=== PATIENT | male | born 1940 | race Caucasian/White ===

== ENCOUNTER → 2023-10-19 | Outpatient (CLI) | payer MEDICARE ==
[2023-10-19 13:16] LABS: African American GFR (CKD) 69 (>60 ml/min/1.73 sqM); Blood Urea Nitrogen 18 mg/dL (9-20); Non-African American GFR(CKD) 60 (>60 ml/min/1.73 sqM)
--- NOTE | 2023-10-24 14:18 | CT ---
EXAMINATION TYPE: CT chest w con DATE OF EXAM: 10/19/2023 COMPARISON: None HISTORY: Other forms of dyspnea CT DLP: 629 mGycm Automated exposure control for dose reduction was used. CONTRAST: CT scan of the chest is performed with IV Contrast, patient injected with 80 mL of Isovue 300. FINDINGS: LUNGS: The lungs are grossly clear, there is no concerning parenchymal mass or nodule identified. T here is no pleural effusion or pneumothorax seen. The tracheobronchial tree is patent. MEDIASTINUM: There are no greater than 1 cm hilar or mediastinal lymph nodes. No pericardial effusi on is seen. Thoracic aorta is of normal caliber. The heart is not enlarged. UPPER ABDOMEN: No significant abnormality appreciated. OTHER: No additional significant abnormality is seen. IMPRESSION: COPD changes
== END | disposition home or self-care (01) ==
LOC: RADCTMAIN 12:29
PROVIDERS: ATTEND Internal Medicine Critical Care Medicine
DX: I25.10 Atherosclerotic heart disease of native coronary artery without angina pectoris (principal); R06.09 Other forms of dyspnea
CPT/HCPCS: 82565; 84520; 71260; 36415; Q9967

== ENCOUNTER 2024-07-02 21:48 | Inpatient (IN) | payer MEDICARE ==
[2024-07-02 22:20] LABS: Basophils % (A) 0 %; Eosinophils % (A) 0 %; HCT 38.4 % (39.0-53.0); HGB 12.4 gm/dL (13.0-17.5); Lymphocytes # (A) 0.5 k/uL (1.0-4.8); Lymphocytes % (A) 10 %; MCH 30.2 pg (25.0-35.0); MCHC 32.4 g/dL (31.0-37.0); MCV 93.1 fL (80.0-100.0); Mean Platelet Volume 9.1; Monocytes # (A) 0.1 k/uL (0-1.0); Monocytes % (A) 2 %; Neutrophils # (A) 4.7 k/uL (1.3-7.7); Neutrophils % (A) 87 %; Platelet Count 189 k/uL (150-450); RBC 4.13 m/uL (4.30-5.90); RDW 13.1 % (11.5-15.5); WBC 5.4 k/uL (3.8-10.6)
[2024-07-02 22:38] LABS: ALT 26 U/L (4-49); African American GFR (CKD) 80 (>60 ml/min/1.73 sqM); Anion Gap 12 mmol/L; Blood Urea Nitrogen 27 mg/dL (9-20); Calcium 9.3 mg/dL (8.4-10.2); Carbon Dioxide 21 mmol/L (22-30); Chloride 102 mmol/L (98-107); Glucose 222 mg/dL (74-99); Non-African American GFR(CKD) 69 (>60 ml/min/1.73 sqM); Sodium 135 mmol/L (137-145); Total Bilirubin 0.9 mg/dL (0.2-1.3)
[2024-07-02 22:40] LABS: AST 46 U/L (17-59); Albumin 4.5 g/dL (3.5-5.0); Alkaline Phosphatase 51 U/L (38-126); Potassium 4.9 mmol/L (3.5-5.1); Total Protein 7.8 g/dL (6.3-8.2)
--- NOTE | 2024-07-03 01:36 | ED ---
Chest Pain HPI - General Chief Complaint: Chest Pain Stated Complaint: NSTEMI Time Seen by Provider: 07/02/24 21:55 Source: patient, EMS Mode of arrival: EMS Limitations: no limitations - History of Present Illness Initial Comments: 83-year-old male with past medical history of hypertension, hyperlipidemia, coronary disease with 1 stent who presents emergency department as a transfer from [facility]. Patient went in there complaining of chest pain. He had an elevated Trope. 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 Pain was located on the left side and into his left shoulder. Dull and started around 130 today. He does admit to shortness of breath however this has been going on for the past several months. Patient is not on any anticoagulation. No leg swelling. Patient's Trope was 97 at the outside facility which was high- sensitivity. Chest x-ray demonstrated no acute process. no other alleviating, precipitating or modifying factors - Related Data Home Medications Medication Instructions Recorded Confirmed Aspirin EC [Ecotrin Low Dose] 81 mg PO DAILY 07/03/24 07/03/24 Atorvastatin [Lipitor] 40 mg PO DAILY 07/03/24 07/03/24 Ezetimibe [Zetia] 10 mg PO DAILY 07/03/24 07/03/24 Finasteride [Proscar] 5 mg PO DAILY 07/03/24 07/03/24 Metoprolol Tartrate [Lopressor] 25 mg PO DAILY 07/03/24 07/03/24 Naproxen Sodium [Aleve] 440 mg PO BID PRN 07/03/24 07/03/24 lisinopriL [Zestril] 10 mg PO DAILY 07/03/24 07/03/24 Allergies Allergy/AdvReac Type Severity Reaction Status Date / Time No Known Allergies Allergy Verified 07/03/24 07:47 Review of Systems ROS Statement: Those systems with pertinent positive or pertinent negative responses have been documented in the HPI. ROS Other: All systems not noted in ROS Statement are negative. Past Medical History Past Medical History: Hyperlipidemia, Hypertension History of Any Multi-Drug Resistant Organisms: None Reported Past Surgical History: Heart Catheterization With Stent, Hernia Repair Additional Past Surgical History / Comment(s): heart stent x 1 Past Psychological History: No Psychological Hx Reported Smoking Status: Former smoker Past Alcohol Use History: Occasional Past Drug Use History: None Reported - Past Family History Mother Family Medical History: Cancer Additional Family Medical History / Comment(s): breast CA Father Family Medical History: CVA/TIA Brother(s) Family Medical History: Cancer, Myocardial Infarction ([place]) General Exam Limitations: no limitations General appearance: alert, in no apparent distress Head exam: Present: atraumatic, normocephalic, normal inspection Eye exam: Present: normal appearance, PERRL, EOMI. Absent: scleral icterus, conjunctival injection, periorbital swelling ENT exam: Present: normal exam, mucous membranes moist Neck exam: Present: normal inspection. Absent: tenderness, meningismus, lymphadenopathy Respiratory exam: Present: normal lung sounds bilaterally. Absent: respiratory distress, wheezes, rales, rhonchi, stridor Cardiovascular Exam: Present: regular rate, normal rhythm, normal heart sounds. Absent: systolic murmur, diastolic murmur, rubs, gallop, clicks GI/Abdominal exam: Present: soft, normal bowel sounds. Absent: distended, tenderness, guarding, rebound, rigid Extremities exam: Present: normal inspection, full ROM, normal capillary refill. Absent: tenderness, pedal edema, joint swelling, calf tenderness Back exam: Present: normal inspection Neurological exam: Present: alert, oriented X3, CN II-XII intact Psychiatric exam: Present: normal affect, normal mood Skin exam: Present: warm, dry, intact, normal color. Absent: rash Course Vital Signs 07/02/24 07/02/24 07/03/24 21:50 23:30 02:00 Temperature 98.8 F 98.5 F Pulse Rate 92 93 85 Respiratory 18 24 12 Rate Blood Pressure 173/85 156/87 154/90 O2 Sat by Pulse 99 98 98 Oximetry 07/03/24 07/03/24 07/03/24 04:00 06:00 07:34 Temperature 98.2 F Pulse Rate 75 73 73 Respiratory 17 19 18 Rate Blood Pressure 135/78 144/84 145/86 O2 Sat by Pulse 97 97 Oximetry 07/03/24 07/03/24 07/03/24 09:30 11:00 14:04 Temperature 97.6 F 98.6 F Pulse Rate 63 68 66 Respiratory 16 18 18 Rate Blood Pressure 142/76 140/83 133/72 O2 Sat by Pulse 99 98 99 Oximetry Chest Pain MDM - MDM Was pt. sent in by a medical professional or institution (, ISELA, HAND GRINDER, urgent care, hospital, or prison...) When possible be specific @ -Patient sent in from [facility] Did you speak to anyone other than the patient for history (EMS, parent, family, police, friend...)? What history was obtained from this source @ -I spoke with transferring physician from her [facility] Did you review nursing and triage notes (agree or disagree)? Why? @ -I reviewed and agree with nursing and triage notes Were old charts reviewed (outside hosp., previous admission, EMS record, old EKG, old radiological studies, urgent care reports/EKG's, prison records)? Report findings @ -I reviewed the packet including laboratory studies from other [facility] Differential Diagnosis (chest pain, altered mental status, abdominal pain women, abdominal pain men, vaginal bleeding, weakness, fever, dyspnea, syncope, headache, dizziness, GI bleed, back pain, seizure, CVA, palpatations, mental health, musculoskeletal)? @ -Differential Chest Pain: Stable Angina, Unstable Angina, STEMI, NSTEMI Aortic Dissection, Pneumothorax, Musculoskeletal, Esophageal Spasm GERD, Cholecystitis, Pancreatitis, Zoster, this is not meant to be an all-inclusive list. EKG interpreted by me (3pts min.). @ -Yes and demonstrates sinus rhythm with a rate of 97. AL interval 210. QRS 82. QTc of 373. No acute ST segment elevations. Inverted T wave in lead III X-rays interpreted by me (1pt min.). @ -None done CT interpreted by me (1pt min.). @ -None done U/S interpreted by me (1pt. min.). @ -None done What testing was considered but not performed or refused? (CT, X-rays, U/S, labs)? Why? @ -None What meds were considered but not given or refused? Why? @ -None Did you discuss the management of the patient with other professionals (professionals i.e. ISELA Burris, HAND GRINDER, lab, RT, psych nurse, social worker psychiatric, community specialist, teacher, security public safety officer, human services case manager)? Give summary @ -Paged Dr. Vann for admission - awaiting callback Was smoking cessation discussed for >3mins.? @ -No Was critical care preformed (if so, how long)? @ -Yes, 35 minutes for NSTEMI management Were there social determinants of health that impacted care today? How? (Homelessness, low income, unemployed, alcoholism, drug addiction, transportation, low edu. Level, literacy, decrease access to med. care, custodial, rehab)? @ -No Was there de-escalation of care discussed even if they declined (Discuss DNR or withdrawal of care, Hospice)? DNR status @ -No What co-morbidities impacted this encounter? (DM, HTN, Smoking, COPD, CAD, C ancer, CVA, ARF, Chemo, Hep., AIDS, mental health diagnosis, sleep apnea, morbid obesity)? @ -Coronary artery disease Was patient admitted / discharged? Hospital course, mention meds given and route, prescriptions, significant lab abnormalities, going to OR and other pertinent info. @ -Upon arrival patient seen and evaluated in room 5. Thorough history and physical exam was performed. I did review the patient's transfer packet. I did reorder the heparin on the patient. Troponin was completed and is elevated. Patient will be admitted. I did page Dr. Vann for admission and I am awaiti ng callback at this time Undiagnosed new problem with uncertain prognosis? @ -No Drug Therapy requiring intensive monitoring for toxicity (Heparin, Nitro, Insulin, Cardizem)? @ -Heparin Were any procedures done? @ -No Diagnosis/symptom? @ -Acute chest pain, NSTEMI Acute, or Chronic, or Acute on Chronic? @ -Acute Uncomplicated (without systemic symptoms) or Complicated (systemic symptoms)? @ -Complicated Side effects of treatment? @ -No Exacerbation, Progression, or Severe Exacerbation? @ -No Poses a threat to life or bodily function? How? (Chest pain, [place], [place], pneumonia, PE, COPD, DKA, ARF, appy, cholecystitis, CVA, Diverticulitis, Homicidal, Suicidal, threat to staff... and all critical care pts) @ -Yes as patient does have elevated troponins Disposition Clinical Impression: Chest pain, Acute non-ST elevation myocardial infarction (NSTEMI) Disposition[facility] Condition: Stable Is patient prescribed a controlled substance at d/c from ED?: No Time of Disposition: 01:40 Decision to Admit Reason: Admit from EC Decision Date: 07/03/24 Decision Time: 01:40
[2024-07-03] MEDS ORDERED: NALOXONE 0.4 MG/ML 1 ML VIAL IV PRN (01:40)
[2024-07-03] MEDS ORDERED: MORPHINE SULFATE 4 MG/ML SYRINGE IV PRN (01:40)
[2024-07-03] MEDS: HEPARIN SOD,PORK IN 0.45% NACL 25,000 UNIT in 0.45% NACL 1 250ML.BAG IV SCH (02:24)
[2024-07-03] MEDS ORDERED: ALPRAZolam 0.25 MG TAB PO PRN (07:52)
[2024-07-03] MEDS ORDERED: NITROGLYCERIN SL TABS 0.4 MG TAB SUBLINGUAL PRN (07:52)
[2024-07-03] MEDS: ASPIRIN 325 MG TAB PO STA (08:44)
[2024-07-03] MEDS: METOPROLOL TARTRATE 25 MG TAB PO SCH (08:44)
[2024-07-03] MEDS: EZETIMIBE 10 MG TAB PO SCH (08:44)
[2024-07-03] MEDS: lisinopriL 10 MG TAB PO SCH (08:45)
[2024-07-03] MEDS: ATORVASTATIN 80 MG TAB PO STA (08:47)
[2024-07-03] MEDS: SODIUM CHLORIDE 0.9% 1,000 ML IV SCH (08:51)
[2024-07-03] MEDS: HEPARIN SODIUM 1,000 UN/ML (10ML VL) IV PRN (09:29)
--- NOTE | 2024-07-03 10:24 | P.HPIM ---
History of Present Illness 83-year-old male with known history of coronary artery disease with stents long time ago came with complaints of chest pressure-like sensation. Patient was also having shortness of breath exertional for the several months. Patient had a troponins are elevated with hospital being 0.192, 0.607, 0.687. EKG showed some nonspecific ST-T wave changes patient is on IV heparin drip at this time I do not have any chest x-ray available. Patient not requiring any oxygen. REVIEW OF SYSTEMS: All other systems are negative except those mentioned in the HPI PHYSICAL EXAMINATION: GENERAL: The patient is alert and oriented x3, not in any acute distress. Well developed, well nourished. HEENT: Pupils are round and equally reacting to light. EOMI. No scleral icterus. No conjunctival pallor. Normocephalic, atraumatic. No pharyngeal erythema. No thyromegaly. CARDIOVASCULAR: S1 and S2 present. No murmurs, rubs, or gallops. PULMONARY: Chest is clear to auscultation, no wheezing or crackles. ABDOMEN: Soft, nontender, nondistended, normoactive bowel sounds. No palpable organomegaly. MUSCULOSKELETAL: No joint swelling or deformity. EXTREMITIES: No cyanosis, clubbing, or pedal edema. NEUROLOGICAL: Gross neurological examination did not reveal any focal deficits. SKIN: No rashes. Assessment and plan Possible type I non-ST elevation IL: Patient is on IV heparin drip, patient will undergo cardiac authorization today, continue with beta-rolando statin lisinopril -Hypertension -Plan prostatic hypertrophy -Hyperlipidemia For above-mentioned chronic medical problems patient was resumed on appropriate home medications DVT prophylaxis: On IV heparin at this time Past Medical History Past Medical History: Hyperlipidemia, Hypertension History of Any Multi-Drug Resistant Organisms: None Reported Past Surgical History: Heart Catheterization With Stent, Hernia Repair Additional Past Surgical History / Comment(s): heart stent x 1 Past Psychological History: No Psychological Hx Reported Smoking Status: Former smoker Past Alcohol Use History: Occasional Past Drug Use History: None Reported Medications and Allergies Home Medications Medication Instructions Recorded Confirmed Type Aspirin EC [Ecotrin Low Dose] 81 mg PO DAILY 07/03/24 07/03/24 History Atorvastatin [Lipitor] 40 mg PO DAILY 07/03/24 07/03/24 History Ezetimibe [Zetia] 10 mg PO DAILY 07/03/24 07/03/24 History Finasteride [Proscar] 5 mg PO DAILY 07/03/24 07/03/24 History Metoprolol Tartrate [Lopressor] 25 mg PO DAILY 07/03/24 07/03/24 History Naproxen Sodium [Aleve] 440 mg PO BID PRN 07/03/24 07/03/24 History lisinopriL [Zestril] 10 mg PO DAILY 07/03/24 07/03/24 History Allergies Allergy/AdvReac Type Severity Reaction Status Date / Time No Known Allergies Allergy Verified 07/03/24 07:47 Physical Exam Vitals: Vital Signs Temp Pulse Resp BP Pulse Ox 07/03/24 09:30 63 16 142/76 99 07/03/24 07:34 98.2 F 73 18 145/86 07/03/24 06:00 73 19 144/84 97 07/03/24 04:00 75 17 135/78 97 07/03/24 02:00 85 12 154/90 98 07/02/24 23:30 98.5 F 93 24 156/87 98 07/02/24 21:50 98.8 F 92 18 173/85 99 Intake and Output 07/02/24 07/03/24 07/03/24 22:59 06:59 14:59 Intake Total 71.333 Balance 71.333 Intake: Intake, IV Titration 71.333 Amount Heparin Sod,Pork in 0.45% 71.333 NaCl 25,000 unit In 0.45 % NaCl 1 250ml.bag @ 10. 65 UNITS/KG/HR 10 mls/hr IV .Q24H [facility] Rx#: [id number] Other: Weight 93.894 kg Results CBC & Chem 7: 07/02/24 21:57 07/02/24 21:57 Labs: Abnormal Lab Results - Last 24 Hours (Table) 07/02/24 07/02/24 07/02/24 Range/Units 21:57 21:57 21:57 RBC 4.13 L (4.30-5.90) m/uL Hgb 12.4 L (13.0-17.5) gm/dL Hct 38.4 L (39.0-53.0) % Lymphocytes # 0.5 L (1.0-4.8) k/uL APTT (22.0-30.0) sec Sodium 135 L (137-145) mmol/L Carbon Dioxide 21 L (22-30) mmol/L BUN 27 H (9-20) mg/dL Glucose 222 H (74-99) mg/dL Troponin I 0.192 H* (0.000-0.034) ng/mL 07/03/24 07/03/24 07/03/24 Range/Units 03:04 06:50 06:50 RBC (4.30-5.90) m/uL Hgb (13.0-17.5) gm/dL Hct (39.0-53.0) % Lymphocytes # (1.0-4.8) k/uL APTT 20.0 L (22.0-30.0) sec Sodium (137-145) mmol/L Carbon Dioxide (22-30) mmol/L BUN (9-20) mg/dL Glucose (74-99) mg/dL Troponin I 0.607 H* 0.687 H* (0.000-0.034) ng/mL
[2024-07-03] MEDS: FINASTERIDE 5 MG TAB PO SCH (11:21)
--- NOTE | 2024-07-03 12:01 | P.CRDCN ---
History of Present Illness Consult date: 07/03/24 Reason for Consult (text): Acute chest pain, NSTEMI History of present illness: This is an 83-year-old male patient of Dr. Ramirez with past medical history of CAD status post angioplasty of the right coronary artery, hypertension, dyslipidemia. We have been asked to evaluate the patient for chest pain and NSTEMI. Patient gives history that he developed chest pain in the left upper chest went into the left shoulder blade area and also down to the left arm. He states it last for a while. He thought it was related to getting sap from the t carol. He states that started yesterday in the early afternoon and then gradually went away but came back around 4 PM much more severe. Blood pressure 145/86, heart rate 73, pulse ox 97% on room air. Patient is seen today in the emergency center waiting for a bed on the cardiac stepdown unit. Dr. Peña reviewed results of the testing and recommendations for cardiac catheterization and patient is willing to move forward with this today. -EKG: Sinus rhythm with sinus arrhythmia -Laboratory studies: WBC 5.4, hemoglobin 12.4, BUN 27 creatinine 1.01 and potassium 4.9. Troponin 0.192, 0.60, 0.687. -Home cardiac medications: Aspirin 81 mg daily, atorvastatin 40 mg daily, Zetia 10 mg daily, lisinopril 10 mg daily, metoprolol tartrate 25 mg daily. -Echocardiogram performed in the office on 07/10/2023 revealed EF of 50%, grade 2 diastolic dysfunction, moderate concentric left ventricular hypertrophy. Aortic valve is thickened and calcified. Mild mitral regurgitation. Mild tricuspid regurgitation. PASP 20 mmHg. -Lexiscan Cardiolite stress test performed in the office 05/11/2022: Negative stress test by EKG criteria. Normal myocardial perfusion and function. -Cardiac catheterization performed in 2004 revealed minimal CAD. Previous PCI performed in 1997. Review Of Systems: At the time of my exam: CONSTITUTIONAL: Denies fever or chills. HEENT: Denies blurred vision, vision changes, or eye pain. Denies hemoptysis CARDIOVASCULAR: Denies chest pain. Denies orthopnea. Denies PND. Denies palpitations RESPIRATORY: Denies shortness of breath. GASTROINTESTINAL: Denies abdominal pain. Denies nausea or vomiting. HEMATOLOGIC: Denies bleeding disorders. GENITOURINARY: Denies any blood in urine. SKIN: Denies puritis. Denies rash. Physical examination: Gen: This is an 83-year-old male appears to be in no acute distress VS: reviewed HEENT: Head is atraumatic, normocephalic. Pupils equal, round. Sclerae is anicteric. NECK: Supple. No JVD. LUNGS: Clear to auscultation. No wheezes or rhonchi. No intercostal retractions. HEART: Regular rate and rhythm. No murmur. ABDOMEN: Soft No tenderness. EXTREMITIES: No pedal edema. No calf tenderness. NEUROLOGICAL: Patient is awake, alert and oriented x3. Assessment: NSTEMI History of coronary artery disease with previous angioplasty of the right coronary artery in 1997 Hypertension Dyslipidemia Plan: Resume patient's home cardiac medications Start patient on heparin drip Schedule patient for cardiac catheterization today with Dr. Mariana Yost. Obtain 2-D echocardiogram and Doppler study to assess cardiac structure and function Further recommendations to follow based upon clinical course Thank you kindly for this consultation. Nurse practitioner note has been reviewed, I agree with documented findings and plan of care. Patient was seen and examined. Past Medical History Past Medical History: Hyperlipidemia, Hypertension History of Any Multi-Drug Resistant Organisms: None Reported Past Surgical History: Heart Catheterization With Stent, Hernia Repair Additional Past Surgical History / Comment(s): heart stent x 1 Past Psychological History: No Psychological Hx Reported Smoking Status: Former smoker Past Alcohol Use History: Occasional Past Drug Use History: None Reported Medications and Allergies Home Medications Medication Instructions Recorded Confirmed Type Aspirin EC [Ecotrin Low Dose] 81 mg PO DAILY 07/03/24 07/03/24 History Atorvastatin [Lipitor] 40 mg PO DAILY 07/03/24 07/03/24 History Ezetimibe [Zetia] 10 mg PO DAILY 07/03/24 07/03/24 History Finasteride [Proscar] 5 mg PO DAILY 07/03/24 07/03/24 History Metoprolol Tartrate [Lopressor] 25 mg PO DAILY 07/03/24 07/03/24 History Naproxen Sodium [Aleve] 440 mg PO BID PRN 07/03/24 07/03/24 History lisinopriL [Zestril] 10 mg PO DAILY 07/03/24 07/03/24 History Allergies Allergy/AdvReac Type Severity Reaction Status Date / Time No Known Allergies Allergy Verified 07/03/24 07:47 Physical Exam Vitals: Vital Signs Temp Pulse Resp BP Pulse Ox 07/03/24 07:34 98.2 F 73 18 145/86 07/03/24 06:00 73 19 144/84 97 07/03/24 04:00 75 17 135/78 97 07/03/24 02:00 85 12 154/90 98 07/02/24 23:30 98.5 F 93 24 156/87 98 07/02/24 21:50 98.8 F 92 18 173/85 99 Intake and Output 07/02/24 07/03/24 07/03/24 22:59 06:59 14:59 Other: Weight 93.894 kg Results 07/02/24 21:57 07/02/24 21:57 Cardiac Enzymes 07/02/24 07/02/24 07/03/24 Range/Units 21:57 21:57 03:04 AST 46 (17-59) U/L Troponin I 0.192 H* 0.607 H* (0.000-0.034) ng/mL 07/03/24 Range/Units 06:50 AST (17-59) U/L Troponin I 0.687 H* (0.000-0.034) ng/mL Coagulation 07/02/24 07/03/24 Range/Units 21:57 06:50 APTT 25.9 20.0 L (22.0-30.0) sec CBC 07/02/24 Range/Units 21:57 WBC 5.4 (3.8-10.6) k/uL RBC 4.13 L (4.30-5.90) m/uL Hgb 12.4 L (13.0-17.5) gm/dL Hct 38.4 L (39.0-53.0) % Plt Count 189 (150-450) k/uL Comprehensive Metabolic Panel 07/02/24 Range/Units 21:57 Sodium 135 L (137-145) mmol/L Potassium 4.9 (3.5-5.1) mmol/L Chloride 102 (98-107) mmol/L Carbon Dioxide 21 L (22-30) mmol/L BUN 27 H (9-20) mg/dL Creatinine 1.01 (0.66-1.25) mg/dL Glucose 222 H (74-99) mg/dL Calcium 9.3 (8.4-10.2) mg/dL AST 46 (17-59) U/L ALT 26 (4-49) U/L Alkaline Phosphatase 51 (38-126) U/L Total Protein 7.8 (6.3-8.2) g/dL Albumin 4.5 (3.5-5.0) g/dL Current Medications Generic Name Dose Route Start Last Admin Trade Name Freq PRN Reason Stop Dose Admin Heparin Sodium (Porcine) 0 unit 07/03/24 01:34 Heparin Sodium 1,000 Un/Ml (10ml Vl) IV PER PROTOCOL PRN Low PTT Protocol Heparin Sodium/Sodium Chloride 250 mls @ 10 mls/hr 07/03/24 01:45 07/03/24 02:24 25,000 unit/ Sodium Chloride IV 10.65 units/kg/hr .Q24H JAE 10 mls/hr Administration Protocol 10.65 UNITS/KG/HR Morphine Sulfate 4 mg 07/03/24 01:40 Morphine Sulfate 4 Mg/Ml Syringe IV Q4HR PRN Severe Pain (Scale 7 to 10) Naloxone HCl 0.2 mg 07/03/24 01:40 Naloxone 0.4 Mg/Ml 1 Ml Vial IV Q2M PRN Opioid Reversal Intake and Output 07/02/24 07/03/24 07/03/24 22:59 06:59 14:59 Other: Weight 93.894 kg 07/02/24 21:57 07/02/24 21:57
[2024-07-03 14:00] LABS: Glucose,Whole Blood 117 mg/dL (70-110)
[2024-07-03] MEDS: IV FLUID CONTINUATION 1,000 ML IV ONE (14:14)
[2024-07-03] MEDS: LIDOCAINE 1% INJ 10MG/ML (20 ML MDV) SQ ONE (14:30)
[2024-07-03] MEDS: VERAPAMIL SYRINGE (5 MG/10 ML) INTRAARTER ONE (14:32)
[2024-07-03] MEDS: MIDAZOLAM 2 MG/2 ML VIAL IVP ONE (14:35)
[2024-07-03] MEDS: fentaNYL (PF) 50 MCG/ML 2 ML AMP IVP ONE (14:35)
[2024-07-03] MEDS: HEPARIN SODIUM,PORCINE (1 ML) 2,500 UNIT in SODIUM CHLORIDE 0.9% 250 ML IRRIGATION PRN (14:36)
[2024-07-03] MEDS: HEPARIN SODIUM,PORCINE 10,000 UNIT in SODIUM CHLORIDE 0.9% 1,000 ML IRRIGATION PRN (14:36)
[2024-07-03] MEDS: IOPAMIDOL-370 100ML BTL INJ ONE (14:42)
[2024-07-03] MEDS ORDERED: RX INFO: IV CONTRAST WAS GIVEN 1 EACH MISC MISCELLANE PRN (14:47)
--- NOTE | 2024-07-03 16:51 | P.GSCN ---
History of Present Illness Consult date: 07/03/24 Reason for Consult: Coronary artery disease, non-STEMI Requesting physician: Angeles Orellana History of present illness: This is an 83-year-old gentleman who follows outpatient with Dr. Garcia for internal medicine and Dr. Peña for cardiology. He has a previous medical history of coronary artery disease with previous PCI of the RCA in 1997, hypertension, hyperlipidemia, BPH, osteoarthritis, and previous tobacco d ependence. Apparently he has been experiencing intermittent episodes of chest pain radiating to his left arm for a couple of weeks. 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 He did take 3 sublingual nitro at home and family recommended he report to the emergency room for evaluation and treatment initially he started off at [facility], his troponins were found to be elevated and he was transferred to [facility] for evaluation. Lab work on admission revealed hemoglobin 12.4, creatinine 1.01, troponins were elevated at 0.192 increasing to 0.687. EKG demonstrated sinus rhythm with first-degree AV block and T wave inversions in leads III, aVF, V1 and V6. She was taken to the [facility] by Dr. Ramirez revealing triple-vessel coronary artery disease. Because of these findings consultation was placed to cardiothoracic surgery for surgical revascularization recommendations. 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 Past Anesthesia/Blood Transfusion Reactions: No Reported Reaction Date of Last Stent Placement:: 1997 stent placed Past Psychological History: No Psychological Hx Reported Smoking Status: Former smoker Past Alcohol Use History: Occasional Past Drug Use History: None Reported - Past Family History Mother Family Medical History: Cancer Additional Family Medical History / Comment(s): breast CA Father Family Medical History: CVA/TIA Brother(s) Family Medical History: Cancer, Myocardial Infarction ([place]) Medications and Allergies Home Medications Medication Instructions Recorded Confirmed Type Aspirin EC [Ecotrin Low Dose] 81 mg PO DAILY 07/03/24 07/03/24 History Atorvastatin [Lipitor] 40 mg PO DAILY 07/03/24 07/03/24 History Ezetimibe [Zetia] 10 mg PO DAILY 07/03/24 07/03/24 History Finasteride [Proscar] 5 mg PO DAILY 07/03/24 07/03/24 History Metoprolol Tartrate [Lopressor] 25 mg PO DAILY 07/03/24 07/03/24 History Naproxen Sodium [Aleve] 440 mg PO BID PRN 07/03/24 07/03/24 History lisinopriL [Zestril] 10 mg PO DAILY 07/03/24 07/03/24 History Allergies Allergy/AdvReac Type Severity Reaction Status Date / Time No Known Allergies Allergy Verified 07/03/24 07:47 Surgical - Exam Vital Signs Temp Pulse Resp BP Pulse Ox 98.8 F 92 18 173/85 99 07/02/24 21:50 07/02/24 21:50 07/02/24 21:50 07/02/24 21:50 07/02/24 21:50 CONSTITUTIONAL: Awake and alert, appears comfortable, cooperative, well- developed, well-nourished, no pain, no acute distress EYES: Pupils equal, round, reactive to light, normal ocular movement ENT: Moist mucous membranes without oral lesions present NECK: No masses, no bruits, trachea midline RESPIRATORY: Lungs sounds clear to auscultation bilaterally. Respirations even, nonlabored. Currently on room air with oxygen saturation 98%. Strong cough. No chest wall deformities. No clubbing or cyanosis present CARDIOVASCULAR: S1, S2 present. Regular rate and rhythm, sinus rhythm on telemetry. Palpable peripheral pulses bilaterally. No edema present. No calf pain or tenderness noted. No significant lower extremity varicosities noted. Left radial Phillip's test less than 8 seconds. GASTROINTESTINAL: Abdomen soft, nontender, nondistended without masses or organomegaly noted. There is no rebound or guarding present. Active bowel sounds present 4 quadrants. GENITOURINARY: Deferred INTEGUMENTARY: Skin is warm and dry with evidence of good perfusion. Right radial heart catheterization site with T band in place NEUROLOGIC: Cranial nerves II through XII intact, normal coordination, no obvious motor or sensory deficits, speech is normal MUSKULOSKELETAL: Able to move all extremities, strength equal bilaterally, normal posture PSYCHIATRIC: Alert and oriented to person place and time, appropriate affect, intact judgment and insight CLINICAL FRAILTY SCORE 3 Results - Labs 07/02/24 21:57 07/02/24 21:57 Abnormal Lab Results - Last 24 Hours (Table) 07/02/24 07/02/24 07/02/24 Range/Units 21:57 21:57 21:57 RBC 4.13 L (4.30-5.90) m/uL Hgb 12.4 L (13.0-17.5) gm/dL Hct 38.4 L (39.0-53.0) % Lymphocytes # 0.5 L (1.0-4.8) k/uL APTT (22.0-30.0) sec Sodium 135 L (137-145) mmol/L Carbon Dioxide 21 L (22-30) mmol/L BUN 27 H (9-20) mg/dL Glucose 222 H (74-99) mg/dL POC Glucose (mg/dL) (70-110) mg/dL Troponin I 0.192 H* (0.000-0.034) ng/mL 07/03/24 07/03/24 07/03/24 Range/Units 03:04 06:50 06:50 RBC (4.30-5.90) m/uL Hgb (13.0-17.5) gm/dL Hct (39.0-53.0) % Lymphocytes # (1.0-4.8) k/uL APTT 20.0 L (22.0-30.0) sec Sodium (137-145) mmol/L Carbon Dioxide (22-30) mmol/L BUN (9-20) mg/dL Glucose (74-99) mg/dL POC Glucose (mg/dL) (70-110) mg/dL Troponin I 0.607 H* 0.687 H* (0.000-0.034) ng/mL 07/03/24 Range/Units 13:58 RBC (4.30-5.90) m/uL Hgb (13.0-17.5) gm/dL Hct (39.0-53.0) % Lymphocytes # (1.0-4.8) k/uL APTT (22.0-30.0) sec Sodium (137-145) mmol/L Carbon Dioxide (22-30) mmol/L BUN (9-20) mg/dL Glucose (74-99) mg/dL POC Glucose (mg/dL) 117 H (70-110) mg/dL Troponin I (0.000-0.034) ng/mL Diabetes panel 07/02/24 Range/Units 21:57 Sodium 135 L (137-145) mmol/L Potassium 4.9 (3.5-5.1) mmol/L Chloride 102 (98-107) mmol/L Carbon Dioxide 21 L (22-30) mmol/L BUN 27 H (9-20) mg/dL Creatinine 1.01 (0.66-1.25) mg/dL Glucose 222 H (74-99) mg/dL Calcium 9.3 (8.4-10.2) mg/dL AST 46 (17-59) U/L ALT 26 (4-49) U/L Alkaline Phosphatase 51 (38-126) U/L Total Protein 7.8 (6.3-8.2) g/dL Albumin 4.5 (3.5-5.0) g/dL Calcium panel 07/02/24 Range/Units 21:57 Calcium 9.3 (8.4-10.2) mg/dL Albumin 4.5 (3.5-5.0) g/dL Pituitary panel 07/02/24 Range/Units 21:57 Sodium 135 L (137-145) mmol/L Potassium 4.9 (3.5-5.1) mmol/L Chloride 102 (98-107) mmol/L Carbon Dioxide 21 L (22-30) mmol/L BUN 27 H (9-20) mg/dL Creatinine 1.01 (0.66-1.25) mg/dL Glucose 222 H (74-99) mg/dL Calcium 9.3 (8.4-10.2) mg/dL Adrenal panel 07/02/24 Range/Units 21:57 Sodium 135 L (137-145) mmol/L Potassium 4.9 (3.5-5.1) mmol/L Chloride 102 (98-107) mmol/L Carbon Dioxide 21 L (22-30) mmol/L BUN 27 H (9-20) mg/dL Creatinine 1.01 (0.66-1.25) mg/dL Glucose 222 H (74-99) mg/dL Calcium 9.3 (8.4-10.2) mg/dL Total Bilirubin 0.9 (0.2-1.3) mg/dL AST 46 (17-59) U/L ALT 26 (4-49) U/L Alkaline Phosphatase 51 (38-126) U/L Total Protein 7.8 (6.3-8.2) g/dL Albumin 4.5 (3.5-5.0) g/dL - Imaging EKG: image reviewed Additional studies: Heart catheterization films reviewed with Dr. Miller Assessment and Plan Assessment: Triple-vessel coronary artery disease, non-STEMI this admission Chest pain secondary to above History of coronary artery disease with previous PCI of the RCA in 1997 Hypertension Hyperlipidemia BPH Osteoarthritis Previous tobacco dependence Plan: The patient was seen and examined with Dr. Miller in the Extended Stay unit sitting up on the cart in no acute distress. Family was present. Chart/diagnostics reviewed. The usual perioperative course of open-heart surgery was discussed with the patient, risks and benefits reviewed, all questions were answered. The patient is willing to consider open heart surgery. We will initiate preoperative testing, once completed we will calculate STS risk were discussed with the patient. Recommend continuing to maximize medical therapy with aspirin, statin, beta-rolando. IV heparin per cardiology. Will complete 5 m walk test when able. Medical management of other comorbidities per internal medicine, cardiology. More recommendations to follow. Thank you for this consult, we will continue to follow along and make further recommendations as appropriate. I have personally seen and examined the patient, performed the documentation and the assessment and plan as written. Number of minutes spent on the visit: 30. MANDO DrewC
--- NOTE | 2024-07-03 17:20 | US ---
EXAMINATION TYPE: US vein mapping BILAT DATE OF EXAM: 07/03/2024 5:05 PM COMPARISON: NONE CLINICAL INDICATION: Male, 83 years old with history of preop cardiac surgery; open heart, Preop- Car diac Surgery TECHNIQUE: Grayscale and color Doppler imaging of the lower extremity venous system. SIDE PERFORMED: bilateral FINDINGS: PATIENT HISTORY: Smoker: no Heart Disease: no Previous DVT: no Vascular Surgery: no Discoloration: no Hypertension: no Diabetes: no Paralysis: no Varicosities: no Edema: no DUPLEX FINDINGS: Greater Saphenous: Color flow seen Measurements in mm: Right Greater Saphenous: Groin: 5.2 x 3.9 mm High Thigh: 1.7 x 1.2 mm Mid Thigh: 2.7 x 2.3 mm Above Knee: 1.2 x 1.2 mm Knee: not visualized Below Knee: not visualized Mid Calf: not visualized At Ankle: 2.3 x 1.9 mm Left Greater Saphenous: Groin: 6.0 x 4.4 mm High Thigh: 2.6 x 1.5 mm Mid Thigh: 1.0 x 1.3 mm Above Knee: not visualized Knee: not visualized Below Knee: not visualized Mid Calf: 3.5 x 1.6 At Ankle: 2.7 x 1.8 mm Limited exam vessels dive deep unable to visualize at some areas of leg. IMPRESSION: 1. No evidence for occlusion. Suboptimal study. 2. GSV measurements listed above. 3. Performing surgeon to determine viability as conduit. [facility], , 07/03/2024 5:17 PM
--- NOTE | 2024-07-03 17:20 | US ---
EXAMINATION TYPE: Pre-Operative Non-Invasive Evaluation of the hand for Potential Radial Artery Helder farias, Measurements only DATE OF EXAM: 07/03/2024 5:05 PM CLINICAL INDICATION: Male, 83 years old with history of measurements only; open heart, Preop- Cardiac Surgery TECHNIQUE:Grayscale and color Doppler imaging of the radial artery(s) SIDE PERFORMED: Left FINDINGS: Dominant hand: Right Duplex Findings: Radial Artery: Color flow seen Measurements in mm, transverse view: Left Radial: Proximal: 2.5 x 2.2 mm Mid: 2.3 x 1.7 mm Distal: 2.0 x 2.2 mm IMPRESSION: 1. No evidence for vascular occlusion. 2. Measurements as described above. [facility], , 07/03/2024 5:18 PM
--- NOTE | 2024-07-03 17:21 | US ---
EXAMINATION TYPE: US carotid duplex BILAT DATE OF EXAM: 07/03/2024 COMPARISON: NONE CLINICAL INDICATION: Male, 83 years old with history of preop cardiac surgery; open heart Additional History: .... TECHNIQUE: Grayscale, color Doppler and spectral Doppler evaluation of the bilateral carotid systems and vertebral arteries. Indirect Doppler criteria was utilized. FINDINGS: EXAM MEASUREMENTS: RIGHT: Peak Systolic Velocity (PSV) cm/sec ----- Right CCA: 59.5 ----- Right ICA: 114.7 ----- Right ECA: 98.9 ICA/CCA ratio: 1.9 RIGHT: End Diastole cm/sec ----- Right CCA: 11.5 ----- Right ICA: 26 ----- Right ECA: 0 LEFT: Peak Systolic Velocity (PSV) cm/sec ----- Left CCA: 102.8 ----- Left ICA: 104.7 ----- Left ECA: 139.9 ICA/CCA ratio: 1.0 LEFT: End Diastole cm/sec ----- Left CCA: 16.1 ----- Left ICA: 22 ----- Left ECA: 0 VERTEBRALS (direction of flow): Right Vertebral: Antegrade Left Vertebral: Antegrade Rhythm: Normal SHANK INSPECTOR NOTES: No significant stenosis seen Color Doppler imaging shows patency with blood flow throughout the carotid artery. Spectral waveforms are within normal limits. IMPRESSION: Right: Less than 50% stenosis of the carotid bifurcation. Left: No hemodynamically significant stenosis. Criteria for Assigning % of Stenosis / Diameter reduction (Estimation based on the indirect measurements of the internal carotid artery velocities (ICA PSV). 1. Normal (no stenosis)=ICA PSV < 125 cm/s: ratio < 2.0: ICA EDV<40 cm/s. 2. Less than 50% stenosis=ICA PSV < 125 cm/s: ratio < 2.0: ICA EDV<40 cm/s. 3. 50 to 69% stenosis=ICA PSV of 125 to 230 cm/s: ration 2.0 ? 4.0: ICA EDV 40-100 cm/s. 4. Greater than 70% stenosis to near occlusion= ICA PSV > 230 cm/s: ratio > 4.0: ICA EDV > 100 cm/s. 5. Near occlusion= ICA PSV velocities may be low or undetectable: variable ratio and ICA EDV. 6. Total occlusion=unable to detect flow. [facility], , 07/03/2024 5:19 PM
[2024-07-03 18:11] LABS: Appearance,Urine Clear (Clear); Bilirubin,Urine Negative (Negative); Blood,Urine Negative (Negative); Color,Urine Yellow; Glucose,Urine (UA) Trace (Negative); Ketones,Urine Negative (Negative); Leukocyte Esterase,Urine Negative (Negative); Nitrite,Urine Negative (Negative); PH, Urine 5.5 (5.0-8.0); Protein,Urine Trace (Negative); Urobilinogen,Urine <2.0 mg/dL (<2.0)
--- NOTE | 2024-07-03 19:52 | CA ---
Transthoracic Echo Report Name: Michaela Murray Age: 83 Gender: M : 1940 Exam Date: 07/03/2024 16:59 Exam Location: [facility] Ht (in): 70 Wt (lb): 207 Ordering Physician: Annetta Reeys Attending/Referring Phys: [id number], Amy Stock Handler Floorperson Gissel Zapata RDCS Procedure CPT: Indications: eval LV function, valvular function for open heart Cardiac Hx: Technical Quality: Good Contrast 1: Total Dose (mL): Contrast 2: Total Dose (mL): MEASUREMENTS (Male / Female) Normal Values 2D ECHO LV Diastolic Diameter PLAX 5.1 cm 4.2 - 5.9 / 3.9 - 5.3 cm LV Systolic Diameter PLAX 4.1 cm IVS Diastolic Thickness 1.4 cm 0.6 - 1.0 / 0.6 - 0.9 cm LVPW Diastolic Thickness 1.2 cm 0.6 - 1.0 / 0.6 - 0.9 cm LV Relative Wall Thickness 0.5 RV Internal Dim ED PLAX 3.3 cm LA Systolic Diameter LX 4.0 cm 3.0 - 4.0 / 2.7 - 3.8 cm LV Diastolic Volume MOD BP 116.8 cm??? 67 - 155 / 56 - 104 cm??? LV Systolic Volume MOD BP 57.7 cm??? 22 - 58 / 19 - 49 cm??? LV Ejection Fraction MOD BP 50.5 % >= 55 % LV Cardiac Index MOD BP 1952.5 cm???/min???m??? LV Diastolic Volume MOD 4C 123.4 cm??? LV Systolic Volume MOD 4C 54.5 cm??? LV Ejection Fraction MOD 4C 55.8 % LV Cardiac Index MOD 4C 2279.8 cm???/min???m??? LV Diastolic Length 4C 7.6 cm LV Systolic Length 4C 6.5 cm LV Diastolic Volume MOD 2C 108.4 cm??? LV Systolic Volume MOD 2C 57.8 cm??? LV Ejection Fraction MOD 2C 46.7 % LV Cardiac Index MOD 2C 1673.9 cm???/min???m??? LV Diastolic Length 2C 7.3 cm LV Systolic Length 2C 7.0 cm LA Volume 77.2 cm??? 18 - 58 / 22 - 52 cm??? LA Volume Index 35.5 cm???/m??? 16 - 28 cm???/m??? M-MODE Aortic Root Diameter MM 3.4 cm DOPPLER AV Peak Velocity 158.3 cm/s AV Peak Gradient 10.0 mmHg MV Area PHT 2.8 cm??? MR Peak Velocity 354.4 cm/s MR Peak Gradient 50.2 mmHg Mitral E Point Velocity 93.1 cm/s Mitral A Point Velocity 75.1 cm/s Mitral E to A Ratio 1.2 MV Deceleration Time 268.4 ms TR Peak Velocity 218.3 cm/s TR Peak Gradient 19.1 mmHg Right Ventricular Systolic Press 24.1 mmHg FINDINGS Left Ventricle Left ventricular ejection fraction is estimated at 55-60 %. Moderate concentric left ventricular hypertrophy. Left ventricular cavity size normal. No obvious regional wall motion abnormalities. Right Ventricle Mild right ventricular dilatation. Right ventricular systolic pressure within normal limits. Right Atrium Normal right atrial size. No right atrial thrombus or mass seen. Left Atrium Moderately increased left atrial volume. Mildly increased left atrial area. No left atrial thrombus or mass present. Mitral Valve Structurally normal mitral valve. No evidence for mitral valve prolapse. No mitral stenosis. -moderate mitral regurgitation. Aortic Valve Trileaflet aortic valve. Thickened aortic valve without stenosis. Mild aortic regurgitation.aortic valve sclerosis. Tricuspid Valve Structurally normal tricuspid valve. Mild tricuspid regurgitation. Pulmonic Valve Structurally normal pulmonic valve. Trace to mild pulmonic regurgitation. Pericardium No pericardial effusion. Aorta Normal size aortic root and proximal ascending aorta. CONCLUSIONS 1. Normal left ventricular size and systolic function 2. Moderate mitral with mild aortic and tricuspid regurgitation Previewed by: Dr. Abel Booker MD (Electronically Signed) Final Date: 03 July 2024 19:51
[2024-07-03] MEDS: MUPIROCIN 2% OINT 22 GM TUBE NASAL SCH (20:05)
[2024-07-04 03:34] LABS: Hepatitis A Antibody IgM Nonreactive (Nonreactive); Hepatitis B Core IgM Nonreactive (Nonreactive); Hepatitis B Surface Antigen Nonreactive (Nonreactive); Hepatitis C IgG Antibody Nonreactive (Nonreactive)
[2024-07-04 03:56] LABS: Chol/HDL Ratio 2.76 Ratio; LDL Cholesterol,Calculated 75.7 mg/dL (0.0-131.0); VLDL Calculation 11.04 mg/dL (5.00-40.00)
[2024-07-04 07:14] LABS: Basophils % (A) 0 %; Eosinophils % (A) 0 %; HCT 39.1 % (39.0-53.0); HGB 12.1 gm/dL (13.0-17.5); Hypochromasia Slight; Lymphocytes # (A) 0.9 k/uL (1.0-4.8); Lymphocytes % (A) 7 %; MCH 29.7 pg (25.0-35.0); MCHC 30.8 g/dL (31.0-37.0); MCV 96.5 fL (80.0-100.0); Mean Platelet Volume 8.8; Monocytes # (A) 1.1 k/uL (0-1.0); Monocytes % (A) 8 %; Neutrophils # (A) 11.4 k/uL (1.3-7.7); Neutrophils % (A) 84 %; Platelet Count 167 k/uL (150-450); RBC 4.06 m/uL (4.30-5.90); RDW 12.8 % (11.5-15.5); WBC 13.6 k/uL (3.8-10.6)
[2024-07-04 07:23] LABS: INR 1.2 (<1.2); Partial Thromboplastin Time 92.5 sec (22.0-30.0); Prothrombin Time 13.3 sec (10.0-12.5)
[2024-07-04 07:40] LABS: African American GFR (CKD) 71 (>60 ml/min/1.73 sqM); Anion Gap 10 mmol/L; Blood Urea Nitrogen 34 mg/dL (9-20); Calcium 8.9 mg/dL (8.4-10.2); Carbon Dioxide 19 mmol/L (22-30); Chloride 108 mmol/L (98-107); Glucose 117 mg/dL (74-99); Non-African American GFR(CKD) 62 (>60 ml/min/1.73 sqM); Potassium 4.5 mmol/L (3.5-5.1); Sodium 137 mmol/L (137-145)
--- NOTE | 2024-07-04 08:08 | XR ---
EXAMINATION TYPE: XR chest 2V DATE OF EXAM: 07/04/2024 7:02 AM COMPARISON: None CLINICAL INDICATION: Male, 83 years old with history of preop cabg; [facility] TECHNIQUE: XR chest 2V Frontal and lateral views of the chest. FINDINGS: Lungs/Pleura: There is no evidence of pleural effusion, focal consolidation, or pneumothorax. Pulmonary vascularity: Pulmonary vascular congestion. Heart/mediastinum: Cardiomediastinal silhouette is unremarkable. Musculoskeletal: No acute osseous pathology. IMPRESSION: Mild pulmonary edema. [facility], , 07/04/2024 8:06 AM
[2024-07-04] MEDS: ATORVASTATIN 40 MG TAB PO SCH (09:33)
[2024-07-04] MEDS: ASPIRIN 81 MG PO SCH (09:33)
[2024-07-04] MEDS ORDERED: lisinopriL 10 MG TAB PO STA (10:23)
--- NOTE | 2024-07-04 11:04 | P.PN ---
Subjective Progress Note Date: 07/04/24 Principal diagnosis: Triple-vessel coronary artery disease, non-STEMI this admission. History of coronary artery disease with previous PCI of the RCA in 1997, hypertension, hyperlipidemia, BPH, osteoarthritis, previous tobacco dependence The patient was seen and examined sitting up in bed in no acute distress although does have a bit of conversational dyspnea this morning. The patient does admit to intermittent episodes of shortness of breath for the last several months at home. He was seen at the bedside yesterday with Dr. Miller and this morning with Dr. Whitfield. Will discussion took place regarding open heart surgery versus stenting for revascularization. Dr. Whitfield did discuss with the patient as well as Dr. Peña that the patient does not have good saphenous vein conduits, although left radial artery conduit and left internal mammary artery could be used. At this point the plan is for surgical myocardial revascularization with DECKER and left radial, no vein grafts, surgery timing and performing surgeon to be determined. The patient verbalized understanding. Currently he is chest pain-free. Remains on IV heparin. Objective - Vital Signs Vital signs: Vital Signs Temp 98.4 F 07/04/24 09:30 Pulse 80 07/04/24 09:30 Resp 20 07/04/24 09:30 BP 137/80 07/04/24 09:30 Pulse Ox 98 07/04/24 09:30 FiO2 Intake & Output 07/03/24 07/04/24 07/04/24 18:59 06:59 18:59 Intake Total 387.113 287.398 Balance 387.113 287.398 Weight 93.894 kg 92.3 kg Intake: IV 200 Intake, IV Titration 187.113 169.398 Amount Heparin Sod,Pork in 0.45% 187.113 169.398 NaCl 25,000 unit In 0.45 % NaCl 1 250ml.bag @ 10. 65 UNITS/KG/HR 10 mls/hr IV .Q24H [facility] Rx#: [id number] Oral 118 Other: Voiding Method Toilet Toilet Urinal Urinal # Voids 1 # Bowel Movements 1 - Exam CONSTITUTIONAL: Appears comfortable, cooperative, no acute distress RESPIRATORY: Lungs sounds diminished in the bases bilaterally. Respirations even, nonlabored. Currently on room air with oxygen saturation 97% CARDIOVASCULAR: S1, S2 present. Regular rate and rhythm, sinus rhythm on telemetry. Palpable peripheral pulses bilaterally. No edema present. No calf pain or tenderness noted GASTROINTESTINAL: Abdomen soft, nontender, nondistended. Active bowel sounds present 4 quadrants. Tolerating diet GENITOURINARY: Continues to void INTEGUMENTARY: Skin is warm and dry NEUROLOGIC: Cranial nerves II through XII intact MUSKULOSKELETAL: Able to move all extremities, strength equal bilaterally, gait normal PSYCHIATRIC: Alert and oriented to person place and time, appropriate affect, intact judgment and insight - Labs CBC & Chem 7: 07/04/24 06:45 07/04/24 06:45 Labs: Abnormal Lab Results - Last 24 Hours (Table) 07/03/24 07/03/24 07/04/24 Range/Units 13:58 16:09 00:59 WBC (3.8-10.6) k/uL RBC (4.30-5.90) m/uL Hgb (13.0-17.5) gm/dL MCHC (31.0-37.0) g/dL Neutrophils # (1.3-7.7) k/uL Lymphocytes # (1.0-4.8) k/uL Monocytes # (0-1.0) k/uL PT (10.0-12.5) sec INR (<1.2) APTT 59.2 H (22.0-30.0) sec Chloride (98-107) mmol/L Carbon Dioxide (22-30) mmol/L BUN (9-20) mg/dL Glucose (74-99) mg/dL POC Glucose (mg/dL) 117 H (70-110) mg/dL Ur Specific [place] 1.040 H (1.001-1.035) Urine Protein Trace H (Negative) Urine Glucose (UA) Trace H (Negative) 07/04/24 07/04/24 07/04/24 Range/Units 06:45 06:45 06:45 WBC 13.6 H (3.8-10.6) k/uL RBC 4.06 L (4.30-5.90) m/uL Hgb 12.1 L (13.0-17.5) gm/dL MCHC 30.8 L (31.0-37.0) g/dL Neutrophils # 11.4 H (1.3-7.7) k/uL Lymphocytes # 0.9 L (1.0-4.8) k/uL Monocytes # 1.1 H (0-1.0) k/uL PT 13.3 H (10.0-12.5) sec INR 1.2 H (<1.2) APTT 92.5 H (22.0-30.0) sec Chloride 108 H (98-107) mmol/L Carbon Dioxide 19 L (22-30) mmol/L BUN 34 H (9-20) mg/dL Glucose 117 H (74-99) mg/dL POC Glucose (mg/dL) (70-110) mg/dL Ur Specific [place] (1.001-1.035) Urine Protein (Negative) Urine Glucose (UA) (Negative) - Imaging and Cardiology Chest x-ray: report reviewed, image reviewed All studies reviewed with Dr. Miller and Dr. Whitfield Assessment and Plan Assessment: Triple-vessel coronary artery disease, non-STEMI this admission Moderate mitral regurgitation on TTE Chest pain, shortness of breath secondary to above History of coronary artery disease with previous PCI of the RCA in 1997 Hypertension Hyperlipidemia, treated, cholesterol 136, LDL 75 BPH, remains on Proscar Osteoarthritis Previous tobacco dependence, preoperative FEV1 76% of predicted Plan: Continue to maximize medical therapy with aspirin, statin, beta-rolando. IV heparin per cardiology Increase activity as tolerated. 5 m walk test performed by cardiac rehab, #1 4.36 sec, #2 4.35 sec, #3 4.28 sec, patient tolerated well STS risk calculated at 2%, considered low risk Our plan will be for myocardial revascularization with left internal mammary artery, left radial artery, ligation of the left atrial appendage, timing and surgeon to be determined Medical management of other comorbidities per internal medicine, cardiology More recommendations to follow
[2024-07-04] MEDS: lisinopriL 10 MG TAB PO STA ×2 (12:21→23:47)
--- NOTE | 2024-07-04 14:20 | P.PN ---
Subjective Progress Note Date: 07/04/24 Reason for Consult (text): Acute chest pain, NSTEMI History of present illness: This is an 83-year-old male patient of Dr. Ramirez with past medical history of CAD status post angioplasty of the right coronary artery, hypertension, dyslipidemia. We have been asked to evaluate the patient for chest pain and NSTEMI. Patient gives history that he developed chest pain in the left upper chest went into the left shoulder blade area and also down to the left arm. He states it last for a while. He thought it was related to getting sap from the trees. He states that started yesterday in the early afternoon and then gradually went away but came back around 4 PM much more severe. Blood pressure 145/86, heart rate 73, pulse ox 97% on room air. Patient is seen today in the emergency center waiting for a bed on the cardiac stepdown unit. Dr. Peña revi ewed results of the testing and recommendations for cardiac catheterization and patient is willing to move forward with this today. -EKG: Sinus rhythm with sinus arrhythmia -Laboratory studies: WBC 5.4, hemoglobin 12.4, BUN 27 creatinine 1.01 and potassium 4.9. Troponin 0.192, 0.60, 0.687. -Home cardiac medications: Aspirin 81 mg daily, atorvastatin 40 mg daily, Zetia 10 mg daily, lisinopril 10 mg daily, metoprolol tartrate 25 mg daily. -Echocardiogram performed in the office on 07/10/2023 revealed EF of 50%, grade 2 diastolic dysfunction, moderate concentric left ventricular hypertrophy. Aortic valve is thickened and calcified. Mild mitral regurgitation. Mild tricuspid regurgitation. PASP 20 mmHg. -Lexiscan Cardiolite stress test performed in the office 05/11/2022: Negative stress test by EKG criteria. Normal myocardial perfusion and function. -Cardiac catheterization performed in 2004 revealed minimal CAD. Previous PCI performed in 1997. 07/04 Patient seen and examined on the cardiac stepdown unit. Yesterday, patient underwent cardiac catheterization with Dr. Peña found to have triple-vessel coronary artery disease and a consult was placed with cardiothoracic surgery. Surgical options were discussed with the patient and scheduling of CABG to be determined. Patient denies any chest pain at this time. Blood pressure 137/80, heart rate 80, pulse ox 98% on room air. Repeat blood work reveals WBC 13.6, hemoglobin 12.1, INR 1.2, BUN 34 creatinine 1.11. Patient has been continued on heparin drip Echocardiogram reveals EF of 55 to 60%, moderate mitral with mild aortic and tricuspid regurgitation. Physical examination: Gen: This is an 83-year-old male appears to be in no acute distress VS: reviewed HEENT: Head is atraumatic, normocephalic. Pupils equal, round. Sclerae is anicteric. NECK: Supple. No JVD. LUNGS: Clear to auscultation. No wheezes or rhonchi. No intercostal retractions. HEART: Regular rate and rhythm. No murmur. ABDOMEN: Soft No tenderness. EXTREMITIES: No pedal edema. No calf tenderness. NEUROLOGICAL: Patient is awake, alert and oriented x3. Assessment: NSTEMI with triple-vessel disease History of coronary artery disease with previous angioplasty of the right coronary artery in 1997 Hypertension Dyslipidemia Plan: Continue current cardiac medications: Aspirin 81 mg daily, atorvastatin 40 mg, Zetia 10 mg, Lopressor 25 mg twice daily Increase lisinopril to 20 mg daily Continue heparin drip Cardiothoracic surgery consult appreciated, CABG to be scheduled Further recommendations to follow based upon clinical course Nurse practitioner note has been reviewed, I agree with documented findings and plan of care. Patient was seen and examined. Objective - Vital Signs Vital signs: Vital Signs Temp 98.2 F 07/03/24 19:45 Pulse 86 07/04/24 03:15 Resp 20 07/04/24 03:15 BP 175/81 07/04/24 03:15 Pulse Ox 97 07/04/24 03:15 FiO2 Intake & Output 07/03/24 07/04/24 07/04/24 18:59 06:59 18:59 Intake Total 387.113 287.398 Balance 387.113 287.398 Weight 93.894 kg 92.3 kg Intake: IV 200 Intake, IV Titration 187.113 169.398 Amount Heparin Sod,Pork in 0.45% 187.113 169.398 NaCl 25,000 unit In 0.45 % NaCl 1 250ml.bag @ 10. 65 UNITS/KG/HR 10 mls/hr IV .Q24H [facility] Rx#: [id number] Oral 118 Other: Voiding Method Toilet Urinal # Voids 1 # Bowel Movements 1 - Labs CBC & Chem 7: 07/04/24 06:45 07/04/24 06:45 Labs: Abnormal Lab Results - Last 24 Hours (Table) 07/03/24 07/03/24 07/04/24 Range/Units 13:58 16:09 00:59 WBC (3.8-10.6) k/uL RBC (4.30-5.90) m/uL Hgb (13.0-17.5) gm/dL MCHC (31.0-37.0) g/dL Neutrophils # (1.3-7.7) k/uL Lymphocytes # (1.0-4.8) k/uL Monocytes # (0-1.0) k/uL PT (10.0-12.5) sec INR (<1.2) APTT 59.2 H (22.0-30.0) sec Chloride (98-107) mmol/L Carbon Dioxide (22-30) mmol/L BUN (9-20) mg/dL Glucose (74-99) mg/dL POC Glucose (mg/dL) 117 H (70-110) mg/dL Ur Specific [place] 1.040 H (1.001-1.035) Urine Protein Trace H (Negative) Urine Glucose (UA) Trace H (Negative) 07/04/24 07/04/24 07/04/24 Range/Units 06:45 06:45 06:45 WBC 13.6 H (3.8-10.6) k/uL RBC 4.06 L (4.30-5.90) m/uL Hgb 12.1 L (13.0-17.5) gm/dL MCHC 30.8 L (31.0-37.0) g/dL Neutrophils # 11.4 H (1.3-7.7) k/uL Lymphocytes # 0.9 L (1.0-4.8) k/uL Monocytes # 1.1 H (0-1.0) k/uL PT 13.3 H (10.0-12.5) sec INR 1.2 H (<1.2) APTT 92.5 H (22.0-30.0) sec Chloride 108 H (98-107) mmol/L Carbon Dioxide 19 L (22-30) mmol/L BUN 34 H (9-20) mg/dL Glucose 117 H (74-99) mg/dL POC Glucose (mg/dL) (70-110) mg/dL Ur Specific [place] (1.001-1.035) Urine Protein (Negative) Urine Glucose (UA) (Negative)
--- NOTE | 2024-07-04 15:02 | P.PN ---
Subjective Progress Note Date: 07/04/24 83-year-old male with known history of coronary artery disease with stents long time ago came with complaints of chest pressure-like sensation. Patient was also having shortness of breath exertional for the several months. Patient had a troponins are elevated with hospital being 0.192, 0.607, 0.687. EKG showed some nonspecific ST-T wave changes patient is on IV heparin drip at this time I do not have any chest x-ray available. Patient not requiring any oxygen. 07/04/2024 Patient is evaluated today in follow up resting in bed family at the bedside. Underwent cardiac catheterization with findings of triple vessel disease. Cardiothoracic consulted and patient undergoing work up and consultation for possible CABG. echocardiogram reveals an EF of 55 to 60% with moderate mitral with mild aortic and tricuspid regurgitation. Patient remains on IV heparin. States that he did have an episode of chest discomfort overnight and EKG completed but currently the chest pain is gone and he felt this could have been due to indigestion. Labs today reveal a white blood cell count of 13.6, sodium of 137, potassium 4.5, BUN of 34 creatinine of 1.11. Chest x-ray this morning reveals mild pulmonary edema. Review of Systems Constitutional: Denied any fatigue denied any fever. Cardio vascular: denied any chest pain, palpitations Gastrointestinal: denied any nausea, vomiting, diarrhea Pulmonary: Denied any shortness of breath cough Neurologic denied any new focal deficits All inpatient medications were reviewed and appropriate changes in these medications as dictated in the interval history and assessment and plan. PHYSICAL EXAMINATION: GENERAL: The patient is alert and oriented x3, not in any acute distress. Well developed, well nourished. HEENT: Pupils are round and equally reacting to light. EOMI. No scleral icterus. No conjunctival pallor. Normocephalic, atraumatic. No pharyngeal erythema. No thyromegaly. CARDIOVASCULAR: S1 and S2 present. No murmurs, rubs, or gallops. PULMONARY: Chest is clear to auscultation, no wheezing or crackles. ABDOMEN: Soft, nontender, nondistended, normoactive bowel sounds. No palpable organomegaly. MUSCULOSKELETAL: No joint swelling or deformity. EXTREMITIES: No cyanosis, clubbing, or pedal edema. NEUROLOGICAL: Gross neurological examination did not reveal any focal deficits. SKIN: No rashes. Assessment and plan -non-ST elevation PR: Patient is on IV heparin drip -Patient is being worked up for CABG -continue with beta-rolando statin lisinopril -Hypertension -BPH -Hyperlipidemia For above-mentioned chronic medical problems patient was resumed on appropriate home medications DVT prophylaxis: On IV heparin at this time The impression and plan of care has been dictated by Mary Downing, Nurse Practitioner as directed. Dr. Janay MD I have performed a history and physical examination and medical decision making of this patient, discussed the same with the dictator, and agree with the dictators assessment and plan as written, documented as a scribe. Based on total visit time, I have performed more than 50% of this visit. Objective - Vital Signs Vital signs: Vital Signs Temp 98.4 F 07/04/24 09:30 Pulse 80 07/04/24 09:30 Resp 20 07/04/24 09:30 BP 137/80 07/04/24 09:30 Pulse Ox 98 07/04/24 09:30 FiO2 Intake & Output 07/03/24 07/04/24 07/04/24 18:59 06:59 18:59 Intake Total 387.113 287.398 Balance 387.113 287.398 Weight 93.894 kg 92.3 kg Intake: IV 200 Intake, IV Titration 187.113 169.398 Amount Heparin Sod,Pork in 0.45% 187.113 169.398 NaCl 25,000 unit In 0.45 % NaCl 1 250ml.bag @ 10. 65 UNITS/KG/HR 10 mls/hr IV .Q24H [facility] Rx#: [id number] Oral 118 Other: Voiding Method Toilet Toilet Urinal Urinal # Voids 1 # Bowel Movements 1 - Labs CBC & Chem 7: 07/04/24 06:45 07/04/24 06:45 Labs: Abnormal Lab Results - Last 24 Hours (Table) 07/03/24 07/04/24 07/04/24 Range/Units 16:09 00:59 06:45 WBC (3.8-10.6) k/uL RBC (4.30-5.90) m/uL Hgb (13.0-17.5) gm/dL MCHC (31.0-37.0) g/dL Neutrophils # (1.3-7.7) k/uL Lymphocytes # (1.0-4.8) k/uL Monocytes # (0-1.0) k/uL PT (10.0-12.5) sec INR (<1.2) APTT 59.2 H (22.0-30.0) sec Chloride 108 H (98-107) mmol/L Carbon Dioxide 19 L (22-30) mmol/L BUN 34 H (9-20) mg/dL Glucose 117 H (74-99) mg/dL Ur Specific [place] 1.040 H (1.001-1.035) Urine Protein Trace H (Negative) Urine Glucose (UA) Trace H (Negative) 07/04/24 07/04/24 Range/Units 06:45 06:45 WBC 13.6 H (3.8-10.6) k/uL RBC 4.06 L (4.30-5.90) m/uL Hgb 12.1 L (13.0-17.5) gm/dL MCHC 30.8 L (31.0-37.0) g/dL Neutrophils # 11.4 H (1.3-7.7) k/uL Lymphocytes # 0.9 L (1.0-4.8) k/uL Monocytes # 1.1 H (0-1.0) k/uL PT 13.3 H (10.0-12.5) sec INR 1.2 H (<1.2) APTT 92.5 H (22.0-30.0) sec Chloride (98-107) mmol/L Carbon Dioxide (22-30) mmol/L BUN (9-20) mg/dL Glucose (74-99) mg/dL Ur Specific [place] (1.001-1.035) Urine Protein (Negative) Urine Glucose (UA) (Negative) Assessment and Plan Time with Patient: Less than 30
[2024-07-04] MEDS: METOPROLOL TARTRATE 25 MG TAB PO SCH (20:52)
--- NOTE | 2024-07-04 23:38 | CC ---
CARDIAC CATHETERIZATION REPORT INDICATION: Non ST-segment elevation MA. PROCEDURE NOTE: After obtaining informed consent, left heart catheterization and coronary angiogram were performed via the right radial artery using standard Leana catheters. The patient tolerated the procedure well without any obvious immediate complications. Total sedation time was 20 minutes. Right radial artery access was obtained using Seldinger technique, 6-[place] sheath was placed. Catheters and wires were floated into the ascending aorta under fluoroscopic guidance. The patient received verapamil and heparin per protocol. FINDINGS: 1. Hemodynamics: Central aortic pressure is 120/70 mm. 2. Left ventriculogram: Left ventriculogram has not been performed. 3. Angiographic data: a.Right coronary artery: Right coronary artery is a large dominant vessel that shows a 70% to 80% stenosis proximally. Distal left main shows a 40% stenosis, heavily calcified, divides into left anterior descending coronary artery and circumflex coronary artery. Proximal LAD shows a 90% stenosis as does the proximal circumflex coronary artery. CONCLUSION: Severe three-vessel coronary artery disease. PLAN: I am going to consult CT Surgery for surgical revascularization. MMODL / IJN: [id number] /
[2024-07-05 08:24] LABS: Basophils % (A) 0 %; Eosinophils # (A) 0.1 k/uL (0-0.7); Eosinophils % (A) 1 %; HCT 39.9 % (39.0-53.0); HGB 12.7 gm/dL (13.0-17.5); Lymphocytes # (A) 1.7 k/uL (1.0-4.8); Lymphocytes % (A) 15 %; MCH 29.6 pg (25.0-35.0); MCHC 31.9 g/dL (31.0-37.0); MCV 93.1 fL (80.0-100.0); Mean Platelet Volume 9.3; Monocytes % (A) 9 %; Neutrophils # (A) 8.1 k/uL (1.3-7.7); Neutrophils % (A) 74 %; Platelet Count 171 k/uL (150-450); RBC 4.28 m/uL (4.30-5.90); RDW 13.3 % (11.5-15.5)
[2024-07-05 08:55] LABS: Anion Gap 9 mmol/L; Blood Urea Nitrogen 27 mg/dL (9-20); Carbon Dioxide 23 mmol/L (22-30); Chloride 104 mmol/L (98-107); Glucose 100 mg/dL (74-99); Sodium 136 mmol/L (137-145)
[2024-07-05 08:56] LABS: African American GFR (CKD) 74 (>60 ml/min/1.73 sqM); Calcium 8.8 mg/dL (8.4-10.2); Non-African American GFR(CKD) 64 (>60 ml/min/1.73 sqM)
--- NOTE | 2024-07-05 09:39 | P.PN ---
Subjective Progress Note Date: 07/05/24 Principal diagnosis: Triple-vessel coronary artery disease, non-STEMI this admission. History of coronary artery disease with previous PCI of the RCA in 1997, hypertension, hyperlipidemia, BPH, osteoarthritis, previous tobacco dependence The patient was seen and examined sitting up in bed in no acute distress on the cardiac stepdown unit, family present. Discussed with patient and family that the plan is for surgical myocardial revascularization with DECKER and left radial, no vein grafts planned for Sunday with Dr. Whitfield. The patient verbalized understanding. Currently he is chest pain-free. Remains on IV heparin. No other new concerns. Objective - Vital Signs Vital signs: Vital Signs Temp 98.6 F 07/04/24 20:45 Pulse 64 07/05/24 03:15 Resp 18 07/05/24 03:15 BP 159/79 07/05/24 03:15 Pulse Ox 96 07/05/24 03:15 FiO2 Intake & Output 07/04/24 07/05/24 07/05/24 18:59 06:59 18:59 Intake Total 357.898 Output Total 500 Balance 357.898 -500 Weight 92.5 kg Intake: Intake, IV Titration 239.898 Amount Heparin Sod,Pork in 0.45% 239.898 NaCl 25,000 unit In 0.45 % NaCl 1 250ml.bag @ 10. 65 UNITS/KG/HR 10 mls/hr IV .Q24H [facility] Rx#: [id number] Oral 118 Output: Urine 500 Other: Voiding Method Toilet Toilet Urinal Urinal # Voids 2 # Bowel Movements 1 - Exam CONSTITUTIONAL: Appears comfortable, cooperative, no acute distress RESPIRATORY: Lungs sounds diminished in the bases bilaterally. Respirations even, nonlabored. Currently on room air with oxygen saturation 96% CARDIOVASCULAR: S1, S2 present. Regular rate and rhythm, sinus rhythm on telemetry. Palpable peripheral pulses bilaterally. No edema present. No calf pain or tenderness noted GASTROINTESTINAL: Abdomen soft, nontender, nondistended. Active bowel sounds present 4 quadrants. Tolerating diet GENITOURINARY: Continues to void INTEGUMENTARY: Skin is warm and dry NEUROLOGIC: Cranial nerves II through XII intact MUSKULOSKELETAL: Able to move all extremities, strength equal bilaterally, gait normal PSYCHIATRIC: Alert and oriented to person place and time, appropriate affect, intact judgment and insight - Allied health notes Allied health notes reviewed: nursing - Labs CBC & Chem 7: 07/05/24 07:56 07/05/24 07:56 Labs: Abnormal Lab Results - Last 24 Hours (Table) 07/04/24 07/05/24 07/05/24 Range/Units 15:04 07:56 07:56 WBC 11.0 H (3.8-10.6) k/uL RBC 4.28 L (4.30-5.90) m/uL Hgb 12.7 L (13.0-17.5) gm/dL Neutrophils # 8.1 H (1.3-7.7) k/uL APTT 60.3 H (22.0-30.0) sec Sodium 136 L (137-145) mmol/L BUN 27 H (9-20) mg/dL Glucose 100 H (74-99) mg/dL 07/05/24 Range/Units 07:56 WBC (3.8-10.6) k/uL RBC (4.30-5.90) m/uL Hgb (13.0-17.5) gm/dL Neutrophils # (1.3-7.7) k/uL APTT 53.3 H (22.0-30.0) sec Sodium (137-145) mmol/L BUN (9-20) mg/dL Glucose (74-99) mg/dL Microbiology - Last 24 Hours (Table) 07/03/24 16:37 Nasal Screen MRSA/MSSA - Final Nasal Swab Assessment and Plan Assessment: Triple-vessel coronary artery disease, non-STEMI this admission Moderate mitral regurgitation on TTE Chest pain, shortness of breath secondary to above History of coronary artery disease with previous PCI of the RCA in 1997 Hypertension Hyperlipidemia, treated, cholesterol 136, LDL 75 BPH, remains on Proscar Osteoarthritis Previous tobacco dependence, preoperative FEV1 76% of predicted Plan: Continue to maximize medical therapy with aspirin, statin, beta-rolando. IV heparin per cardiology recommend discontinuing today as no benefit after 48 hours Would like YRN inhibitor discontinued 48 hours prior to surgery to prevent intra and postoperative vasoplegia, may utilize hydralazine Increase activity as tolerated. Our plan will be for myocardial revascularization with left internal mammary ar vania, left radial artery, ligation of the left atrial appendage on Sunday07/09/[address] Whitfield Continue to reinforce preoperative teaching Medical management of other comorbidities per internal medicine, cardiology More recommendations to follow
[2024-07-05] MEDS: lisinopriL 20 MG TAB PO SCH (09:43)
--- NOTE | 2024-07-05 11:53 | P.PN ---
Subjective Progress Note Date: 07/05/24 Reason for Consult (text): Acute chest pain, NSTEMI History of present illness: This is an 83-year-old male patient of Dr. Ramirez with past medical history of CAD status post angioplasty of the right coronary artery, hypertension, dyslipidemia. We have been asked to evaluate the patient for chest pain and NSTEMI. Patient gives history that he developed chest pain in the left upper chest went into the left shoulder blade area and also down to the left arm. He states it last for a while. He thought it was related to getting sap from the trees. He states that started yesterday in the early afternoon and then gradually went away but came back around 4 PM much more severe. Blood pressure 145/86, heart rate 73, pulse ox 97% on room air. Patient is seen today in the emergency center waiting for a bed on the cardiac stepdown unit. Dr. Peña revi ewed results of the testing and recommendations for cardiac catheterization and patient is willing to move forward with this today. -EKG: Sinus rhythm with sinus arrhythmia -Laboratory studies: WBC 5.4, hemoglobin 12.4, BUN 27 creatinine 1.01 and potassium 4.9. Troponin 0.192, 0.60, 0.687. -Home cardiac medications: Aspirin 81 mg daily, atorvastatin 40 mg daily, Zetia 10 mg daily, lisinopril 10 mg daily, metoprolol tartrate 25 mg daily. -Echocardiogram performed in the office on 07/10/2023 revealed EF of 50%, grade 2 diastolic dysfunction, moderate concentric left ventricular hypertrophy. Aortic valve is thickened and calcified. Mild mitral regurgitation. Mild tricuspid regurgitation. PASP 20 mmHg. -Lexiscan Cardiolite stress test performed in the office 05/11/2022: Negative stress test by EKG criteria. Normal myocardial perfusion and function. -Cardiac catheterization performed in 2004 revealed minimal CAD. Previous PCI performed in 1997. 07/04 Patient seen and examined on the cardiac stepdown unit. Yesterday, patient underwent cardiac catheterization with Dr. Peña found to have triple-vessel coronary artery disease and a consult was placed with cardiothoracic surgery. Surgical options were discussed with the patient and scheduling of CABG to be determined. Patient denies any chest pain at this time. Blood pressure 137/80, heart rate 80, pulse ox 98% on room air. Repeat blood work reveals WBC 13.6, hemoglobin 12.1, INR 1.2, BUN 34 creatinine 1.11. Patient has been continued on heparin drip Echocardiogram reveals EF of 55 to 60%, moderate mitral with mild aortic and tricuspid regurgitation. 07/05 Patient seen and examined. Patient was up for shower this morning and does get dyspneic with activity. He denies chest pain or chest pressure. Blood pressure 121/62, heart rate 59, pulse ox 97% on room air. Repeat blood work reveals hemoglobin 12.7, WBC 11, BUN 27 creatinine 1.08. Patient is continued on heparin drip. Physical examination: Gen: This is an 83-year-old male appears to be in no acute distress VS: reviewed HEENT: Head is atraumatic, normocephalic. Pupils equal, round. Sclerae is anicteric. NECK: Supple. No JVD. LUNGS: Clear to auscultation. No wheezes or rhonchi. No intercostal retractions. HEART: Regular rate and rhythm. No murmur. ABDOMEN: Soft No tenderness. EXTREMITIES: No pedal edema. No calf tenderness. NEUROLOGICAL: Patient is awake, alert and oriented x3. Assessment: NSTEMI with triple-vessel disease History of coronary artery disease with previous angioplasty of the right coronary artery in 1997 Hypertension Dyslipidemia Plan: Continue current cardiac medications: Aspirin 81 mg daily, atorvastatin 40 mg, Zetia 10 mg, Lopressor 25 mg twice daily Continue lisinopril 20 mg daily if okay with cardiothoracic surgery Continue heparin drip Cardiothoracic surgery consult appreciated, CABG scheduled Sunday Further recommendations to follow based upon clinical course Nurse practitioner note has been reviewed, I agree with documented findings and plan of care. Patient was seen and examined. Objective - Vital Signs Vital signs: Vital Signs Temp 98.1 F 07/05/24 09:40 Pulse 63 07/05/24 09:40 Resp 17 07/05/24 09:40 BP 160/77 07/05/24 09:40 Pulse Ox 96 07/05/24 09:40 FiO2 Intake & Output 07/04/24 07/05/24 07/05/24 18:59 06:59 18:59 Intake Total 357.898 Output Total 500 650 Balance 357.898 -500 -650 Weight 92.5 kg Intake: Intake, IV Titration 239.898 Amount Heparin Sod,Pork in 0.45% 239.898 NaCl 25,000 unit In 0.45 % NaCl 1 250ml.bag @ 10. 65 UNITS/KG/HR 10 mls/hr IV .Q24H [facility] Rx#: [id number] Oral 118 Output: Urine 500 50 Post Void Residual 600 Other: Voiding Method Toilet Toilet Toilet Urinal Urinal Urinal # Voids 2 1 # Bowel Movements 1 - Labs CBC & Chem 7: 07/05/24 07:56 07/05/24 07:56 Labs: Abnormal Lab Results - Last 24 Hours (Table) 07/04/24 07/05/24 07/05/24 Range/Units 15:04 07:56 07:56 WBC 11.0 H (3.8-10.6) k/uL RBC 4.28 L (4.30-5.90) m/uL Hgb 12.7 L (13.0-17.5) gm/dL Neutrophils # 8.1 H (1.3-7.7) k/uL APTT 60.3 H (22.0-30.0) sec Sodium 136 L (137-145) mmol/L BUN 27 H (9-20) mg/dL Glucose 100 H (74-99) mg/dL 07/05/24 Range/Units 07:56 WBC (3.8-10.6) k/uL RBC (4.30-5.90) m/uL Hgb (13.0-17.5) gm/dL Neutrophils # (1.3-7.7) k/uL APTT 53.3 H (22.0-30.0) sec Sodium (137-145) mmol/L BUN (9-20) mg/dL Glucose (74-99) mg/dL Microbiology - Last 24 Hours (Table) 07/03/24 16:37 Nasal Screen MRSA/MSSA - Final Nasal Swab
--- NOTE | 2024-07-05 16:24 | P.PN ---
Subjective Progress Note Date: 07/05/24 83-year-old male with known history of coronary artery disease with stents long time ago came with complaints of chest pressure-like sensation. Patient was also having shortness of breath exertional for the several months. Patient had a troponins are elevated with hospital being 0.192, 0.607, 0.687. EKG showed some nonspecific ST-T wave changes patient is on IV heparin drip at this time I do not have any chest x-ray available. Patient not requiring any oxygen. 07/04/2024 Patient is evaluated today in follow up resting in bed family at the bedside. Underwent cardiac catheterization with findings of triple vessel disease. Cardiothoracic consulted and patient undergoing work up and consultation for possible CABG. echocardiogram reveals an EF of 55 to 60% with moderate mitral with mild aortic and tricuspid regurgitation. Patient remains on IV heparin. States that he did have an episode of chest discomfort overnight and EKG completed but currently the chest pain is gone and he felt this could have been due to indigestion. Labs today reveal a white blood cell count of 13.6, sodium of 137, potassium 4.5, BUN of 34 creatinine of 1.11. Chest x-ray this morning reveals mild pulmonary edema. 07/05/2024 Patient is a daily today resting in bed feeling the bedside. He is not having any acute complaints. He continues on IV heparin. He will be going for open heart surgery next week on Sunday, July 09. Review of Systems Constitutional: Denied any fatigue denied any fever. Cardio vascular: denied any chest pain, palpitations Gastrointestinal: denied any nausea, vomiting, diarrhea Pulmonary: Denied any shortness of breath cough Neurologic denied any new focal deficits All inpatient medications were reviewed and appropriate changes in these medications as dictated in the interval history and assessment and plan. PHYSICAL EXAMINATION: GENERAL: The patient is alert and oriented x3, not in any acute distress. Well developed, well nourished. HEENT: Pupils are round and equally reacting to light. EOMI. No scleral icterus. No conjunctival pallor. Normocephalic, atraumatic. No pharyngeal erythema. No thyromegaly. CARDIOVASCULAR: S1 and S2 present. No murmurs, rubs, or gallops. PULMONARY: Chest is clear to auscultation, no wheezing or crackles. ABDOMEN: Soft, nontender, nondistended, normoactive bowel sounds. No palpable organomegaly. MUSCULOSKELETAL: No joint swelling or deformity. EXTREMITIES: No cyanosis, clubbing, or pedal edema. NEUROLOGICAL: Gross neurological examination did not reveal any focal deficits. SKIN: No rashes. Assessment and plan -non-ST elevation [place]: Patient is on IV heparin drip -Patient is being worked up for CABG -continue with beta-rolando statin lisinopril -Hypertension -BPH -Hyperlipidemia For above-mentioned chronic medical problems patient was resumed on appropriate home medications DVT prophylaxis: On IV heparin at this time The impression and plan of care has been dictated by Mary Downing Nurse Practitioner as directed. Dr. Janay MD I have performed a history and physical examination and medical decision making of this patient, discussed the same with the dictator, and agree with the dictators assessment and plan as written, documented as a scribe. Based on total visit time, I have performed more than 50% of this visit. Objective - Vital Signs Vital signs: Vital Signs Temp 98.1 F 07/05/24 09:40 Pulse 67 07/05/24 15:14 Resp 17 07/05/24 15:14 BP 150/80 07/05/24 15:14 Pulse Ox 97 07/05/24 15:14 FiO2 Intake & Output 07/04/24 07/05/24 07/05/24 18:59 06:59 18:59 Intake Total 357.898 480 Output Total 500 650 Balance 357.898 -500 -170 Weight 92.5 kg Intake: Intake, IV Titration 239.898 Amount Heparin Sod,Pork in 0.45% 239.898 NaCl 25,000 unit In 0.45 % NaCl 1 250ml.bag @ 10. 65 UNITS/KG/HR 10 mls/hr IV .Q24H JAE Rx#: [id number] Oral 118 480 Output: Urine 500 50 Post Void Residual 600 Other: Voiding Method Toilet Toilet Toilet Urinal Urinal Urinal # Voids 2 1 # Bowel Movements 1 - Labs CBC & Chem 7: 07/05/24 07:56 07/05/24 07:56 Labs: Abnormal Lab Results - Last 24 Hours (Table) 07/05/24 07/05/24 07/05/24 Range/Units 07:56 07:56 07:56 WBC 11.0 H (3.8-10.6) k/uL RBC 4.28 L (4.30-5.90) m/uL Hgb 12.7 L (13.0-17.5) gm/dL Neutrophils # 8.1 H (1.3-7.7) k/uL APTT 53.3 H (22.0-30.0) sec Sodium 136 L (137-145) mmol/L BUN 27 H (9-20) mg/dL Glucose 100 H (74-99) mg/dL Microbiology - Last 24 Hours (Table) 07/03/24 16:37 Nasal Screen MRSA/MSSA - Final Nasal Swab Assessment and Plan Time with Patient: Less than 30
[2024-07-06 08:23] LABS: HCT 38.4 % (39.0-53.0); HGB 12.4 gm/dL (13.0-17.5); MCH 29.8 pg (25.0-35.0); MCHC 32.3 g/dL (31.0-37.0); MCV 92.4 fL (80.0-100.0); Mean Platelet Volume 9.1; Platelet Count 181 k/uL (150-450); RBC 4.16 m/uL (4.30-5.90); RDW 13.1 % (11.5-15.5); WBC 8.1 k/uL (3.8-10.6)
--- NOTE | 2024-07-06 08:31 | P.PN ---
Subjective Progress Note Date: 07/06/24 Principal diagnosis: Triple-vessel coronary artery disease, non-STEMI this admission. History of coronary artery disease with previous PCI of the RCA in 1997, hypertension, hyperlipidemia, BPH, osteoarthritis, previous tobacco dependence The patient was seen and examined with Dr. Estrlela sitting up in bed in no acute distress on the cardiac stepdown unit. Remains in sinus rhythm, hemodynamically stable although a bit hypertensive. Patient had some urine retention last night requiring initiation of Silver catheter. Currently he is chest pain-free. Remains on IV heparin. No other new concerns. Objective - Vital Signs Vital signs: Vital Signs Temp 98.0 F 07/06/24 08:00 Pulse 85 07/06/24 08:00 Resp 16 07/06/24 08:00 BP 170/77 07/06/24 08:00 Pulse Ox 97 07/06/24 08:00 FiO2 Intake & Output 07/05/24 07/06/24 07/06/24 18:59 06:59 18:59 Intake Total 720 180 Output Total 1600 1900 Balance -880 -1900 180 Weight 92.5 kg Intake: Oral 720 180 Output: Urine 800 1900 Post Void Residual 800 Other: Voiding Method Toilet Indwelling Catheter Indwelling Catheter Urinal # Voids 1 - Exam CONSTITUTIONAL: Appears comfortable, cooperative, no acute distress RESPIRATORY: Lungs sounds diminished in the bases bilaterally. Respirations even, nonlabored. Currently on room air with oxygen saturation 97%. Able to achieve 2000 mL on his incentive spirometry CARDIOVASCULAR: S1, S2 present. Regular rate and rhythm, sinus rhythm on telemetry. Palpable peripheral pulses bilaterally. No edema present. No calf pain or tenderness noted GASTROINTESTINAL: Abdomen soft, nontender, nondistended. Active bowel sounds present 4 quadrants. Tolerating diet GENITOURINARY: Silver catheter present with clear yellow urine INTEGUMENTARY: Skin is warm and dry NEUROLOGIC: Cranial nerves II through XII intact MUSKULOSKELETAL: Able to move all extremities, strength equal bilaterally, gait normal PSYCHIATRIC: Alert and oriented to person place and time, appropriate affect, intact judgment and insight - Allied health notes Allied health notes reviewed: nursing - Labs CBC & Chem 7: 07/06/24 07:54 07/05/24 07:56 Labs: Abnormal Lab Results - Last 24 Hours (Table) 07/05/24 07/05/24 07/06/24 Range/Units 07:56 07:56 07:54 RBC 4.16 L (4.30-5.90) m/uL Hgb 12.4 L (13.0-17.5) gm/dL Hct 38.4 L (39.0-53.0) % APTT 53.3 H (22.0-30.0) sec Sodium 136 L (137-145) mmol/L BUN 27 H (9-20) mg/dL Glucose 100 H (74-99) mg/dL Assessment and Plan Assessment: Triple-vessel coronary artery disease, non-STEMI this admission Moderate mitral regurgitation on TTE Chest pain, shortness of breath secondary to above Acute urine retention requiring initiation of Silver catheter History of coronary artery disease with previous PCI of the RCA in 1997 Hypertension Hyperlipidemia, treated, cholesterol 136, LDL 75 BPH, remains on Proscar Osteoarthritis Previous tobacco dependence, preoperative FEV1 76% of predicted Plan: Continue to maximize medical therapy with aspirin, statin, beta-rolando. 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 Our plan will be for myocardial revascularization with left internal mammary artery, left radial artery, ligation of the left atrial appendage on Sunday07/09/[address] Whitfield Continue to reinforce preoperative teaching Flomax added to medication regimen for BPH, continue Proscar Medical management of other comorbidities per internal medicine, cardiology More recommendations to follow
[2024-07-06 08:59] LABS: African American GFR (CKD) 77 (>60 ml/min/1.73 sqM); Anion Gap 6 mmol/L; Blood Urea Nitrogen 19 mg/dL (9-20); Carbon Dioxide 27 mmol/L (22-30); Chloride 101 mmol/L (98-107); Glucose 107 mg/dL (74-99); Non-African American GFR(CKD) 66 (>60 ml/min/1.73 sqM); Potassium 4.2 mmol/L (3.5-5.1); Sodium 134 mmol/L (137-145)
[2024-07-06] MEDS: hydrALAZINE HCL 25 MG TAB PO SCH (11:45)
[2024-07-06] MEDS: NITROGLYCERIN OINT 1 INCH/GM PACKET TOPICAL SCH (11:45)
[2024-07-06] MEDS: amLODIPine 10 MG TAB PO SCH (11:45)
--- NOTE | 2024-07-06 12:36 | P.PN ---
Subjective Progress Note Date: 07/06/24 Reason for Consult (text): Acute chest pain, NSTEMI History of present illness: This is an 83-year-old male patient of Dr. Ramirez with past medical history of CAD status post angioplasty of the right coronary artery, hypertension, dyslipidemia. We have been asked to evaluate the patient for chest pain and NSTEMI. Patient gives history that he developed chest pain in the left upper chest went into the left shoulder blade area and also down to the left arm. He states it last for a while. He thought it was related to getting sap from the trees. He states that started yesterday in the early afternoon and then gradually went away but came back around 4 PM much more severe. Blood pressure 145/86, heart rate 73, pulse ox 97% on room air. Patient is seen today in the emergency center waiting for a bed on the cardiac stepdown unit. Dr. Peña revi ewed results of the testing and recommendations for cardiac catheterization and patient is willing to move forward with this today. -EKG: Sinus rhythm with sinus arrhythmia -Laboratory studies: WBC 5.4, hemoglobin 12.4, BUN 27 creatinine 1.01 and potassium 4.9. Troponin 0.192, 0.60, 0.687. -Home cardiac medications: Aspirin 81 mg daily, atorvastatin 40 mg daily, Zetia 10 mg daily, lisinopril 10 mg daily, metoprolol tartrate 25 mg daily. -Echocardiogram performed in the office on 07/10/2023 revealed EF of 50%, grade 2 diastolic dysfunction, moderate concentric left ventricular hypertrophy. Aortic valve is thickened and calcified. Mild mitral regurgitation. Mild tricuspid regurgitation. PASP 20 mmHg. -Lexiscan Cardiolite stress test performed in the office 05/11/2022: Negative stress test by EKG criteria. Normal myocardial perfusion and function. -Cardiac catheterization performed in 2004 revealed minimal CAD. Previous PCI performed in 1997. 07/04 Patient seen and examined on the cardiac stepdown unit. Yesterday, patient underwent cardiac catheterization with Dr. Peña found to have triple-vessel coronary artery disease and a consult was placed with cardiothoracic surgery. Surgical options were discussed with the patient and scheduling of CABG to be determined. Patient denies any chest pain at this time. Blood pressure 137/80, heart rate 80, pulse ox 98% on room air. Repeat blood work reveals WBC 13.6, hemoglobin 12.1, INR 1.2, BUN 34 creatinine 1.11. Patient has been continued on heparin drip Echocardiogram reveals EF of 55 to 60%, moderate mitral with mild aortic and tricuspid regurgitation. 07/05 Patient seen and examined. Patient was up for shower this morning and does get dyspneic with activity. He denies chest pain or chest pressure. Blood pressure 121/62, heart rate 59, pulse ox 97% on room air. Repeat blood work reveals hemoglobin 12.7, WBC 11, BUN 27 creatinine 1.08. Patient is continued on heparin drip. 07/06 Patient seen and examined. Cardiothoracic surgery recommends discontinuing heparin drip and lisinopril which we will order today. Blood pressure 170/77, heart rate 85, pulse ox 97% on room air. Repeat blood work reveals hemoglobin 12.4, sodium 134, BUN 19 creatinine 1.05. Physical examination: Gen: This is an 83-year-old male appears to be in no acute distress VS: reviewed HEENT: Head is atraumatic, normocephalic. Pupils equal, round. Sclerae is anicteric. NECK: Supple. No JVD. LUNGS: Clear to auscultation. No wheezes or rhonchi. No intercostal retractions. HEART: Regular rate and rhythm. No murmur. ABDOMEN: Soft No tenderness. EXTREMITIES: No pedal edema. No calf tenderness. NEUROLOGICAL: Patient is awake, alert and oriented x3. Assessment: NSTEMI with triple-vessel disease History of coronary artery disease with previous angioplasty of the right coronary artery in 1997 Hypertension Dyslipidemia Echocardiogram reveals EF of 55 to 60%, moderate mitral with mild aortic and tricuspid regurgitation. Plan: Continue current cardiac medications: Aspirin 81 mg daily, atorvastatin 40 mg, Zetia 10 mg, Lopressor 25 mg twice daily Discontinue lisinopril Start patient on amlodipine 10 mg daily and hydralazine 25 mg 3 times daily Discontinue heparin drip and start heparin subcu Cardiothoracic surgery consult appreciated, CABG scheduled Sunday, 07/09 Further recommendations to follow based upon clinical course Nurse practitioner note has been reviewed, I agree with documented findings and plan of care. Patient was seen and examined. Objective - Vital Signs Vital signs: Vital Signs Temp 98.0 F 07/06/24 08:00 Pulse 67 07/06/24 11:42 Resp 17 07/06/24 11:42 BP 158/97 07/06/24 11:42 Pulse Ox 97 07/06/24 11:42 FiO2 Intake & Output 07/05/24 07/06/24 07/06/24 18:59 06:59 18:59 Intake Total 720 180 Output Total 1600 1900 400 Balance -880 -1900 -220 Weight 92.5 kg Intake: Oral 720 180 Output: Urine 800 1900 400 Post Void Residual 800 Other: Voiding Method Toilet Indwelling Catheter Indwelling Catheter Urinal # Voids 1 - Labs CBC & Chem 7: 07/06/24 07:54 07/06/24 07:54 Labs: Abnormal Lab Results - Last 24 Hours (Table) 07/06/24 07/06/24 07/06/24 Range/Units 07:54 07:54 07:54 RBC 4.16 L (4.30-5.90) m/uL Hgb 12.4 L (13.0-17.5) gm/dL Hct 38.4 L (39.0-53.0) % APTT 42.1 H (22.0-30.0) sec Sodium 134 L (137-145) mmol/L Glucose 107 H (74-99) mg/dL
--- NOTE | 2024-07-06 13:43 | P.PN ---
Subjective Progress Note Date: 07/06/24 83-year-old male with known history of coronary artery disease with stents long time ago came with complaints of chest pressure-like sensation. Patient was also having shortness of breath exertional for the several months. Patient had a troponins are elevated with hospital being 0.192, 0.607, 0.687. EKG showed some nonspecific ST-T wave changes patient is on IV heparin drip at this time I do not have any chest x-ray available. Patient not requiring any oxygen. 07/04/2024 Patient is evaluated today in follow up resting in bed family at the bedside. Underwent cardiac catheterization with findings of triple vessel disease. Cardiothoracic consulted and patient undergoing work up and consultation for possible CABG. echocardiogram reveals an EF of 55 to 60% with moderate mitral with mild aortic and tricuspid regurgitation. Patient remains on IV heparin. States that he did have an episode of chest discomfort overnight and EKG completed but currently the chest pain is gone and he felt this could have been due to indigestion. Labs today reveal a white blood cell count of 13.6, sodium of 137, potassium 4.5, BUN of 34 creatinine of 1.11. Chest x-ray this morning reveals mild pulmonary edema. 07/05/2024 Patient is a daily today resting in bed feeling the bedside. He is not having any acute complaints. He continues on IV heparin. He will be going for open heart surgery next week on Sunday, July 09. 07/06/2024 Patient is eval today in follow-up resting in bed with family at the bedside. He is not having any acute complaints. He does report that he has not had a bowel movement in a couple days. He continues on IV heparin. Would recommend to stop IV fluids at this time. He is still pending open heart surgery on Sunday. Review of Systems Constitutional: Denied any fatigue denied any fever. Cardio vascular: denied any chest pain, palpitations Gastrointestinal: denied any nausea, vomiting, diarrhea Pulmonary: Denied any shortness of breath cough Neurologic denied any new focal deficits All inpatient medications were reviewed and appropriate changes in these med ications as dictated in the interval history and assessment and plan. PHYSICAL EXAMINATION: GENERAL: The patient is alert and oriented x3, not in any acute distress. Well developed, well nourished. HEENT: Pupils are round and equally reacting to light. EOMI. No scleral icterus. No conjunctival pallor. Normocephalic, atraumatic. No pharyngeal erythema. No thyromegaly. CARDIOVASCULAR: S1 and S2 present. No murmurs, rubs, or gallops. PULMONARY: Chest is clear to auscultation, no wheezing or crackles. ABDOMEN: Soft, nontender, nondistended, normoactive bowel sounds. No palpable organomegaly. MUSCULOSKELETAL: No joint swelling or deformity. EXTREMITIES: No cyanosis, clubbing, or pedal edema. NEUROLOGICAL: Gross neurological examination did not reveal any focal deficits. SKIN: No rashes. Assessment and plan -non-ST elevation [place]: Patient is on IV heparin drip -Patient is scheduled to undergo two-vessel bypass on July 09 -continue with beta-rolando statin lisinopril -Urinary retention requiring indwelling Silver catheter -Constipation has been started on MiraLAX daily -Hypertension -BPH -Hyperlipidemia For above-mentioned chronic medical problems patient was resumed on appropriate home medications DVT prophylaxis: On IV heparin at this time The impression and plan of care has been dictated by Mary Downing, Nurse Practitioner as directed. Dr. Janay MD I have performed a history and physical examination and medical decision making of this patient, discussed the same with the dictator, and agree with the dictators assessment and plan as written, documented as a scribe. Based on total visit time, I have performed more than 50% of this visit. Objective - Vital Signs Vital signs: Vital Signs Temp 98.0 F 07/06/24 08:00 Pulse 85 07/06/24 08:00 Resp 16 07/06/24 08:00 BP 170/77 07/06/24 08:00 Pulse Ox 97 07/06/24 08:00 FiO2 Intake & Output 07/05/24 07/06/24 07/06/24 18:59 06:59 18:59 Intake Total 720 180 Output Total 1600 1900 Balance -880 -1900 180 Weight 92.5 kg Intake: Oral 720 180 Output: Urine 800 1900 Post Void Residual 800 Other: Voiding Method Toilet Indwelling Catheter Indwelling Catheter Urinal # Voids 1 - Labs CBC & Chem 7: 07/06/24 07:54 07/06/24 07:54 Labs: Abnormal Lab Results - Last 24 Hours (Table) 07/06/24 07/06/2407/06/25 Range/Units 07:54 07:54 07:54 RBC 4.16 L (4.30-5.90) m/uL Hgb 12.4 L (13.0-17.5) gm/dL Hct 38.4 L (39.0-53.0) % APTT 42.1 H (22.0-30.0) sec Sodium 134 L (137-145) mmol/L Glucose 107 H (74-99) mg/dL Assessment and Plan Time with Patient: Less than 30
[2024-07-06] MEDS: HEPARIN SODIUM,PORCINE 5,000 UNIT/ML 1 ML VIAL SQ SCH (15:20)
[2024-07-06] MEDS: CALCIUM CARBONATE 500 MG CHEWABLE PO PRN (15:21)
[2024-07-06] MEDS: polyethylene glycoL 3350 17 GM POWD.PACK PO SCH (15:21)
[2024-07-06] MEDS: TAMSULOSIN 0.4 MG CAP.ER.24H PO SCH (17:56)
--- NOTE | 2024-07-06 18:03 | XR ---
EXAMINATION TYPE: XR chest 1V portable DATE OF EXAM: 07/06/2024 5:57 PM COMPARISON: 07/04/2024 CLINICAL INDICATION: Male, 83 years old with history of L shoulder pain, TECHNIQUE: XR chest 1V portable views of the chest are obtained. FINDINGS: Demonstrated are scattered senescent parenchymal change. There is no evidence for focal infiltrate. The heart is stable. Hilar and mediastinal structures are within normal limits. Degenerative changes are seen of the dorsal spine. IMPRESSION: 1. Chronic changes without evidence for acute pulmonary disease. [facility], , 07/06/2024 6:01 PM
[2024-07-06] MEDS: ACETAMINOPHEN TAB 325 MG TAB PO PRN (21:01)
[2024-07-06] MEDS: ALPRAZolam 0.5 MG TAB PO PRN (23:10)
--- NOTE | 2024-07-07 11:47 | P.PN ---
Subjective Progress Note Date: 07/07/24 Principal diagnosis: Triple-vessel coronary artery disease, non-STEMI this admission. History of coronary artery disease with previous PCI of the RCA in 1997, hypertension, hyperlipidemia, BPH, osteoarthritis, previous tobacco dependence. The patient was seen and examined in follow-up today July 07, 2024 at his bedside on the third floor cardiac stepdown unit. He is currently sitting in bed, has family members present at his bedside. He is awake, alert, oriented x 3 and is in no acute apparent distress. Denies any complaints of pain or shortness of breath at this time. Heparin drip remains infusing per protocol. Oxygen saturations are 96% on room air and he is achieving 2000 mL on his incentive spirometry with encouragement. He remains hemodynamically stable and is currently on no inotropic or pressor support. He remains on aspirin, statin and beta-rolando. Objective - Vital Signs Vital signs: Vital Signs Temp 97.8 F 07/07/24 04:00 Pulse 81 07/07/24 04:00 Resp 17 07/07/24 04:00 BP 120/62 07/07/24 04:00 Pulse Ox 96 07/07/24 04:00 FiO2 Intake & Output 07/06/24 07/07/24 07/07/24 18:59 06:59 18:59 Intake Total 402 220 Output Total 1600 260 Balance -1198 -40 Weight 91 kg Intake: IV 20 Invasive Line 2 10 Invasive Line 3 10 Oral 402 200 Output: Urine 1600 260 Other: Voiding Method Indwelling Catheter Indwelling Catheter - Exam CONSTITUTIONAL: Appears comfortable, cooperative, no acute distress. RESPIRATORY: Lungs sounds diminished in the bases bilaterally. Respirations symmetrical, nonlabored. Currently on room air with oxygen saturation 99%. Able to achieve 2000 mL on his incentive spirometry CARDIOVASCULAR: S1, S2 present. Regular rate and rhythm, sinus rhythm on telemetry. Palpable peripheral pulses bilaterally. No edema present. No calf pain or tenderness noted GASTROINTESTINAL: Abdomen soft, nontender, nondistended. Active bowel sounds present 4 quadrants. Tolerating diet. GENITOURINARY: Silver catheter present with clear yellow urine. 260 mL of urine in the last 8 hours. INTEGUMENTARY: Skin is warm and dry, no clubbing or cyanosis present. NEUROLOGIC: Cranial nerves II through XII intact. No focal deficits. MUSKULOSKELETAL: Able to move all extremities, strength equal bilaterally, gait normal. PSYCHIATRIC: Alert and oriented to person place and time, appropriate affect, intact judgment and insight. - Allied health notes Allied health notes reviewed: nursing - Labs CBC & Chem 7: 07/06/24 07:54 07/06/24 07:54 Labs: Abnormal Lab Results - Last 24 Hours (Table) 07/06/24 Range/Units 07:54 Sodium 134 L (137-145) mmol/L Glucose 107 H (74-99) mg/dL Assessment and Plan Assessment: Triple-vessel coronary artery disease, non-STEMI this admission Moderate mitral regurgitation on TTE Chest pain, shortness of breath secondary to above Acute urine retention requiring initiation of Silver catheter History of coronary artery disease with previous PCI of the RCA in 1997 Hypertension Hyperlipidemia, treated, cholesterol 136, LDL 75 BPH, remains on Proscar Osteoarthritis Previous tobacco dependence, preoperative FEV1 76% of predicted Plan: Continue to maximize medical therapy with aspirin, statin, beta-rolando. 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 Our plan will be for myocardial revascularization with left internal mammary artery, left radial artery, ligation of the left atrial appendage on Sunday07/09/[address] Whitfield Continue to reinforce preoperative teaching Flomax added to medication regimen for BPH, continue Proscar Medical management of other comorbidities per internal medicine, cardiology More recommendations to follow Time with Patient: Less than 30
--- NOTE | 2024-07-07 12:52 | P.PN ---
Subjective HISTORY OF PRESENT ILLNESS: This is an 83-year-old male patient of Dr. Ramirez with past medical history of CAD status post angioplasty of the right coronary artery, hypertension, dyslipidemia. We have been asked to evaluate the patient for chest pain and NSTEMI. Patient gives history that he developed chest pain in the left upper chest went into the left shoulder blade area and also down to the left arm. He states it last for a while. He thought it was related to getting sap from the trees. He states that started yesterday in the early afternoon and then gradually went away but came back around 4 PM much more severe. Blood pressure 145/86, heart rate 73, pulse ox 97% on room air. Patient is seen today in the emergency center waiting for a bed on the cardiac stepdown unit. Dr. Peña reviewed results of the testing and recommendations for cardiac catheterization and patient is willing to move forward with this today. -EKG: Sinus rhythm with sinus arrhythmia -Laboratory studies: WBC 5.4, hemoglobin 12.4, BUN 27 creatinine 1.01 and potassium 4.9. Troponin 0.192, 0.60, 0.687. -Home cardiac medications: Aspirin 81 mg daily, atorvastatin 40 mg daily, Zetia 10 mg daily, lisinopril 10 mg daily, metoprolol tartrate 25 mg daily. -Echocardiogram performed in the office on 07/10/2023 revealed EF of 50%, grade 2 diastolic dysfunction, moderate concentric left ventricular hypertrophy. Aortic valve is thickened and calcified. Mild mitral regurgitation. Mild tricuspid regurgitation. PASP 20 mmHg. -Lexiscan Cardiolite stress test performed in the office 05/11/2022: Negative stress test by EKG criteria. Normal myocardial perfusion and function. -Cardiac catheterization performed in 2004 revealed minimal CAD. Previous PCI performed in 1997. 07/04 Patient seen and examined on the cardiac stepdown unit. Yesterday, patient un derwent cardiac catheterization with Dr. Peña found to have triple-vessel coronary artery disease and a consult was placed with cardiothoracic surgery. Surgical options were discussed with the patient and scheduling of CABG to be determined. Patient denies any chest pain at this time. Blood pressure 137/80, heart rate 80, pulse ox 98% on room air. Repeat blood work reveals WBC 13.6, hemoglobin 12.1, INR 1.2, BUN 34 creatinine 1.11. Patient has been continued on heparin drip Echocardiogram reveals EF of 55 to 60%, moderate mitral with mild aortic and tricuspid regurgitation. 07/05 Patient seen and examined. Patient was up for shower this morning and does get dyspneic with activity. He denies chest pain or chest pressure. Blood pressure 121/62, heart rate 59, pulse ox 97% on room air. Repeat blood work reveals hemoglobin 12.7, WBC 11, BUN 27 creatinine 1.08. Patient is continued on heparin drip. 07/06 Patient seen and examined. Cardiothoracic surgery recommends discontinuing heparin drip and lisinopril which we will order today. Blood pressure 170/77, heart rate 85, pulse ox 97% on room air. Repeat blood work reveals hemoglobin 12.4, sodium 134, BUN 19 creatinine 1.05. 07/07/2024 Patient examined this morning at the bedside. Patient currently denies chest pain or pressure. He denies shortness of breath. Vital signs are stable. Telemetry reveals sinus mechanism. PHYSICAL EXAM: VITAL SIGNS: Reviewed. GENERAL: Well-developed in no acute distress. NECK: Supple. No JVD or thyromegaly LUNGS: Respirations even and unlabored. Lungs essentially clear to auscultation bilaterally. HEART: Regular rate and rhythm. S1 and S2 heard. EXTREMITIES: Normal range of motion. No clubbing or cyanosis. Peripheral pulses intact. No lower extremity edema ASSESSMENT: NSTEMI with triple-vessel disease History of coronary artery disease with previous angioplasty of the right coronary artery in 1997 Hypertension Dyslipidemia Echocardiogram reveals EF of 55 to 60%, moderate mitral with mild aortic and tricuspid regurgitation. PLAN: Continue current cardiac medications including amlodipine, aspirin, Lipitor, Zetia, hydralazine, metoprolol, and Nitropaste Lisinopril discontinued per CT surgery request over the weekend CT surgery following. Patient is scheduled for CABG on 07/09/2024 Further recommendations pending patient course Nurse practitioner note has been reviewed by physician. Signing provider agrees with the documented findings, assessment, and plan of care documented by MISSIONARY COORDINATOR as a scribe. Objective - Vital Signs Vital signs: Vital Signs Temp 98.6 F 07/07/24 09:36 Pulse 72 07/07/24 11:43 Resp 18 07/07/24 11:43 BP 99/55 07/07/24 11:43 Pulse Ox 97 07/07/24 11:43 FiO2 Intake & Output 07/06/24 07/07/24 07/07/24 18:59 06:59 18:59 Intake Total 402 220 10 Output Total 1600 260 Balance -1198 -40 10 Weight 91 kg Intake: IV 20 10 Invasive Line 2 10 Invasive Line 3 10 10 Oral 402 200 Output: Urine 1600 260 Other: Voiding Method Indwelling Catheter Indwelling Catheter Indwelling Catheter - Labs CBC & Chem 7: 07/06/24 07:54 07/06/24 07:54
[2024-07-07] MEDS: PANTOPRAZOLE 40 MG/10 ML VIAL IVP SCH (19:50)
--- NOTE | 2024-07-07 23:08 | PN ---
PROGRESS NOTE DATE OF SERVICE: 07/07/2024 SUBJECTIVE: This is an 83-year-old gentleman, who was admitted with fgh-KI-[id number]-elevation myocardial infarction, is awaiting cardiac surgery on Sunday. No chest pain. No palpitation. OBJECTIVE: VITAL SIGNS: Pulse 72, blood pressure 99/54, respirations 18. CHEST: Clear to auscultation. CARDIOVASCULAR: S1, S2. ABDOMEN: Soft. NERVOUS SYSTEM: Nonfocal. LABORATORY DATA: Reviewed. ASSESSMENT: 1. Acute non ST-segment elevation myocardial infarction with 3-vessel disease for CABG. 2. History of coronary artery disease. 3. Hypertension. 4. Dyslipidemia. 5. Gastroesophageal reflux disease. RECOMMENDATIONS: Recommend to continue current management and continue symptomatic treatment. Add Protonix. Repeat labs. Closely monitor. Further recommendations to follow. MMODL / IJN: [id number] /
[2024-07-08 08:15] LABS: INR 1.2 (<1.2); Partial Thromboplastin Time 23.5 sec (22.0-30.0); Prothrombin Time 12.4 sec (10.0-12.5)
[2024-07-08 08:17] LABS: Basophils % (A) 0 %; Eosinophils # (A) 0.1 k/uL (0-0.7); Eosinophils % (A) 2 %; HCT 36.9 % (39.0-53.0); HGB 11.8 gm/dL (13.0-17.5); Lymphocytes # (A) 1.2 k/uL (1.0-4.8); Lymphocytes % (A) 22 %; MCH 29.9 pg (25.0-35.0); MCV 93.5 fL (80.0-100.0); Mean Platelet Volume 10.4; Monocytes # (A) 0.7 k/uL (0-1.0); Monocytes % (A) 12 %; Neutrophils # (A) 3.4 k/uL (1.3-7.7); Neutrophils % (A) 62 %; Platelet Count 145 k/uL (150-450); RBC 3.95 m/uL (4.30-5.90); RDW 13.1 % (11.5-15.5); WBC 5.6 k/uL (3.8-10.6)
[2024-07-08 08:38] LABS: ALT 50 U/L (4-49); AST 53 U/L (17-59); African American GFR (CKD) 58 (>60 ml/min/1.73 sqM); Albumin 3.4 g/dL (3.5-5.0); Alkaline Phosphatase 50 U/L (38-126); Anion Gap 9 mmol/L; Blood Urea Nitrogen 28 mg/dL (9-20); Calcium 8.5 mg/dL (8.4-10.2); Carbon Dioxide 23 mmol/L (22-30); Chloride 101 mmol/L (98-107); Glucose 88 mg/dL (74-99); Magnesium 2.1 mg/dL (1.6-2.3); Non-African American GFR(CKD) 50 (>60 ml/min/1.73 sqM); Potassium 4.5 mmol/L (3.5-5.1); Sodium 133 mmol/L (137-145); Total Bilirubin 0.6 mg/dL (0.2-1.3)
--- NOTE | 2024-07-08 12:02 | P.PN ---
Subjective Progress Note Date: 07/08/24 Principal diagnosis: Triple-vessel coronary artery disease, non-STEMI this admission. History of coronary artery disease with previous PCI of the RCA in 1997, hypertension, hyperlipidemia, BPH, osteoarthritis, previous tobacco dependence The patient was seen and examined sitting up in a recliner in no acute distress on the cardiac stepdown unit. Remains in sinus rhythm, hemodynamically stable. Currently he is chest pain-free, no new shortness of breath or any other symptoms. Anticipates surgery tomorrow afternoon. No other new concerns. Objective - Vital Signs Vital signs: Vital Signs Temp 97.4 F L 07/08/24 08:00 Pulse 63 07/08/24 11:58 Resp 16 07/08/24 08:00 BP 92/51 07/08/24 11:58 Pulse Ox 98 07/08/24 11:58 FiO2 Intake & Output 07/07/24 07/08/24 07/08/24 18:59 06:59 18:59 Intake Total 440 260 360 Output Total 800 Balance -360 260 360 Weight 61 kg Intake: IV 20 20 Invasive Line 3 20 20 Oral 420 240 360 Output: Urine 800 Other: Voiding Method Indwelling Catheter Indwelling Catheter Indwelling Catheter # Voids 1 - Exam CONSTITUTIONAL: Appears comfortable, cooperative, no acute distress RESPIRATORY: Lungs sounds diminished in the bases bilaterally. Respirations even, nonlabored. Currently on room air with oxygen saturation 98%. Able to achieve 2000 mL on his incentive spirometry CARDIOVASCULAR: S1, S2 present. Regular rate and rhythm, sinus rhythm on telemetry. Palpable peripheral pulses bilaterally. No edema present. No calf pain or tenderness noted GASTROINTESTINAL: Abdomen soft, nontender, nondistended. Active bowel sounds present 4 quadrants. Tolerating diet. Positive bowel movement 07/04 GENITOURINARY: Silver catheter present with clear yellow urine INTEGUMENTARY: Skin is warm and dry NEUROLOGIC: Cranial nerves II through XII intact MUSKULOSKELETAL: Able to move all extremities, strength equal bilaterally, gait normal PSYCHIATRIC: Alert and oriented to person place and time, appropriate affect, intact judgment and insight - Allied health notes Allied health notes reviewed: nursing - Labs CBC & Chem 7: 07/08/24 06:41 07/08/24 06:41 Labs: Abnormal Lab Results - Last 24 Hours (Table) 07/08/24 07/08/24 07/08/24 Range/Units 06:41 06:41 06:41 RBC 3.95 L (4.30-5.90) m/uL Hgb 11.8 L (13.0-17.5) gm/dL Hct 36.9 L (39.0-53.0) % Plt Count 145 L (150-450) k/uL INR (<1.2) Sodium 133 L (137-145) mmol/L BUN 28 H (9-20) mg/dL Creatinine 1.32 H (0.66-1.25) mg/dL ALT 50 H (4-49) U/L Total Protein 6.0 L (6.3-8.2) g/dL Albumin 3.4 L (3.5-5.0) g/dL Crossmatch See Detail 07/08/24 Range/Units 06:41 RBC (4.30-5.90) m/uL Hgb (13.0-17.5) gm/dL Hct (39.0-53.0) % Plt Count (150-450) k/uL INR 1.2 H (<1.2) Sodium (137-145) mmol/L BUN (9-20) mg/dL Creatinine (0.66-1.25) mg/dL ALT (4-49) U/L Total Protein (6.3-8.2) g/dL Albumin (3.5-5.0) g/dL Crossmatch Assessment and Plan Assessment: Triple-vessel coronary artery disease, non-STEMI this admission Moderate mitral regurgitation on TTE Chest pain, shortness of breath secondary to above Acute urine retention requiring initiation of Silver catheter History of coronary artery disease with previous PCI of the RCA in 1997 Hypertension Hyperlipidemia, treated, cholesterol 136, LDL 75 BPH, remains on Proscar Osteoarthritis Previous tobacco dependence, preoperative FEV1 76% of predicted Plan: Continue to maximize medical therapy with aspirin, statin, beta-rolando. Increase activity as tolerated. Our plan will be for myocardial revascularization with left internal mammary artery, left radial artery, ligation of the left atrial appendage on Sunday07/09/[address] Whitfield Continue to reinforce preoperative teaching Medical management of other comorbidities per internal medicine, cardiology More recommendations to follow
--- NOTE | 2024-07-08 12:08 | P.PN ---
Subjective HISTORY OF PRESENT ILLNESS: This is an 83-year-old male patient of Dr. Ramirez with past medical history of CAD status post angioplasty of the right coronary artery, hypertension, dyslipidemia. We have been asked to evaluate the patient for chest pain and NSTEMI. Patient gives history that he developed chest pain in the left upper chest went into the left shoulder blade area and also down to the left arm. He states it last for a while. He thought it was related to getting sap from the trees. He states that started yesterday in the early afternoon and then gradually went away but came back around 4 PM much more severe. Blood pressure 145/86, heart rate 73, pulse ox 97% on room air. Patient is seen today in the emergency center waiting for a bed on the cardiac stepdown unit. Dr. Peña reviewed results of the testing and recommendations for cardiac catheterization and patient is willing to move forward with this today. -EKG: Sinus rhythm with sinus arrhythmia -Laboratory studies: WBC 5.4, hemoglobin 12.4, BUN 27 creatinine 1.01 and potassium 4.9. Troponin 0.192, 0.60, 0.687. -Home cardiac medications: Aspirin 81 mg daily, atorvastatin 40 mg daily, Zetia 10 mg daily, lisinopril 10 mg daily, metoprolol tartrate 25 mg daily. -Echocardiogram performed in the office on 07/10/2023 revealed EF of 50%, grade 2 diastolic dysfunction, moderate concentric left ventricular hypertrophy. Aortic valve is thickened and calcified. Mild mitral regurgitation. Mild tricuspid regurgitation. PASP 20 mmHg. -Lexiscan Cardiolite stress test performed in the office 05/11/2022: Negative stress test by EKG criteria. Normal myocardial perfusion and function. -Cardiac catheterization performed in 2004 revealed minimal CAD. Previous PCI performed in 1997. 07/04 Patient seen and examined on the cardiac stepdown unit. Yesterday, patient un derwent cardiac catheterization with Dr. Peña found to have triple-vessel coronary artery disease and a consult was placed with cardiothoracic surgery. Surgical options were discussed with the patient and scheduling of CABG to be determined. Patient denies any chest pain at this time. Blood pressure 137/80, heart rate 80, pulse ox 98% on room air. Repeat blood work reveals WBC 13.6, hemoglobin 12.1, INR 1.2, BUN 34 creatinine 1.11. Patient has been continued on heparin drip Echocardiogram reveals EF of 55 to 60%, moderate mitral with mild aortic and tricuspid regurgitation. 07/05 Patient seen and examined. Patient was up for shower this morning and does get dyspneic with activity. He denies chest pain or chest pressure. Blood pressure 121/62, heart rate 59, pulse ox 97% on room air. Repeat blood work reveals hemoglobin 12.7, WBC 11, BUN 27 creatinine 1.08. Patient is continued on heparin drip. 07/06 Patient seen and examined. Cardiothoracic surgery recommends discontinuing heparin drip and lisinopril which we will order today. Blood pressure 170/77, heart rate 85, pulse ox 97% on room air. Repeat blood work reveals hemoglobin 12.4, sodium 134, BUN 19 creatinine 1.05. 07/07/2024 Patient examined this morning at the bedside. Patient currently denies chest pain or pressure. He denies shortness of breath. Vital signs are stable. Telemetry reveals sinus mechanism. 07/08/2024 Patient examined this morning at the bedside. Patient currently denies chest pain or pressure. He denies shortness of breath. Vital signs are stable. Telemetry reveals sinus mechanism. PHYSICAL EXAM: VITAL SIGNS: Reviewed. GENERAL: Well-developed in no acute distress. NECK: Supple. No JVD or thyromegaly LUNGS: Respirations even and unlabored. Lungs essentially clear to auscultation bilaterally. HEART: Regular rate and rhythm. S1 and S2 heard. EXTREMITIES: Normal range of motion. No clubbing or cyanosis. Peripheral pulses intact. No lower extremity edema ASSESSMENT: NSTEMI with triple-vessel disease History of coronary artery disease with previous angioplasty of the right coronary artery in 1997 Hypertension Dyslipidemia Echocardiogram reveals EF of 55 to 60%, moderate mitral with mild aortic and tricuspid regurgitation. PLAN: Continue current cardiac medications including amlodipine, aspirin, Lipitor, Zetia, hydralazine, metoprolol, and Nitropaste Lisinopril discontinued per CT surgery request over the weekend CT surgery following. Patient is scheduled for CABG on 07/09/2024 Further recommendations pending patient course Nurse practitioner note has been reviewed by physician. Signing provider agrees with the documented findings, assessment, and plan of care documented by COMMUNICATIONS CLERK as a scribe. Objective - Vital Signs Vital signs: Vital Signs Temp 97.4 F L 07/08/24 08:00 Pulse 63 07/08/24 11:58 Resp 16 07/08/24 08:00 BP 92/51 07/08/24 11:58 Pulse Ox 98 07/08/24 11:58 FiO2 Intake & Output 07/07/24 07/08/24 07/08/24 18:59 06:59 18:59 Intake Total 440 260 360 Output Total 800 Balance -360 260 360 Weight 61 kg Intake: IV 20 20 Invasive Line 3 20 20 Oral 420 240 360 Output: Urine 800 Other: Voiding Method Indwelling Catheter Indwelling Catheter Indwelling Catheter # Voids 1 - Labs CBC & Chem 7: 07/08/24 06:41 07/08/24 06:41 Labs: Abnormal Lab Results - Last 24 Hours (Table) 07/08/24 07/08/24 07/08/24 Range/Units 06:41 06:41 06:41 RBC 3.95 L (4.30-5.90) m/uL Hgb 11.8 L (13.0-17.5) gm/dL Hct 36.9 L (39.0-53.0) % Plt Count 145 L (150-450) k/uL INR (<1.2) Sodium 133 L (137-145) mmol/L BUN 28 H (9-20) mg/dL Creatinine 1.32 H (0.66-1.25) mg/dL ALT 50 H (4-49) U/L Total Protein 6.0 L (6.3-8.2) g/dL Albumin 3.4 L (3.5-5.0) g/dL Crossmatch See Detail 07/08/24 Range/Units 06:41 RBC (4.30-5.90) m/uL Hgb (13.0-17.5) gm/dL Hct (39.0-53.0) % Plt Count (150-450) k/uL INR 1.2 H (<1.2) Sodium (137-145) mmol/L BUN (9-20) mg/dL Creatinine (0.66-1.25) mg/dL ALT (4-49) U/L Total Protein (6.3-8.2) g/dL Albumin (3.5-5.0) g/dL Crossmatch
[2024-07-08] MEDS ORDERED: MD COMMUNICATION TO PHARMACY 1 EACH MISC PO ONE (13:55)
--- NOTE | 2024-07-08 20:40 | PN ---
PROGRESS NOTE DATE OF SERVICE: 07/08/2024 SUBJECTIVE: This 83-year-old gentleman was admitted after non ST-segment elevation myocardial infarction and is scheduled to have a CABG. No chest pain. No palpitation. PHYSICAL EXAMINATION: VITAL SIGNS: Pulse 63, blood pressure 92/51, respirations 20. CHEST: Clear to auscultation. CARDIOVASCULAR: S1 and S2. ABDOMEN: Soft. NERVOUS SYSTEM: Nonfocal. LABORATORY DATA: Reviewed. ASSESSMENT: 1. Acute non [id number]-elevation myocardial infarction with 3-vessel disease for coronary artery bypass grafting. 2. History of coronary artery disease. 3. Hypertension. 4. Dyslipidemia. 5. Gastroesophageal reflux disease. RECOMMENDATIONS AND DISCUSSION: I recommended to continue current management and continue symptomatic treatment and adjust the blood pressure medications. Monitor blood pressure closely. 2D echo done on July 03 showed moderate mitral and mild aortic and tricuspid regurgitation. Ejection fraction of 55% to 60%. MMODL / IJN: [id number] /
[2024-07-09] MEDS ORDERED: ALBUMIN HUMAN 5% 500 ML in EMPTY BAG 1 BAG IVPB ONE ×6 (05:00)
[2024-07-09] MEDS ORDERED: PROTAMINE SULFATE 10 MG/ML 25 ML VIAL IV ONE ×2 (05:00→12:25)
[2024-07-09] MEDS ORDERED: PROTAMINE SULFATE 250 MG in EMPTY BAG 1 BAG IV ONE (05:00)
[2024-07-09] MEDS ORDERED: DILTIAZEM 125 MG in SODIUM CHLORIDE 0.9% 100 ML IV SCH (05:00)
[2024-07-09] MEDS ORDERED: NOREPINEPHRINE 4 MG in SODIUM CHLORIDE 0.9% 250 ML IV SCH (05:00)
[2024-07-09] MEDS ORDERED: HEPARIN SODIUM,PORCINE (1 ML) 5,000 UNIT in SODIUM CHLORIDE 0.9% 500 ML 500 ML IV ONE (05:00)
[2024-07-09] MEDS ORDERED: INSULIN REGULAR 100 UNIT in SODIUM CHLORIDE 0.9% 100 ML IV SCH (05:00)
[2024-07-09] MEDS ORDERED: PHENYLEPHRINE 10 MG/ML VIAL IV ONE (05:00)
[2024-07-09] MEDS ORDERED: SODIUM BICARB 8.4% 50 ML SYR (1 MEQ/ML) IV ONE (05:00)
[2024-07-09] MEDS ORDERED: PHENYLEPHRINE 40 MG in SODIUM CHLORIDE 0.9% 250 ML IV ONE (05:00)
[2024-07-09] MEDS ORDERED: LACTATED RINGERS 1,000 ML IV SCH (05:00)
[2024-07-09] MEDS ORDERED: HEPARIN SODIUM 1,000 UN/ML (10ML VL) IV ONE (05:00)
[2024-07-09] MEDS ORDERED: ALBUMIN HUMAN 25% 50 ML in EMPTY BAG 1 BAG IVPB ONE (05:00)
[2024-07-09] MEDS ORDERED: CALCIUM CHLORIDE 100 MG/ML 10 ML SYRINGE IVP ONE (05:00)
[2024-07-09] MEDS ORDERED: NITROGLYCERIN-D5W PMX 50 MG in DEXTROSE/WATER 1 250ML.BAG IV SCH (05:00)
[2024-07-09] MEDS ORDERED: ceFAZolin 1,000 MG in SODIUM CHLORIDE 0.9% IRRIGATIO 1,000 ML IRRIGATION ONE (05:00)
[2024-07-09] MEDS ORDERED: MAGNESIUM SULFATE 16.24 MEQ in EMPTY SYRINGE 1 SYR IV ONE (05:00)
[2024-07-09] MEDS ORDERED: NITROGLYCERIN-D5W PMX 25 MG/250 ML BTL IV ONE (05:00)
[2024-07-09] MEDS ORDERED: CHLORHEXIDINE GLUCONATE 15 ML CUP MUCOUS MEM ONE (05:00)
[2024-07-09] MEDS ORDERED: MANNITOL 25% 12.5 GM/50 ML VIAL IV ONE ×2 (05:00)
[2024-07-09] MEDS ORDERED: CARDIOPLEGIC SOLN (K+ 16 MEQ/L 1,000 ML with SOD BICARB SYR 8.4% (1 MEQ/ML) 20 ML, LIDO... PERFUSION NR (05:00)
[2024-07-09] MEDS ORDERED: PAPAVERINE 360 MG in SODIUM CHLORIDE 0.9% 90 ML IV ONE (05:00)
[2024-07-09] MEDS ORDERED: CLEVIDIPINE BUTYRATE 25 MG in EMPTY BAG 1 BAG IV SCH (05:00)
[2024-07-09] MEDS ORDERED: TRANEXAMIC ACID 2,000 MG in SODIUM CHLORIDE 0.9% 80 ML IV ONE (05:00)
[2024-07-09 06:23] LABS: Glucose,Whole Blood 102 mg/dL (70-110)
[2024-07-09] MEDS: IV FLUID CONTINUATION 1,000 ML IV ONE (10:39)
[2024-07-09 11:58] LABS: Glucose,Whole Blood 99 mg/dL (70-110)
[2024-07-09] MEDS ORDERED: NITROGLYCERIN-D5W PMX 50 MG/250 ML BOTTLE IV ONE (12:25)
[2024-07-09] MEDS ORDERED: PROPOFOL 10 MG/ML 20 ML VIAL IV ONE (12:25)
[2024-07-09] MEDS ORDERED: HEPARIN SODIUM,PORCINE 10,000 UNIT/ML 1 ML VIAL ONE (12:25)
[2024-07-09] MEDS ORDERED: VECURONIUM 10 MG VIAL IV ONE (12:25)
[2024-07-09] MEDS ORDERED: MIDAZOLAM HCL 10 MG/10 ML VIAL ONE (12:25)
[2024-07-09] MEDS ORDERED: ALBUMIN HUMAN 5% (25gm) 500 ML VIAL IVPB ONE (12:25)
[2024-07-09] MEDS ORDERED: HEPARIN SODIUM,PORCINE 5,000 UNIT/ML 1 ML VIAL ONE (12:25)
[2024-07-09] MEDS ORDERED: fentaNYL (PF) 50 MCG/ML 50 ML VIAL ONE (12:25)
--- NOTE | 2024-07-09 12:34 | P.ANPRN ---
Procedure Note - Anesthesia - Invasive Line Right Central Line Time Out Performed: Yes (1201) Date of Procedure: 07/09/24 Time of Procedure: 12:07 Location of Patient: Phase I Preparation: Sterile Prep, Sterile Dressing Central Line Location: Internal Jugular (Right IJ) Ultrasound Used: Yes Purpose - Visualization and Identification of Vasculature: Yes Needle Guage: 18-gauge Image Stored and Saved: Yes Narrative: Invasive line placement per sterile protocol utilized. Anesthesia note Procedure: Right internal jugular central venous catheter insertion: 8.5-[place] Cordis Sterile protocol followed. Right neck prepped. Ultrasound used. Lidocaine 1% used. Using ultrasound local anesthetic was instilled site over right Internal Jugular vein. Angiocath was used to gain access via ultrasound. Once free flow non-pulsatile blood flow was confirmed, 12 inch extension tubing was then placed on Angiocath. Once central venous pressure was confirmed, J-wire was then placed through Angiocath. Angiocath was then withdrawn. Local was instilled at J-wire site. Small skin syed was then made with provided sterile scalpel. 8.5- [place] Cordis was then inserted over the wire while maintaining control of wire at all times. Uneventful insertion with dilation. Free flow nonpulsatile blood flow through Cordis. Hooked up to IV tubing. Secured with suture. Dressings applied. Drapes Removed. Attempts x1.
--- NOTE | 2024-07-09 12:34 | P.ANPRN ---
Procedure Note - Anesthesia - Invasive Line Right Arterial Line Time Out Performed: Yes (1201) Date of Procedure: 07/09/24 Time of Procedure: 12:02 Location of Patient: Phase I Preparation: Sterile Prep, Sterile Dressing Arterial Line Location: Radial (right) Ultrasound Used: No Purpose - Visualization and Identification of Vasculature: No Needle Guage: 20g Image Stored and Saved: No Narrative: Invasive line placement per sterile protocol utilized. Sterile protocol. 1 attempt right radial. Blood and flushed secured and dressed
--- NOTE | 2024-07-09 12:35 | P.ANPRN ---
Procedure Note - Anesthesia - Invasive Line Right [place] Cong Time Out Performed: Yes (1201) Date of Procedure: 07/09/24 Time of Procedure: 12:17 Location of Patient: Phase I Preparation: Sterile Prep, Sterile Dressing [place] Line Location: Internal Jugular (Right IJ PA catheter) Ultrasound Used: No Purpose - Visualization and Identification of Vasculature: No Image Stored and Saved: No Narrative: Invasive line placement per sterile protocol utilized. Anesthesia note Procedure right [place] catheter placed through right internal jugular central venous catheter Sterile protocol maintained from previous procedure. [place] catheter sterilely placed in sheath and flushed prior to insertion. After advancing 15 cm [place] catheter was then slowly inserted with balloon up. Advanced through CVP, RV to PA waveform. [place] catheter wedged around 55. Balloon down. Catheter withdrawn 5 cm. . No wedge. Proximal and distal sites locked on sheath. Attempts x1. Sterile drapes removed and dressings applied.
[2024-07-09 13:02] LABS: ABG Base Excess 0.1 mmol/L; ABG Glucose Whole Blood 90 mg/dL (75-99); ABG HCO3 24 mmol/L (21-25); ABG Hematocrit 31 % (34.0-46.0); ABG Ionized Calcium 4.6 mg/dL (4.5-5.3); ABG Lactic Acid Whole Blood 1.6 mmol/L (0.5-1.6); ABG Oxygen Saturation 99.3 % (94-97); ABG PCO2 35 mmHg (35-45); ABG PH 7.44 (7.35-7.45); ABG Sodium Whole Blood 135 mmol/L (135-146); ABG TCO2 22 mmol/L (19-24)
[2024-07-09 13:10] LABS: ABG PO2 >420 mmHg (83-108)
--- NOTE | 2024-07-09 13:38 | P.ANPRN ---
Procedure Note - Anesthesia - BETSY Intraop Pre Bypass BETSY Intraop - Anesthesia Indication: cad Date of Procedure: 07/09/24 Pre-operative Diagnosis: cad Post-operative Diagnosis: cad s/p offpump cabg Surgeon: Abram Whitfield Ejection Fraction: Normal Regional Wall Motion Abnormalities: None Left Ventricle Hypertrophy: No R. Ventricle Function: Normal Anatomy: Trileaflet Aortic Stenosis: None Aortic Regurgitation: None Mitral Regurgitation: Trace Tricuspid Regurgitation: Mild Pulmonic Stenosis: None Pulmonic Regurgitation: None R. Atrial Dilation: No R. Atrial PFO: No L. Atrial Dilation: No Aortic Dissection: No Aortic Calcification: None Plural Effusion: None
[2024-07-09] MEDS: PAPAVERINE 360 MG in SODIUM CHLORIDE 0.9% 90 ML IV ONE (13:40)
[2024-07-09] MEDS: SODIUM CHLORIDE 0.9% 500 ML 500 ML with HEPARIN SODIUM,PORCINE (1 ML) 5,000 UNIT IV ONE (13:40)
[2024-07-09] MEDS: ceFAZolin 1,000 MG in SODIUM CHLORIDE 0.9% 1,000 ML IRRIGATION ONE (13:41)
[2024-07-09 14:15] LABS: ABG Base Excess -9.6 mmol/L; ABG Glucose Whole Blood 78 mg/dL (75-99); ABG HCO3 15 mmol/L (21-25); ABG Ionized Calcium 3.8 mg/dL (4.5-5.3); ABG Lactic Acid Whole Blood 0.5 mmol/L (0.5-1.6); ABG Oxygen Saturation 99.2 % (94-97); ABG PCO2 25 mmHg (35-45); ABG PH 7.38 (7.35-7.45); ABG PO2 253 mmHg (83-108); ABG Sodium Whole Blood 140 mmol/L (135-146); ABG TCO2 14 mmol/L (19-24)
[2024-07-09 14:17] LABS: ABG Base Excess -2.4 mmol/L; ABG Glucose Whole Blood 112 mg/dL (75-99); ABG HCO3 23 mmol/L (21-25); ABG Hematocrit 27 % (34.0-46.0); ABG Lactic Acid Whole Blood 0.8 mmol/L (0.5-1.6); ABG Oxygen Saturation 99.2 % (94-97); ABG PCO2 39 mmHg (35-45); ABG PH 7.38 (7.35-7.45); ABG PO2 276 mmHg (83-108); ABG Potassium Whole Blood 3.9 mmol/L (3.4-4.5); ABG Sodium Whole Blood 135 mmol/L (135-146); ABG TCO2 22 mmol/L (19-24)
[2024-07-09 14:46] LABS: ABG Base Excess -2.2 mmol/L; ABG Glucose Whole Blood 118 mg/dL (75-99); ABG HCO3 22 mmol/L (21-25); ABG Hematocrit 26 % (34.0-46.0); ABG Ionized Calcium 4.9 mg/dL (4.5-5.3); ABG Lactic Acid Whole Blood 0.8 mmol/L (0.5-1.6); ABG Oxygen Saturation 99.2 % (94-97); ABG PCO2 37 mmHg (35-45); ABG PH 7.39 (7.35-7.45); ABG PO2 268 mmHg (83-108); ABG Potassium Whole Blood 3.9 mmol/L (3.4-4.5); ABG Sodium Whole Blood 135 mmol/L (135-146); ABG TCO2 21 mmol/L (19-24)
[2024-07-09 15:35] LABS: ABG Potassium Whole Blood 2.5 mmol/L (3.4-4.5)
[2024-07-09 15:36] LABS: ABG Hematocrit 19 % (34.0-46.0)
--- NOTE | 2024-07-09 15:55 | P.ANPRN ---
Procedure Note - Anesthesia - BETSY Intraop Post Bypass BETSY Intraop Post Bypass Procedure Performed: cad s/p off pump cabg Ejection Fraction: Normal Regional Wall Motion Abnormalities: None R. Ventricle Function: Normal Aortic Valve: Unchanged Mitral Valve: mild MR. BETSY done at systolic 130. Agrees with preop echo Tricuspid: Unchanged Pulmonic: Unchanged Aortic Dissection: No
[2024-07-09 15:56] LABS: Allen Test Performed? No
[2024-07-09 16:01] LABS: ABG Base Excess -2.5 mmol/L; ABG Glucose Whole Blood 125 mg/dL (75-99); ABG HCO3 22 mmol/L (21-25); ABG Hematocrit 25 % (34.0-46.0); ABG Ionized Calcium 4.8 mg/dL (4.5-5.3); ABG Lactic Acid Whole Blood 0.9 mmol/L (0.5-1.6); ABG Oxygen Saturation 98.9 % (94-97); ABG PCO2 35 mmHg (35-45); ABG PH 7.41 (7.35-7.45); ABG PO2 196 mmHg (83-108); ABG Potassium Whole Blood 3.9 mmol/L (3.4-4.5); ABG Sodium Whole Blood 135 mmol/L (135-146); ABG TCO2 21 mmol/L (19-24)
[2024-07-09] MEDS ORDERED: DEXTROSE 50% SYRINGE 50 ML IVP PRN ×2 (16:04)
[2024-07-09] MEDS ORDERED: Potassium Replacement Protocol 1 EACH MISC MISCELLANE PRN (16:04)
[2024-07-09] MEDS ORDERED: BENZOCAINE/MENTHOL LOZENG 1 EACH LOZENGE MUCOUS MEM PRN (16:04)
[2024-07-09] MEDS ORDERED: hydrALAZINE HCL 20 MG/ML 1 ML VIAL IVP PRN (16:04)
[2024-07-09] MEDS ORDERED: Magnesium Replacement Protocol 1 EACH MISC MISCELLANE PRN (16:04)
[2024-07-09] MEDS ORDERED: IPRATROPIUM-ALBUTEROL 3 ML NEB INHALATION PRN (16:04)
--- NOTE | 2024-07-09 16:16 | P.OP ---
Date of Procedure: 07/09/24 Preoperative Diagnosis: Coronary artery disease, non-ST elevation OH Postoperative Diagnosis: Same Procedure(s) Performed: Off-pump coronary bypass grafting x 3 with DECKER to LAD, sequential left radial artery graft to obtuse marginal and intermediate coronary arteries with endovascular harvest of the left radial artery and occlusion of the left atrial appendage with 35 mm AtriCure clip. Implants: 35 mm AtriCure clip. Anesthesia: GETA Surgeon: Abram Whitfield Foreign Languages Department Chair #1: Hector Almodovar (assistant boys track coach) Foreign Languages Department Chair #2: Lazaro Grande (Second assist) Estimated Blood Loss (ml): 500 Pathology: none sent Condition: stable Disposition: ICU Indications for Procedure: 83-year-old male presents with unstable angina and chest pain ruled in for subendocardial OH and was taken to the [facility] last week for cardiac catheterization. This demonstrated severe triple-vessel coronary artery disease with left main component as well as heavy calcification of the distal left main and proximal LAD intermediate and circumflex coronary arteries. Unfortunately ultrasound demonstrated no usable saphenous vein. His radial arteries were appropriate. Case was discussed extensively with cardiology. He was not felt to be an appropriate candidate for percutaneous intervention to the left side. It was decided that we would pursue DECKER to the LAD with sequential radial to the intermediate and obtuse marginal and leave the moderately diseased right coronary artery alone at this time with potential for stenting down the road. Operative Findings: The LAD exited in the mid anterior wall and was a 1.5 mm reasonable vessel. The intermediate coronary artery was heavily calcified and not graftable for much of its distance. It was grafted fairly distally where it had a 1.5 mm lumen and a soft wall although still some disease distally to that. The obtuse marginal was heavily calcified proximally and was grafted distal to the bifurcation where it was a soft vessel with a 1.25 to 1.5 mm lumen. Radial artery was an excellent conduit and of adequate length to sequentially graft both the OM and the intermediate. The OM was grafted more proximally on the radial and the intermediate more distally because of the lie of the graft. DECKER was an excellent conduit. BETSY did demonstrate mild mitral regurgitation both pre and postoperatively which was unchanged. Description of Procedure: Patient was brought to the operating room and placed supine on the operating table. General anesthesia was induced. Patient was intubated and BETSY probe placed. The anterior torso and bilateral lower extremities and left upper extremity were sterilely prepped and draped. Left radial artery was harvested using endovascular harvest technique and was of good quality. It was prepared on the back table. The incision was closed and the arm was tucked at the side. Simultaneous sternotomy was performed the left hemisternum was retracted upwards and the left internal mammary artery harvested on a vascularized pedicle left intact and its origin from the subclavian and divided distally. It was an excellent conduit. The left pleural space was drained with a 32 [place] chest tube. Standard sternal retractor was placed. Pericardium was opened in the midline and the heart was exposed with pericardial sutures. Patient was systemically heparinized and ACT is maintained greater than 250 during grafting. We began by placing a 35 mm AtriClip across the base of the left atrial appendage. BETSY demonstrated excellent position placed and placement. Next the DECKER was tunneled into the pericardial space and cut to appropriate length to reach the LAD in its midportion. The LAD was stabilized and opened, blood flow was controlled with a 1.5 mm flow-through. End-to-side anastomosis between the DECKER and the LAD was performed with running 8-0 Prolene suture. On completion of the anastomosis the flow through was removed effectively probing the proximal and distal portion of the anastomosis. Suture was tied with good hemostasis. Inflow was opened. The BENIGNO pedicle was tacked surrounding epicardium with 6-0 silk suture. Graft lay very well. Next the lateral wall of the heart was exposed. We explored the intermediate coronary artery stabilizing it and opening it fairly distally. Blood flow was easily controlled with a 1.5 mm flow-through. End-to-side anastomosis between the radial artery and the intermediate was performed with running 7-0 Prolene suture. On completion of the anastomosis the flow through was removed probing the proximal and distal por tion of the anastomosis. Suture was tied with good hemostasis. Stabilizer was moved to the first branch of the obtuse marginal. This was opened and blood flow controlled with a 1 5 flow-through. It was a tight fit. Xexy-kg-bocy anastomosis between the radial and the OM was performed with running 7-0 Prolene suture. On completion the anastomosis the flow through was removed probing the proximal distal portion of the anastomosis. Suture was tied with good result and hemostasis. Bulldog clamp was removed from distal to proximal and the heart lowered into anatomic position. Radial was cut to appropriate length to reach the ascending aorta. Heartstring device was deployed in the distal ascending aorta to the left of midline in the proximal anastomosis constructed with 5-0 Prolene suture. On completion of proximal anastomosis it was de-aired by backbleeding, the heartstring device was removed and the suture was tied with good resulting hemostasis. All the graft lay well and were hemostatic. Heparin was reversed with protamine. Chest was irrigated with antibiotic solution. Mediastinum was drained with a 36 [place] chest tube. Sternum was closed with 8 sternal wires. Fascia was closed with 0 Ethibond. Subcutaneous and subcuticular layers closed with layers of Vicryl suture. Skin glue and dry sterile dressings were applied. Patient was transferred to ICU in stable con dition. Patient received no blood transfusions and was on no inotropic support.
[2024-07-09] MEDS: IPRATROPIUM-ALBUTEROL 3 ML NEB INHALATION SCH (16:42)
[2024-07-09 16:44] LABS: Glucose,Whole Blood 127 mg/dL (70-110)
[2024-07-09] MEDS: INSULIN REGULAR 100 UNIT in SODIUM CHLORIDE 0.9% 100 ML IV SCH (16:50)
[2024-07-09] MEDS: NITROGLYCERIN-D5W PMX 50 MG in DEXTROSE/WATER 1 250ML.BAG IV SCH (16:54)
[2024-07-09] MEDS: SODIUM CHLORIDE 0.9% 1,000 ML IV SCH (16:54)
--- NOTE | 2024-07-09 17:05 | XR ---
EXAMINATION TYPE: XR chest 1V portable DATE OF EXAM: 07/09/2024 4:43 PM COMPARISON: Prior chest radiograph, most recently dated 07/06/2024. CLINICAL INDICATION: Male, 83 years old with history of Post Operative Cardiac Surgery; [facility] TECHNIQUE: XR chest 1V portable Frontal view of the chest. FINDINGS: Lungs/Pleura: Low lung volumes limit study. Left-sided chest tube in place. Pulmonary artery catheter overlies the region of the main pulmonary artery. Enteric tube with distal sidehole overlying the pr oximal gastric lumen. New central drainage catheter noted. No appreciable pneumothorax. Trace bilater al pleural effusions with adjacent compressive atelectasis. Heart/mediastinum: Cardiomegaly. Median sternotomy wires. Atrial appendage occlusion device. Musculoskeletal: No acute osseous pathology. Old right-sided rib fracture deformities. Other findings: None Lines/Tubes: Endotracheal tube terminates approximately 4 cm above the lin. IMPRESSION: 1. Trace bilateral pleural effusions with adjacent lower lobe compressive atelectasis. 2. Left-sided chest tube in place. No appreciable pneumothorax. 3. Endotracheal tube terminates proximally 4 cm above the lin. 4. Additional support devices as above. [facility], , 07/09/2024 5:02 PM
[2024-07-09 17:09] LABS: Basophils % (A) 0 %; Eosinophils # (A) 0.2 k/uL (0-0.7); Eosinophils % (A) 3 %; HCT 25.1 % (39.0-53.0); Lymphocytes # (A) 0.7 k/uL (1.0-4.8); Lymphocytes % (A) 9 %; MCH 31.1 pg (25.0-35.0); MCHC 34.2 g/dL (31.0-37.0); Mean Platelet Volume 9.9; Monocytes # (A) 0.4 k/uL (0-1.0); Monocytes % (A) 5 %; Neutrophils % (A) 83 %; RBC 2.76 m/uL (4.30-5.90); RDW 12.7 % (11.5-15.5); WBC 8.5 k/uL (3.8-10.6)
[2024-07-09 17:12] LABS: Ionized Calcium 4.8 mg/dL (4.5-5.3)
[2024-07-09 17:12] LABS: ABG Base Excess -3.1 mmol/L; ABG HCO3 23 mmol/L (21-25); ABG Oxygen Saturation >100.0 % (94-97); ABG PCO2 43 mmHg (35-45); ABG PH 7.33 (7.35-7.45); ABG PO2 391 mmHg (83-108); ABG TCO2 24 mmol/L (19-24); Allen Test Performed? Yes
[2024-07-09 17:16] LABS: INR 1.3 (<1.2); Partial Thromboplastin Time 25.1 sec (22.0-30.0); Prothrombin Time 13.8 sec (10.0-12.5)
[2024-07-09 17:18] LABS: HGB 8.6 gm/dL (13.0-17.5)
[2024-07-09 17:22] LABS: ALT 25 U/L (4-49); AST 27 U/L (17-59); African American GFR (CKD) 81 (>60 ml/min/1.73 sqM); Albumin 3.3 g/dL (3.5-5.0); Alkaline Phosphatase 36 U/L (38-126); Anion Gap 7 mmol/L; Blood Urea Nitrogen 22 mg/dL (9-20); Calcium 8.3 mg/dL (8.4-10.2); Carbon Dioxide 22 mmol/L (22-30); Chloride 104 mmol/L (98-107); Glucose 115 mg/dL (74-99); Magnesium 2.2 mg/dL (1.6-2.3); Non-African American GFR(CKD) 70 (>60 ml/min/1.73 sqM); Potassium 4.1 mmol/L (3.5-5.1); Sodium 133 mmol/L (137-145); Total Bilirubin 0.5 mg/dL (0.2-1.3); Total Protein 5.2 g/dL (6.3-8.2)
[2024-07-09] MEDS: CLEVIDIPINE BUTYRATE 25 MG in EMPTY BAG 1 BAG IV PRN (17:30)
[2024-07-09] MEDS: AMIODARONE 360 MG in DEXTROSE 5% IN WATER 200 ML IV ONE (17:39)
[2024-07-09 17:40] LABS: Large Platelets Present
[2024-07-09 17:41] LABS: Platelet Count 84 k/uL (150-450)
[2024-07-09 17:46] LABS: Glucose,Whole Blood 117 mg/dL (70-110)
--- NOTE | 2024-07-09 17:51 | P.CNPUL ---
History of Present Illness Consult date: 07/09/24 Requesting physician: Abram Whitfield Chief complaint: Off-pump coronary bypass grafting x 3 with DECKER to LAD, sequential left rad History of present illness: This is an 83-year-old white male, known history of coronary artery disease, previous PCI of the RCA in 1997, known history of hypertension, dyslipidemia, previous smoker, history of degenerative joint disease, patient presented with intermittent episodes of left sided chest pain with left arm pain this was couple of weeks ago. Patient took 3 sublingual nitroglycerin at home, and pain was noted to subside a bit. Patient seen at [facility] initially, troponin was noted to be elevated, then he was transferred to [facility], and underwent further workup including a cardiac catheterization, patient was found to have triple-vessel coronary artery disease, patient was seen by cardiothoracic surgery after his cardiac catheterization, and today he underwent surgery by Dr. Whitfield. Postoperatively, patient is on mechanical vent ilation, patient is on assist-control rate of 16 tidal volume 400 FiO2 100% PEEP of 5 ABG showed a pO2 of 391 pCO2 43 pH of 7.33 bicarb 23 has his FiO2 was decreased down to 50%, patient was noted to have good cardiac output of 4.4, cardiac index is a bit low at 2.1. Chest x-ray postoperatively showed mostly postoperative changes, adequate placement of the tubes endotracheal tube and [place]-Cong catheter. Review of Systems ROS unobtainable: due to endotracheal tube Past Medical History Past Medical History: Hyperlipidemia, Hypertension History of Any Multi-Drug Resistant Organisms: None Reported Past Surgical History: Heart Catheterization With Stent, Hernia Repair Additional Past Surgical History / Comment(s): heart stent x 1 Past Anesthesia/Blood Transfusion Reactions: No Reported Reaction Date of Last Stent Placement:: 1997 stent placed Past Psychological History: No Psychological Hx Reported Smoking Status: Former smoker Past Alcohol Use History: Occasional Past Drug Use History: None Reported - Past Family History Mother Family Medical History: Cancer Additional Family Medical History / Comment(s): breast CA Father Family Medical History: CVA/TIA Brother(s) Family Medical History: Cancer, Myocardial Infarction (ID) Medications and Allergies Home Medications Medication Instructions Recorded Confirmed Type Aspirin EC [Ecotrin Low Dose] 81 mg PO DAILY 07/03/24 07/03/24 History Atorvastatin [Lipitor] 40 mg PO DAILY 07/03/24 07/03/24 History Ezetimibe [Zetia] 10 mg PO DAILY 07/03/24 07/03/24 History Finasteride [Proscar] 5 mg PO DAILY 07/03/24 07/03/24 History Metoprolol Tartrate [Lopressor] 25 mg PO DAILY 07/03/24 07/03/24 History Naproxen Sodium [Aleve] 440 mg PO BID PRN 07/03/24 07/03/24 History lisinopriL [Zestril] 10 mg PO DAILY 07/03/24 07/03/24 History Allergies Allergy/AdvReac Type Severity Reaction Status Date / Time No Known Allergies Allergy Verified 07/09/24 10:39 Physical Exam Vitals: Vital Signs Temp Pulse Pulse Pulse Resp BP BP 07/09/24 17:13 07/09/24 17:00 62 16 07/09/24 16:54 61 07/09/24 16:50 58 L 16 07/09/24 16:43 55 L 07/09/24 16:40 95.4 F L 58 L 16 106/57 07/09/24 16:35 07/09/24 10:40 97.1 F L 60 16 137/66 07/09/24 08:51 62 16 07/09/24 08:41 97.5 F L 62 16 112/73 07/09/24 06:00 97.9 F 80 17 115/67 07/09/24 02:00 58 L 17 07/09/24 00:00 97.6 F 63 17 118/71 07/08/24 20:00 97.7 F 53 L 17 90/56 BP Pulse Ox FiO2 07/09/24 17:13 50 07/09/24 17:00 100 07/09/24 16:54 07/09/24 16:50 100 07/09/24 16:43 07/09/24 16:40 100 100 07/09/24 16:35 100 07/09/24 10:40 128/65 97 07/09/24 08:51 07/09/24 08:41 125/68 96 07/09/24 06:00 117/73 98 07/09/24 02:00 07/09/24 00:00 96 07/08/24 20:00 96 Intake and Output 03/07/09/24 07/09/24 06:59 14:59 22:59 Intake Total 210 113 60.867 Output Total 440 500 115 Balance -230 -387 -54.133 Intake: IV 10 113 60.5 Invasive Line 3 10 10 Nitroglycerin-D5w Pmx 50 1.5 mg In Dextrose/Water 1 250ml.bag @ 5 MCG/MIN 1.5 mls/hr IV .Q24H JAE Rx#: [id number] Pressure bag 9 Sodium Chloride 0.9% 1, 50 000 ml @ 50 mls/hr IV . Q20H JAE Rx#:[id number] Intake, IV Titration 0.367 Amount Clevidipine Butyrate 25 0.367 mg In Empty Bag 1 bag @ 1 MG/HR 2 mls/hr IV .Q24H PRN Rx#:[id number] Oral 200 Output: Chest Tube Drainage 70 Chest Tube Left Pleural/ 10 Mediastinal Chest Tube Mediastinal 60 Urine 440 250 45 Estimated Blood Loss 250 Other: Voiding Method Indwelling Catheter Indwelling Catheter # Voids 1 Weight 90 kg ABP, PAP, CO, CI - Last 8 Hours Arterial Blood Pressure 132/43 Arterial Blood Pressure 126/45 Arterial Blood Pressure 112/46 Pulmonary Artery Pressure 29/13 Pulmonary Artery Pressure 34/14 Pulmonary Artery Pressure 36/15 Cardiac Output 4.4 Cardiac Index 2.1 CONSTITUTIONAL: Revealed 83-year-old male in no distress intubated mechanically ventilated. EYES: Pupils equal, round, reactive to light, normal ocular movement ENT: Moist mucous membranes without oral lesions present, endotracheal tube and orogastric tube are intact NECK: No masses, no bruits, trachea midline RESPIRATORY: Good breath sound bilaterally no rhonchi no wheezes CARDIOVASCULAR: distant S1-S2, no S3 gallop, positive pericardial rub GASTROINTESTINAL: Abdomen soft, nontender, nondistended without masses or organomegaly noted. There is no rebound or guarding present. Active bowel sounds present 4 quadrants. Skin: No rashes NEUROLOGIC: Could not assess MUSKULOSKELETAL: No deformities PSYCHIATRIC: Could not assess Results - Laboratory Findings CBC and BMP: 07/09/24 16:43 07/09/24 16:43 ABG ABG pH 7.41 (7.35-7.45) 07/09/24 16:00 ABG pCO2 35 mmHg (35-45) 07/09/24 16:00 ABG pO2 196 mmHg (83-108) H 07/09/24 16:00 ABG O2 Saturation 98.9 % (94-97) H 07/09/24 16:00 PT/INR, D-dimer PT 13.8 sec (10.0-12.5) H 07/09/24 16:43 INR 1.3 (<1.2) H 07/09/24 16:43 Abnormal lab findings: Abnormal Labs 07/02/24 07/02/24 07/02/24 21:57 21:57 21:57 WBC RBC 4.13 L Hgb 12.4 L Hct 38.4 L MCHC Plt Count Neutrophils # Lymphocytes # 0.5 L Monocytes # PT INR APTT ABG pCO2 ABG pO2 ABG HCO3 ABG Total CO2 ABG O2 Saturation ABG Hematocrit ABG Potassium ABG Ionized Calcium ABG Glucose Hemoglobin Sodium 135 L Chloride Carbon Dioxide 21 L BUN 27 H Creatinine Glucose 222 H POC Glucose (mg/dL) Calcium ALT Alkaline Phosphatase Troponin I 0.192 H* Total Protein Albumin Arterial Blood Potassium Arterial Blood Glucose Ur Specific [place] Urine Protein Urine Glucose (UA) Crossmatch 07/03/24 07/03/24 07/03/24 03:04 06:50 06:50 WBC RBC Hgb Hct MCHC Plt Count Neutrophils # Lymphocytes # Monocytes # PT INR APTT 20.0 L ABG pCO2 ABG pO2 ABG HCO3 ABG Total CO2 ABG O2 Saturation ABG Hematocrit ABG Potassium ABG Ionized Calcium ABG Glucose Hemoglobin Sodium Chloride Carbon Dioxide BUN Creatinine Glucose POC Glucose (mg/dL) Calcium ALT Alkaline Phosphatase Troponin I 0.607 H* 0.687 H* Total Protein Albumin Arterial Blood Potassium Arterial Blood Glucose Ur Specific [place] Urine Protein Urine Glucose (UA) Crossmatch 07/03/24 07/03/24 07/04/24 13:58 16:09 00:59 WBC RBC Hgb Hct MCHC Plt Count Neutrophils # Lymphocytes # Monocytes # PT INR APTT 59.2 H ABG pCO2 ABG pO2 ABG HCO3 ABG Total CO2 ABG O2 Saturation ABG Hematocrit ABG Potassium ABG Ionized Calcium ABG Glucose Hemoglobin Sodium Chloride Carbon Dioxide BUN Creatinine Glucose POC Glucose (mg/dL) 117 H Calcium ALT Alkaline Phosphatase Troponin I Total Protein Albumin Arterial Blood Potassium Arterial Blood Glucose Ur Specific [place] 1.040 H Urine Protein Trace H Urine Glucose (UA) Trace H Crossmatch 07/04/24 07/04/24 07/04/24 06:45 06:45 06:45 WBC 13.6 H RBC 4.06 L Hgb 12.1 L Hct MCHC 30.8 L Plt Count Neutrophils # 11.4 H Lymphocytes # 0.9 L Monocytes # 1.1 H PT 13.3 H INR 1.2 H APTT 92.5 H ABG pCO2 ABG pO2 ABG HCO3 ABG Total CO2 ABG O2 Saturation ABG Hematocrit ABG Potassium ABG Ionized Calcium ABG Glucose Hemoglobin Sodium Chloride 108 H Carbon Dioxide 19 L BUN 34 H Creatinine Glucose 117 H POC Glucose (mg/dL) Calcium ALT Alkaline Phosphatase Troponin I Total Protein Albumin Arterial Blood Potassium Arterial Blood Glucose Ur Specific [place] Urine Protein Urine Glucose (UA) Crossmatch 07/04/24 07/05/24 07/05/24 15:04 07:56 07:56 WBC 11.0 H RBC 4.28 L Hgb 12.7 L Hct MCHC Plt Count Neutrophils # 8.1 H Lymphocytes # Monocytes # PT INR APTT 60.3 H ABG pCO2 ABG pO2 ABG HCO3 ABG Total CO2 ABG O2 Saturation ABG Hematocrit ABG Potassium ABG Ionized Calcium ABG Glucose Hemoglobin Sodium 136 L Chloride Carbon Dioxide BUN 27 H Creatinine Glucose 100 H POC Glucose (mg/dL) Calcium ALT Alkaline Phosphatase Troponin I Total Protein Albumin Arterial Blood Potassium Arterial Blood Glucose Ur Specific [place] Urine Protein Urine Glucose (UA) Crossmatch 07/05/24 07/06/24 07/06/24 07:56 07:54 07:54 WBC RBC 4.16 L Hgb 12.4 L Hct 38.4 L MCHC Plt Count Neutrophils # Lymphocytes # Monocytes # PT INR APTT 53.3 H ABG pCO2 ABG pO2 ABG HCO3 ABG Total CO2 ABG O2 Saturation ABG Hematocrit ABG Potassium ABG Ionized Calcium ABG Glucose Hemoglobin Sodium 134 L Chloride Carbon Dioxide BUN Creatinine Glucose 107 H POC Glucose (mg/dL) Calcium ALT Alkaline Phosphatase Troponin I Total Protein Albumin Arterial Blood Potassium Arterial Blood Glucose Ur Specific [place] Urine Protein Urine Glucose (UA) Crossmatch 07/06/24 07/08/24 07/08/24 07:54 06:41 06:41 WBC RBC 3.95 L Hgb 11.8 L Hct 36.9 L MCHC Plt Count 145 L Neutrophils # Lymphocytes # Monocytes # PT INR APTT 42.1 H ABG pCO2 ABG pO2 ABG HCO3 ABG Total CO2 ABG O2 Saturation ABG Hematocrit ABG Potassium ABG Ionized Calcium ABG Glucose Hemoglobin Sodium Chloride Carbon Dioxide BUN Creatinine Glucose POC Glucose (mg/dL) Calcium ALT Alkaline Phosphatase Troponin I Total Protein Albumin Arterial Blood Potassium Arterial Blood Glucose Ur Specific [place] Urine Protein Urine Glucose (UA) Crossmatch See Detail 07/08/24 07/08/24 07/09/24 06:41 06:41 13:00 WBC RBC Hgb Hct MCHC Plt Count Neutrophils # Lymphocytes # Monocytes # PT INR 1.2 H APTT ABG pCO2 ABG pO2 >420 H ABG HCO3 ABG Total CO2 ABG O2 Saturation 99.3 H ABG Hematocrit 31 L ABG Potassium ABG Ionized Calcium ABG Glucose Hemoglobin 10.2 L Sodium 133 L Chloride Carbon Dioxide BUN 28 H Creatinine 1.32 H Glucose POC Glucose (mg/dL) Calcium ALT 50 H Alkaline Phosphatase Troponin I Total Protein 6.0 L Albumin 3.4 L Arterial Blood Potassium Arterial Blood Glucose Ur Specific [place] Urine Protein Urine Glucose (UA) Crossmatch 07/09/24 07/09/24 07/09/24 13:45 14:02 14:32 WBC RBC Hgb Hct MCHC Plt Count Neutrophils # Lymphocytes # Monocytes # PT INR APTT ABG pCO2 25 L ABG pO2 253 H 276 H 268 H ABG HCO3 15 L ABG Total CO2 14 L ABG O2 Saturation 99.2 H 99.2 H 99.2 H ABG Hematocrit 19 L* 27 L 26 L ABG Potassium 2.5 L* ABG Ionized Calcium 3.8 L ABG Glucose 112 H 118 H Hemoglobin 6.3 L* 8.6 L 8.5 L Sodium Chloride Carbon Dioxide BUN Creatinine Glucose POC Glucose (mg/dL) Calcium ALT Alkaline Phosphatase Troponin I Total Protein Albumin Arterial Blood Potassium 2.5 L* Arterial Blood Glucose 112 H 118 H Ur Specific [place] Urine Protein Urine Glucose (UA) Crossmatch 07/09/24 07/09/24 07/09/24 16:00 16:43 16:43 WBC RBC 2.76 L Hgb 8.6 L D Hct 25.1 L MCHC Plt Count 84 L Neutrophils # Lymphocytes # 0.7 L Monocytes # PT INR APTT ABG pCO2 ABG pO2 196 H ABG HCO3 ABG Total CO2 ABG O2 Saturation 98.9 H ABG Hematocrit 25 L ABG Potassium ABG Ionized Calcium ABG Glucose 125 H Hemoglobin 8.2 L Sodium Chloride Carbon Dioxide BUN Creatinine Glucose POC Glucose (mg/dL) 127 H Calcium ALT Alkaline Phosphatase Troponin I Total Protein Albumin Arterial Blood Potassium Arterial Blood Glucose 125 H Ur Specific [place] Urine Protein Urine Glucose (UA) Crossmatch 07/09/24 07/09/24 16:43 16:43 WBC RBC Hgb Hct MCHC Plt Count Neutrophils # Lymphocytes # Monocytes # PT 13.8 H INR 1.3 H APTT ABG pCO2 ABG pO2 ABG HCO3 ABG Total CO2 ABG O2 Saturation ABG Hematocrit ABG Potassium ABG Ionized Calcium ABG Glucose Hemoglobin Sodium 133 L Chloride Carbon Dioxide BUN 22 H Creatinine Glucose 115 H POC Glucose (mg/dL) Calcium 8.3 L ALT Alkaline Phosphatase 36 L Troponin I Total Protein 5.2 L Albumin 3.3 L Arterial Blood Potassium Arterial Blood Glucose Ur Specific [place] Urine Protein Urine Glucose (UA) Crossmatch - Diagnostic Findings Chest x-ray: image reviewed (As noted in HPI) Assessment and Plan Assessment: Impression: Off-pump coronary bypass grafting x 3 with DECKER to LAD, sequential left radial artery graft to obtuse marginal and intermediate coronary arteries with endovascular harvest of the left radial artery and occlusion of the left atrial appendage with 35 mm AtriCure clip. Postoperative day #0 Triple-vessel coronary artery disease Non-ST elevation myocardial infarction on this admission History of previous PCI and stent RCA 1997 Benign essential hypertension Dyslipidemia Degenerative joint disease Ex-smoker Recommendation: Continue ventilatory support Continue present supportive care measures Continue bronchodilators Will likely extubate in the next couple of hours Postextubation patient to go on extensive medical therapy including statins, Plavix, aspirin, and beta-blockers Incentive spirometry postextubation Bronchodilators postextubation GI and DVT prophylaxis Will continue to follow Time with Patient: Greater than 30
[2024-07-09] MEDS: HEPARIN SODIUM,PORCINE 5,000 UNIT/ML 1 ML VIAL SQ SCH (18:26)
[2024-07-09] MEDS: ACETAMINOPHEN IV (For NPO) 1,000 MG in EMPTY BAG 1 BAG IVPB SCH (18:30)
[2024-07-09 18:51] LABS: Glucose,Whole Blood 139 mg/dL (70-110)
[2024-07-09] MEDS: DEXMEDETOMIDINE/0.9% NACL(PMX) 400 MCG in EMPTY BAG 1 BAG IV SCH (19:39)
[2024-07-09] MEDS: SENNOSIDES-DOCUSATE SODIUM 1 EACH TAB PO SCH (19:42)
[2024-07-09 19:48] LABS: Basophils % (A) 0 %; Eosinophils # (A) 0.1 k/uL (0-0.7); Eosinophils % (A) 1 %; HCT 29.2 % (39.0-53.0); HGB 9.8 gm/dL (13.0-17.5); Lymphocytes # (A) 1.2 k/uL (1.0-4.8); Lymphocytes % (A) 10 %; MCH 30.6 pg (25.0-35.0); MCHC 33.7 g/dL (31.0-37.0); MCV 90.9 fL (80.0-100.0); Mean Platelet Volume 9.7; Monocytes # (A) 0.8 k/uL (0-1.0); Monocytes % (A) 7 %; Neutrophils # (A) 9.7 k/uL (1.3-7.7); Neutrophils % (A) 80 %; Platelet Count 118 k/uL (150-450); RBC 3.21 m/uL (4.30-5.90); RDW 12.7 % (11.5-15.5); WBC 12.1 k/uL (3.8-10.6)
[2024-07-09 19:59] LABS: Glucose,Whole Blood 162 mg/dL (70-110)
[2024-07-09 20:41] LABS: ABG HCO3 21 mmol/L (21-25); ABG Oxygen Saturation 99.2 % (94-97); ABG PCO2 36 mmHg (35-45); ABG PH 7.37 (7.35-7.45); ABG PO2 135 mmHg (83-108); ABG TCO2 22 mmol/L (19-24)
[2024-07-09 20:42] LABS: Allen Test Performed? no
[2024-07-09 21:04] LABS: Glucose,Whole Blood 167 mg/dL (70-110)
[2024-07-09 21:57] LABS: Glucose,Whole Blood 146 mg/dL (70-110)
[2024-07-09 22:06] LABS: Basophils % (A) 0 %; Eosinophils % (A) 0 %; HCT 27.5 % (39.0-53.0); HGB 9.4 gm/dL (13.0-17.5); Lymphocytes # (A) 0.4 k/uL (1.0-4.8); Lymphocytes % (A) 4 %; MCH 30.7 pg (25.0-35.0); MCHC 34.1 g/dL (31.0-37.0); MCV 90.1 fL (80.0-100.0); Mean Platelet Volume 11.1; Monocytes # (A) 0.6 k/uL (0-1.0); Monocytes % (A) 6 %; Neutrophils # (A) 9.2 k/uL (1.3-7.7); Neutrophils % (A) 89 %; Platelet Count 110 k/uL (150-450); RBC 3.05 m/uL (4.30-5.90); RDW 12.6 % (11.5-15.5); WBC 10.3 k/uL (3.8-10.6)
[2024-07-09] MEDS: AMIODARONE 450 MG in DEXTROSE 5% IN WATER 250 ML IV SCH (22:24)
[2024-07-09 23:05] LABS: Glucose,Whole Blood 135 mg/dL (70-110)
[2024-07-10 00:03] LABS: Glucose,Whole Blood 118 mg/dL (70-110)
[2024-07-10 01:00] LABS: Glucose,Whole Blood 120 mg/dL (70-110)
[2024-07-10 02:04] LABS: Glucose,Whole Blood 118 mg/dL (70-110)
[2024-07-10 02:58] LABS: Glucose,Whole Blood 120 mg/dL (70-110)
[2024-07-10 03:08] LABS: Glucose,Whole Blood 117 mg/dL (70-110)
[2024-07-10] MEDS: METOCLOPRAMIDE 5 MG/ML 2 ML VIAL IVP PRN (03:45)
[2024-07-10] MEDS ORDERED: ACETAMINOPHEN TAB 325 MG TAB PO PRN (03:57)
[2024-07-10 04:07] LABS: Glucose,Whole Blood 113 mg/dL (70-110)
[2024-07-10 04:22] LABS: Ionized Calcium 4.7 mg/dL (4.5-5.3)
[2024-07-10 04:29] LABS: Basophils % (A) 0 %; Eosinophils % (A) 0 %; HCT 29.6 % (39.0-53.0); HGB 9.9 gm/dL (13.0-17.5); Lymphocytes # (A) 0.4 k/uL (1.0-4.8); Lymphocytes % (A) 5 %; MCH 30.7 pg (25.0-35.0); MCHC 33.4 g/dL (31.0-37.0); MCV 91.9 fL (80.0-100.0); Mean Platelet Volume 9.8; Monocytes # (A) 0.6 k/uL (0-1.0); Monocytes % (A) 7 %; Neutrophils # (A) 7.6 k/uL (1.3-7.7); Neutrophils % (A) 87 %; Platelet Count 120 k/uL (150-450); RBC 3.22 m/uL (4.30-5.90); RDW 12.9 % (11.5-15.5); WBC 8.7 k/uL (3.8-10.6)
[2024-07-10 04:35] LABS: ALT 27 U/L (4-49); AST 39 U/L (17-59); African American GFR (CKD) 82 (>60 ml/min/1.73 sqM); Albumin 3.5 g/dL (3.5-5.0); Alkaline Phosphatase 42 U/L (38-126); Anion Gap 7 mmol/L; Blood Urea Nitrogen 20 mg/dL (9-20); Calcium 8.3 mg/dL (8.4-10.2); Carbon Dioxide 21 mmol/L (22-30); Chloride 102 mmol/L (98-107); Glucose 110 mg/dL (74-99); Magnesium 2.1 mg/dL (1.6-2.3); Non-African American GFR(CKD) 71 (>60 ml/min/1.73 sqM); Potassium 4.3 mmol/L (3.5-5.1); Sodium 130 mmol/L (137-145); Total Bilirubin 0.5 mg/dL (0.2-1.3); Total Protein 5.6 g/dL (6.3-8.2)
[2024-07-10] MEDS: ONDANSETRON 4 MG/2 ML VIAL IVP PRN (04:45)
[2024-07-10 05:16] LABS: Glucose,Whole Blood 134 mg/dL (70-110)
[2024-07-10] MEDS: METOPROLOL TARTRATE 12.5 MG TAB PO SCH (05:25)
--- NOTE | 2024-07-10 05:54 | P.PN ---
Subjective Progress Note Date: 07/09/24 This is a pleasant 83-year-old male who was recently admitted after an NSTEMI noted to have significant coronary artery disease scheduled to undergo CABG today. Patient currently remains in the OR and will follow-up on official report and patient once returning to the floor. Review of systems: Unable to assess as patient is in the OR Active Medications Acetaminophen (Acetaminophen Tab 325 Mg Tab) 650 mg PO Q4HR PRN PRN Reason: Fever And/ Or Mild Pain (1-3) Albuterol/Ipratropium (Ipratropium-Albuterol 3 Ml Neb) 3 ml INHALATION RT-Q2H PRN PRN Reason: Shortness Of Breath Or Wheezing Albuterol/Ipratropium (Ipratropium-Albuterol 3 Ml Neb) 3 ml INHALATION RT-QID [facility] Aspirin (Aspirin 325 Mg Tab) 325 mg PO DAILY [facility] Atorvastatin Calcium (Atorvastatin 40 Mg Tab) 40 mg PO DAILY [facility] Benzocaine/Menthol (Benzocaine/Menthol Lozeng 1 Each Lozenge) 1 each MUCOUS MEM Q2H PRN PRN Reason: Sore Throat Bisacodyl (Bisacodyl 10 Mg Supp) 10 mg RECTAL DAILY PRN PRN Reason: Constipation Clopidogrel Bisulfate (Clopidogrel 75 Mg Tab) 75 mg PO DAILY [facility] Dextrose/Water (Dextrose 50% Syringe 50 Ml) 25 ml IVP PER PROTOCOL PRN; Protocol PRN Reason: Hypoglycemia Dextrose/Water (Dextrose 50% Syringe 50 Ml) 50 ml IVP PER PROTOCOL PRN; Protocol PRN Reason: Hypoglycemia Finasteride (Finasteride 5 Mg Tab) 5 mg PO DAILY [facility] Last Admin: 07/09/24 16:23 Dose: Not Given Heparin Sodium (Porcine) (Heparin Sodium,Porcine 5,000 Unit/Ml 1 Ml Vial) 5,000 unit SQ Q8HR [facility] Last Admin: 07/09/24 23:32 Dose: 5,000 unit Hydralazine HCl (Hydralazine Hcl 20 Mg/Ml 1 Ml Vial) 10 mg IVP Q1H PRN PRN Reason: Blood Pressure - High Amiodarone HCl 450 mg/ (Dextrose/Water) 250 mls @ 16.667 mls/hr IV .Q15H [facility]; Protocol Stop: 07/10/24 10:03 Last Admin: 07/09/24 22:24 Dose: 0.5 mg/min, 16.667 mls/hr Albumin Human 250 ml/ IV (Solution) 250 mls @ 250 mls/hr IVPB Q1HR PRN; Protoc ol PRN Reason: For Volume Stop: 07/11/24 16:03 Clevidipine 25 mg/ IV Solution 50 mls @ 2 mls/hr IV .Q24H PRN; Protocol PRN Reason: Hypertension Last Titration: 07/10/24 03:10 Dose: 5 mg/hr, 10 mls/hr Nitroglycerin/Dextrose 50 mg/ (IV Solution) 250 mls @ 1.5 mls/hr IV .Q24H [facility] Last Admin: 07/09/24 16:54 Dose: 5 mcg/min, 1.5 mls/hr Amiodarone HCl 150 mg/ (Dextrose/Water) 103 mls @ 618 mls/hr IV .Q10M PRN PRN Reason: A.FIB/FLUTTER Propofol 1,000 mg/ IV Solution 100 mls @ 0 mls/hr IV .Q0M [facility]AE; Protocol Last Titration: 07/09/24 19:35 Dose: 0 mcg/kg/min, 0 mls/hr Dexmedetomidine HCl 400 mcg/ (IV Solution) 100 mls @ 0 mls/hr IV .Q0M [facility]; Protocol Stop: 07/10/24 16:05 Last Titration: 07/09/24 21:30 Dose: 0 mcg/kg/hr, 0 mls/hr Cefazolin Sodium 2 gm/ Sodium (Chloride) 50 mls @ 100 mls/hr IVPB Q8HR [facility]; Protocol Stop: 07/10/24 08:29 Last Admin: 07/09/24 23:32 Dose: 100 mls/hr Insulin Human Regular 100 unit (/ Sodium Chloride) 101 mls @ 0 mls/hr IV .Q0M [facility]; Protocol Last Titration: 07/10/24 05:30 Dose: 1.5 mls/hr, 1.5 mls/hr Sodium Chloride (Saline 0.9%) 1,000 mls @ 50 mls/hr IV .Q20H [facility] Last Admin: 07/09/24 16:54 Dose: 50 mls/hr Magnesium Hydroxide (Magnesium Hydroxide 2,400 Mg/30 Ml Cup) 2,400 mg PO BID PRN PRN Reason: Constipation Metoclopramide HCl (Metoclopramide 5 Mg/Ml 2 Ml Vial) 10 mg IVP Q4H PRN PRN Reason: Nausea And Vomiting Last Admin: 07/10/24 03:45 Dose: 10 mg Metoprolol Tartrate (Metoprolol Tartrate 12.5 Mg Tab) 12.5 mg PO BID [facility] Last Admin: 07/10/24 05:25 Dose: 12.5 mg Miscellaneous Information (Potassium Replacement Protocol 1 Each Misc) 1 each MISCELLANE DAILY PRN; Protocol PRN Reason: Per Protocol Ondansetron HCl (Ondansetron 4 Mg/2 Ml Vial) 4 mg IVP Q6HR PRN PRN Reason: Nausea And Vomiting Oxycodone HCl (Oxycodone Hcl 5 Mg Tab) 5 mg PO Q4HR PRN PRN Reason: Moderate Pain (Scale 4 to 6) Last Admin: 07/09/24 23:43 Dose: 5 mg Oxycodone HCl (Oxycodone Hcl 5 Mg Tab) 10 mg PO Q4HR PRN PRN Reason: Severe Pain (Scale 7 to 10) Last Admin: 07/10/24 03:45 Dose: 10 mg Pantoprazole Sodium (Pantoprazole 40 Mg Tablet) 40 mg PO -[facility]KFORMERLY [facility] Senna/Docusate Sodium (Sennosides-Docusate Sodium 1 Each Tab) 2 each PO HS [facility] Last Admin: 07/09/24 19:42 Dose: 2 each Sodium Chloride (Sodium Chloride 0.9% Flush 10 Ml Syringe) 10 ml IV BID [facility] Last Admin: 07/09/24 21:19 Dose: 10 ml Tamsulosin HCl (Tamsulosin 0.4 Mg Cap.Er.24h) 0.4 mg PO PC-SUPPER [facility] Last Admin: 07/09/24 18:34 Dose: Not Given PHYSICAL EXAMINATION: GENERAL: The patient is alert and oriented x4, Well developed, well nourished. Elderly appearing HEENT: Pupils are round and equally reacting to light. EOMI. no scleral icterus. No conjunctival pallor. Normocephalic, atraumatic. No pharyngeal erythema. No thyromegaly. CARDIOVASCULAR: S1 and S2 muffled PULMONARY: diminished breath sounds bilaterally with no wheezing or rhonchi noted. ABDOMEN: soft. Nontender on exam. obese. non-distended, normoactive bowel sounds. No palpable organomegaly. MUSCULOSKELETAL: No joint swelling or deformity. EXTREMITIES: No cyanosis, clubbing, or pedal edema. NEUROLOGICAL: Gross neurological examination did not reveal any focal deficits. SKIN: No rashes. Assessment: Acute NSTEMI with three-vessel disease for coronary artery bypass grafting today 07/09/2024 History of coronary artery disease Hypertension Dyslipidemia Gastroesophageal reflux disease GI prophylaxis DVT prophylaxis Full code Plan: Recommend to continue with current medications and management per cardiology and cardiothoracic surgery. Patient is scheduled to undergo CABG today currently in the OR and will await official report Recommend follow-up labs in the a.m. and protocol per CT surgery Will continue to follow with cardiothoracic team during hospitalization. Overall prognosis is guarded at this time The impression and plan of care has been dictated by Elizabeth Holder, nurse practitioner as directed. Dr. Jovany MD I have performed a history and examination and MDM of this patient, discussed the same with the dictator, and agree with the dictator's assessment and plan as written ,documented as a scribe. Based on total visit time, I have performed more than 50% of the visit. Any additional findings or plans will be noted. Objective - Vital Signs Vital signs: Vital Signs Temp 97.1 F L 07/09/24 10:40 Pulse 60 07/09/24 10:40 Resp 16 07/09/24 10:40 BP 137/66 07/09/24 10:40 Pulse Ox 97 07/09/24 10:40 FiO2 Intake & Output 07/08/24 07/09/24 07/09/24 18:59 06:59 18:59 Intake Total 840 220 113 Output Total 550 440 Balance 290 -220 113 Weight 90 kg Intake: IV 20 113 Invasive Line 3 20 10 Oral 840 200 Output: Urine 550 440 Other: Voiding Method Indwelling Catheter Indwelling Catheter Indwelling Catheter # Voids 1 # Bowel Movements 1 - Labs CBC & Chem 7: 07/10/24 03:30 07/10/24 03:30 Labs: Abnormal Lab Results - Last 24 Hours (Table) 07/08/24 07/09/24 Range/Units 06:41 13:00 ABG pO2 >420 H (83-108) mmHg ABG O2 Saturation 99.3 H (94-97) % ABG Hematocrit 31 L (34.0-46.0) % Hemoglobin 10.2 L (13.0-17.5) gm/dL Crossmatch See Detail
[2024-07-10] MEDS: ALBUMIN HUMAN 5% 250 ML in EMPTY BAG 1 BAG IVPB PRN (06:00)
[2024-07-10] MEDS: PANTOPRAZOLE 40 MG TABLET PO SCH (06:18)
[2024-07-10 06:22] LABS: Glucose,Whole Blood 129 mg/dL (70-110)
[2024-07-10 07:03] LABS: Glucose,Whole Blood 122 mg/dL (70-110)
--- NOTE | 2024-07-10 07:52 | XR ---
EXAMINATION TYPE: XR chest 1V portable DATE OF EXAM: 07/10/2024 5:40 AM COMPARISON: 07/09/2024 CLINICAL INDICATION: Male, 83 years old with history of Post Operative Cardiac Surgery, FINDINGS: Endotracheal and NG tubes have been removed. [place]-Cong catheter and mediastinal drain as well as left -sided chest tube remain in place. No evidence for pneumothorax. Scattered postoperative pleural-parenchymal changes. Stable appearance of the cardio-mediastinal structures at this time. IMPRESSION: 1. Stable portable chest. Clinical correlation and follow up until resolution is recommended. [facility], , 07/10/2024 7:49 AM
[2024-07-10] MEDS: KETOROLAC 15 MG/ML 1 ML VIAL IVP SCH (07:59)
[2024-07-10] MEDS: CLOPIDOGREL 75 MG TAB PO SCH (07:59)
[2024-07-10] MEDS: ASPIRIN 325 MG TAB PO SCH (07:59)
[2024-07-10] MEDS: ATORVASTATIN 40 MG TAB PO SCH (07:59)
[2024-07-10 08:09] LABS: Glucose,Whole Blood 116 mg/dL (70-110)
[2024-07-10] MEDS: IPRATROPIUM-ALBUTEROL 3 ML NEB INHALATION SCH (08:47)
--- NOTE | 2024-07-10 08:49 | P.PN ---
Subjective Progress Note Date: 07/10/24 Principal diagnosis: Triple-vessel coronary artery disease, non-STEMI this admission. History of coronary artery disease with previous PCI of the RCA in 1997, hypertension, hyperlipidemia, BPH, osteoarthritis, previous tobacco dependence POD #1 off-pump coronary bypass grafting x 3 with DECKER to LAD, sequential left radial artery graft to obtuse marginal and intermediate coronary arteries with endovascular harvest of the left radial artery and occlusion of the left atrial appendage with 35 mm AtriCure clip Postoperative acute blood loss anemia, thrombocytopenia, expected given hemodilution The patient was seen and examined this morning sitting up in recliner in the intensive care unit in no acute distress. He was successfully extubated last night at 20:45. Remains in sinus rhythm, hemodynamically stable. Currently on IV amiodarone for A-fib prophylaxis as well as IV nitro for vessel spasm prophylaxis. Remains on 2 L nasal cannula with oxygen saturation in the high 90s. Patient does complain of some expected post surgical pain, denies shortness of breath. Right internal jugular Coy/Cordis, mediastinal/left pleural chest tubes, left radial RONALD drain all present. No other new concerns. Objective - Vital Signs Vital signs: Vital Signs Temp 99.1 F 07/10/24 04:00 Pulse 71 07/10/24 07:00 Resp 17 07/10/24 07:00 BP 119/66 07/10/24 07:00 Pulse Ox 99 07/10/24 07:00 FiO2 40 07/09/24 20:06 Intake & Output 07/09/24 07/10/24 07/10/24 18:59 06:59 18:59 Intake Total 722.666 0644.305 68.35 Output Total 1060 1179 47 Balance -548.426 183.305 21.35 Weight 92.2 kg Intake: IV 477.8 1189 66 ACETAMINOPHEN IV (For NPO 100 100 ) 1,000 mg In Empty Bag 1 bag @ 400 mls/hr IVPB Q6HR JAE Rx#:[id number] Albumin Human 5% 250 ml 250 In Empty Bag 1 bag @ 250 mls/hr IVPB Q1HR PRN Rx#: [id number] Amiodarone 360 mg In 33.3 Dextrose 5% in Water 200 ml @ 1 MG/MIN 33.333 mls/ hr IV .Q6H ONE Rx#: [id number] CO/CI 140 30 Invasive Line 3 10 Nitroglycerin-D5w Pmx 50 4.5 mg In Dextrose/Water 1 250ml.bag @ 5 MCG/MIN 1.5 mls/hr IV .Q24H JAE Rx#: [id number] Pressure bag 27 99 6 Sodium Chloride 0.9% 1, 150 550 30 000 ml @ 30 mls/hr IV . Q24H JAE Rx#:[id number] ceFAZolin 2 gm In Sodium 50 50 Chloride 0.9% 50 ml @ 100 mls/hr IVPB Q8HR JAE Rx# :[id number] Intake, IV Titration 33.774 123.305 2.35 Amount Clevidipine Butyrate 25 1.634 89.201 mg In Empty Bag 1 bag @ 1 MG/HR 2 mls/hr IV .Q24H PRN Rx#:[id number] Dexmedetomidine/0.9% NaCl 12.151 (Pmx) 400 mcg In Empty Bag 1 bag @ Titrate IV . Q0M JAE Rx#:[id number] Insulin Regular 100 unit 1.450 18.083 2.35 In Sodium Chloride 0.9% 100 ml @ Per Protocol IV .Q0M JAE Rx#:[id number] propofoL 1,000 mg In 30.69 3.87 Empty Bag 1 bag @ Titrate IV .Q0M JAE Rx#: [id number] Oral 50 Output: Chest Tube Drainage 325 559 17 Chest Tube Left Pleural/ 45 209 0 Mediastinal Chest Tube Mediastinal 280 350 17 Drainage 20 Left Wrist 20 Urine 485 600 30 Estimated Blood Loss 250 Other: Voiding Method Indwelling Catheter Indwelling Catheter ABP, PAP, CO, CI - Last Documented Arterial Blood Pressure 152/73 Pulmonary Artery Pressure 27/11 Cardiac Output 4.4 Cardiac Index 2.1 - Exam CONSTITUTIONAL: Appears comfortable, cooperative, no acute distress RESPIRATORY: Lungs sounds diminished bilaterally. Respirations even, nonlabored. Currently on 2 L nasal cannula with oxygen saturation 100%. Able to achieve 500 mL on incentive spirometry. Strong cough. CARDIOVASCULAR: S1, S2 present. Regular rate and rhythm, sinus rhythm on telemetry. Sternum stable. Palpable peripheral pulses bilaterally. Trace generalized edema present. No calf pain or tenderness noted. Heart hugger in place with patient demonstrating appropriate use. Antiembolism stockings, SCDs present. GASTROINTESTINAL: Abdomen soft, nontender, nondistended. Hypoactive bowel so unds present 4 quadrants. Tolerating minimal clear liquids. Denies flatus GENITOURINARY: Silver present draining clear, yellow urine. Output overnight 20-50 mL per hour INTEGUMENTARY: Skin is warm and dry with evidence of good perfusion. Anterior chest incision well approximated and covered with dry intact dressing. Left radial artery harvest site well approximated without redness, minimal drainage from RONALD NEUROLOGIC: Cranial nerves II through XII intact MUSKULOSKELETAL: Able to move all extremities, strength equal bilaterally PSYCHIATRIC: Alert and oriented to person place and time, appropriate affect, intact judgment and insight INVASIVE LINES AND TUBES: Mediastinal/left pleural chest tubes present and connected to wall suction, no air leaks present. Mediastinal tube with 210 mL serosanguineous drainage overnight, 700 mL since surgery. Left pleural chest tube with 170 mL serosanguineous drainage overnight, 220 mL since surgery. Right internal jugular Coy/Cordis present. Last CO/CI 4.4/2.1, PA 30/12, CVP 10. - Allied health notes Allied health notes reviewed: nursing - Labs CBC & Chem 7: 07/10/24 03:30 07/10/24 03:30 Labs: Abnormal Lab Results - Last 24 Hours (Table) 07/08/24 07/09/24 07/09/24 Range/Units 06:41 13:00 13:45 WBC (3.8-10.6) k/uL RBC (4.30-5.90) m/uL Hgb (13.0-17.5) gm/dL Hct (39.0-53.0) % Plt Count (150-450) k/uL Neutrophils # (1.3-7.7) k/uL Lymphocytes # (1.0-4.8) k/uL PT (10.0-12.5) sec INR (<1.2) ABG pH (7.35-7.45) ABG pCO2 25 L (35-45) mmHg ABG pO2 >420 H 253 H (83-108) mmHg ABG HCO3 15 L (21-25) mmol/L ABG Total CO2 14 L (19-24) mmol/L ABG O2 Saturation 99.3 H 99.2 H (94-97) % ABG Hematocrit 31 L 19 L* (34.0-46.0) % ABG Potassium 2.5 L* (3.4-4.5) mmol/L ABG Ionized Calcium 3.8 L (4.5-5.3) mg/dL ABG Glucose (75-99) mg/dL Hemoglobin 10.2 L 6.3 L* (13.0-17.5) gm/dL Sodium (137-145) mmol/L Carbon Dioxide (22-30) mmol/L BUN (9-20) mg/dL Glucose (74-99) mg/dL POC Glucose (mg/dL) (70-110) mg/dL Calcium (8.4-10.2) mg/dL Alkaline Phosphatase (38-126) U/L Total Protein (6.3-8.2) g/dL Albumin (3.5-5.0) g/dL Arterial Blood Potassium 2.5 L* (3.4-4.5) mmol/L Arterial Blood Glucose (75-99) mg/dL Crossmatch See Detail 07/09/24 07/09/24 07/09/24 Range/Units 14:02 14:32 16:00 WBC (3.8-10.6) k/uL RBC (4.30-5.90) m/uL Hgb (13.0-17.5) gm/dL Hct (39.0-53.0) % Plt Count (150-450) k/uL Neutrophils # (1.3-7.7) k/uL Lymphocytes # (1.0-4.8) k/uL PT (10.0-12.5) sec INR (<1.2) ABG pH (7.35-7.45) ABG pCO2 (35-45) mmHg ABG pO2 276 H 268 H 196 H (83-108) mmHg ABG HCO3 (21-25) mmol/L ABG Total CO2 (19-24) mmol/L ABG O2 Saturation 99.2 H 99.2 H 98.9 H (94-97) % ABG Hematocrit 27 L 26 L 25 L (34.0-46.0) % ABG Potassium (3.4-4.5) mmol/L ABG Ionized Calcium (4.5-5.3) mg/dL ABG Glucose 112 H 118 H 125 H (75-99) mg/dL Hemoglobin 8.6 L 8.5 L 8.2 L (13.0-17.5) gm/dL Sodium (137-145) mmol/L Carbon Dioxide (22-30) mmol/L BUN (9-20) mg/dL Glucose (74-99) mg/dL POC Glucose (mg/dL) (70-110) mg/dL Calcium (8.4-10.2) mg/dL Alkaline Phosphatase (38-126) U/L Total Protein (6.3-8.2) g/dL Albumin (3.5-5.0) g/dL Arterial Blood Potassium (3.4-4.5) mmol/L Arterial Blood Glucose 112 H 118 H 125 H (75-99) mg/dL Crossmatch 07/09/24 07/09/24 07/09/24 Range/Units 16:43 16:43 16:43 WBC (3.8-10.6) k/uL RBC 2.76 L (4.30-5.90) m/uL Hgb 8.6 L D (13.0-17.5) gm/dL Hct 25.1 L (39.0-53.0) % Plt Count 84 L (150-450) k/uL Neutrophils # (1.3-7.7) k/uL Lymphocytes # 0.7 L (1.0-4.8) k/uL PT 13.8 H (10.0-12.5) sec INR 1.3 H (<1.2) ABG pH (7.35-7.45) ABG pCO2 (35-45) mmHg ABG pO2 (83-108) mmHg ABG HCO3 (21-25) mmol/L ABG Total CO2 (19-24) mmol/L ABG O2 Saturation (94-97) % ABG Hematocrit (34.0-46.0) % ABG Potassium (3.4-4.5) mmol/L ABG Ionized Calcium (4.5-5.3) mg/dL ABG Glucose (75-99) mg/dL Hemoglobin (13.0-17.5) gm/dL Sodium (137-145) mmol/L Carbon Dioxide (22-30) mmol/L BUN (9-20) mg/dL Glucose (74-99) mg/dL POC Glucose (mg/dL) 127 H (70-110) mg/dL Calcium (8.4-10.2) mg/dL Alkaline Phosphatase (38-126) U/L Total Protein (6.3-8.2) g/dL Albumin (3.5-5.0) g/dL Arterial Blood Potassium (3.4-4.5) mmol/L Arterial Blood Glucose (75-99) mg/dL Crossmatch 07/09/24 07/09/24 07/09/24 Range/Units 16:43 17:10 17:44 WBC (3.8-10.6) k/uL RBC (4.30-5.90) m/uL Hgb (13.0-17.5) gm/dL Hct (39.0-53.0) % Plt Count (150-450) k/uL Neutrophils # (1.3-7.7) k/uL Lymphocytes # (1.0-4.8) k/uL PT (10.0-12.5) sec INR (<1.2) ABG pH 7.33 L (7.35-7.45) ABG pCO2 (35-45) mmHg ABG pO2 391 H (83-108) mmHg ABG HCO3 (21-25) mmol/L ABG Total CO2 (19-24) mmol/L ABG O2 Saturation >100.0 H (94-97) % ABG Hematocrit (34.0-46.0) % ABG Potassium (3.4-4.5) mmol/L ABG Ionized Calcium (4.5-5.3) mg/dL ABG Glucose (75-99) mg/dL Hemoglobin 8.5 L (13.0-17.5) gm/dL Sodium 133 L (137-145) mmol/L Carbon Dioxide (22-30) mmol/L BUN 22 H (9-20) mg/dL Glucose 115 H (74-99) mg/dL POC Glucose (mg/dL) 117 H (70-110) mg/dL Calcium 8.3 L (8.4-10.2) mg/dL Alkaline Phosphatase 36 L (38-126) U/L Total Protein 5.2 L (6.3-8.2) g/dL Albumin 3.3 L (3.5-5.0) g/dL Arterial Blood Potassium (3.4-4.5) mmol/L Arterial Blood Glucose (75-99) mg/dL Crossmatch 07/09/24 07/09/24 07/09/24 Range/Units 18:49 18:51 19:58 WBC 12.1 H (3.8-10.6) k/uL RBC 3.21 L (4.30-5.90) m/uL Hgb 9.8 L (13.0-17.5) gm/dL Hct 29.2 L (39.0-53.0) % Plt Count 118 L (150-450) k/uL Neutrophils # 9.7 H (1.3-7.7) k/uL Lymphocytes # (1.0-4.8) k/uL PT (10.0-12.5) sec INR (<1.2) ABG pH (7.35-7.45) ABG pCO2 (35-45) mmHg ABG pO2 (83-108) mmHg ABG HCO3 (21-25) mmol/L ABG Total CO2 (19-24) mmol/L ABG O2 Saturation (94-97) % ABG Hematocrit (34.0-46.0) % ABG Potassium (3.4-4.5) mmol/L ABG Ionized Calcium (4.5-5.3) mg/dL ABG Glucose (75-99) mg/dL Hemoglobin (13.0-17.5) gm/dL Sodium (137-145) mmol/L Carbon Dioxide (22-30) mmol/L BUN (9-20) mg/dL Glucose (74-99) mg/dL POC Glucose (mg/dL) 139 H 162 H (70-110) mg/dL Calcium (8.4-10.2) mg/dL Alkaline Phosphatase (38-126) U/L Total Protein (6.3-8.2) g/dL Albumin (3.5-5.0) g/dL Arterial Blood Potassium (3.4-4.5) mmol/L Arterial Blood Glucose (75-99) mg/dL Crossmatch 07/09/24 07/09/24 07/09/24 Range/Units 20:37 21:03 21:56 WBC (3.8-10.6) k/uL RBC (4.30-5.90) m/uL Hgb (13.0-17.5) gm/dL Hct (39.0-53.0) % Plt Count (150-450) k/uL Neutrophils # (1.3-7.7) k/uL Lymphocytes # (1.0-4.8) k/uL PT (10.0-12.5) sec INR (<1.2) ABG pH (7.35-7.45) ABG pCO2 (35-45) mmHg ABG pO2 135 H (83-108) mmHg ABG HCO3 (21-25) mmol/L ABG Total CO2 (19-24) mmol/L ABG O2 Saturation 99.2 H (94-97) % ABG Hematocrit (34.0-46.0) % ABG Potassium (3.4-4.5) mmol/L ABG Ionized Calcium (4.5-5.3) mg/dL ABG Glucose (75-99) mg/dL Hemoglobin 8.9 L (13.0-17.5) gm/dL Sodium (137-145) mmol/L Carbon Dioxide (22-30) mmol/L BUN (9-20) mg/dL Glucose (74-99) mg/dL POC Glucose (mg/dL) 167 H 146 H (70-110) mg/dL Calcium (8.4-10.2) mg/dL Alkaline Phosphatase (38-126) U/L Total Protein (6.3-8.2) g/dL Albumin (3.5-5.0) g/dL Arterial Blood Potassium (3.4-4.5) mmol/L Arterial Blood Glucose (75-99) mg/dL Crossmatch 07/09/24 07/09/24 07/10/24 Range/Units 21:56 23:04 00:02 WBC (3.8-10.6) k/uL RBC 3.05 L (4.30-5.90) m/uL Hgb 9.4 L (13.0-17.5) gm/dL Hct 27.5 L (39.0-53.0) % Plt Count 110 L (150-450) k/uL Neutrophils # 9.2 H (1.3-7.7) k/uL Lymphocytes # 0.4 L (1.0-4.8) k/uL PT (10.0-12.5) sec INR (<1.2) ABG pH (7.35-7.45) ABG pCO2 (35-45) mmHg ABG pO2 (83-108) mmHg ABG HCO3 (21-25) mmol/L ABG Total CO2 (19-24) mmol/L ABG O2 Saturation (94-97) % ABG Hematocrit (34.0-46.0) % ABG Potassium (3.4-4.5) mmol/L ABG Ionized Calcium (4.5-5.3) mg/dL ABG Glucose (75-99) mg/dL Hemoglobin (13.0-17.5) gm/dL Sodium (137-145) mmol/L Carbon Dioxide (22-30) mmol/L BUN (9-20) mg/dL Glucose (74-99) mg/dL POC Glucose (mg/dL) 135 H 118 H (70-110) mg/dL Calcium (8.4-10.2) mg/dL Alkaline Phosphatase (38-126) U/L Total Protein (6.3-8.2) g/dL Albumin (3.5-5.0) g/dL Arterial Blood Potassium (3.4-4.5) mmol/L Arterial Blood Glucose (75-99) mg/dL Crossmatch 07/10/24 07/10/24 07/10/24 Range/Units 00:59 02:03 02:56 WBC (3.8-10.6) k/uL RBC (4.30-5.90) m/uL Hgb (13.0-17.5) gm/dL Hct (39.0-53.0) % Plt Count (150-450) k/uL Neutrophils # (1.3-7.7) k/uL Lymphocytes # (1.0-4.8) k/uL PT (10.0-12.5) sec INR (<1.2) ABG pH (7.35-7.45) ABG pCO2 (35-45) mmHg ABG pO2 (83-108) mmHg ABG HCO3 (21-25) mmol/L ABG Total CO2 (19-24) mmol/L ABG O2 Saturation (94-97) % ABG Hematocrit (34.0-46.0) % ABG Potassium (3.4-4.5) mmol/L ABG Ionized Calcium (4.5-5.3) mg/dL ABG Glucose (75-99) mg/dL Hemoglobin (13.0-17.5) gm/dL Sodium (137-145) mmol/L Carbon Dioxide (22-30) mmol/L BUN (9-20) mg/dL Glucose (74-99) mg/dL POC Glucose (mg/dL) 120 H 118 H 120 H (70-110) mg/dL Calcium (8.4-10.2) mg/dL Alkaline Phosphatase (38-126) U/L Total Protein (6.3-8.2) g/dL Albumin (3.5-5.0) g/dL Arterial Blood Potassium (3.4-4.5) mmol/L Arterial Blood Glucose (75-99) mg/dL Crossmatch 07/10/24 07/10/24 07/10/24 Range/Units 03:06 03:30 03:30 WBC (3.8-10.6) k/uL RBC 3.22 L (4.30-5.90) m/uL Hgb 9.9 L (13.0-17.5) gm/dL Hct 29.6 L (39.0-53.0) % Plt Count 120 L (150-450) k/uL Neutrophils # (1.3-7.7) k/uL Lymphocytes # 0.4 L (1.0-4.8) k/uL PT (10.0-12.5) sec INR (<1.2) ABG pH (7.35-7.45) ABG pCO2 (35-45) mmHg ABG pO2 (83-108) mmHg ABG HCO3 (21-25) mmol/L ABG Total CO2 (19-24) mmol/L ABG O2 Saturation (94-97) % ABG Hematocrit (34.0-46.0) % ABG Potassium (3.4-4.5) mmol/L ABG Ionized Calcium (4.5-5.3) mg/dL ABG Glucose (75-99) mg/dL Hemoglobin (13.0-17.5) gm/dL Sodium 130 L (137-145) mmol/L Carbon Dioxide 21 L (22-30) mmol/L BUN (9-20) mg/dL Glucose 110 H (74-99) mg/dL POC Glucose (mg/dL) 117 H (70-110) mg/dL Calcium 8.3 L (8.4-10.2) mg/dL Alkaline Phosphatase (38-126) U/L Total Protein 5.6 L (6.3-8.2) g/dL Albumin (3.5-5.0) g/dL Arterial Blood Potassium (3.4-4.5) mmol/L Arterial Blood Glucose (75-99) mg/dL Crossmatch 07/10/24 07/10/24 07/10/24 Range/Units 04:06 05:14 06:21 WBC (3.8-10.6) k/uL RBC (4.30-5.90) m/uL Hgb (13.0-17.5) gm/dL Hct (39.0-53.0) % Plt Count (150-450) k/uL Neutrophils # (1.3-7.7) k/uL Lymphocytes # (1.0-4.8) k/uL PT (10.0-12.5) sec INR (<1.2) ABG pH (7.35-7.45) ABG pCO2 (35-45) mmHg ABG pO2 (83-108) mmHg ABG HCO3 (21-25) mmol/L ABG Total CO2 (19-24) mmol/L ABG O2 Saturation (94-97) % ABG Hematocrit (34.0-46.0) % ABG Potassium (3.4-4.5) mmol/L ABG Ionized Calcium (4.5-5.3) mg/dL ABG Glucose (75-99) mg/dL Hemoglobin (13.0-17.5) gm/dL Sodium (137-145) mmol/L Carbon Dioxide (22-30) mmol/L BUN (9-20) mg/dL Glucose (74-99) mg/dL POC Glucose (mg/dL) 113 H 134 H 129 H (70-110) mg/dL Calcium (8.4-10.2) mg/dL Alkaline Phosphatase (38-126) U/L Total Protein (6.3-8.2) g/dL Albumin (3.5-5.0) g/dL Arterial Blood Potassium (3.4-4.5) mmol/L Arterial Blood Glucose (75-99) mg/dL Crossmatch 07/10/24 07/10/24 Range/Units 07:02 08:08 WBC (3.8-10.6) k/uL RBC (4.30-5.90) m/uL Hgb (13.0-17.5) gm/dL Hct (39.0-53.0) % Plt Count (150-450) k/uL Neutrophils # (1.3-7.7) k/uL Lymphocytes # (1.0-4.8) k/uL PT (10.0-12.5) sec INR (<1.2) ABG pH (7.35-7.45) ABG pCO2 (35-45) mmHg ABG pO2 (83-108) mmHg ABG HCO3 (21-25) mmol/L ABG Total CO2 (19-24) mmol/L ABG O2 Saturation (94-97) % ABG Hematocrit (34.0-46.0) % ABG Potassium (3.4-4.5) mmol/L ABG Ionized Calcium (4.5-5.3) mg/dL ABG Glucose (75-99) mg/dL Hemoglobin (13.0-17.5) gm/dL Sodium (137-145) mmol/L Carbon Dioxide (22-30) mmol/L BUN (9-20) mg/dL Glucose (74-99) mg/dL POC Glucose (mg/dL) 122 H 116 H (70-110) mg/dL Calcium (8.4-10.2) mg/dL Alkaline Phosphatase (38-126) U/L Total Protein (6.3-8.2) g/dL Albumin (3.5-5.0) g/dL Arterial Blood Potassium (3.4-4.5) mmol/L Arterial Blood Glucose (75-99) mg/dL Crossmatch - Imaging and Cardiology Chest x-ray: report reviewed, image reviewed Assessment and Plan Assessment: Triple-vessel coronary artery disease, non-STEMI this admission, status post three-vessel off-pump CABG Moderate mitral regurgitation on TTE Chest pain, shortness of breath secondary to above Acute urine retention requiring initiation of Silver catheter Postoperative acute blood loss anemia and thrombocytopenia, expected History of coronary artery disease with previous PCI of the RCA in 1997 Hypertension Hyperlipidemia, treated, cholesterol 136, LDL 75 BPH, remains on Proscar Osteoarthritis Previous tobacco dependence, preoperative FEV1 76% of predicted Plan: Continue to maximize medical therapy with aspirin, statin, Plavix, beta-rolando. Will increase beta-rolando therapy as tolerated Discontinue IV nitro. Will add low-dose calcium channel rolando for radial artery spasm prophylaxis with hold parameters Continue amiodarone for A-fib prophylaxis. Patient has had no atrial fibrillation up to this point Wean oxygen as tolerated. Encourage incentive spirometry use 10 times every hour while awake. Bronchodilators per pulmonology Will monitor daily labs and x-rays. Electrolyte replacement per protocol Increase activity, ambulate as tolerated. PT/OT/cardiac rehab consulted GI/DVT prophylaxis Daily weights Pain control per current medication regimen. Will add Toradol for better pain control Insulin management per internal medicine. Patient is not diabetic, preoperative hemoglobin A1c 6%. Patient should remain on continuous IV insulin for 48 hours, then may transition to subcutaneous per protocol Continue BPH medications Will discontinue Coy. Connect Cordis to continuous CVP monitoring Continue chest tubes for another 24 hours, monitor and record output Continue Silver catheter for another 24 hours, continue to monitor record strict accurate intake and output Discontinue RONALD drain Advance diet as tolerated More recommendations to follow as patient progresses
[2024-07-10] MEDS ORDERED: PANTOPRAZOLE 40 MG/10 ML VIAL IVP SCH (09:00)
[2024-07-10] MEDS ORDERED: MAGNESIUM HYDROXIDE 2,400 MG/30 ML CUP PO PRN (09:00)
[2024-07-10] MEDS ORDERED: bisacodyL 10 MG SUPP RECTAL PRN (09:00)
[2024-07-10 09:20] LABS: Glucose,Whole Blood 128 mg/dL (70-110)
--- NOTE | 2024-07-10 09:21 | P.PN ---
Subjective Progress Note Date: 07/10/24 Patient is an 83-year-old male who initially was admitted with non-ST elevated myocardial infarction. He was found to have triple-vessel disease and underwent coronary bypass yesterday with Dr. Whitfield. Patient has been extubated and is now up in the recliner chair. Patient interviewed and examined. He states he is working with incentive spirometry, but does have discomfort to deep breathing. No dizziness or lightheadedness upon standing. No difficulty breathing at rest GENERAL: Well-appearing, well-nourished and in no acute distress. NECK: Supple without JVD or thyromegaly. LUNGS: Breath sounds diminished to auscultation bilaterally. Respiration equal and unlabored. No wheezes, rales or rhonchi. HEART: Regular rate and rhythm without murmurs, rubs or gallops. S1 and S2 heard. Heart hugger in place EXTREMITIES: Normal range of motion, no edema. No clubbing or cyanosis. Peripheral pulses intact and strong. TELEMETRY: Sinus rhythm overnight LABS: WBC 8.7, hemoglobin 9.9, hematocrit 29.6, platelet 120, sodium 130, potassium 4.3, BUN 20, creatinine 0.99, magnesium 2.1, AST 39, ALT 27 IMPRESSION: NSTEMI with triple-vessel disease History of coronary artery disease with previous angioplasty of the right coronary artery in 1997 Status post coronary bypass x 3 Hypertension Dyslipidemia Echocardiogram reveals EF of 55 to 60%, moderate mitral with mild aortic and tricuspid regurgitation. PLAN: Currently on IV nitro and amiodarone Continue supportive treatment Discussed the importance of aggressive pulmonary hygiene Further recommendations to be based upon clinical course I am dictating on behalf of Dr Ifeanyi Newberry's history/physical and assessment/plan. Objective - Vital Signs Vital signs: Vital Signs Temp 99.1 F 07/10/24 04:00 Pulse 80 07/10/24 08:58 Resp 16 07/10/24 08:30 BP 137/65 07/10/24 08:30 Pulse Ox 99 07/10/24 08:30 FiO2 40 07/09/24 20:06 Intake & Output 07/09/24 07/10/24 07/10/24 18:59 06:59 18:59 Intake Total 950.155 9549.305 385.45 Output Total 1060 1179 87 Balance -548.426 183.305 298.45 Weight 92.2 kg Intake: IV 477.8 1189 182 ACETAMINOPHEN IV (For NPO 100 100 ) 1,000 mg In Empty Bag 1 bag @ 400 mls/hr IVPB Q6HR [facility] Rx#:[id number] Albumin Human 5% 250 ml 250 In Empty Bag 1 bag @ 250 mls/hr IVPB Q1HR PRN Rx#: [id number] Amiodarone 360 mg In 33.3 Dextrose 5% in Water 200 ml @ 1 MG/MIN 33.333 mls/ hr IV .Q6H ONE Rx#: [id number] CO/CI 140 60 Invasive Line 3 10 Nitroglycerin-D5w Pmx 50 4.5 mg In Dextrose/Water 1 250ml.bag @ 5 MCG/MIN 1.5 mls/hr IV .Q24H [facility] Rx#: [id number] Pressure bag 27 99 12 Sodium Chloride 0.9% 1, 150 550 60 000 ml @ 30 mls/hr IV . Q24H [facility] Rx#:[id number] ceFAZolin 2 gm In Sodium 50 50 50 Chloride 0.9% 50 ml @ 100 mls/hr IVPB Q8HR [facility] Rx# :[id number] Intake, IV Titration 33.774 123.305 3.45 Amount Clevidipine Butyrate 25 1.634 89.201 mg In Empty Bag 1 bag @ 1 MG/HR 2 mls/hr IV .Q24H PRN Rx#:[id number] Dexmedetomidine/0.9% NaCl 12.151 (Pmx) 400 mcg In Empty Bag 1 bag @ Titrate IV . Q0M [facility] Rx#:[id number] Insulin Regular 100 unit 1.450 18.083 3.45 In Sodium Chloride 0.9% 100 ml @ Per Protocol IV .Q0M [facility] Rx#:[id number] propofoL 1,000 mg In 30.69 3.87 Empty Bag 1 bag @ Titrate IV .Q0M [facility] Rx#: [id number] Oral 50 200 Output: Chest Tube Drainage 325 559 17 Chest Tube Left Pleural/ 45 209 0 Mediastinal Chest Tube Mediastinal 280 350 17 Drainage 20 Left Wrist 20 Urine 485 600 70 Estimated Blood Loss 250 Other: Voiding Method Indwelling Catheter Indwelling Catheter Indwelling Catheter ABP, PAP, CO, CI - Last Documented Arterial Blood Pressure 152/73 Pulmonary Artery Pressure 34/15 Cardiac Output 4.5 Cardiac Index 2.2 - Labs CBC & Chem 7: 07/10/24 03:30 07/10/24 03:30 Labs: Abnormal Lab Results - Last 24 Hours (Table) 07/08/24 07/09/24 07/09/24 Range/Units 06:41 13:00 13:45 WBC (3.8-10.6) k/uL RBC (4.30-5.90) m/uL Hgb (13.0-17.5) gm/dL Hct (39.0-53.0) % Plt Count (150-450) k/uL Neutrophils # (1.3-7.7) k/uL Lymphocytes # (1.0-4.8) k/uL PT (10.0-12.5) sec INR (<1.2) ABG pH (7.35-7.45) ABG pCO2 25 L (35-45) mmHg ABG pO2 >420 H 253 H (83-108) mmHg ABG HCO3 15 L (21-25) mmol/L ABG Total CO2 14 L (19-24) mmol/L ABG O2 Saturation 99.3 H 99.2 H (94-97) % ABG Hematocrit 31 L 19 L* (34.0-46.0) % ABG Potassium 2.5 L* (3.4-4.5) mmol/L ABG Ionized Calcium 3.8 L (4.5-5.3) mg/dL ABG Glucose (75-99) mg/dL Hemoglobin 10.2 L 6.3 L* (13.0-17.5) gm/dL Sodium (137-145) mmol/L Carbon Dioxide (22-30) mmol/L BUN (9-20) mg/dL Glucose (74-99) mg/dL POC Glucose (mg/dL) (70-110) mg/dL Calcium (8.4-10.2) mg/dL Alkaline Phosphatase (38-126) U/L Total Protein (6.3-8.2) g/dL Albumin (3.5-5.0) g/dL Arterial Blood Potassium 2.5 L* (3.4-4.5) mmol/L Arterial Blood Glucose (75-99) mg/dL Crossmatch See Detail 07/09/24 07/09/24 07/09/24 Range/Units 14:02 14:32 16:00 WBC (3.8-10.6) k/uL RBC (4.30-5.90) m/uL Hgb (13.0-17.5) gm/dL Hct (39.0-53.0) % Plt Count (150-450) k/uL Neutrophils # (1.3-7.7) k/uL Lymphocytes # (1.0-4.8) k/uL PT (10.0-12.5) sec INR (<1.2) ABG pH (7.35-7.45) ABG pCO2 (35-45) mmHg ABG pO2 276 H 268 H 196 H (83-108) mmHg ABG HCO3 (21-25) mmol/L ABG Total CO2 (19-24) mmol/L ABG O2 Saturation 99.2 H 99.2 H 98.9 H (94-97) % ABG Hematocrit 27 L 26 L 25 L (34.0-46.0) % ABG Potassium (3.4-4.5) mmol/L ABG Ionized Calcium (4.5-5.3) mg/dL ABG Glucose 112 H 118 H 125 H (75-99) mg/dL Hemoglobin 8.6 L 8.5 L 8.2 L (13.0-17.5) gm/dL Sodium (137-145) mmol/L Carbon Dioxide (22-30) mmol/L BUN (9-20) mg/dL Glucose (74-99) mg/dL POC Glucose (mg/dL) (70-110) mg/dL Calcium (8.4-10.2) mg/dL Alkaline Phosphatase (38-126) U/L Total Protein (6.3-8.2) g/dL Albumin (3.5-5.0) g/dL Arterial Blood Potassium (3.4-4.5) mmol/L Arterial Blood Glucose 112 H 118 H 125 H (75-99) mg/dL Crossmatch 07/09/24 07/09/24 07/09/24 Range/Units 16:43 16:43 16:43 WBC (3.8-10.6) k/uL RBC 2.76 L (4.30-5.90) m/uL Hgb 8.6 L D (13.0-17.5) gm/dL Hct 25.1 L (39.0-53.0) % Plt Count 84 L (150-450) k/uL Neutrophils # (1.3-7.7) k/uL Lymphocytes # 0.7 L (1.0-4.8) k/uL PT 13.8 H (10.0-12.5) sec INR 1.3 H (<1.2) ABG pH (7.35-7.45) ABG pCO2 (35-45) mmHg ABG pO2 (83-108) mmHg ABG HCO3 (21-25) mmol/L ABG Total CO2 (19-24) mmol/L ABG O2 Saturation (94-97) % ABG Hematocrit (34.0-46.0) % ABG Potassium (3.4-4.5) mmol/L ABG Ionized Calcium (4.5-5.3) mg/dL ABG Glucose (75-99) mg/dL Hemoglobin (13.0-17.5) gm/dL Sodium (137-145) mmol/L Carbon Dioxide (22-30) mmol/L BUN (9-20) mg/dL Glucose (74-99) mg/dL POC Glucose (mg/dL) 127 H (70-110) mg/dL Calcium (8.4-10.2) mg/dL Alkaline Phosphatase (38-126) U/L Total Protein (6.3-8.2) g/dL Albumin (3.5-5.0) g/dL Arterial Blood Potassium (3.4-4.5) mmol/L Arterial Blood Glucose (75-99) mg/dL Crossmatch 07/09/24 07/09/24 07/09/24 Range/Units 16:43 17:10 17:44 WBC (3.8-10.6) k/uL RBC (4.30-5.90) m/uL Hgb (13.0-17.5) gm/dL Hct (39.0-53.0) % Plt Count (150-450) k/uL Neutrophils # (1.3-7.7) k/uL Lymphocytes # (1.0-4.8) k/uL PT (10.0-12.5) sec INR (<1.2) ABG pH 7.33 L (7.35-7.45) ABG pCO2 (35-45) mmHg ABG pO2 391 H (83-108) mmHg ABG HCO3 (21-25) mmol/L ABG Total CO2 (19-24) mmol/L ABG O2 Saturation >100.0 H (94-97) % ABG Hematocrit (34.0-46.0) % ABG Potassium (3.4-4.5) mmol/L ABG Ionized Calcium (4.5-5.3) mg/dL ABG Glucose (75-99) mg/dL Hemoglobin 8.5 L (13.0-17.5) gm/dL Sodium 133 L (137-145) mmol/L Carbon Dioxide (22-30) mmol/L BUN 22 H (9-20) mg/dL Glucose 115 H (74-99) mg/dL POC Glucose (mg/dL) 117 H (70-110) mg/dL Calcium 8.3 L (8.4-10.2) mg/dL Alkaline Phosphatase 36 L (38-126) U/L Total Protein 5.2 L (6.3-8.2) g/dL Albumin 3.3 L (3.5-5.0) g/dL Arterial Blood Potassium (3.4-4.5) mmol/L Arterial Blood Glucose (75-99) mg/dL Crossmatch 07/09/24 07/09/24 07/09/24 Range/Units 18:49 18:51 19:58 WBC 12.1 H (3.8-10.6) k/uL RBC 3.21 L (4.30-5.90) m/uL Hgb 9.8 L (13.0-17.5) gm/dL Hct 29.2 L (39.0-53.0) % Plt Count 118 L (150-450) k/uL Neutrophils # 9.7 H (1.3-7.7) k/uL Lymphocytes # (1.0-4.8) k/uL PT (10.0-12.5) sec INR (<1.2) ABG pH (7.35-7.45) ABG pCO2 (35-45) mmHg ABG pO2 (83-108) mmHg ABG HCO3 (21-25) mmol/L ABG Total CO2 (19-24) mmol/L ABG O2 Saturation (94-97) % ABG Hematocrit (34.0-46.0) % ABG Potassium (3.4-4.5) mmol/L ABG Ionized Calcium (4.5-5.3) mg/dL ABG Glucose (75-99) mg/dL Hemoglobin (13.0-17.5) gm/dL Sodium (137-145) mmol/L Carbon Dioxide (22-30) mmol/L BUN (9-20) mg/dL Glucose (74-99) mg/dL POC Glucose (mg/dL) 139 H 162 H (70-110) mg/dL Calcium (8.4-10.2) mg/dL Alkaline Phosphatase (38-126) U/L Total Protein (6.3-8.2) g/dL Albumin (3.5-5.0) g/dL Arterial Blood Potassium (3.4-4.5) mmol/L Arterial Blood Glucose (75-99) mg/dL Crossmatch 07/09/24 07/09/24 07/09/24 Range/Units 20:37 21:03 21:56 WBC (3.8-10.6) k/uL RBC (4.30-5.90) m/uL Hgb (13.0-17.5) gm/dL Hct (39.0-53.0) % Plt Count (150-450) k/uL Neutrophils # (1.3-7.7) k/uL Lymphocytes # (1.0-4.8) k/uL PT (10.0-12.5) sec INR (<1.2) ABG pH (7.35-7.45) ABG pCO2 (35-45) mmHg ABG pO2 135 H (83-108) mmHg ABG HCO3 (21-25) mmol/L ABG Total CO2 (19-24) mmol/L ABG O2 Saturation 99.2 H (94-97) % ABG Hematocrit (34.0-46.0) % ABG Potassium (3.4-4.5) mmol/L ABG Ionized Calcium (4.5-5.3) mg/dL ABG Glucose (75-99) mg/dL Hemoglobin 8.9 L (13.0-17.5) gm/dL Sodium (137-145) mmol/L Carbon Dioxide (22-30) mmol/L BUN (9-20) mg/dL Glucose (74-99) mg/dL POC Glucose (mg/dL) 167 H 146 H (70-110) mg/dL Calcium (8.4-10.2) mg/dL Alkaline Phosphatase (38-126) U/L Total Protein (6.3-8.2) g/dL Albumin (3.5-5.0) g/dL Arterial Blood Potassium (3.4-4.5) mmol/L Arterial Blood Glucose (75-99) mg/dL Crossmatch 07/09/24 07/09/24 07/10/24 Range/Units 21:56 23:04 00:02 WBC (3.8-10.6) k/uL RBC 3.05 L (4.30-5.90) m/uL Hgb 9.4 L (13.0-17.5) gm/dL Hct 27.5 L (39.0-53.0) % Plt Count 110 L (150-450) k/uL Neutrophils # 9.2 H (1.3-7.7) k/uL Lymphocytes # 0.4 L (1.0-4.8) k/uL PT (10.0-12.5) sec INR (<1.2) ABG pH (7.35-7.45) ABG pCO2 (35-45) mmHg ABG pO2 (83-108) mmHg ABG HCO3 (21-25) mmol/L ABG Total CO2 (19-24) mmol/L ABG O2 Saturation (94-97) % ABG Hematocrit (34.0-46.0) % ABG Potassium (3.4-4.5) mmol/L ABG Ionized Calcium (4.5-5.3) mg/dL ABG Glucose (75-99) mg/dL Hemoglobin (13.0-17.5) gm/dL Sodium (137-145) mmol/L Carbon Dioxide (22-30) mmol/L BUN (9-20) mg/dL Glucose (74-99) mg/dL POC Glucose (mg/dL) 135 H 118 H (70-110) mg/dL Calcium (8.4-10.2) mg/dL Alkaline Phosphatase (38-126) U/L Total Protein (6.3-8.2) g/dL Albumin (3.5-5.0) g/dL Arterial Blood Potassium (3.4-4.5) mmol/L Arterial Blood Glucose (75-99) mg/dL Crossmatch 07/10/24 07/10/24 07/10/24 Range/Units 00:59 02:03 02:56 WBC (3.8-10.6) k/uL RBC (4.30-5.90) m/uL Hgb (13.0-17.5) gm/dL Hct (39.0-53.0) % Plt Count (150-450) k/uL Neutrophils # (1.3-7.7) k/uL Lymphocytes # (1.0-4.8) k/uL PT (10.0-12.5) sec INR (<1.2) ABG pH (7.35-7.45) ABG pCO2 (35-45) mmHg ABG pO2 (83-108) mmHg ABG HCO3 (21-25) mmol/L ABG Total CO2 (19-24) mmol/L ABG O2 Saturation (94-97) % ABG Hematocrit (34.0-46.0) % ABG Potassium (3.4-4.5) mmol/L ABG Ionized Calcium (4.5-5.3) mg/dL ABG Glucose (75-99) mg/dL Hemoglobin (13.0-17.5) gm/dL Sodium (137-145) mmol/L Carbon Dioxide (22-30) mmol/L BUN (9-20) mg/dL Glucose (74-99) mg/dL POC Glucose (mg/dL) 120 H 118 H 120 H (70-110) mg/dL Calcium (8.4-10.2) mg/dL Alkaline Phosphatase (38-126) U/L Total Protein (6.3-8.2) g/dL Albumin (3.5-5.0) g/dL Arterial Blood Potassium (3.4-4.5) mmol/L Arterial Blood Glucose (75-99) mg/dL Crossmatch 07/10/24 07/10/24 07/10/24 Range/Units 03:06 03:30 03:30 WBC (3.8-10.6) k/uL RBC 3.22 L (4.30-5.90) m/uL Hgb 9.9 L (13.0-17.5) gm/dL Hct 29.6 L (39.0-53.0) % Plt Count 120 L (150-450) k/uL Neutrophils # (1.3-7.7) k/uL Lymphocytes # 0.4 L (1.0-4.8) k/uL PT (10.0-12.5) sec INR (<1.2) ABG pH (7.35-7.45) ABG pCO2 (35-45) mmHg ABG pO2 (83-108) mmHg ABG HCO3 (21-25) mmol/L ABG Total CO2 (19-24) mmol/L ABG O2 Saturation (94-97) % ABG Hematocrit (34.0-46.0) % ABG Potassium (3.4-4.5) mmol/L ABG Ionized Calcium (4.5-5.3) mg/dL ABG Glucose (75-99) mg/dL Hemoglobin (13.0-17.5) gm/dL Sodium 130 L (137-145) mmol/L Carbon Dioxide 21 L (22-30) mmol/L BUN (9-20) mg/dL Glucose 110 H (74-99) mg/dL POC Glucose (mg/dL) 117 H (70-110) mg/dL Calcium 8.3 L (8.4-10.2) mg/dL Alkaline Phosphatase (38-126) U/L Total Protein 5.6 L (6.3-8.2) g/dL Albumin (3.5-5.0) g/dL Arterial Blood Potassium (3.4-4.5) mmol/L Arterial Blood Glucose (75-99) mg/dL Crossmatch 07/10/24 07/10/24 07/10/24 Range/Units 04:06 05:14 06:21 WBC (3.8-10.6) k/uL RBC (4.30-5.90) m/uL Hgb (13.0-17.5) gm/dL Hct (39.0-53.0) % Plt Count (150-450) k/uL Neutrophils # (1.3-7.7) k/uL Lymphocytes # (1.0-4.8) k/uL PT (10.0-12.5) sec INR (<1.2) ABG pH (7.35-7.45) ABG pCO2 (35-45) mmHg ABG pO2 (83-108) mmHg ABG HCO3 (21-25) mmol/L ABG Total CO2 (19-24) mmol/L ABG O2 Saturation (94-97) % ABG Hematocrit (34.0-46.0) % ABG Potassium (3.4-4.5) mmol/L ABG Ionized Calcium (4.5-5.3) mg/dL ABG Glucose (75-99) mg/dL Hemoglobin (13.0-17.5) gm/dL Sodium (137-145) mmol/L Carbon Dioxide (22-30) mmol/L BUN (9-20) mg/dL Glucose (74-99) mg/dL POC Glucose (mg/dL) 113 H 134 H 129 H (70-110) mg/dL Calcium (8.4-10.2) mg/dL Alkaline Phosphatase (38-126) U/L Total Protein (6.3-8.2) g/dL Albumin (3.5-5.0) g/dL Arterial Blood Potassium (3.4-4.5) mmol/L Arterial Blood Glucose (75-99) mg/dL Crossmatch 07/10/24 07/10/24 Range/Units 07:02 08:08 WBC (3.8-10.6) k/uL RBC (4.30-5.90) m/uL Hgb (13.0-17.5) gm/dL Hct (39.0-53.0) % Plt Count (150-450) k/uL Neutrophils # (1.3-7.7) k/uL Lymphocytes # (1.0-4.8) k/uL PT (10.0-12.5) sec INR (<1.2) ABG pH (7.35-7.45) ABG pCO2 (35-45) mmHg ABG pO2 (83-108) mmHg ABG HCO3 (21-25) mmol/L ABG Total CO2 (19-24) mmol/L ABG O2 Saturation (94-97) % ABG Hematocrit (34.0-46.0) % ABG Potassium (3.4-4.5) mmol/L ABG Ionized Calcium (4.5-5.3) mg/dL ABG Glucose (75-99) mg/dL Hemoglobin (13.0-17.5) gm/dL Sodium (137-145) mmol/L Carbon Dioxide (22-30) mmol/L BUN (9-20) mg/dL Glucose (74-99) mg/dL POC Glucose (mg/dL) 122 H 116 H (70-110) mg/dL Calcium (8.4-10.2) mg/dL Alkaline Phosphatase (38-126) U/L Total Protein (6.3-8.2) g/dL Albumin (3.5-5.0) g/dL Arterial Blood Potassium (3.4-4.5) mmol/L Arterial Blood Glucose (75-99) mg/dL Crossmatch
[2024-07-10 10:11] LABS: Glucose,Whole Blood 142 mg/dL (70-110)
[2024-07-10] MEDS: AMIODARONE 200 MG TAB PO SCH (10:34)
[2024-07-10 11:08] LABS: Glucose,Whole Blood 124 mg/dL (70-110)
[2024-07-10 12:17] LABS: Glucose,Whole Blood 146 mg/dL (70-110)
[2024-07-10 13:02] LABS: Glucose,Whole Blood 135 mg/dL (70-110)
[2024-07-10] MEDS: amLODIPine 2.5 MG TAB PO SCH (13:14)
--- NOTE | 2024-07-10 13:43 | P.PN ---
Subjective Progress Note Date: 07/10/24 Principal diagnosis: POD #1 off-pump coronary bypass grafting x 3 with DECKER to LAD, sequential left radial artery graft to obtuse marginal and intermediate coronary arteries with endovascular harvest of the left radial artery and occlusion of the left atrial appendage with 35 mm AtriCure clip This is an 83-year-old white male, known history of coronary artery disease, previous PCI of the RCA in 1997, known history of hypertension, dyslipidemia, previous smoker, history of degenerative joint disease, patient presented with intermittent episodes of left sided chest pain with left arm pain this was couple of weeks ago. Patient took 3 sublingual nitroglycerin at home, and pain was noted to subside a bit. Patient seen at [facility] initially, troponin was noted to be elevated, then he was transferred to [facility], and underwent further workup including a cardiac catheterization, patient was found to have triple-vessel coronary artery disease, patient was seen by cardiothoracic surgery after his cardiac catheterization, and today he underwent surgery by Dr. Whitfield. Postoperatively, patient is on mechanical ventilation, patient is on assist-control rate of 16 tidal volume 400 FiO2 100% PEEP of 5 ABG showed a pO2 of 391 pCO2 43 pH of 7.33 bicarb 23 has his FiO2 was decreased down to 50%, patient was noted to have good cardiac output of 4.4, cardiac index is a bit low at 2.1. Chest x-ray postoperatively showed mostly postoperative changes, adequate placement of the tubes endotracheal tube and Southside-Cong catheter. Patient was seen today on 07/10/2024, he is now postoperative day #1. Patient is sitting in a recliner, remains in the ICU, he was successfully extubated at 20: 45. He is hemodynamically stable, in sinus rhythm, he is on amiodarone for atrial fibrillation prophylaxis. Also on nitroglycerin drip for vessel spasm prophylaxis. Continues to have right internal jugular Southside/Cordis, and he continues to have mediastinal/left pleural chest tubes. And left radial RONALD drain. Pulmonary south the patient is doing well, chest x-ray this morning showed minimal left basilar atelectasis, lines and tubes were all noted to be in proper positions including Southside-Cong catheter asymptomatic, labs were reviewed WBC is 8.7 hemoglobin 9.9, basic metabolic profile is normal, renal profile is normal Objective - Vital Signs Vital signs: Vital Signs Temp 99.1 F 07/10/24 04:00 Pulse 71 07/10/24 12:28 Resp 24 07/10/24 11:30 BP 88/69 07/10/24 11:30 Pulse Ox 96 07/10/24 11:30 FiO2 40 07/09/24 20:06 Intake & Output 07/09/24 07/10/24 07/10/24 18:59 06:59 18:59 Intake Total 158.386 2889.305 500.591 Output Total 1060 1179 280 Balance -548.426 183.305 220.591 Weight 92.2 kg Intake: IV 477.8 1189 290 ACETAMINOPHEN IV (For NPO 100 100 ) 1,000 mg In Empty Bag 1 bag @ 400 mls/hr IVPB Q6HR [facility] Rx#:[id number] Albumin Human 5% 250 ml 250 In Empty Bag 1 bag @ 250 mls/hr IVPB Q1HR PRN Rx#: [id number] Amiodarone 360 mg In 33.3 Dextrose 5% in Water 200 ml @ 1 MG/MIN 33.333 mls/ hr IV .Q6H [facility] Rx#: [id number] CO/CI 140 60 Invasive Line 3 10 Nitroglycerin-D5w Pmx 50 4.5 mg In Dextrose/Water 1 250ml.bag @ 5 MCG/MIN 1.5 mls/hr IV .Q24H [facility] Rx#: [id number] Pressure bag 27 99 30 Sodium Chloride 0.9% 1, 150 550 150 000 ml @ 30 mls/hr IV . Q24H [facility] Rx#:[id number] ceFAZolin 2 gm In Sodium 50 50 50 Chloride 0.9% 50 ml @ 100 mls/hr IVPB Q8HR [facility] Rx# :[id number] Intake, IV Titration 33.774 123.305 10.591 Amount Clevidipine Butyrate 25 1.634 89.201 mg In Empty Bag 1 bag @ 1 MG/HR 2 mls/hr IV .Q24H PRN Rx#:[id number] Dexmedetomidine/0.9% NaCl 12.151 (Pmx) 400 mcg In Empty Bag 1 bag @ Titrate IV . Q0M [facility] Rx#:[id number] Insulin Regular 100 unit 1.450 18.083 10.591 In Sodium Chloride 0.9% 100 ml @ Per Protocol IV .Q0M [facility] Rx#:[id number] propofoL 1,000 mg In 30.69 3.87 Empty Bag 1 bag @ Titrate IV .Q0M [facility] Rx#: [id number] Oral 50 200 Output: Chest Tube Drainage 325 559 125 Chest Tube Left Pleural/ 45 209 60 Mediastinal Chest Tube Mediastinal 280 350 65 Drainage 20 Left Wrist 20 Urine 485 600 155 Estimated Blood Loss 250 Other: Voiding Method Indwelling Catheter Indwelling Catheter Indwelling Catheter ABP, PAP, CO, CI - Last Documented Arterial Blood Pressure 152/73 Pulmonary Artery Pressure 29/13 Cardiac Output 4.5 Cardiac Index 2.2 - Exam CONSTITUTIONAL: Revealed 83-year-old male in no distress, on nasal cannula, 2 L/min. EYES: Pupils equal, round, reactive to light, normal ocular movement ENT: Moist mucous membranes without oral lesions present NECK: No masses, no bruits, trachea midline RESPIRATORY: Good breath sound bilaterally no rhonchi no wheezes CARDIOVASCULAR: distant S1-S2, no S3 gallop, positive pericardial rub GASTROINTESTINAL: Abdomen soft, nontender, nondistended without masses or organomegaly noted. There is no rebound or guarding present. Active bowel sounds present 4 quadrants. Skin: No rashes NEUROLOGIC: Alert oriented x 3 no gross focal deficit MUSKULOSKELETAL: No limitation range of motion no deformities PSYCHIATRIC: Normal mood affect and no mental status examination - Labs CBC & Chem 7: 07/10/24 03:30 07/10/24 03:30 Labs: Abnormal Lab Results - Last 24 Hours (Table) 07/08/24 07/09/24 07/09/24 Range/Units 06:41 13:45 14:02 WBC (3.8-10.6) k/uL RBC (4.30-5.90) m/uL Hgb (13.0-17.5) gm/dL Hct (39.0-53.0) % Plt Count (150-450) k/uL Neutrophils # (1.3-7.7) k/uL Lymphocytes # (1.0-4.8) k/uL PT (10.0-12.5) sec INR (<1.2) ABG pH (7.35-7.45) ABG pCO2 25 L (35-45) mmHg ABG pO2 253 H 276 H (83-108) mmHg ABG HCO3 15 L (21-25) mmol/L ABG Total CO2 14 L (19-24) mmol/L ABG O2 Saturation 99.2 H 99.2 H (94-97) % ABG Hematocrit 19 L* 27 L (34.0-46.0) % ABG Potassium 2.5 L* (3.4-4.5) mmol/L ABG Ionized Calcium 3.8 L (4.5-5.3) mg/dL ABG Glucose 112 H (75-99) mg/dL Hemoglobin 6.3 L* 8.6 L (13.0-17.5) gm/dL Sodium (137-145) mmol/L Carbon Dioxide (22-30) mmol/L BUN (9-20) mg/dL Glucose (74-99) mg/dL POC Glucose (mg/dL) (70-110) mg/dL Calcium (8.4-10.2) mg/dL Alkaline Phosphatase (38-126) U/L Total Protein (6.3-8.2) g/dL Albumin (3.5-5.0) g/dL Arterial Blood Potassium 2.5 L* (3.4-4.5) mmol/L Arterial Blood Glucose 112 H (75-99) mg/dL Crossmatch See Detail 07/09/24 07/09/24 07/09/24 Range/Units 14:32 16:00 16:43 WBC (3.8-10.6) k/uL RBC (4.30-5.90) m/uL Hgb (13.0-17.5) gm/dL Hct (39.0-53.0) % Plt Count (150-450) k/uL Neutrophils # (1.3-7.7) k/uL Lymphocytes # (1.0-4.8) k/uL PT (10.0-12.5) sec INR (<1.2) ABG pH (7.35-7.45) ABG pCO2 (35-45) mmHg ABG pO2 268 H 196 H (83-108) mmHg ABG HCO3 (21-25) mmol/L ABG Total CO2 (19-24) mmol/L ABG O2 Saturation 99.2 H 98.9 H (94-97) % ABG Hematocrit 26 L 25 L (34.0-46.0) % ABG Potassium (3.4-4.5) mmol/L ABG Ionized Calcium (4.5-5.3) mg/dL ABG Glucose 118 H 125 H (75-99) mg/dL Hemoglobin 8.5 L 8.2 L (13.0-17.5) gm/dL Sodium (137-145) mmol/L Carbon Dioxide (22-30) mmol/L BUN (9-20) mg/dL Glucose (74-99) mg/dL POC Glucose (mg/dL) 127 H (70-110) mg/dL Calcium (8.4-10.2) mg/dL Alkaline Phosphatase (38-126) U/L Total Protein (6.3-8.2) g/dL Albumin (3.5-5.0) g/dL Arterial Blood Potassium (3.4-4.5) mmol/L Arterial Blood Glucose 118 H 125 H (75-99) mg/dL Crossmatch 07/09/24 07/09/24 07/09/24 Range/Units 16:43 16:43 16:43 WBC (3.8-10.6) k/uL RBC 2.76 L (4.30-5.90) m/uL Hgb 8.6 L D (13.0-17.5) gm/dL Hct 25.1 L (39.0-53.0) % Plt Count 84 L (150-450) k/uL Neutrophils # (1.3-7.7) k/uL Lymphocytes # 0.7 L (1.0-4.8) k/uL PT 13.8 H (10.0-12.5) sec INR 1.3 H (<1.2) ABG pH (7.35-7.45) ABG pCO2 (35-45) mmHg ABG pO2 (83-108) mmHg ABG HCO3 (21-25) mmol/L ABG Total CO2 (19-24) mmol/L ABG O2 Saturation (94-97) % ABG Hematocrit (34.0-46.0) % ABG Potassium (3.4-4.5) mmol/L ABG Ionized Calcium (4.5-5.3) mg/dL ABG Glucose (75-99) mg/dL Hemoglobin (13.0-17.5) gm/dL Sodium 133 L (137-145) mmol/L Carbon Dioxide (22-30) mmol/L BUN 22 H (9-20) mg/dL Glucose 115 H (74-99) mg/dL POC Glucose (mg/dL) (70-110) mg/dL Calcium 8.3 L (8.4-10.2) mg/dL Alkaline Phosphatase 36 L (38-126) U/L Total Protein 5.2 L (6.3-8.2) g/dL Albumin 3.3 L (3.5-5.0) g/dL Arterial Blood Potassium (3.4-4.5) mmol/L Arterial Blood Glucose (75-99) mg/dL Crossmatch 07/09/24 07/09/24 07/09/24 Range/Units 17:10 17:44 18:49 WBC (3.8-10.6) k/uL RBC (4.30-5.90) m/uL Hgb (13.0-17.5) gm/dL Hct (39.0-53.0) % Plt Count (150-450) k/uL Neutrophils # (1.3-7.7) k/uL Lymphocytes # (1.0-4.8) k/uL PT (10.0-12.5) sec INR (<1.2) ABG pH 7.33 L (7.35-7.45) ABG pCO2 (35-45) mmHg ABG pO2 391 H (83-108) mmHg ABG HCO3 (21-25) mmol/L ABG Total CO2 (19-24) mmol/L ABG O2 Saturation >100.0 H (94-97) % ABG Hematocrit (34.0-46.0) % ABG Potassium (3.4-4.5) mmol/L ABG Ionized Calcium (4.5-5.3) mg/dL ABG Glucose (75-99) mg/dL Hemoglobin 8.5 L (13.0-17.5) gm/dL Sodium (137-145) mmol/L Carbon Dioxide (22-30) mmol/L BUN (9-20) mg/dL Glucose (74-99) mg/dL POC Glucose (mg/dL) 117 H 139 H (70-110) mg/dL Calcium (8.4-10.2) mg/dL Alkaline Phosphatase (38-126) U/L Total Protein (6.3-8.2) g/dL Albumin (3.5-5.0) g/dL Arterial Blood Potassium (3.4-4.5) mmol/L Arterial Blood Glucose (75-99) mg/dL Crossmatch 07/09/24 07/09/24 07/09/24 Range/Units 18:51 19:58 20:37 WBC 12.1 H (3.8-10.6) k/uL RBC 3.21 L (4.30-5.90) m/uL Hgb 9.8 L (13.0-17.5) gm/dL Hct 29.2 L (39.0-53.0) % Plt Count 118 L (150-450) k/uL Neutrophils # 9.7 H (1.3-7.7) k/uL Lymphocytes # (1.0-4.8) k/uL PT (10.0-12.5) sec INR (<1.2) ABG pH (7.35-7.45) ABG pCO2 (35-45) mmHg ABG pO2 135 H (83-108) mmHg ABG HCO3 (21-25) mmol/L ABG Total CO2 (19-24) mmol/L ABG O2 Saturation 99.2 H (94-97) % ABG Hematocrit (34.0-46.0) % ABG Potassium (3.4-4.5) mmol/L ABG Ionized Calcium (4.5-5.3) mg/dL ABG Glucose (75-99) mg/dL Hemoglobin 8.9 L (13.0-17.5) gm/dL Sodium (137-145) mmol/L Carbon Dioxide (22-30) mmol/L BUN (9-20) mg/dL Glucose (74-99) mg/dL POC Glucose (mg/dL) 162 H (70-110) mg/dL Calcium (8.4-10.2) mg/dL Alkaline Phosphatase (38-126) U/L Total Protein (6.3-8.2) g/dL Albumin (3.5-5.0) g/dL Arterial Blood Potassium (3.4-4.5) mmol/L Arterial Blood Glucose (75-99) mg/dL Crossmatch 07/09/24 07/09/24 07/09/24 Range/Units 21:03 21:56 21:56 WBC (3.8-10.6) k/uL RBC 3.05 L (4.30-5.90) m/uL Hgb 9.4 L (13.0-17.5) gm/dL Hct 27.5 L (39.0-53.0) % Plt Count 110 L (150-450) k/uL Neutrophils # 9.2 H (1.3-7.7) k/uL Lymphocytes # 0.4 L (1.0-4.8) k/uL PT (10.0-12.5) sec INR (<1.2) ABG pH (7.35-7.45) ABG pCO2 (35-45) mmHg ABG pO2 (83-108) mmHg ABG HCO3 (21-25) mmol/L ABG Total CO2 (19-24) mmol/L ABG O2 Saturation (94-97) % ABG Hematocrit (34.0-46.0) % ABG Potassium (3.4-4.5) mmol/L ABG Ionized Calcium (4.5-5.3) mg/dL ABG Glucose (75-99) mg/dL Hemoglobin (13.0-17.5) gm/dL Sodium (137-145) mmol/L Carbon Dioxide (22-30) mmol/L BUN (9-20) mg/dL Glucose (74-99) mg/dL POC Glucose (mg/dL) 167 H 146 H (70-110) mg/dL Calcium (8.4-10.2) mg/dL Alkaline Phosphatase (38-126) U/L Total Protein (6.3-8.2) g/dL Albumin (3.5-5.0) g/dL Arterial Blood Potassium (3.4-4.5) mmol/L Arterial Blood Glucose (75-99) mg/dL Crossmatch 07/09/24 07/10/24 07/10/24 Range/Units 23:04 00:02 00:59 WBC (3.8-10.6) k/uL RBC (4.30-5.90) m/uL Hgb (13.0-17.5) gm/dL Hct (39.0-53.0) % Plt Count (150-450) k/uL Neutrophils # (1.3-7.7) k/uL Lymphocytes # (1.0-4.8) k/uL PT (10.0-12.5) sec INR (<1.2) ABG pH (7.35-7.45) ABG pCO2 (35-45) mmHg ABG pO2 (83-108) mmHg ABG HCO3 (21-25) mmol/L ABG Total CO2 (19-24) mmol/L ABG O2 Saturation (94-97) % ABG Hematocrit (34.0-46.0) % ABG Potassium (3.4-4.5) mmol/L ABG Ionized Calcium (4.5-5.3) mg/dL ABG Glucose (75-99) mg/dL Hemoglobin (13.0-17.5) gm/dL Sodium (137-145) mmol/L Carbon Dioxide (22-30) mmol/L BUN (9-20) mg/dL Glucose (74-99) mg/dL POC Glucose (mg/dL) 135 H 118 H 120 H (70-110) mg/dL Calcium (8.4-10.2) mg/dL Alkaline Phosphatase (38-126) U/L Total Protein (6.3-8.2) g/dL Albumin (3.5-5.0) g/dL Arterial Blood Potassium (3.4-4.5) mmol/L Arterial Blood Glucose (75-99) mg/dL Crossmatch 07/10/24 07/10/24 07/10/24 Range/Units 02:03 02:56 03:06 WBC (3.8-10.6) k/uL RBC (4.30-5.90) m/uL Hgb (13.0-17.5) gm/dL Hct (39.0-53.0) % Plt Count (150-450) k/uL Neutrophils # (1.3-7.7) k/uL Lymphocytes # (1.0-4.8) k/uL PT (10.0-12.5) sec INR (<1.2) ABG pH (7.35-7.45) ABG pCO2 (35-45) mmHg ABG pO2 (83-108) mmHg ABG HCO3 (21-25) mmol/L ABG Total CO2 (19-24) mmol/L ABG O2 Saturation (94-97) % ABG Hematocrit (34.0-46.0) % ABG Potassium (3.4-4.5) mmol/L ABG Ionized Calcium (4.5-5.3) mg/dL ABG Glucose (75-99) mg/dL Hemoglobin (13.0-17.5) gm/dL Sodium (137-145) mmol/L Carbon Dioxide (22-30) mmol/L BUN (9-20) mg/dL Glucose (74-99) mg/dL POC Glucose (mg/dL) 118 H 120 H 117 H (70-110) mg/dL Calcium (8.4-10.2) mg/dL Alkaline Phosphatase (38-126) U/L Total Protein (6.3-8.2) g/dL Albumin (3.5-5.0) g/dL Arterial Blood Potassium (3.4-4.5) mmol/L Arterial Blood Glucose (75-99) mg/dL Crossmatch 07/10/24 07/10/24 07/10/24 Range/Units 03:30 03:30 04:06 WBC (3.8-10.6) k/uL RBC 3.22 L (4.30-5.90) m/uL Hgb 9.9 L (13.0-17.5) gm/dL Hct 29.6 L (39.0-53.0) % Plt Count 120 L (150-450) k/uL Neutrophils # (1.3-7.7) k/uL Lymphocytes # 0.4 L (1.0-4.8) k/uL PT (10.0-12.5) sec INR (<1.2) ABG pH (7.35-7.45) ABG pCO2 (35-45) mmHg ABG pO2 (83-108) mmHg ABG HCO3 (21-25) mmol/L ABG Total CO2 (19-24) mmol/L ABG O2 Saturation (94-97) % ABG Hematocrit (34.0-46.0) % ABG Potassium (3.4-4.5) mmol/L ABG Ionized Calcium (4.5-5.3) mg/dL ABG Glucose (75-99) mg/dL Hemoglobin (13.0-17.5) gm/dL Sodium 130 L (137-145) mmol/L Carbon Dioxide 21 L (22-30) mmol/L BUN (9-20) mg/dL Glucose 110 H (74-99) mg/dL POC Glucose (mg/dL) 113 H (70-110) mg/dL Calcium 8.3 L (8.4-10.2) mg/dL Alkaline Phosphatase (38-126) U/L Total Protein 5.6 L (6.3-8.2) g/dL Albumin (3.5-5.0) g/dL Arterial Blood Potassium (3.4-4.5) mmol/L Arterial Blood Glucose (75-99) mg/dL Crossmatch 07/10/24 07/10/24 07/10/24 Range/Units 05:14 06:21 07:02 WBC (3.8-10.6) k/uL RBC (4.30-5.90) m/uL Hgb (13.0-17.5) gm/dL Hct (39.0-53.0) % Plt Count (150-450) k/uL Neutrophils # (1.3-7.7) k/uL Lymphocytes # (1.0-4.8) k/uL PT (10.0-12.5) sec INR (<1.2) ABG pH (7.35-7.45) ABG pCO2 (35-45) mmHg ABG pO2 (83-108) mmHg ABG HCO3 (21-25) mmol/L ABG Total CO2 (19-24) mmol/L ABG O2 Saturation (94-97) % ABG Hematocrit (34.0-46.0) % ABG Potassium (3.4-4.5) mmol/L ABG Ionized Calcium (4.5-5.3) mg/dL ABG Glucose (75-99) mg/dL Hemoglobin (13.0-17.5) gm/dL Sodium (137-145) mmol/L Carbon Dioxide (22-30) mmol/L BUN (9-20) mg/dL Glucose (74-99) mg/dL POC Glucose (mg/dL) 134 H 129 H 122 H (70-110) mg/dL Calcium (8.4-10.2) mg/dL Alkaline Phosphatase (38-126) U/L Total Protein (6.3-8.2) g/dL Albumin (3.5-5.0) g/dL Arterial Blood Potassium (3.4-4.5) mmol/L Arterial Blood Glucose (75-99) mg/dL Crossmatch 07/10/24 07/10/24 07/10/24 Range/Units 08:08 09:19 10:10 WBC (3.8-10.6) k/uL RBC (4.30-5.90) m/uL Hgb (13.0-17.5) gm/dL Hct (39.0-53.0) % Plt Count (150-450) k/uL Neutrophils # (1.3-7.7) k/uL Lymphocytes # (1.0-4.8) k/uL PT (10.0-12.5) sec INR (<1.2) ABG pH (7.35-7.45) ABG pCO2 (35-45) mmHg ABG pO2 (83-108) mmHg ABG HCO3 (21-25) mmol/L ABG Total CO2 (19-24) mmol/L ABG O2 Saturation (94-97) % ABG Hematocrit (34.0-46.0) % ABG Potassium (3.4-4.5) mmol/L ABG Ionized Calcium (4.5-5.3) mg/dL ABG Glucose (75-99) mg/dL Hemoglobin (13.0-17.5) gm/dL Sodium (137-145) mmol/L Carbon Dioxide (22-30) mmol/L BUN (9-20) mg/dL Glucose (74-99) mg/dL POC Glucose (mg/dL) 116 H 128 H 142 H (70-110) mg/dL Calcium (8.4-10.2) mg/dL Alkaline Phosphatase (38-126) U/L Total Protein (6.3-8.2) g/dL Albumin (3.5-5.0) g/dL Arterial Blood Potassium (3.4-4.5) mmol/L Arterial Blood Glucose (75-99) mg/dL Crossmatch 07/10/24 07/10/24 07/10/24 Range/Units 11:05 12:15 13:01 WBC (3.8-10.6) k/uL RBC (4.30-5.90) m/uL Hgb (13.0-17.5) gm/dL Hct (39.0-53.0) % Plt Count (150-450) k/uL Neutrophils # (1.3-7.7) k/uL Lymphocytes # (1.0-4.8) k/uL PT (10.0-12.5) sec INR (<1.2) ABG pH (7.35-7.45) ABG pCO2 (35-45) mmHg ABG pO2 (83-108) mmHg ABG HCO3 (21-25) mmol/L ABG Total CO2 (19-24) mmol/L ABG O2 Saturation (94-97) % ABG Hematocrit (34.0-46.0) % ABG Potassium (3.4-4.5) mmol/L ABG Ionized Calcium (4.5-5.3) mg/dL ABG Glucose (75-99) mg/dL Hemoglobin (13.0-17.5) gm/dL Sodium (137-145) mmol/L Carbon Dioxide (22-30) mmol/L BUN (9-20) mg/dL Glucose (74-99) mg/dL POC Glucose (mg/dL) 124 H 146 H 135 H (70-110) mg/dL Calcium (8.4-10.2) mg/dL Alkaline Phosphatase (38-126) U/L Total Protein (6.3-8.2) g/dL Albumin (3.5-5.0) g/dL Arterial Blood Potassium (3.4-4.5) mmol/L Arterial Blood Glucose (75-99) mg/dL Crossmatch Assessment and Plan Assessment: Impression: Off-pump coronary bypass grafting x 3 with DECKER to LAD, sequential left radial artery graft to obtuse marginal and intermediate coronary arteries with endovascular harvest of the left radial artery and occlusion of the left atrial appendage with 35 mm AtriCure clip. Postoperative day #1 Triple-vessel coronary artery disease Non-ST elevation myocardial infarction on this admission History of previous PCI and stent RCA 1997 Benign essential hypertension Dyslipidemia Degenerative joint disease Ex-smoker Recommendation: Continue present supportive care measures Continue bronchodilators Continue medical therapy including statins, Plavix, aspirin, and beta-blockers Continue amiodarone empirically/prophylactically Incentive spirometry Ambulation as tolerated. Continue bronchodilators GI and DVT prophylaxis Will continue to follow Time with Patient: Less than 30
[2024-07-10 15:24] LABS: Glucose,Whole Blood 131 mg/dL (70-110)
[2024-07-10 16:02] VITALS: BMI 29.1
[2024-07-10 16:21] LABS: Glucose,Whole Blood 122 mg/dL (70-110)
[2024-07-10 17:26] LABS: Glucose,Whole Blood 124 mg/dL (70-110)
[2024-07-10 18:02] LABS: Glucose,Whole Blood 126 mg/dL (70-110)
[2024-07-10 21:12] LABS: Glucose,Whole Blood 84 mg/dL (70-110)
[2024-07-11 02:17] LABS: Glucose,Whole Blood 111 mg/dL (70-110)
[2024-07-11 03:38] LABS: Basophils % (A) 0 %; Eosinophils # (A) 0.1 k/uL (0-0.7); Eosinophils % (A) 1 %; HCT 27.3 % (39.0-53.0); HGB 9.3 gm/dL (13.0-17.5); Lymphocytes # (A) 0.7 k/uL (1.0-4.8); Lymphocytes % (A) 9 %; MCHC 33.9 g/dL (31.0-37.0); MCV 91.4 fL (80.0-100.0); Monocytes # (A) 0.5 k/uL (0-1.0); Monocytes % (A) 7 %; Neutrophils # (A) 6.2 k/uL (1.3-7.7); Neutrophils % (A) 82 %; Platelet Count 110 k/uL (150-450); RBC 2.99 m/uL (4.30-5.90); RDW 12.7 % (11.5-15.5); WBC 7.5 k/uL (3.8-10.6)
[2024-07-11 03:44] LABS: Ionized Calcium 4.7 mg/dL (4.5-5.3)
[2024-07-11 03:53] LABS: ALT 15 U/L (4-49); AST 35 U/L (17-59); African American GFR (CKD) 59 (>60 ml/min/1.73 sqM); Alkaline Phosphatase 38 U/L (38-126); Anion Gap 7 mmol/L; Blood Urea Nitrogen 20 mg/dL (9-20); Calcium 8.1 mg/dL (8.4-10.2); Carbon Dioxide 22 mmol/L (22-30); Chloride 99 mmol/L (98-107); Glucose 111 mg/dL (74-99); Non-African American GFR(CKD) 51 (>60 ml/min/1.73 sqM); Potassium 4.3 mmol/L (3.5-5.1); Sodium 128 mmol/L (137-145); Total Bilirubin 0.8 mg/dL (0.2-1.3); Total Protein 5.2 g/dL (6.3-8.2)
--- NOTE | 2024-07-11 06:08 | P.PN ---
Subjective Progress Note Date: 07/10/24 This is a pleasant 83-year-old male who was recently admitted after an NSTEMI noted to have significant coronary artery disease scheduled to undergo CABG today. Patient currently remains in the OR and will follow-up on official report and patient once returning to the floor. 07/10/2024 Patient is seen in follow-up this morning status post off-pump coronary bypass grafting x 3 with DECKER to the LAD with CT surgery and cardiology following closely. Pulmonary wholesale agronomist following as well as patient is maintained in the ICU. Patient was successfully extubated yesterday evening and currently sitting up in the chair doing relatively well. Patient continues with bilateral chest tubes and is having swans catheter removed today. Patient does have incentive spirometer at the bedside and has been encouraged to continue using at least 10 times every hour while awake. Patient is afebrile with no reports of worsening shortness of breath. Patient is maintained on insulin drip per protocol and does not have history of diabetes. Will transition to sliding scale shortly. Review of systems: Constitutional: No reports of fatigue, fever, or chills Cardiovascular: No reports of chest pain or palpitations Respiratory: reports of shortness of breath and weak cough, but no worse GI: No reports of nausea, vomiting, or diarrhea, reports not much of an appetite : No reports of dysuria or retention Neurovascular: reports of generalized weakness All medications have been reviewed Active Medications Acetaminophen (Acetaminophen Tab 325 Mg Tab) 650 mg PO Q4HR PRN PRN Reason: Fever And/ Or Mild Pain (1-3) Albuterol/Ipratropium (Ipratropium-Albuterol 3 Ml Neb) 3 ml INHALATION RT-Q2H PRN PRN Reason: Shortness Of Breath Or Wheezing Albuterol/Ipratropium (Ipratropium-Albuterol 3 Ml Neb) 3 ml INHALATION RT-QID [facility] Last Admin: 07/10/24 21:13 Dose: 3 ml Amiodarone HCl (Amiodarone 200 Mg Tab) 400 mg PO BID [facility] Last Admin: 07/10/24 20:48 Dose: 400 mg Amlodipine Besylate (Amlodipine 2.5 Mg Tab) 2.5 mg PO DAILY@1200 [facility] Last Admin: 07/10/24 13:14 Dose: 2.5 mg Aspirin (Aspirin 325 Mg Tab) 325 mg PO DAILY [facility] Last Admin: 07/10/24 07:59 Dose: 325 mg Atorvastatin Calcium (Atorvastatin 40 Mg Tab) 40 mg PO DAILY [facility] Last Admin: 07/10/24 07:59 Dose: 40 mg Benzocaine/Menthol (Benzocaine/Menthol Lozeng 1 Each Lozenge) 1 each MUCOUS MEM Q2H PRN PRN Reason: Sore Throat Bisacodyl (Bisacodyl 10 Mg Supp) 10 mg RECTAL DAILY PRN PRN Reason: Constipation Clopidogrel Bisulfate (Clopidogrel 75 Mg Tab) 75 mg PO DAILY [facility] Last Admin: 07/10/24 07:59 Dose: 75 mg Dextrose/Water (Dextrose 50% Syringe 50 Ml) 25 ml IVP PER PROTOCOL PRN; Protocol PRN Reason: Hypoglycemia Dextrose/Water (Dextrose 50% Syringe 50 Ml) 50 ml IVP PER PROTOCOL PRN; Prot ocol PRN Reason: Hypoglycemia Finasteride (Finasteride 5 Mg Tab) 5 mg PO DAILY [facility] Last Admin: 07/10/24 07:59 Dose: 5 mg Heparin Sodium (Porcine) (Heparin Sodium,Porcine 5,000 Unit/Ml 1 Ml Vial) 5,000 unit SQ Q8HR [facility] Last Admin: 07/11/24 00:01 Dose: 5,000 unit Hydralazine HCl (Hydralazine Hcl 20 Mg/Ml 1 Ml Vial) 10 mg IVP Q1H PRN PRN Reason: Blood Pressure - High Albumin Human 250 ml/ IV (Solution) 250 mls @ 250 mls/hr IVPB Q1HR PRN; Protocol PRN Reason: For Volume Stop: 07/11/24 16:03 Last Admin: 07/10/24 06:00 Dose: 250 mls/hr Amiodarone HCl 150 mg/ (Dextrose/Water) 103 mls @ 618 mls/hr IV .Q10M PRN PRN Reason: A.FIB/FLUTTER Insulin Human Regular 100 unit (/ Sodium Chloride) 101 mls @ 0 mls/hr IV .Q0M [facility]; Protocol Last Titration: 07/10/24 21:13 Dose: 0 mls/hr, 0 mls/hr Sodium Chloride (Saline 0.9%) 1,000 mls @ 30 mls/hr IV .Q24H [facility] Last Admin: 07/10/24 17:58 Dose: 30 mls/hr Ketorolac Tromethamine (Ketorolac 15 Mg/Ml 1 Ml Vial) 15 mg IVP Q6HR [facility] Stop: 07/15/24 07:25 Last Admin: 07/11/24 00:01 Dose: 15 mg Magnesium Hydroxide (Magnesium Hydroxide 2,400 Mg/30 Ml Cup) 2,400 mg PO BID PRN PRN Reason: Constipation Metoclopramide HCl (Metoclopramide 5 Mg/Ml 2 Ml Vial) 10 mg IVP Q4H PRN PRN Reason: Nausea And Vomiting Last Admin: 07/10/24 03:45 Dose: 10 mg Metoprolol Tartrate (Metoprolol Tartrate 12.5 Mg Tab) 12.5 mg PO BID [facility] Last Admin: 07/10/24 20:48 Dose: 12.5 mg Miscellaneous Information (Potassium Replacement Protocol 1 Each Misc) 1 each MISCELLANE DAILY PRN; Protocol PRN Reason: Per Protocol Miscellaneous Information (Magnesium Replacement Protocol 1 Each Misc) 1 each MISCELLANE DAILY PRN; Protocol PRN Reason: Per Protocol Ondansetron HCl (Ondansetron 4 Mg/2 Ml Vial) 4 mg IVP Q6HR PRN PRN Reason: Nausea And Vomiting Last Admin: 07/10/24 18:14 Dose: 4 mg Oxycodone HCl (Oxycodone Hcl 5 Mg Tab) 5 mg PO Q4HR PRN PRN Reason: Moderate Pain (Scale 4 to 6) Last Admin: 07/10/24 10:35 Dose: 5 mg Oxycodone HCl (Oxycodone Hcl 5 Mg Tab) 10 mg PO Q4HR PRN PRN Reason: Severe Pain (Scale 7 to 10) Last Admin: 07/10/24 03:45 Dose: 10 mg Pantoprazole Sodium (Pantoprazole 40 Mg Tablet) 40 mg PO AC-BRKFST [facility] Last Admin: 07/10/24 06:18 Dose: 40 mg Senna/Docusate Sodium (Sennosides-Docusate Sodium 1 Each Tab) 2 each PO HS [facility] Last Admin: 07/10/24 20:48 Dose: 2 each Sodium Chloride (Sodium Chloride 0.9% Flush 10 Ml Syringe) 10 ml IV BID [facility] Last Admin: 07/10/24 20:48 Dose: 10 ml Tamsulosin HCl (Tamsulosin 0.4 Mg Cap.Er.24h) 0.4 mg PO PC-SUPPER [facility] Last Admin: 07/10/24 17:59 Dose: 0.4 mg PHYSICAL EXAMINATION: GENERAL: The patient is alert and oriented x4, Well developed, well nourished. Elderly appearing HEENT: Pupils are round and equally reacting to light. EOMI. no scleral icterus. No conjunctival pallor. Normocephalic, atraumatic. No pharyngeal erythema. No thyromegaly. CARDIOVASCULAR: S1 and S2 muffled, chest tubes noted PULMONARY: diminished breath sounds bilaterally with no wheezing or rhonchi noted. ABDOMEN: soft. Nontender on exam. obese. non-distended, normoactive bowel sounds. No palpable organomegaly. MUSCULOSKELETAL: No joint swelling or deformity. EXTREMITIES: No cyanosis, clubbing, or pedal edema. NEUROLOGICAL: Gross neurological examination did not reveal any focal deficits. Diffusely weak SKIN: No rashes. Assessment: Acute NSTEMI with three-vessel disease status post three-vessel off-pump CABG on 07/09/2024 Acute urinary retention requiring indwelling Silver catheter, will add Flomax History of coronary artery disease Hypertension Dyslipidemia Gastroesophageal reflux disease History of BPH GI prophylaxis DVT prophylaxis Full code Plan: Recommend to continue with current medications and management per cardiology and cardiothoracic surgery. Patient is status post triple-vessel off-pump CABG and was successfully extubate d last night. Strongly encourage incentive spirometer use and weaning FiO2 as tolerated Recommend follow-up labs in the a.m. and protocol per CT surgery Will continue to follow with cardiothoracic team during hospitalization. Recommend PT/OT therapy daily Continue with IV insulin per protocol and will transition to sliding scale soon. Patient is not a diabetic Overall prognosis is guarded at this time The impression and plan of care has been dictated by nurse michela Mejia ctitioner as directed. Dr. Jovany MD I have performed a history and examination and MDM of this patient, discussed the same with the dictator, and agree with the dictator's assessment and plan as written ,documented as a scribe. Based on total visit time, I have performed more than 50% of the visit. Any additional findings or plans will be noted. Objective - Vital Signs Vital signs: Vital Signs Temp 97.6 F 07/11/24 00:00 Pulse 89 07/11/24 03:00 Resp 16 07/11/24 03:00 BP 112/60 07/11/24 03:00 Pulse Ox 92 L 07/11/24 03:00 FiO2 40 07/09/24 20:06 Intake & Output 07/10/24 07/10/24 07/11/24 06:59 18:59 06:59 Intake Total 1362.305 701.591 269.367 Output Total 1179 570 390 Balance 183.305 131.591 -120.633 Weight 92.2 kg 92.2 kg Intake: IV 1189 491 253 ACETAMINOPHEN IV (For NPO 100 ) 1,000 mg In Empty Bag 1 bag @ 400 mls/hr IVPB Q6HR [facility] Rx#:[id number] Albumin Human 5% 250 ml 250 In Empty Bag 1 bag @ 250 mls/hr IVPB Q1HR PRN Rx#: [id number] CO/CI 140 60 Pressure bag 99 51 33 Sodium Chloride 0.9% 1, 550 330 220 000 ml @ 30 mls/hr IV . Q24H [facility] Rx#:[id number] ceFAZolin 2 gm In Sodium 50 50 Chloride 0.9% 50 ml @ 100 mls/hr IVPB Q8HR [facility] Rx# :[id number] Intake, IV Titration 123.305 10.591 16.367 Amount Clevidipine Butyrate 25 89.201 mg In Empty Bag 1 bag @ 1 MG/HR 2 mls/hr IV .Q24H PRN Rx#:[id number] Dexmedetomidine/0.9% NaCl 12.151 (Pmx) 400 mcg In Empty Bag 1 bag @ Titrate IV . Q0M [facility] Rx#:[id number] Insulin Regular 100 unit 18.083 10.591 16.367 In Sodium Chloride 0.9% 100 ml @ Per Protocol IV .Q0M [facility] Rx#:[id number] propofoL 1,000 mg In 3.87 Empty Bag 1 bag @ Titrate IV .Q0M [facility] Rx#: [id number] Oral 50 200 Output: Chest Tube Drainage 559 240 50 Chest Tube Left Pleural/ 209 120 20 Mediastinal Chest Tube Mediastinal 350 120 30 Drainage 20 Left Wrist 20 Urine 600 330 340 Other: Voiding Method Indwelling Catheter Indwelling Catheter Indwelling Catheter ABP, PAP, CO, CI - Last Documented Arterial Blood Pressure 152/73 Pulmonary Artery Pressure 33/13 Cardiac Output 4.5 Cardiac Index 2.2 - Labs CBC & Chem 7: 03/21/25 03:13 07/11/24 03:13 Labs: Abnormal Lab Results - Last 24 Hours (Table) 07/10/24 07/10/24 07/10/24 Range/Units 06:21 07:02 08:08 RBC (4.30-5.90) m/uL Hgb (13.0-17.5) gm/dL Hct (39.0-53.0) % Plt Count (150-450) k/uL Lymphocytes # (1.0-4.8) k/uL Sodium (137-145) mmol/L Creatinine (0.66-1.25) mg/dL Glucose (74-99) mg/dL POC Glucose (mg/dL) 129 H 122 H 116 H (70-110) mg/dL Calcium (8.4-10.2) mg/dL Total Protein (6.3-8.2) g/dL Albumin (3.5-5.0) g/dL 07/10/24 07/10/24 07/10/24 Range/Units 09:19 10:10 11:05 RBC (4.30-5.90) m/uL Hgb (13.0-17.5) gm/dL Hct (39.0-53.0) % Plt Count (150-450) k/uL Lymphocytes # (1.0-4.8) k/uL Sodium (137-145) mmol/L Creatinine (0.66-1.25) mg/dL Glucose (74-99) mg/dL POC Glucose (mg/dL) 128 H 142 H 124 H (70-110) mg/dL Calcium (8.4-10.2) mg/dL Total Protein (6.3-8.2) g/dL Albumin (3.5-5.0) g/dL 07/10/24 07/10/24 07/10/24 Range/Units 12:15 13:01 15:21 RBC (4.30-5.90) m/uL Hgb (13.0-17.5) gm/dL Hct (39.0-53.0) % Plt Count (150-450) k/uL Lymphocytes # (1.0-4.8) k/uL Sodium (137-145) mmol/L Creatinine (0.66-1.25) mg/dL Glucose (74-99) mg/dL POC Glucose (mg/dL) 146 H 135 H 131 H (70-110) mg/dL Calcium (8.4-10.2) mg/dL Total Protein (6.3-8.2) g/dL Albumin (3.5-5.0) g/dL 07/10/24 07/10/24 07/10/24 Range/Units 16:19 17:24 17:59 RBC (4.30-5.90) m/uL Hgb (13.0-17.5) gm/dL Hct (39.0-53.0) % Plt Count (150-450) k/uL Lymphocytes # (1.0-4.8) k/uL Sodium (137-145) mmol/L Creatinine (0.66-1.25) mg/dL Glucose (74-99) mg/dL POC Glucose (mg/dL) 122 H 124 H 126 H (70-110) mg/dL Calcium (8.4-10.2) mg/dL Total Protein (6.3-8.2) g/dL Albumin (3.5-5.0) g/dL 07/11/24 07/11/24 07/11/24 Range/Units 02:16 03:13 03:13 RBC 2.99 L (4.30-5.90) m/uL Hgb 9.3 L (13.0-17.5) gm/dL Hct 27.3 L (39.0-53.0) % Plt Count 110 L (150-450) k/uL Lymphocytes # 0.7 L (1.0-4.8) k/uL Sodium 128 L (137-145) mmol/L Creatinine 1.29 H (0.66-1.25) mg/dL Glucose 111 H (74-99) mg/dL POC Glucose (mg/dL) 111 H (70-110) mg/dL Calcium 8.1 L (8.4-10.2) mg/dL Total Protein 5.2 L (6.3-8.2) g/dL Albumin 3.0 L (3.5-5.0) g/dL
--- NOTE | 2024-07-11 06:36 | XR ---
EXAM: XR Chest, 1 View CLINICAL HISTORY: ITS.REASON XR Reason: Post Operative Cardiac Surgery TECHNIQUE: Frontal view of the chest. COMPARISON: X-ray dated 07/09/2024. FINDINGS: Lungs: Opacification of the left lung base. Pleural space: Left-sided pleural effusion. No pneumothorax. Heart: Moderate enlargement of the cardiac silhouette. Mediastinum: Unremarkable. Normal mediastinal contour. Bones/joints: Question of a acute/subacute fracture of the posterior left third rib. Sternotomy wires are in place. Degenerative changes are seen within the spine and shoulders. Old right-sided posterior rib fractures. Vasculature: Calcifications overlie the aorta. Tubes, lines and devices: Left-sided chest tube is in place. IMPRESSION: 1. Left-sided chest tube in place without evidence of pneumothorax. 2. Left basilar effusion with adjacent atelectasis and/or pneumonia not excluded. 3. Question of a posterior left third rib fracture.
[2024-07-11 06:57] LABS: Glucose,Whole Blood 127 mg/dL (70-110)
[2024-07-11 08:06] LABS: Glucose,Whole Blood 126 mg/dL (70-110)
[2024-07-11] MEDS ORDERED: AMIODARONE 360 MG in DEXTROSE 5% IN WATER 200 ML IV ONE (08:46)
--- NOTE | 2024-07-11 09:00 | P.PN ---
Subjective Progress Note Date: 07/11/24 Principal diagnosis: Triple-vessel coronary artery disease, non-STEMI this admission. Medical history significant for coronary artery disease with previous PCI of the RCA in 1997, hypertension, hyperlipidemia, benign prostatic hypertrophy, osteoarthritis, previous tobacco dependence. POD #2 off-pump coronary bypass grafting x 3 with DECKER to LAD, sequential left radial artery graft to obtuse marginal and intermediate coronary arteries with endovascular harvest of the left radial artery and occlusion of the left atrial appendage with 35 mm AtriCure clip. Postoperative acute blood loss anemia, thrombocytopenia, expected given hemodilution. The patient was seen and examined in follow-up today July 11, 2024 at his bedside in the intensive care unit. He is currently sitting up to the bedside chair, is awake, alert, oriented x 3 and is in no acute apparent distress. D enies any complaints of shortness of breath or pain at this time, although is stating that he is slightly nauseous. He is also complaining of some generalized weakness. Oxygen saturations are 95% on room air and he is achieving 750 mL on his incentive spirometry with encouragement. Bedside teleme try is showing normal sinus rhythm with occasional PACs heart rate 70 bpm. Right IJ cordis remains in place with continuous CVP monitoring, current CVP pressure is 4 mmHg. Mediastinal and left pleural chest tubes remain in place to low continuous wall suction -20 cm H2O. No air leak is present. Draining thin serosanguineous drainage. Mediastinal chest tube drained 50 mL output in the last 8 hours and 160 mL output in the last 24 hours. Left pleural chest tube drained 40 mL output in the last 8 hours and 180 mL output in the last 24 hours. He has been afebrile in the last 24 hours. Chest x-ray and laboratory results were reviewed. Objective - Vital Signs Vital signs: Vital Signs Temp 97.9 F 07/11/24 08:00 Pulse 80 07/11/24 08:07 Resp 20 07/11/24 08:00 BP 95/59 07/11/24 08:00 Pulse Ox 93 L 07/11/24 08:00 FiO2 40 07/09/24 20:06 Intake & Output 07/10/24 07/11/24 07/11/24 18:59 06:59 18:59 Intake Total 701.591 292.367 296 Output Total 570 510 55 Balance 131.591 -217.633 241 Weight 92.2 kg 92.6 kg Intake: IV 491 276 296 Albumin Human 5% 250 ml 250 In Empty Bag 1 bag @ 250 mls/hr IVPB Q1HR PRN Rx#: [id number] CO/CI 60 Pressure bag 51 36 6 Sodium Chloride 0.9% 1, 330 240 40 000 ml @ 30 mls/hr IV . Q24H [facility] Rx#:[id number] ceFAZolin 2 gm In Sodium 50 Chloride 0.9% 50 ml @ 100 mls/hr IVPB Q8HR [facility] Rx# :[id number] Intake, IV Titration 10.591 16.367 Amount Insulin Regular 100 unit 10.591 16.367 In Sodium Chloride 0.9% 100 ml @ Per Protocol IV .Q0M [facility] Rx#:[id number] Oral 200 Output: Chest Tube Drainage 240 130 0 Chest Tube Left Pleural/ 120 60 0 Mediastinal Chest Tube Mediastinal 120 70 0 Urine 330 380 55 Other: Voiding Method Indwelling Catheter Indwelling Catheter Indwelling Catheter ABP, PAP, CO, CI - Last Documented Arterial Blood Pressure 152/73 Pulmonary Artery Pressure 33/13 Cardiac Output 4.5 Cardiac Index 2.2 - Exam CONSTITUTIONAL: Sitting up to the bedside chair in the intensive care unit, appe ars comfortable, cooperative, no apparent acute distress. HEENT: Neck is supple, no JVD, no lymphadenopathy. Right IJ Cordis in place and functioning. RESPIRATORY: Lungs sounds essentially clear throughout, diminished to his bilateral bases. Respirations are symmetrical and nonlabored. Currently on room air with oxygen saturations 95%. Able to achieve 750 mL on his incentive spirometry. Strong cough. CARDIOVASCULAR: Regular rhythm and rate. S1 and S2 present, negative for S3, gallop or murmur. Sternum is stable. Palpable peripheral pulses bilaterally, trace edema to his bilateral lower extremities. No calf pain or tenderness noted. Heart hugger in place with patient demonstrating appropriate use. Knee- high JORGE hose and sequential compression devices in place to his bilateral lower extremities. GASTROINTESTINAL: Abdomen soft, nontender, nondistended. Hypoactive bowel sounds present 4 quadrants. Tolerating diet. Denies passing flatus. No guarding or rigidity. GENITOURINARY: Silver present draining clear, yellow urine. Urine output 260 mL in the last 8 hours. INTEGUMENTARY: Skin is warm and dry with no evidence of clubbing or cyanosis. Midline sternal incision clean dry and well approximated, covered with dry intact dressing. Left arm radial artery harvest sites clean, dry and approximated. No drainage or redness is present. NEUROLOGIC: Cranial nerves II through XII intact. No focal deficits. MUSKULOSKELETAL: Able to move all extremities, strength equal bilaterally, generalized weakness. PSYCHIATRIC: Alert and oriented to person place and time, appropriate affect, intact judgment and insight. INVASIVE LINES AND TUBES: Mediastinal/left pleural chest tubes present and connected to low continuous wall suction, no air leaks present. Mediastinal tu be with 50 mL of thin serosanguineous drainage overnight, 160 mL output in the last 24 hours. Left pleural chest tube with 40 mL of thin serosanguineous drainage overnight, 180 mL output in the last 24 hours. Right internal jugular Cordis, right radial arterial line present. Current CVP 4 mmHg. - Allied health notes Allied health notes reviewed: nursing - Labs CBC & Chem 7: 07/11/24 03:13 07/11/24 03:13 Labs: Abnormal Lab Results - Last 24 Hours (Table) 07/10/24 07/10/24 07/10/24 Range/Units 09:19 10:10 11:05 RBC (4.30-5.90) m/uL Hgb (13.0-17.5) gm/dL Hct (39.0-53.0) % Plt Count (150-450) k/uL Lymphocytes # (1.0-4.8) k/uL Sodium (137-145) mmol/L Creatinine (0.66-1.25) mg/dL Glucose (74-99) mg/dL POC Glucose (mg/dL) 128 H 142 H 124 H (70-110) mg/dL Calcium (8.4-10.2) mg/dL Total Protein (6.3-8.2) g/dL Albumin (3.5-5.0) g/dL 07/10/24 07/10/24 07/10/24 Range/Units 12:15 13:01 15:21 RBC (4.30-5.90) m/uL Hgb (13.0-17.5) gm/dL Hct (39.0-53.0) % Plt Count (150-450) k/uL Lymphocytes # (1.0-4.8) k/uL Sodium (137-145) mmol/L Creatinine (0.66-1.25) mg/dL Glucose (74-99) mg/dL POC Glucose (mg/dL) 146 H 135 H 131 H (70-110) mg/dL Calcium (8.4-10.2) mg/dL Total Protein (6.3-8.2) g/dL Albumin (3.5-5.0) g/dL 07/10/24 07/10/24 07/10/24 Range/Units 16:19 17:24 17:59 RBC (4.30-5.90) m/uL Hgb (13.0-17.5) gm/dL Hct (39.0-53.0) % Plt Count (150-450) k/uL Lymphocytes # (1.0-4.8) k/uL Sodium (137-145) mmol/L Creatinine (0.66-1.25) mg/dL Glucose (74-99) mg/dL POC Glucose (mg/dL) 122 H 124 H 126 H (70-110) mg/dL Calcium (8.4-10.2) mg/dL Total Protein (6.3-8.2) g/dL Albumin (3.5-5.0) g/dL 07/11/24 07/11/24 07/11/24 Range/Units 02:16 03:13 03:13 RBC 2.99 L (4.30-5.90) m/uL Hgb 9.3 L (13.0-17.5) gm/dL Hct 27.3 L (39.0-53.0) % Plt Count 110 L (150-450) k/uL Lymphocytes # 0.7 L (1.0-4.8) k/uL Sodium 128 L (137-145) mmol/L Creatinine 1.29 H (0.66-1.25) mg/dL Glucose 111 H (74-99) mg/dL POC Glucose (mg/dL) 111 H (70-110) mg/dL Calcium 8.1 L (8.4-10.2) mg/dL Total Protein 5.2 L (6.3-8.2) g/dL Albumin 3.0 L (3.5-5.0) g/dL 03/21/25 03/21/25 Range/Units 06:55 08:04 RBC (4.30-5.90) m/uL Hgb (13.0-17.5) gm/dL Hct (39.0-53.0) % Plt Count (150-450) k/uL Lymphocytes # (1.0-4.8) k/uL Sodium (137-145) mmol/L Creatinine (0.66-1.25) mg/dL Glucose (74-99) mg/dL POC Glucose (mg/dL) 127 H 126 H (70-110) mg/dL Calcium (8.4-10.2) mg/dL Total Protein (6.3-8.2) g/dL Albumin (3.5-5.0) g/dL - Imaging and Cardiology Chest x-ray: report reviewed, image reviewed Assessment and Plan Assessment: Triple-vessel coronary artery disease, non-STEMI this admission, status post three-vessel off-pump CABG Moderate mitral regurgitation on TTE Chest pain, shortness of breath secondary to above Acute urine retention requiring initiation of Silver catheter Postoperative acute blood loss anemia and thrombocytopenia, expected History of coronary artery disease with previous PCI of the RCA in 1997 Hypertension Hyperlipidemia, treated, cholesterol 136, LDL 75 BPH, remains on Proscar Osteoarthritis Previous tobacco dependence, preoperative FEV1 76% of predicted Plan: Continue to maximize medical therapy with aspirin, statin, Plavix, and beta- rolando. Will increase beta-rolando therapy as tolerated. Continue amlodipine 2.5 mg p.o. daily at noon for radial artery spasm prophylaxis with hold parameters. Continue amiodarone for atrial fibrillation prophylaxis. Patient has had no atrial fibrillation up to this point. Encourage incentive spirometry use 10 times every hour while awake. Bronchodilators per pulmonology. Will monitor daily labs and chest x-rays. Electrolyte replacement per protocol. Increase activity, ambulate as tolerated. PT/OT/cardiac rehab following. GI/DVT prophylaxis. Daily weights. Pain control per current medication regimen. Discontinue Toradol as his creatinine is trending up. Insulin management per internal medicine. Patient is not diabetic, preoperative hemoglobin A1c 6%. Patient should remain on continuous IV insulin for 48 hours, may transition to subcutaneous per protocol. Continue BPH medications. Continue Cordis to continuous CVP monitoring. We will remove his mediastinal and left pleural chest tubes today. Continue Silver catheter for another 24 hours, continue to monitor record strict accurate intake and output. Advance diet as tolerated, he has been placed on a 1500 mL and 24-hour. Fluid restriction for a sodium of 128. More recommendations to follow based on patient's clinical course. Time with Patient: Greater than 30
[2024-07-11] MEDS: DEXTROSE 5% IN WATER 100 ML with AMIODARONE 150 MG IV PRN (09:05)
--- NOTE | 2024-07-11 10:17 | P.PN ---
Subjective Progress Note Date: 07/11/24 The patient is an 83-year-old male who initially was admitted with non-ST elevated myocardial infarction. He was found to have triple-vessel disease and underwent coronary bypass yesterday with Dr. Whitfield. Overnight the patient went into atrial fibrillation. Patient will be restarted on amiodarone drip. Patient interviewed and examined resting comfortably in bed. No current complaints. GENERAL: Well-appearing, well-nourished and in no acute distress. NECK: Supple without JVD or thyromegaly. LUNGS: Breath sounds diminished to auscultation bilaterally. Respiration equal and unlabored. No wheezes, rales or rhonchi. HEART: Regular rate and rhythm without murmurs, rubs or gallops. S1 and S2 heard . Heart hugger in place EXTREMITIES: Normal range of motion, no edema. No clubbing or cyanosis. Pe ripheral pulses intact and strong. TELEMETRY: Atrial fibrillation with heart rates in the 90s to low 100s LABS: WBC 7.5, hemoglobin 9.5, hematocrit 27.3, platelet 83, sodium 128, potassium 4.3, BUN 20, creatinine 1.29, AST 35, ALT 15 IMPRESSION: NSTEMI with triple-vessel disease History of coronary artery disease with previous angioplasty of the right coronary artery in 1997 Status post coronary bypass x 3 Hypertension Dyslipidemia Echocardiogram reveals EF of 55 to 60%, moderate mitral with mild aortic and tricuspid regurgitation. PLAN: Continue aggressive pulmonary hygiene Further recommendations be based upon clinical course I am dictating on behalf of Dr Ifeanyi Newberry's history/physical and assessment/plan. Objective - Vital Signs Vital signs: Vital Signs Temp 97.9 F 07/11/24 08:00 Pulse 81 07/11/24 09:00 Resp 20 07/11/24 09:00 BP 94/57 07/11/24 09:00 Pulse Ox 94 L 07/11/24 09:00 FiO2 40 07/09/24 20:06 Intake & Output 07/10/24 07/11/24 07/11/24 18:59 06:59 18:59 Intake Total 701.591 292.367 419 Output Total 570 510 75 Balance 131.591 -217.633 344 Weight 92.2 kg 92.6 kg Intake: IV 491 276 419 Albumin Human 5% 250 ml 250 In Empty Bag 1 bag @ 250 mls/hr IVPB Q1HR PRN Rx#: [id number] CO/CI 60 Dextrose 5% in Water 100 100 ml @ 618 mls/hr IV .Q10M PRN with Amiodarone 150 mg Rx#:[id number] Pressure bag 51 36 9 Sodium Chloride 0.9% 1, 330 240 60 000 ml @ 30 mls/hr IV . Q24H [facility] Rx#:[id number] ceFAZolin 2 gm In Sodium 50 Chloride 0.9% 50 ml @ 100 mls/hr IVPB Q8HR [facility] Rx# :[id number] Intake, IV Titration 10.591 16.367 Amount Insulin Regular 100 unit 10.591 16.367 In Sodium Chloride 0.9% 100 ml @ Per Protocol IV .Q0M [facility] Rx#:[id number] Oral 200 Output: Chest Tube Drainage 240 130 0 Chest Tube Left Pleural/ 120 60 0 Mediastinal Chest Tube Mediastinal 120 70 0 Urine 330 380 75 Other: Voiding Method Indwelling Catheter Indwelling Catheter Indwelling Catheter ABP, PAP, CO, CI - Last Documented Arterial Blood Pressure 152/73 Pulmonary Artery Pressure 33/13 Cardiac Output 4.5 Cardiac Index 2.2 - Labs CBC & Chem 7: 07/11/24 03:13 07/11/24 03:13 Labs: Abnormal Lab Results - Last 24 Hours (Table) 07/10/24 07/10/24 07/10/24 Range/Units 11:05 12:15 13:01 RBC (4.30-5.90) m/uL Hgb (13.0-17.5) gm/dL Hct (39.0-53.0) % Plt Count (150-450) k/uL Lymphocytes # (1.0-4.8) k/uL Sodium (137-145) mmol/L Creatinine (0.66-1.25) mg/dL Glucose (74-99) mg/dL POC Glucose (mg/dL) 124 H 146 H 135 H (70-110) mg/dL Calcium (8.4-10.2) mg/dL Total Protein (6.3-8.2) g/dL Albumin (3.5-5.0) g/dL 07/10/24 07/10/24 07/10/24 Range/Units 15:21 16:19 17:24 RBC (4.30-5.90) m/uL Hgb (13.0-17.5) gm/dL Hct (39.0-53.0) % Plt Count (150-450) k/uL Lymphocytes # (1.0-4.8) k/uL Sodium (137-145) mmol/L Creatinine (0.66-1.25) mg/dL Glucose (74-99) mg/dL POC Glucose (mg/dL) 131 H 122 H 124 H (70-110) mg/dL Calcium (8.4-10.2) mg/dL Total Protein (6.3-8.2) g/dL Albumin (3.5-5.0) g/dL 07/10/24 07/11/24 07/11/24 Range/Units 17:59 02:16 03:13 RBC 2.99 L (4.30-5.90) m/uL Hgb 9.3 L (13.0-17.5) gm/dL Hct 27.3 L (39.0-53.0) % Plt Count 110 L (150-450) k/uL Lymphocytes # 0.7 L (1.0-4.8) k/uL Sodium (137-145) mmol/L Creatinine (0.66-1.25) mg/dL Glucose (74-99) mg/dL POC Glucose (mg/dL) 126 H 111 H (70-110) mg/dL Calcium (8.4-10.2) mg/dL Total Protein (6.3-8.2) g/dL Albumin (3.5-5.0) g/dL 07/11/24 07/11/24 07/11/24 Range/Units 03:13 06:55 08:04 RBC (4.30-5.90) m/uL Hgb (13.0-17.5) gm/dL Hct (39.0-53.0) % Plt Count (150-450) k/uL Lymphocytes # (1.0-4.8) k/uL Sodium 128 L (137-145) mmol/L Creatinine 1.29 H (0.66-1.25) mg/dL Glucose 111 H (74-99) mg/dL POC Glucose (mg/dL) 127 H 126 H (70-110) mg/dL Calcium 8.1 L (8.4-10.2) mg/dL Total Protein 5.2 L (6.3-8.2) g/dL Albumin 3.0 L (3.5-5.0) g/dL
[2024-07-11 11:03] LABS: Glucose,Whole Blood 148 mg/dL (70-110)
[2024-07-11] MEDS: INSULIN LISPRO (HumaLOG) 100 UNIT/ML 10 mL VL SQ SCH (11:49)
--- NOTE | 2024-07-11 13:03 | P.GSCN ---
History of Present Illness Consult date: 07/11/24 Reason for Consult: BPH with incomplete bladder emptying Requesting physician: Hector Almodovar History of present illness: The patient is an 83-year-old white male who was placed on finasteride approximately 1 year ago for voiding symptoms. Tamsulosin was also prescribed, but subsequently discontinued (presumably because it failed to help). The patient was admitted with with chest pain, and was experiencing increased difficulty voiding. He was found to be in urinary retention. He underwent CABG on July 09, 2024 but has experienced difficulty voiding postoperatively. Postvoid residuals about 600 to 700 cc, and a Silver catheter was replaced earlier today. Review of Systems - Cardiovascular Reports as per HPI - Genitourinary Reports as per HPI Past Medical History Past Medical History: Hyperlipidemia, Hypertension History of Any Multi-Drug Resistant Organisms: None Reported Past Surgical History: Heart Catheterization With Stent, Hernia Repair Additional Past Surgical History / Comment(s): heart stent x 1 Past Anesthesia/Blood Transfusion Reactions: No Reported Reaction Date of Last Stent Placement:: 1997 stent placed Past Psychological History: No Psychological Hx Reported Smoking Status: Former smoker Past Alcohol Use History: Occasional Past Drug Use History: None Reported - Past Family History Mother Family Medical History: Cancer Additional Family Medical History / Comment(s): breast CA Father Family Medical History: CVA/TIA Brother(s) Family Medical History: Cancer, Myocardial Infarction (OR) Medications and Allergies Home Medications Medication Instructions Recorded Confirmed Type Aspirin EC [Ecotrin Low Dose] 81 mg PO DAILY 07/03/24 07/03/24 History Atorvastatin [Lipitor] 40 mg PO DAILY 07/03/24 07/03/24 History Ezetimibe [Zetia] 10 mg PO DAILY 07/03/24 07/03/24 History Finasteride [Proscar] 5 mg PO DAILY 07/03/24 07/03/24 History Metoprolol Tartrate [Lopressor] 25 mg PO DAILY 07/03/24 07/03/24 History Naproxen Sodium [Aleve] 440 mg PO BID PRN 07/03/24 07/03/24 History lisinopriL [Zestril] 10 mg PO DAILY 07/03/24 07/03/24 History Allergies Allergy/AdvReac Type Severity Reaction Status Date / Time No Known Allergies Allergy Verified 07/09/24 10:39 Surgical - Exam Vital Signs Temp Pulse Resp BP Pulse Ox 98.8 F 92 18 173/85 99 07/02/24 21:50 07/02/24 21:50 07/02/24 21:50 07/02/24 21:50 07/02/24 21:50 - General well developed, well nourished, no distress - Respiratory normal respiratory effort - Genitourinary Silver catheter in place, draining clear yellow urine. - Psychiatric oriented to time, oriented to person, oriented to place, speech is normal, memory intact Results - Labs 07/11/24 03:13 07/11/24 03:13 Abnormal Lab Results - Last 24 Hours (Table) 07/10/24 07/10/24 07/10/24 Range/Units 13:01 15:21 16:19 RBC (4.30-5.90) m/uL Hgb (13.0-17.5) gm/dL Hct (39.0-53.0) % Plt Count (150-450) k/uL Lymphocytes # (1.0-4.8) k/uL Sodium (137-145) mmol/L Creatinine (0.66-1.25) mg/dL Glucose (74-99) mg/dL POC Glucose (mg/dL) 135 H 131 H 122 H (70-110) mg/dL Calcium (8.4-10.2) mg/dL Total Protein (6.3-8.2) g/dL Albumin (3.5-5.0) g/dL 07/10/24 07/10/24 07/11/24 Range/Units 17:24 17:59 02:16 RBC (4.30-5.90) m/uL Hgb (13.0-17.5) gm/dL Hct (39.0-53.0) % Plt Count (150-450) k/uL Lymphocytes # (1.0-4.8) k/uL Sodium (137-145) mmol/L Creatinine (0.66-1.25) mg/dL Glucose (74-99) mg/dL POC Glucose (mg/dL) 124 H 126 H 111 H (70-110) mg/dL Calcium (8.4-10.2) mg/dL Total Protein (6.3-8.2) g/dL Albumin (3.5-5.0) g/dL 07/11/24 07/11/24 07/11/24 Range/Units 03:13 03:13 06:55 RBC 2.99 L (4.30-5.90) m/uL Hgb 9.3 L (13.0-17.5) gm/dL Hct 27.3 L (39.0-53.0) % Plt Count 110 L (150-450) k/uL Lymphocytes # 0.7 L (1.0-4.8) k/uL Sodium 128 L (137-145) mmol/L Creatinine 1.29 H (0.66-1.25) mg/dL Glucose 111 H (74-99) mg/dL POC Glucose (mg/dL) 127 H (70-110) mg/dL Calcium 8.1 L (8.4-10.2) mg/dL Total Protein 5.2 L (6.3-8.2) g/dL Albumin 3.0 L (3.5-5.0) g/dL 07/11/24 07/11/24 Range/Units 08:04 11:02 RBC (4.30-5.90) m/uL Hgb (13.0-17.5) gm/dL Hct (39.0-53.0) % Plt Count (150-450) k/uL Lymphocytes # (1.0-4.8) k/uL Sodium (137-145) mmol/L Creatinine (0.66-1.25) mg/dL Glucose (74-99) mg/dL POC Glucose (mg/dL) 126 H 148 H (70-110) mg/dL Calcium (8.4-10.2) mg/dL Total Protein (6.3-8.2) g/dL Albumin (3.5-5.0) g/dL Diabetes panel 07/11/24 Range/Units 03:13 Sodium 128 L (137-145) mmol/L Potassium 4.3 (3.5-5.1) mmol/L Chloride 99 (98-107) mmol/L Carbon Dioxide 22 (22-30) mmol/L BUN 20 (9-20) mg/dL Creatinine 1.29 H (0.66-1.25) mg/dL Glucose 111 H (74-99) mg/dL Calcium 8.1 L (8.4-10.2) mg/dL AST 35 (17-59) U/L ALT 15 (4-49) U/L Alkaline Phosphatase 38 (38-126) U/L Total Protein 5.2 L (6.3-8.2) g/dL Albumin 3.0 L (3.5-5.0) g/dL Calcium panel 07/11/24 Range/Units 03:13 Calcium 8.1 L (8.4-10.2) mg/dL Ionized Calcium Hilton 4.7 (4.5-5.3) mg/dL Albumin 3.0 L (3.5-5.0) g/dL Pituitary panel 07/11/24 Range/Units 03:13 Sodium 128 L (137-145) mmol/L Potassium 4.3 (3.5-5.1) mmol/L Chloride 99 (98-107) mmol/L Carbon Dioxide 22 (22-30) mmol/L BUN 20 (9-20) mg/dL Creatinine 1.29 H (0.66-1.25) mg/dL Glucose 111 H (74-99) mg/dL Calcium 8.1 L (8.4-10.2) mg/dL Adrenal panel 07/11/24 Range/Units 03:13 Sodium 128 L (137-145) mmol/L Potassium 4.3 (3.5-5.1) mmol/L Chloride 99 (98-107) mmol/L Carbon Dioxide 22 (22-30) mmol/L BUN 20 (9-20) mg/dL Creatinine 1.29 H (0.66-1.25) mg/dL Glucose 111 H (74-99) mg/dL Calcium 8.1 L (8.4-10.2) mg/dL Total Bilirubin 0.8 (0.2-1.3) mg/dL AST 35 (17-59) U/L ALT 15 (4-49) U/L Alkaline Phosphatase 38 (38-126) U/L Total Protein 5.2 L (6.3-8.2) g/dL Albumin 3.0 L (3.5-5.0) g/dL Assessment and Plan (1) Retention of urine, unspecified Current Visit: Yes Status: Acute Code(s): R33.9 - RETENTION OF URINE, UNSPECIFIED SNOMED Code(s): 287310721 Plan: Continue finasteride and Silver catheter drainage. I have added tamsulosin. The Silver catheter will be removed on July 14 for a voiding trial. If he is unable to void, or empties his bladder to a satisfactory degree, he will be discharged home with the catheter and he will be given a repeat voiding trial in approximately 2 weeks. If the retention persists, he will undergo urodynamic testing and cystoscopy for further evaluation. Time with Patient: Greater than 30
[2024-07-11] MEDS ORDERED: PANTOPRAZOLE 40 MG/10 ML VIAL IVP SCH (14:00)
--- NOTE | 2024-07-11 14:07 | P.PN ---
Subjective Progress Note Date: 07/11/24 Principal diagnosis: POD # 2 off-pump coronary bypass grafting x 3 with DECKER to LAD, sequential left radial artery graft to obtuse marginal and intermediate coronary arteries with endovascular harvest of the left radial artery and occlusion of the left atrial appendage with 35 mm AtriCure clip This is an 83-year-old white male, known history of coronary artery disease, previous PCI of the RCA in 1997, known history of hypertension, dyslipidemia, previous smoker, history of degenerative joint disease, patient presented with intermittent episodes of left sided chest pain with left arm pain this was couple of weeks ago. Patient took 3 sublingual nitroglycerin at home, and pain was noted to subside a bit. Patient seen at [facility] initially, troponin was noted to be elevated, then he was transferred to [facility], and underwent further workup including a cardiac catheterization, patient was found to have triple-vessel coronary artery disease, patient was seen by cardiothoracic surgery after his cardiac catheterization, and today he underwent surgery by Dr. Whitfield. Postoperatively, patient is on mechanical ventilation, patient is on assist-control rate of 16 tidal volume 400 FiO2 100% PEEP of 5 ABG showed a pO2 of 391 pCO2 43 pH of 7.33 bicarb 23 has his FiO2 was decreased down to 50%, patient was noted to have good cardiac output of 4.4, cardiac index is a bit low at 2.1. Chest x-ray postoperatively showed mostly postoperative changes, adequate placement of the tubes endotracheal tube and Salem-Cong catheter. Patient was seen today on 07/10/2024, he is now postoperative day #1. Patient is sitting in a recliner, remains in the ICU, he was successfully extubated at 20: 45. He is hemodynamically stable, in sinus rhythm, he is on amiodarone for atrial fibrillation prophylaxis. Also on nitroglycerin drip for vessel spasm prophylaxis. Continues to have right internal jugular Salem/Cordis, and he continues to have mediastinal/left pleural chest tubes. And left radial RONALD drain. Pulmonary south the patient is doing well, chest x-ray this morning showed minimal left basilar atelectasis, lines and tubes were all noted to be in proper positions including Salem-Cnog catheter asymptomatic, labs were reviewed WBC is 8.7 hemoglobin 9.9, basic metabolic profile is normal, renal profile is normal Seen today on 07/11/2024, patient is now postoperative day #2. Patient is currently sitting up to bedside chair, awake alert oriented x 3, does not seem to be in any distress. On room air, IV fluids at KVO, patient is not requiring any pressors or any inotropes. Continues to have mediastinal and left pleural chest tubes in place, no airleak, mediastinal chest tube drained 50 mL over the last 8 hours. Left pleural chest tube drained 40 mL. At any rate his chest x- ray findings are reassuring, mostly postoperative findings as expected. WBC count is 7.5 hemoglobin 9.3 sodium is 128 potassium 4.3 BUN is 20 creatinine 1.29 patient was seen by urology for urinary retention today, patient is already on finasteride, urology is recommending adding tamsulosin. And planning to keep the catheter in place until July 14. Left basilar atelectasis noted on the chest x-ray, strongly doubt pneumonia. Objective - Vital Signs Vital signs: Vital Signs Temp 98.1 F 07/11/24 12:00 Pulse 84 07/11/24 13:30 Resp 19 07/11/24 13:30 BP 106/62 07/11/24 13:30 Pulse Ox 94 L 07/11/24 13:30 FiO2 40 07/09/24 20:06 Intake & Output 07/10/24 07/11/24 07/11/24 18:59 06:59 18:59 Intake Total 701.591 931.459 6331 Output Total 570 510 175 Balance 131.591 -640.231 3730 Weight 92.2 kg 92.6 kg Intake: IV 491 276 761 Albumin Human 5% 250 ml 500 In Empty Bag 1 bag @ 250 mls/hr IVPB Q1HR PRN Rx#: [id number] CO/CI 60 Dextrose 5% in Water 100 100 ml @ 618 mls/hr IV .Q10M PRN with Amiodarone 150 mg Rx#:[id number] Pressure bag 51 36 21 Sodium Chloride 0.9% 1, 330 240 140 000 ml @ 30 mls/hr IV . Q24H [facility] Rx#:[id number] ceFAZolin 2 gm In Sodium 50 Chloride 0.9% 50 ml @ 100 mls/hr IVPB Q8HR [facility] Rx# :[id number] Intake, IV Titration 10.591 16.367 Amount Insulin Regular 100 unit 10.591 16.367 In Sodium Chloride 0.9% 100 ml @ Per Protocol IV .Q0M [facility] Rx#:[id number] Oral 200 500 Output: Chest Tube Drainage 240 130 0 Chest Tube Left Pleural/ 120 60 0 Mediastinal Chest Tube Mediastinal 120 70 0 Urine 330 380 175 Other: Voiding Method Indwelling Catheter Indwelling Catheter Indwelling Catheter ABP, PAP, CO, CI - Last Documented Arterial Blood Pressure 152/73 Pulmonary Artery Pressure 33/13 Cardiac Output 4.5 Cardiac Index 2.2 - Exam CONSTITUTIONAL: Revealed 83-year-old male in no distress, on room air EYES: Pupils equal, round, reactive to light, normal ocular movement ENT: Moist mucous membranes without oral lesions present NECK: No masses, no bruits, trachea midline RESPIRATORY: Good breath sound bilaterally no rhonchi no wheezes CARDIOVASCULAR: distant S1-S2, no S3 gallop, positive pericardial rub GASTROINTESTINAL: Abdomen soft, nontender, nondistended without masses or organomegaly noted. There is no rebound or guarding present. Active bowel sounds present 4 quadrants. Skin: No rashes NEUROLOGIC: Alert oriented x 3 no gross focal deficit MUSKULOSKELETAL: No limitation range of motion no deformities PSYCHIATRIC: Normal mood affect and no mental status examination - Labs CBC & Chem 7: 07/11/24 03:13 07/11/24 03:13 Labs: Abnormal Lab Results - Last 24 Hours (Table) 07/10/24 07/10/24 07/10/24 Range/Units 15:21 16:19 17:24 RBC (4.30-5.90) m/uL Hgb (13.0-17.5) gm/dL Hct (39.0-53.0) % Plt Count (150-450) k/uL Lymphocytes # (1.0-4.8) k/uL Sodium (137-145) mmol/L Creatinine (0.66-1.25) mg/dL Glucose (74-99) mg/dL POC Glucose (mg/dL) 131 H 122 H 124 H (70-110) mg/dL Calcium (8.4-10.2) mg/dL Total Protein (6.3-8.2) g/dL Albumin (3.5-5.0) g/dL 07/10/24 07/11/24 07/11/24 Range/Units 17:59 02:16 03:13 RBC 2.99 L (4.30-5.90) m/uL Hgb 9.3 L (13.0-17.5) gm/dL Hct 27.3 L (39.0-53.0) % Plt Count 110 L (150-450) k/uL Lymphocytes # 0.7 L (1.0-4.8) k/uL Sodium (137-145) mmol/L Creatinine (0.66-1.25) mg/dL Glucose (74-99) mg/dL POC Glucose (mg/dL) 126 H 111 H (70-110) mg/dL Calcium (8.4-10.2) mg/dL Total Protein (6.3-8.2) g/dL Albumin (3.5-5.0) g/dL 07/11/24 07/11/24 07/11/24 Range/Units 03:13 06:55 08:04 RBC (4.30-5.90) m/uL Hgb (13.0-17.5) gm/dL Hct (39.0-53.0) % Plt Count (150-450) k/uL Lymphocytes # (1.0-4.8) k/uL Sodium 128 L (137-145) mmol/L Creatinine 1.29 H (0.66-1.25) mg/dL Glucose 111 H (74-99) mg/dL POC Glucose (mg/dL) 127 H 126 H (70-110) mg/dL Calcium 8.1 L (8.4-10.2) mg/dL Total Protein 5.2 L (6.3-8.2) g/dL Albumin 3.0 L (3.5-5.0) g/dL 07/11/24 Range/Units 11:02 RBC (4.30-5.90) m/uL Hgb (13.0-17.5) gm/dL Hct (39.0-53.0) % Plt Count (150-450) k/uL Lymphocytes # (1.0-4.8) k/uL Sodium (137-145) mmol/L Creatinine (0.66-1.25) mg/dL Glucose (74-99) mg/dL POC Glucose (mg/dL) 148 H (70-110) mg/dL Calcium (8.4-10.2) mg/dL Total Protein (6.3-8.2) g/dL Albumin (3.5-5.0) g/dL Assessment and Plan Assessment: Impression: Off-pump coronary bypass grafting x 3 with DECKER to LAD, sequential left radial artery graft to obtuse marginal and intermediate coronary arteries with endovascular harvest of the left radial artery and occlusion of the left atrial appendage with 35 mm AtriCure clip. Postoperative day #2 Triple-vessel coronary artery disease Non-ST elevation myocardial infarction on this admission History of previous PCI and stent RCA 1997 Benign essential hypertension Dyslipidemia Degenerative joint disease Ex-smoker Recommendation: Continue present supportive care measures Continue bronchodilators Continue medical therapy including statins, Plavix, aspirin, and beta-blockers Continue amiodarone empirically/prophylactically Continue incentive spirometry Continue ambulation Continue Silver catheter in place as recommended by urology GI and DVT prophylaxis Will continue to follow Time with Patient: Less than 30
[2024-07-11] MEDS ORDERED: AMIODARONE 450 MG in DEXTROSE 5% IN WATER 250 ML IV SCH (15:00)
[2024-07-11 16:50] LABS: Glucose,Whole Blood 145 mg/dL (70-110)
[2024-07-11] MEDS: SIMETHICONE 40 MG/0.6 ML DROPS 2,000 MG/30 ML BOTTLE PO SCH (18:00)
[2024-07-11 20:19] LABS: Glucose,Whole Blood 133 mg/dL (70-110)
[2024-07-11] MEDS: PANTOPRAZOLE 40 MG/10 ML VIAL IVP SCH (20:37)
[2024-07-12 04:40] LABS: Basophils % (A) 0 %; Eosinophils # (A) 0.1 k/uL (0-0.7); Eosinophils % (A) 1 %; HCT 25.5 % (39.0-53.0); HGB 8.6 gm/dL (13.0-17.5); Lymphocytes # (A) 0.6 k/uL (1.0-4.8); Lymphocytes % (A) 7 %; MCHC 33.6 g/dL (31.0-37.0); MCV 92.3 fL (80.0-100.0); Mean Platelet Volume 10.1; Monocytes # (A) 0.8 k/uL (0-1.0); Monocytes % (A) 9 %; Neutrophils # (A) 7.6 k/uL (1.3-7.7); Neutrophils % (A) 83 %; Platelet Count 123 k/uL (150-450); RBC 2.76 m/uL (4.30-5.90); RDW 12.7 % (11.5-15.5); WBC 9.2 k/uL (3.8-10.6)
[2024-07-12 05:03] LABS: ALT 12 U/L (4-49); AST 34 U/L (17-59); African American GFR (CKD) 58 (>60 ml/min/1.73 sqM); Albumin 3.1 g/dL (3.5-5.0); Alkaline Phosphatase 43 U/L (38-126); Anion Gap 8 mmol/L; Blood Urea Nitrogen 22 mg/dL (9-20); Calcium 8.4 mg/dL (8.4-10.2); Carbon Dioxide 19 mmol/L (22-30); Chloride 101 mmol/L (98-107); Glucose 112 mg/dL (74-99); Non-African American GFR(CKD) 51 (>60 ml/min/1.73 sqM); Potassium 4.8 mmol/L (3.5-5.1); Sodium 128 mmol/L (137-145); Total Protein 5.3 g/dL (6.3-8.2)
--- NOTE | 2024-07-12 06:26 | XR ---
EXAMINATION TYPE: XR chest 2V DATE OF EXAM: 07/12/2024 CLINICAL INDICATION: Male, 83 years old with history of post op CABG, TECHNIQUE: Frontal and lateral views of the chest are obtained. COMPARISON: Chest x-ray from one day earlier FINDINGS: Interval removal of mediastinal drainage catheter and left-sided chest tube. Overlying Ster nal wires along with mediastinal clips and left atrial appendage clip are all redemonstrated. Persist ent cardiomegaly with central vascular congestion and small left greater than right pleural effusions . No pneumothorax is evident bilaterally. Old posterior right rib fractures again seen. IMPRESSION: Interval removal of left-sided chest tube without pneumothorax. Persistent low lung volum es and cardiomegaly with small left greater than right pleural effusions and central vascular congest ion consistent with fluid overload state. [facility], , 07/12/2024 6:24 AM
[2024-07-12 06:29] LABS: Glucose,Whole Blood 129 mg/dL (70-110)
[2024-07-12 06:38] LABS: Glucose,Whole Blood 134 mg/dL (70-110)
--- NOTE | 2024-07-12 07:13 | P.PN ---
Subjective Progress Note Date: 07/11/24 This is a pleasant 83-year-old male who was recently admitted after an NSTEMI noted to have significant coronary artery disease scheduled to undergo CABG today. Patient currently remains in the OR and will follow-up on official report and patient once returning to the floor. 07/10/2024 Patient is seen in follow-up this morning status post off-pump coronary bypass grafting x 3 with DECKER to the LAD with CT surgery and cardiology following closely. Pulmonary publicity director following as well as patient is maintained in the ICU. Patient was successfully extubated yesterday evening and currently sitting up in the chair doing relatively well. Patient continues with bilateral chest tubes and is having swans catheter removed today. Patient does have incentive spirometer at the bedside and has been patient patient is afebrile with no reports of worsening shortness of breath. Patient is maintained on insulin drip per protocol and does not have history of diabetes. Will transition to sliding scale shortly. 07/11/2024 Patient is seen in follow-up today currently sitting up in the chair doing rela tively well. Family at the bedside and patient is tolerating diet with no reported nausea or vomiting. Patient is having some urinary retention and urology consulted. Patient required replacement of indwelling Silver catheter. Recommend Flomax and will await urology evaluation. Patient continues to use incentive spirometer and encouraged to use at least 10 times every hour while awake. Patient is showing good return demonstration of proper use of incentive spirometer. Patient is afebrile with no reports of chest pain or palpitations. There is some chest wall discomfort and heart hugger is noted. Patient reports to having excessive gas with no bowel movement as of yet. Will add simethicone. Patient has been transition to sliding scale insulin and blood sugars have been well-controlled. Patient is not a diabetic. Review of systems: Constitutional: No reports of fatigue, fever, or chills Cardiovascular: No reports of chest pain or palpitations Respiratory: reports of ongoing shortness of breath although no worse GI: No reports of nausea, vomiting, or diarrhea, reports not much of an appetite, reports gas with no bowel movement as of yet : No reports of dysuria patient reporting retention and did require indwelling Silver catheter to be replaced today Neurovascular: reports of generalized weakness All medications have been reviewed PHYSICAL EXAMINATION: GENERAL: The patient is alert and oriented x4, Well developed, well nourished. Elderly appearing HEENT: Pupils are round and equally reacting to light. EOMI. no scleral icterus. No conjunctival pallor. Normocephalic, atraumatic. No pharyngeal erythema. No thyromegaly. CARDIOVASCULAR: S1 and S2 muffled, chest tubes noted PULMONARY: diminished breath sounds bilaterally with no wheezing or rhonchi not ed. ABDOMEN: soft. Nontender on exam. obese. non-distended, normoactive bowel sounds. No palpable organomegaly. MUSCULOSKELETAL: No joint swelling or deformity. EXTREMITIES: No cyanosis, clubbing, or pedal edema. NEUROLOGICAL: Gross neurological examination did not reveal any focal deficits. Diffusely weak SKIN: No rashes. Assessment: Acute NSTEMI with three-vessel disease status post three-vessel off-pump CABG on 07/09/2024 Acute urinary retention requiring indwelling Silver catheter, will continue Flomax, urology consulted History of coronary artery disease Hypertension Dyslipidemia Gastroesophageal reflux disease History of BPH GI prophylaxis DVT prophylaxis Full code Plan: Recommend to continue with current medications and management per cardiology and cardiothoracic surgery. Patient is status post triple-vessel off-pump CABG and was successfully extubated, currently maintained on room air, strongly encourage incentive spirometer use 10 times every hour while awake Recommend follow-up labs in the a.m. and protocol per CT surgery Will continue to follow with cardiothoracic team during hospitalization. Recommend PT/OT therapy daily Patient has been transition to Accu-Cheks ACHS with sliding scale and blood sugars have been well-controlled. Patient is not a diabetic Patient was having some continued ongoing retention postoperatively requiring indwelling Silver catheter to be replaced. Flomax added and urology consulted recommend to continue with indwelling Silver catheter and trial void in the next few days and continue with Flomax and finasteride Overall prognosis is guarded at this time The impression and plan of care has been dictated by Elizabeth Holder, nurse practitioner as directed. Dr. Jovany MD I have performed a history and examination and MDM of this patient, discussed the same with the dictator, and agree with the dictator's assessment and plan as written ,documented as a scribe. Based on total visit time, I have performed more than 50% of the visit. Any additional findings or plans will be noted. Objective - Vital Signs Vital signs: Vital Signs Temp 98.1 F 07/12/24 04:00 Pulse 84 07/12/24 07:00 Resp 23 07/12/24 07:00 BP 97/53 07/12/24 07:00 Pulse Ox 95 07/12/24 07:00 FiO2 40 07/09/24 20:06 Intake & Output 07/11/24 07/12/24 07/12/24 18:59 06:59 18:59 Intake Total 1334 110 10 Output Total 380 320 0 Balance 954 -210 10 Weight 93.1 kg Intake: IV 834 110 10 Albumin Human 5% 250 ml 500 In Empty Bag 1 bag @ 250 mls/hr IVPB Q1HR PRN Rx#: [id number] Dextrose 5% in Water 100 100 ml @ 618 mls/hr IV .Q10M PRN with Amiodarone 150 mg Rx#:[id number] Pressure bag 24 Sodium Chloride 0.9% 1, 210 110 10 000 ml @ 30 mls/hr IV . Q24H [facility] Rx#:[id number] Oral 500 Output: Chest Tube Drainage 0 Chest Tube Left Pleural/ 0 Mediastinal Chest Tube Mediastinal 0 Urine 380 320 0 Other: Voiding Method Indwelling Catheter Indwelling Catheter ABP, PAP, CO, CI - Last Documented Arterial Blood Pressure 152/73 Pulmonary Artery Pressure 33/13 Cardiac Output 4.5 Cardiac Index 2.2 - Labs CBC & Chem 7: 07/12/24 03:39 07/12/24 03:39 Labs: Abnormal Lab Results - Last 24 Hours (Table) 07/11/24 07/11/24 07/11/24 Range/Units 08:04 11:02 16:48 RBC (4.30-5.90) m/uL Hgb (13.0-17.5) gm/dL Hct (39.0-53.0) % Plt Count (150-450) k/uL Lymphocytes # (1.0-4.8) k/uL Sodium (137-145) mmol/L Carbon Dioxide (22-30) mmol/L BUN (9-20) mg/dL Creatinine (0.66-1.25) mg/dL Glucose (74-99) mg/dL POC Glucose (mg/dL) 126 H 148 H 145 H (70-110) mg/dL Total Protein (6.3-8.2) g/dL Albumin (3.5-5.0) g/dL 07/11/24 07/12/24 07/12/24 Range/Units 20:18 03:39 03:39 RBC 2.76 L (4.30-5.90) m/uL Hgb 8.6 L (13.0-17.5) gm/dL Hct 25.5 L (39.0-53.0) % Plt Count 123 L (150-450) k/uL Lymphocytes # 0.6 L (1.0-4.8) k/uL Sodium 128 L (137-145) mmol/L Carbon Dioxide 19 L (22-30) mmol/L BUN 22 H (9-20) mg/dL Creatinine 1.31 H (0.66-1.25) mg/dL Glucose 112 H (74-99) mg/dL POC Glucose (mg/dL) 133 H (70-110) mg/dL Total Protein 5.3 L (6.3-8.2) g/dL Albumin 3.1 L (3.5-5.0) g/dL 07/12/24 07/12/24 Range/Units 06:28 06:37 RBC (4.30-5.90) m/uL Hgb (13.0-17.5) gm/dL Hct (39.0-53.0) % Plt Count (150-450) k/uL Lymphocytes # (1.0-4.8) k/uL Sodium (137-145) mmol/L Carbon Dioxide (22-30) mmol/L BUN (9-20) mg/dL Creatinine (0.66-1.25) mg/dL Glucose (74-99) mg/dL POC Glucose (mg/dL) 129 H 134 H (70-110) mg/dL Total Protein (6.3-8.2) g/dL Albumin (3.5-5.0) g/dL
[2024-07-12] MEDS: ACETAMINOPHEN TAB 500 MG TAB PO PRN (08:00)
[2024-07-12] MEDS: METOPROLOL TARTRATE 25 MG TAB PO SCH (08:01)
--- NOTE | 2024-07-12 08:18 | P.PN ---
Subjective Progress Note Date: 07/12/24 Principal diagnosis: Triple-vessel coronary artery disease, non-STEMI this admission. Medical history significant for coronary artery disease with previous PCI of the RCA in 1997, hypertension, hyperlipidemia, benign prostatic hypertrophy, osteoarthritis, previous tobacco dependence. POD #3 off-pump coronary bypass grafting x 3 with DECKER to LAD, sequential left radial artery graft to obtuse marginal and intermediate coronary arteries with endovascular harvest of the left radial artery and occlusion of the left atrial appendage with 35 mm AtriCure clip. Postoperative acute blood loss anemia, thrombocytopenia, expected given hemodilution. Paroxysmal atrial fibrillation, a known common occurrence after cardiac surgery. The patient was seen and examined in follow-up today July 12, 2024 at his bedside in the intensive care unit. He is currently sitting up to the bedside chair, is awake, alert, oriented x 3 and is in no acute apparent distress. Denies any complaints of shortness of breath or pain at this time, states he is feeling a little weak this morning although he said he is still waking up. He remains hemodynamically stable and is currently on no inotropic or pressor support. No further reported episodes of atrial fibrillation throughout the night. Bedside telemetry is showing normal sinus rhythm heart rate 84 bpm. He remains on amiodarone and metoprolol. Oxygen saturations are 96% on room air and he is achieving 1000 mL on his incentive spirometry with encouragement. He reports he has been up ambulating in the intensive care unit hallway with standby assistance or nursing and therapy staff and tolerating well. The patient's Silver catheter was removed this morning in efforts for a voiding trial. Laboratory and chest x-ray results reviewed. Objective - Vital Signs Vital signs: Vital Signs Temp 98.1 F 07/12/24 04:00 Pulse 98 07/12/24 06:00 Resp 20 07/12/24 06:00 BP 115/62 07/12/24 06:00 Pulse Ox 96 07/12/24 06:00 FiO2 40 07/09/24 20:06 Intake & Output 07/11/24 07/11/24 07/12/24 06:59 18:59 06:59 Intake Total 271.678 7159 110 Output Total 510 380 320 Balance -217.633 954 -210 Weight 92.6 kg 93.1 kg Intake: IV 276 834 110 Albumin Human 5% 250 ml 500 In Empty Bag 1 bag @ 250 mls/hr IVPB Q1HR PRN Rx#: [id number] Dextrose 5% in Water 100 100 ml @ 618 mls/hr IV .Q10M PRN with Amiodarone 150 mg Rx#:[id number] Pressure bag 36 24 Sodium Chloride 0.9% 1, 240 210 110 000 ml @ 30 mls/hr IV . Q24H [facility] Rx#:[id number] Intake, IV Titration 16.367 Amount Insulin Regular 100 unit 16.367 In Sodium Chloride 0.9% 100 ml @ Per Protocol IV .Q0M [facility] Rx#:[id number] Oral 500 Output: Chest Tube Drainage 130 0 Chest Tube Left Pleural/ 60 0 Mediastinal Chest Tube Mediastinal 70 0 Urine 380 380 320 Other: Voiding Method Indwelling Catheter Indwelling Catheter Indwelling Catheter ABP, PAP, CO, CI - Last Documented Arterial Blood Pressure 152/73 Pulmonary Artery Pressure 33/13 Cardiac Output 4.5 Cardiac Index 2.2 - Exam CONSTITUTIONAL: Sitting up to the bedside chair in the intensive care unit, appears comfortable, cooperative, no apparent acute distress. HEENT: Neck is supple, no JVD, no lymphadenopathy. RESPIRATORY: Lungs sounds essentially clear throughout, diminished to his bilateral bases. Respirations are symmetrical and nonlabored. Currently on room air with oxygen saturations 96%. Able to achieve 1000 mL on his incentive spirometry. Strong cough. CARDIOVASCULAR: Regular rhythm and rate. S1 and S2 present, negative for S3, gallop or murmur. Sternum is stable. Palpable peripheral pulses bilaterally, trace edema to his bilateral lower extremities. No calf pain or tenderness noted. Heart hugger in place with patient demonstrating appropriate use. Knee- high JORGE hose and sequential compression devices in place to his bilateral lower extremities. GASTROINTESTINAL: Abdomen soft, nontender, nondistended. Active bowel sounds present 4 quadrants. Tolerating diet. Passing flatus. No guarding or rigidity. GENITOURINARY: Silver present draining clear, yellow urine. Urine output 235 mL in the last 8 hours. INTEGUMENTARY: Skin is warm and dry with no evidence of clubbing or cyanosis. Midline sternal incision clean dry and well approximated, covered with dry intact dressing. Left arm radial artery harvest sites clean, dry and approximate d. No drainage or redness is present. NEUROLOGIC: Cranial nerves II through XII intact. No focal deficits. MUSKULOSKELETAL: Able to move all extremities, strength equal bilaterally, generalized weakness. PSYCHIATRIC: Alert and oriented to person place and time, appropriate affect, intact judgment and insight. - Allied health notes Allied health notes reviewed: nursing - Labs CBC & Chem 7: 07/12/24 03:39 07/12/24 03:39 Labs: Abnormal Lab Results - Last 24 Hours (Table) 07/11/24 07/11/24 07/11/24 Range/Units 06:55 08:04 11:02 RBC (4.30-5.90) m/uL Hgb (13.0-17.5) gm/dL Hct (39.0-53.0) % Plt Count (150-450) k/uL Lymphocytes # (1.0-4.8) k/uL Sodium (137-145) mmol/L Carbon Dioxide (22-30) mmol/L BUN (9-20) mg/dL Creatinine (0.66-1.25) mg/dL Glucose (74-99) mg/dL POC Glucose (mg/dL) 127 H 126 H 148 H (70-110) mg/dL Total Protein (6.3-8.2) g/dL Albumin (3.5-5.0) g/dL 07/11/24 07/11/24 07/12/24 Range/Units 16:48 20:18 03:39 RBC 2.76 L (4.30-5.90) m/uL Hgb 8.6 L (13.0-17.5) gm/dL Hct 25.5 L (39.0-53.0) % Plt Count 123 L (150-450) k/uL Lymphocytes # 0.6 L (1.0-4.8) k/uL Sodium (137-145) mmol/L Carbon Dioxide (22-30) mmol/L BUN (9-20) mg/dL Creatinine (0.66-1.25) mg/dL Glucose (74-99) mg/dL POC Glucose (mg/dL) 145 H 133 H (70-110) mg/dL Total Protein (6.3-8.2) g/dL Albumin (3.5-5.0) g/dL 07/12/24 Range/Units 03:39 RBC (4.30-5.90) m/uL Hgb (13.0-17.5) gm/dL Hct (39.0-53.0) % Plt Count (150-450) k/uL Lymphocytes # (1.0-4.8) k/uL Sodium 128 L (137-145) mmol/L Carbon Dioxide 19 L (22-30) mmol/L BUN 22 H (9-20) mg/dL Creatinine 1.31 H (0.66-1.25) mg/dL Glucose 112 H (74-99) mg/dL POC Glucose (mg/dL) (70-110) mg/dL Total Protein 5.3 L (6.3-8.2) g/dL Albumin 3.1 L (3.5-5.0) g/dL - Imaging and Cardiology Chest x-ray: report reviewed, image reviewed Assessment and Plan Assessment: Triple-vessel coronary artery disease, non-STEMI this admission, status post three-vessel off-pump CABG Moderate mitral regurgitation on TTE Chest pain, shortness of breath secondary to above Acute urine retention requiring initiation of Silver catheter Postoperative acute blood loss anemia and thrombocytopenia, expected History of coronary artery disease with previous PCI of the RCA in 1997 Hypertension Hyperlipidemia, treated, cholesterol 136, LDL 75 BPH, remains on Proscar Osteoarthritis Previous tobacco dependence, preoperative FEV1 76% of predicted Plan: Continue to maximize medical therapy with aspirin, statin, Plavix, and beta- rolando. Will increase metoprolol tartrate to 25 mg p.o. twice daily with hold parameters. Continue amlodipine 2.5 mg p.o. daily at noon for radial artery spasm pro phylaxis with hold parameters. Continue amiodarone for atrial fibrillation prophylaxis. Encourage incentive spirometry use 10 times every hour while awake. Bronchodilators per pulmonology. Will monitor daily labs and chest x-rays. Electrolyte replacement per protocol. Increase activity, ambulate as tolerated. PT/OT/cardiac rehab following. GI/DVT prophylaxis. Daily weights. Pain control per current medication regimen. Insulin management per internal medicine. Patient is not diabetic, preoperative hemoglobin A1c 6%. Continue BPH medications. Continue to monitor record strict accurate intake and output. Bladder scan every 6 hours and as needed postvoid residual, if greater than 300 mL of PVR replace Silver catheter. Continue 1500 mL fluid restriction in a 24-hour period. Fluid restriction for a sodium of 128. Shower daily. More recommendations to follow based on patient's clinical course. Time with Patient: Greater than 30
[2024-07-12] MEDS: ALBUMIN HUMAN 5% 250 ML in EMPTY BAG 1 BAG IVPB ONE (10:10)
[2024-07-12 10:54] LABS: Glucose,Whole Blood 129 mg/dL (70-110)
--- NOTE | 2024-07-12 12:06 | P.PN ---
Subjective Progress Note Date: 07/12/24 Principal diagnosis: POD # 3 off-pump coronary bypass grafting x 3 with DECKER to LAD, sequential left radial artery graft to obtuse marginal and intermediate coronary arteries with endovascular harvest of the left radial artery and occlusion of the left atrial appendage with 35 mm AtriCure clip This is an 83-year-old white male, known history of coronary artery disease, previous PCI of the RCA in 1997, known history of hypertension, dyslipidemia, previous smoker, history of degenerative joint disease, patient presented with intermittent episodes of left sided chest pain with left arm pain this was couple of weeks ago. Patient took 3 sublingual nitroglycerin at home, and pain was noted to subside a bit. Patient seen at [facility] initially, troponin was noted to be elevated, then he was transferred to [facility], and underwent further workup including a cardiac catheterization, patient was found to have triple-vessel coronary artery disease, patient was seen by cardiothoracic surgery after his cardiac catheterization, and today he underwent surgery by Dr. Whitfield. Postoperatively, patient is on mechanical ventilation, patient is on assist-control rate of 16 tidal volume 400 FiO2 100% PEEP of 5 ABG showed a pO2 of 391 pCO2 43 pH of 7.33 bicarb 23 has his FiO2 was decreased down to 50%, patient was noted to have good cardiac output of 4.4, cardiac index is a bit low at 2.1. Chest x-ray postoperatively showed mostly postoperative changes, adequate placement of the tubes endotracheal tube and Greenfield-Cong catheter. Patient was seen today on 07/10/2024, he is now postoperative day #1. Patient is sitting in a recliner, remains in the ICU, he was successfully extubated at 20: 45. He is hemodynamically stable, in sinus rhythm, he is on amiodarone for atrial fibrillation prophylaxis. Also on nitroglycerin drip for vessel spasm prophylaxis. Continues to have right internal jugular Greenfield/Cordis, and he continues to have mediastinal/left pleural chest tubes. And left radial RONALD drain. Pulmonary south the patient is doing well, chest x-ray this morning showed minimal left basilar atelectasis, lines and tubes were all noted to be in proper positions including Greenfield-Cong catheter asymptomatic, labs were reviewed WBC is 8.7 hemoglobin 9.9, basic metabolic profile is normal, renal profile is normal Seen today on 07/11/2024, patient is now postoperative day #2. Patient is currently sitting up to bedside chair, awake alert oriented x 3, does not seem to be in any distress. On room air, IV fluids at KVO, patient is not requiring any pressors or any inotropes. Continues to have mediastinal and left pleural chest tubes in place, no airleak, mediastinal chest tube drained 50 mL over the last 8 hours. Left pleural chest tube drained 40 mL. At any rate his chest x- ray findings are reassuring, mostly postoperative findings as expected. WBC count is 7.5 hemoglobin 9.3 sodium is 128 potassium 4.3 BUN is 20 creatinine 1.29 patient was seen by urology for urinary retention today, patient is already on finasteride, urology is recommending adding tamsulosin. And planning to keep the catheter in place until July 14. Left basilar atelectasis noted on the chest x-ray, strongly doubt pneumonia. Seen today on 07/12/2024, patient is now postoperative day #3, doing well, no pulmonary symptoms however he feels generally weak, tired, not in pain, chest x- ray reviewed, patient has mostly low lung volumes and cardiomegaly with small left pleural effusion and small right-sided pleural effusion chest x-ray is consistent with mostly some congestive heart failure. WBC count is 9.2 hemoglobin 8.6 electrolytes showed low sodium of 128 and this is probably a hypervolemic hyponatremia. BUN is 22 creatinine 1.31. Objective - Vital Signs Vital signs: Vital Signs Temp 97.5 F L 07/12/24 08:00 Pulse 75 07/12/24 11:00 Resp 15 07/12/24 11:00 BP 93/57 07/12/24 11:00 Pulse Ox 95 07/12/24 11:00 FiO2 40 07/09/24 20:06 Intake & Output 07/11/24 07/12/24 07/12/24 18:59 06:59 18:59 Intake Total 1334 110 260 Output Total 380 320 0 Balance 954 -210 260 Weight 93.1 kg Intake: IV 834 110 260 Albumin Human 5% 250 ml 500 250 In Empty Bag 1 bag @ 250 mls/hr IVPB Q1HR PRN Rx#: [id number] Dextrose 5% in Water 100 100 ml @ 618 mls/hr IV .Q10M PRN with Amiodarone 150 mg Rx#:[id number] Pressure bag 24 Sodium Chloride 0.9% 1, 210 110 10 000 ml @ 30 mls/hr IV . Q24H [facility] Rx#:[id number] Oral 500 Output: Chest Tube Drainage 0 Chest Tube Left Pleural/ 0 Mediastinal Chest Tube Mediastinal 0 Urine 380 320 0 Other: Voiding Method Indwelling Catheter Indwelling Catheter Urinal ABP, PAP, CO, CI - Last Documented Arterial Blood Pressure 152/73 Pulmonary Artery Pressure 33/13 Cardiac Output 4.5 Cardiac Index 2.2 - Exam CONSTITUTIONAL: Revealed 83-year-old male in no distress, on room air, O2 sats is 96% EYES: Pupils equal, round, reactive to light, normal ocular movement ENT: Moist mucous membranes without oral lesions present NECK: No masses, no bruits, trachea midline RESPIRATORY: Good breath sound bilaterally diminished breath sounds at the bases no rhonchi no wheezes CARDIOVASCULAR: distant S1-S2, no S3 gallop, positive pericardial rub GASTROINTESTINAL: Abdomen soft, nontender, nondistended without masses or organomegaly noted. There is no rebound or guarding present. Active bowel evgeny nds present 4 quadrants. Skin: No rashes NEUROLOGIC: Alert oriented x 3 no gross focal deficit MUSKULOSKELETAL: No limitation range of motion no deformities PSYCHIATRIC: Normal mood affect and no mental status examination - Labs CBC & Chem 7: 07/12/24 03:39 07/12/24 03:39 Labs: Abnormal Lab Results - Last 24 Hours (Table) 07/11/24 07/11/24 07/12/24 Range/Units 16:48 20:18 03:39 RBC 2.76 L (4.30-5.90) m/uL Hgb 8.6 L (13.0-17.5) gm/dL Hct 25.5 L (39.0-53.0) % Plt Count 123 L (150-450) k/uL Lymphocytes # 0.6 L (1.0-4.8) k/uL Sodium (137-145) mmol/L Carbon Dioxide (22-30) mmol/L BUN (9-20) mg/dL Creatinine (0.66-1.25) mg/dL Glucose (74-99) mg/dL POC Glucose (mg/dL) 145 H 133 H (70-110) mg/dL Total Protein (6.3-8.2) g/dL Albumin (3.5-5.0) g/dL 07/12/24 07/12/24 07/12/24 Range/Units 03:39 06:28 06:37 RBC (4.30-5.90) m/uL Hgb (13.0-17.5) gm/dL Hct (39.0-53.0) % Plt Count (150-450) k/uL Lymphocytes # (1.0-4.8) k/uL Sodium 128 L (137-145) mmol/L Carbon Dioxide 19 L (22-30) mmol/L BUN 22 H (9-20) mg/dL Creatinine 1.31 H (0.66-1.25) mg/dL Glucose 112 H (74-99) mg/dL POC Glucose (mg/dL) 129 H 134 H (70-110) mg/dL Total Protein 5.3 L (6.3-8.2) g/dL Albumin 3.1 L (3.5-5.0) g/dL 07/12/24 Range/Units 10:52 RBC (4.30-5.90) m/uL Hgb (13.0-17.5) gm/dL Hct (39.0-53.0) % Plt Count (150-450) k/uL Lymphocytes # (1.0-4.8) k/uL Sodium (137-145) mmol/L Carbon Dioxide (22-30) mmol/L BUN (9-20) mg/dL Creatinine (0.66-1.25) mg/dL Glucose (74-99) mg/dL POC Glucose (mg/dL) 129 H (70-110) mg/dL Total Protein (6.3-8.2) g/dL Albumin (3.5-5.0) g/dL Assessment and Plan Assessment: Impression: Off-pump coronary bypass grafting x 3 with DECKER to LAD, sequential left radial artery graft to obtuse marginal and intermediate coronary arteries with endovascular harvest of the left radial artery and occlusion of the left atrial appendage with 35 mm AtriCure clip. Postoperative day #3 Triple-vessel coronary artery disease Non-ST elevation myocardial infarction on this admission History of previous PCI and stent RCA 1997 Benign essential hypertension Dyslipidemia Degenerative joint disease Ex-smoker Recommendation: Continue present supportive care measures Gentle diuresis Continue bronchodilators Continue medical therapy including statins, Plavix, aspirin, and beta-blockers Continue incentive spirometry Ambulate as tolerated GI and DVT prophylaxis Will continue to follow Time with Patient: Less than 30
--- NOTE | 2024-07-12 13:07 | P.PN ---
Subjective Progress Note Date: 07/12/24 The patient is an 83-year-old male who initially was admitted with non-ST elevated myocardial infarction. He was found to have triple-vessel disease and underwent coronary bypass with Dr. Whitfield. Operatively the patient went in atrial fibrillation but is now back in sinus rhythm with frequent PACs Patient interviewed and examined resting comfortably in bed. No current complaints. GENERAL: Well-appearing, well-nourished and in no acute distress. NECK: Supple without JVD or thyromegaly. LUNGS: Breath sounds diminished to auscultation bilaterally. Respiration equal and unlabored. No wheezes, rales or rhonchi. HEART: Regular rate and rhythm without murmurs, rubs or gallops. S1 and S2 heard. Heart hugger in place EXTREMITIES: Normal range of motion, no edema. No clubbing or cyanosis. Peripheral pulses intact and strong. TELEMETRY: Sinus rhythm with frequent PACs LABS: WBC 9.2, hemoglobin 8.6, hematocrit 25.5, platelet 123, sodium 128, potassium 4.8, BUN 22, creatinine 1.31, AST 34, ALT 12 IMPRESSION: NSTEMI with triple-vessel disease History of coronary artery disease with previous angioplasty of the right coronary artery in 1997 Status post coronary bypass x 3 Hypertension Dyslipidemia Echocardiogram reveals EF of 55 to 60%, moderate mitral with mild aortic and tricuspid regurgitation. PLAN: Continue with CV surgery recommendations Continue aggressive pulmonary hygiene Will continue to follow I am dictating on behalf of Dr Ifeanyi Newberry's history/physical and assessment/plan. Objective - Vital Signs Vital signs: Vital Signs Temp 97.7 F 07/12/24 12:00 Pulse 81 07/12/24 12:00 Resp 24 07/12/24 12:00 BP 93/51 07/12/24 12:00 Pulse Ox 96 07/12/24 12:00 FiO2 40 07/09/24 20:06 Intake & Output 07/11/24 07/12/24 07/12/24 18:59 06:59 18:59 Intake Total 1334 110 260 Output Total 380 320 0 Balance 954 -210 260 Weight 93.1 kg Intake: IV 834 110 260 Albumin Human 5% 250 ml 500 250 In Empty Bag 1 bag @ 250 mls/hr IVPB Q1HR PRN Rx#: [id number] Dextrose 5% in Water 100 100 ml @ 618 mls/hr IV .Q10M PRN with Amiodarone 150 mg Rx#:[id number] Pressure bag 24 Sodium Chloride 0.9% 1, 210 110 10 000 ml @ 30 mls/hr IV . Q24H [facility] Rx#:[id number] Oral 500 Output: Chest Tube Drainage 0 Chest Tube Left Pleural/ 0 Mediastinal Chest Tube Mediastinal 0 Urine 380 320 0 Other: Voiding Method Indwelling Catheter Indwelling Catheter Urinal ABP, PAP, CO, CI - Last Documented Arterial Blood Pressure 152/73 Pulmonary Artery Pressure 33/13 Cardiac Output 4.5 Cardiac Index 2.2 - Labs CBC & Chem 7: 07/12/24 03:39 07/12/24 03:39 Labs: Abnormal Lab Results - Last 24 Hours (Table) 07/11/24 07/11/24 07/12/24 Range/Units 16:48 20:18 03:39 RBC 2.76 L (4.30-5.90) m/uL Hgb 8.6 L (13.0-17.5) gm/dL Hct 25.5 L (39.0-53.0) % Plt Count 123 L (150-450) k/uL Lymphocytes # 0.6 L (1.0-4.8) k/uL Sodium (137-145) mmol/L Carbon Dioxide (22-30) mmol/L BUN (9-20) mg/dL Creatinine (0.66-1.25) mg/dL Glucose (74-99) mg/dL POC Glucose (mg/dL) 145 H 133 H (70-110) mg/dL Total Protein (6.3-8.2) g/dL Albumin (3.5-5.0) g/dL 07/12/24 07/12/24 07/12/24 Range/Units 03:39 06:28 06:37 RBC (4.30-5.90) m/uL Hgb (13.0-17.5) gm/dL Hct (39.0-53.0) % Plt Count (150-450) k/uL Lymphocytes # (1.0-4.8) k/uL Sodium 128 L (137-145) mmol/L Carbon Dioxide 19 L (22-30) mmol/L BUN 22 H (9-20) mg/dL Creatinine 1.31 H (0.66-1.25) mg/dL Glucose 112 H (74-99) mg/dL POC Glucose (mg/dL) 129 H 134 H (70-110) mg/dL Total Protein 5.3 L (6.3-8.2) g/dL Albumin 3.1 L (3.5-5.0) g/dL 07/12/24 Range/Units 10:52 RBC (4.30-5.90) m/uL Hgb (13.0-17.5) gm/dL Hct (39.0-53.0) % Plt Count (150-450) k/uL Lymphocytes # (1.0-4.8) k/uL Sodium (137-145) mmol/L Carbon Dioxide (22-30) mmol/L BUN (9-20) mg/dL Creatinine (0.66-1.25) mg/dL Glucose (74-99) mg/dL POC Glucose (mg/dL) 129 H (70-110) mg/dL Total Protein (6.3-8.2) g/dL Albumin (3.5-5.0) g/dL
[2024-07-12 16:12] LABS: Glucose,Whole Blood 141 mg/dL (70-110)
[2024-07-12] MEDS: PANTOPRAZOLE 40 MG TABLET PO SCH (16:12)
[2024-07-12 16:37] LABS: African American GFR (CKD) 51 (>60 ml/min/1.73 sqM); Anion Gap 8 mmol/L; Blood Urea Nitrogen 25 mg/dL (9-20); Calcium 8.3 mg/dL (8.4-10.2); Carbon Dioxide 20 mmol/L (22-30); Chloride 101 mmol/L (98-107); Glucose 130 mg/dL (74-99); Non-African American GFR(CKD) 44 (>60 ml/min/1.73 sqM); Potassium 4.7 mmol/L (3.5-5.1); Sodium 129 mmol/L (137-145)
[2024-07-12] MEDS: ALBUMIN HUMAN 5% 500 ML in EMPTY BAG 1 BAG IVPB ONE (16:54)
--- NOTE | 2024-07-12 17:30 | PN ---
PROGRESS NOTE DATE OF SERVICE: 07/10/2024 SUBJECTIVE: This is an 83-year-old gentleman admitted after CAD, CABG, is complaining of some tiredness. No chest pain. No palpitation. PHYSICAL EXAMINATION: VITAL SIGNS: Pulse is 81, blood pressure 90/50 respirations 24. CHEST: A few scattered rhonchi. ABDOMEN: Soft. NEUROLOGIC: Nonfocal. LABORATORY DATA: Hemoglobin 8.6. ASSESSMENT: 1. Coronary artery disease, CABG status post. 2. Indwelling Silver catheter. 3. Hypertension. 4. Hyperlipidemia. 5. Mild hyponatremia. 6. Multiple complex medical issues. RECOMMENDATIONS AND DISCUSSIONS: This 83-year-old gentleman presented after surgery. At this time, I recommend to continue the current management and treatment. Otherwise, repeat labs, incentive spirometry. Closely follow. Further recommendations to follow. Continue the bronchodilators. ULI / OSCAR: [id number] /
[2024-07-12 19:40] LABS: Glucose,Whole Blood 129 mg/dL (70-110)
[2024-07-12] MEDS: AMIODARONE 200 MG TAB PO SCH (19:44)
[2024-07-13 06:03] LABS: Basophils % (A) 0 %; Eosinophils # (A) 0.1 k/uL (0-0.7); Eosinophils % (A) 1 %; HCT 26.1 % (39.0-53.0); HGB 8.5 gm/dL (13.0-17.5); Lymphocytes % (A) 11 %; MCH 30.1 pg (25.0-35.0); MCHC 32.6 g/dL (31.0-37.0); MCV 92.2 fL (80.0-100.0); Mean Platelet Volume 10.3; Monocytes # (A) 0.8 k/uL (0-1.0); Monocytes % (A) 8 %; Neutrophils # (A) 7.3 k/uL (1.3-7.7); Neutrophils % (A) 79 %; Platelet Count 161 k/uL (150-450); RBC 2.83 m/uL (4.30-5.90); RDW 12.8 % (11.5-15.5); WBC 9.3 k/uL (3.8-10.6)
[2024-07-13 06:14] LABS: ALT 14 U/L (4-49); AST 34 U/L (17-59); African American GFR (CKD) 46 (>60 ml/min/1.73 sqM); Albumin 3.8 g/dL (3.5-5.0); Alkaline Phosphatase 53 U/L (38-126); Anion Gap 11 mmol/L; Blood Urea Nitrogen 26 mg/dL (9-20); Calcium 8.7 mg/dL (8.4-10.2); Carbon Dioxide 21 mmol/L (22-30); Chloride 98 mmol/L (98-107); Glucose 119 mg/dL (74-99); Non-African American GFR(CKD) 40 (>60 ml/min/1.73 sqM); Potassium 4.6 mmol/L (3.5-5.1); Sodium 130 mmol/L (137-145)
[2024-07-13 06:27] LABS: Glucose,Whole Blood 117 mg/dL (70-110)
--- NOTE | 2024-07-13 06:47 | XR ---
EXAMINATION TYPE: XR chest 2V DATE OF EXAM: 07/13/2024 CLINICAL INDICATION: Male, 83 years old with history of Postop CABG, TECHNIQUE: Frontal and lateral views of the chest are obtained. COMPARISON: Chest x-ray one day earlier and older studies FINDINGS: Overlying Sternal wires along with mediastinal clips and left atrial appendage clip are all redemonstrated. Persistent cardiomegaly with central vascular congestion and small bilateral pleural effusions. No pn eumothorax is evident bilaterally. Old posterior right rib fractures again seen. IMPRESSION: Persistent cardiomegaly with small bilateral pleural effusions and central vascular conge stion consistent with fluid overload state. [facility], , 07/13/2024 6:45 AM
[2024-07-13] MEDS: METOPROLOL TARTRATE 25 MG TAB PO SCH (08:56)
--- NOTE | 2024-07-13 09:08 | P.PN ---
Subjective Progress Note Date: 07/13/24 Principal diagnosis: Triple-vessel coronary artery disease, non-STEMI this admission. Medical history significant for coronary artery disease with previous PCI of the RCA in 1997, hypertension, hyperlipidemia, benign prostatic hypertrophy, osteoarthritis, previous tobacco dependence. POD #4 off-pump coronary bypass grafting x 3 with DECKER to LAD, sequential left radial artery graft to obtuse marginal and intermediate coronary arteries with endovascular harvest of the left radial artery and occlusion of the left atrial appendage with 35 mm AtriCure clip. Postoperative acute blood loss anemia, thrombocytopenia, expected given hemodilution. Paroxysmal atrial fibrillation, a known common occurrence after cardiac surgery. The patient was seen and examined in follow-up today July 13, 2024 at his bedside in the intensive care unit. He is currently sitting up to the bedside chair, is awake, alert, oriented x 3 and is in no acute apparent distress. Denies any complaints of pain or shortness of breath at this time, although is complaining of feeling tired. Oxygen saturations are 99% on room air and he is achieving 1000 mL on his incentive spirometry with encouragement. Bedside telemetry is showing normal sinus rhythm heart rate 80 with occasional PACs, he did have some episodes of atrial fibrillation yesterday and he remains on amiodarone by mouth and metoprolol tartrate. The patient reports he has been up ambulating in the intensive care unit hallway with standby assistance from nursing and therapy staff and tolerating well but he reports he is slow-moving. His Silver catheter was removed yesterday and was offered a voiding trial, although subsequently was experiencing some continued urine retention and his Silver catheter was subsequently replaced. Laboratory and chest x-ray results reviewed. Objective - Vital Signs Vital signs: Vital Signs Temp 98.6 F 07/12/24 20:00 Pulse 88 07/13/24 06:00 Resp 37 H 07/13/24 07:00 BP 110/59 07/13/24 07:00 Pulse Ox 100 07/13/24 07:00 FiO2 40 07/09/24 20:06 Intake & Output 07/12/24 07/13/24 07/13/24 18:59 06:59 18:59 Intake Total 620 Output Total 0 530 Balance 620 -530 Weight 93.4 kg Intake: IV 510 Albumin Human 5% 250 ml 500 In Empty Bag 1 bag @ 250 mls/hr IVPB Q1HR PRN Rx#: [id number] Sodium Chloride 0.9% 1, 10 000 ml @ 30 mls/hr IV . Q24H [facility] Rx#:[id number] Oral 110 Output: Urine 0 530 Other: Voiding Method Urinal Indwelling Catheter # Bowel Movements 1 ABP, PAP, CO, CI - Last Documented Arterial Blood Pressure 152/73 Pulmonary Artery Pressure 33/13 Cardiac Output 4.5 Cardiac Index 2.2 - Exam CONSTITUTIONAL: Sitting up to the bedside chair in the intensive care unit, appears comfortable, cooperative, no apparent acute distress. HEENT: Neck is supple, no JVD, no lymphadenopathy. RESPIRATORY: Lungs sounds essentially clear throughout, diminished to his bilateral bases. Respirations are symmetrical and nonlabored. Currently on room air with oxygen saturations 99%. Able to achieve 1000 mL on his incentive spirometry. Strong cough. CARDIOVASCULAR: Regular rhythm and rate. S1 and S2 present, negative for S3, g allop or murmur. Sternum is stable. Bedside telemetry is showing normal sinus rhythm with occasional PACs heart rate 80 bpm. Palpable peripheral pulses bilaterally, trace edema to his bilateral lower extremities. No calf pain or tenderness noted. Heart hugger in place with patient demonstrating appropriate use. Knee-high JORGE hose and sequential compression devices in place to his bilateral lower extremities. GASTROINTESTINAL: Abdomen soft, nontender, nondistended. Active bowel sounds present 4 quadrants. Tolerating diet. Passing flatus. No guarding or rigidity. Bowel movement this a.m. GENITOURINARY: Silver present draining clear, yellow urine. Urine output 220 mL in the last 8 hours. INTEGUMENTARY: Skin is warm and dry with no evidence of clubbing or cyanosis. Midline sternal incision clean dry and well approximated, covered with dry intact dressing. Left arm radial artery harvest sites clean, dry and approximated. No drainage or redness is present. NEUROLOGIC: Cranial nerves II through XII intact. No focal deficits. MUSKULOSKELETAL: Able to move all extremities, strength equal bilaterally, generalized weakness. PSYCHIATRIC: Alert and oriented to person place and time, appropriate affect, intact judgment and insight. - Allied health notes Allied health notes reviewed: nursing - Labs CBC & Chem 7: 07/13/24 05:11 07/13/24 05:11 Labs: Abnormal Lab Results - Last 24 Hours (Table) 07/12/24 07/12/24 07/12/24 Range/Units 10:52 16:06 16:11 RBC (4.30-5.90) m/uL Hgb (13.0-17.5) gm/dL Hct (39.0-53.0) % Sodium 129 L (137-145) mmol/L Carbon Dioxide 20 L (22-30) mmol/L BUN 25 H (9-20) mg/dL Creatinine 1.46 H (0.66-1.25) mg/dL Glucose 130 H (74-99) mg/dL POC Glucose (mg/dL) 129 H 141 H (70-110) mg/dL Calcium 8.3 L (8.4-10.2) mg/dL Total Protein (6.3-8.2) g/dL 07/12/24 07/13/24 07/13/24 Range/Units 19:39 05:11 05:11 RBC 2.83 L (4.30-5.90) m/uL Hgb 8.5 L (13.0-17.5) gm/dL Hct 26.1 L (39.0-53.0) % Sodium 130 L (137-145) mmol/L Carbon Dioxide 21 L (22-30) mmol/L BUN 26 H (9-20) mg/dL Creatinine 1.59 H (0.66-1.25) mg/dL Glucose 119 H (74-99) mg/dL POC Glucose (mg/dL) 129 H (70-110) mg/dL Calcium (8.4-10.2) mg/dL Total Protein 6.0 L (6.3-8.2) g/dL 07/13/24 Range/Units 06:25 RBC (4.30-5.90) m/uL Hgb (13.0-17.5) gm/dL Hct (39.0-53.0) % Sodium (137-145) mmol/L Carbon Dioxide (22-30) mmol/L BUN (9-20) mg/dL Creatinine (0.66-1.25) mg/dL Glucose (74-99) mg/dL POC Glucose (mg/dL) 117 H (70-110) mg/dL Calcium (8.4-10.2) mg/dL Total Protein (6.3-8.2) g/dL - Imaging and Cardiology Chest x-ray: report reviewed, image reviewed Assessment and Plan Assessment: Triple-vessel coronary artery disease, non-STEMI this admission, status post three-vessel off-pump CABG Moderate mitral regurgitation on TTE Chest pain, shortness of breath secondary to above Acute urine retention requiring initiation of Silver catheter Postoperative acute blood loss anemia and thrombocytopenia, expected History of coronary artery disease with previous PCI of the RCA in 1997 Hypertension Hyperlipidemia, treated, cholesterol 136, LDL 75 BPH, remains on Proscar Osteoarthritis Previous tobacco dependence, preoperative FEV1 76% of predicted Plan: Continue to maximize medical therapy with aspirin, statin, Plavix, and beta-rolando. Will increase metoprolol tartrate to 25 mg p.o. every 8 hours with hold parameters. Amlodipine 2.5 mg p.o. daily was discontinued yesterday for some episodes of hypotension. We will start Aldactone 25 mg p.o. daily. Continue amiodarone for atrial fibrillation prophylaxis. Amiodarone decreased t o 200 mg p.o. twice daily yesterday. Encourage incentive spirometry use 10 times every hour while awake. Bronchodilators per pulmonology. Will monitor daily labs and chest x-rays. Electrolyte replacement per protocol. Increase activity, ambulate as tolerated. PT/OT/cardiac rehab following. GI/DVT prophylaxis. Daily weights. Pain control per current medication regimen. Insulin management per internal medicine. Patient is not diabetic, preoperative hemoglobin A1c 6%. Continue BPH medications. Continue Silver catheter and continue to monitor record strict accurate intake and output. Urology following, the patient will more than likely have to be discharged home with a Silver catheter in place and follow-up with Dr. Davis as an outpatient. Continue 1500 mL fluid restriction in a 24-hour period. Fluid restriction for a sodium of 130. Shower daily. More recommendations to follow based on patient's clinical course. Time with Patient: Greater than 30
--- NOTE | 2024-07-13 10:37 | P.PN ---
Subjective Progress Note Date: 07/13/24 This is Maurice Sneed NP, I'm dictating on behalf of Dr. Newberry's H&P and A&P. Patient was interviewed and examined. Patient is a pleasant 83-year-old male who was initially admitted with a non-ST elevated TX, found to have triple-vessel disease and underwent coronary bypass with CT surgery. Patient postoperatively went into A-fib with RVR but is now back in sinus rhythm with frequent PACs. Patient reports that he feels about the same as he did yesterday. He is relatively comfortable with no major complaints. GENERAL: Well-appearing, well-nourished and in no acute distress. NECK: Supple without JVD or thyromegaly. LUNGS: Breath sounds clear to auscultation bilaterally. Respiration equal and unlabored. No wheezes, rales or rhonchi. HEART: Regular rate and rhythm without murmurs, rubs or gallops. S1 and S2 heard. EXTREMITIES: Normal range of motion, no edema. No clubbing or cyanosis. Peripheral pulses intact and strong. VITALS: Pulse 74, respirations 16, blood pressure 107/60, O2 saturation 95% on room air. TELEMETRY: Normal sinus rhythm LABS: White count 9.3, hemoglobin 8.5, platelets 161, sodium 130, potassium 4.6, BUN 26, creatinine 1.59 IMPRESSION: 1. NSTEMI with triple-vessel disease 2. History of coronary artery disease with previous angioplasty of the right coronary artery in 1997 3. Status postcoronary bypass x 3 4. Hypertension 5. Dyslipidemia 6. Echocardiogram reveals EF of 55 to 60%, moderate mitral with mild aortic and tricuspid regurgitation. PLAN: Continue to follow with CT surgery recommendations. Continue aggressive pulmonary hygiene. Further recommendations based on patient's clinical course. Objective - Vital Signs Vital signs: Vital Signs Temp 97.5 F L 07/13/24 08:00 Pulse 74 07/13/24 10:00 Resp 16 07/13/24 10:00 BP 107/60 07/13/24 10:00 Pulse Ox 95 07/13/24 10:00 FiO2 40 07/09/24 20:06 Intake & Output 07/12/24 07/13/24 07/13/24 18:59 06:59 18:59 Intake Total 620 100 Output Total 0 530 75 Balance 620 -530 25 Weight 93.4 kg Intake: IV 510 Albumin Human 5% 250 ml 500 In Empty Bag 1 bag @ 250 mls/hr IVPB Q1HR PRN Rx#: [id number] Sodium Chloride 0.9% 1, 10 000 ml @ 30 mls/hr IV . Q24H [facility] Rx#:[id number] Oral 110 100 Output: Urine 0 530 75 Other: Voiding Method Urinal Indwelling Catheter Indwelling Catheter # Bowel Movements 1 ABP, PAP, CO, CI - Last Documented Arterial Blood Pressure 152/73 Pulmonary Artery Pressure 33/13 Cardiac Output 4.5 Cardiac Index 2.2 - Labs CBC & Chem 7: 07/13/24 05:11 07/13/24 05:11 Labs: Abnormal Lab Results - Last 24 Hours (Table) 07/12/24 07/12/24 07/12/24 Range/Units 10:52 16:06 16:11 RBC (4.30-5.90) m/uL Hgb (13.0-17.5) gm/dL Hct (39.0-53.0) % Sodium 129 L (137-145) mmol/L Carbon Dioxide 20 L (22-30) mmol/L BUN 25 H (9-20) mg/dL Creatinine 1.46 H (0.66-1.25) mg/dL Glucose 130 H (74-99) mg/dL POC Glucose (mg/dL) 129 H 141 H (70-110) mg/dL Calcium 8.3 L (8.4-10.2) mg/dL Total Protein (6.3-8.2) g/dL 07/12/24 07/13/24 07/13/24 Range/Units 19:39 05:11 05:11 RBC 2.83 L (4.30-5.90) m/uL Hgb 8.5 L (13.0-17.5) gm/dL Hct 26.1 L (39.0-53.0) % Sodium 130 L (137-145) mmol/L Carbon Dioxide 21 L (22-30) mmol/L BUN 26 H (9-20) mg/dL Creatinine 1.59 H (0.66-1.25) mg/dL Glucose 119 H (74-99) mg/dL POC Glucose (mg/dL) 129 H (70-110) mg/dL Calcium (8.4-10.2) mg/dL Total Protein 6.0 L (6.3-8.2) g/dL 07/13/24 Range/Units 06:25 RBC (4.30-5.90) m/uL Hgb (13.0-17.5) gm/dL Hct (39.0-53.0) % Sodium (137-145) mmol/L Carbon Dioxide (22-30) mmol/L BUN (9-20) mg/dL Creatinine (0.66-1.25) mg/dL Glucose (74-99) mg/dL POC Glucose (mg/dL) 117 H (70-110) mg/dL Calcium (8.4-10.2) mg/dL Total Protein (6.3-8.2) g/dL
[2024-07-13] MEDS: SPIRONOLACTONE 25 MG TAB PO SCH (11:17)
--- NOTE | 2024-07-13 11:47 | P.PN ---
Subjective Progress Note Date: 07/13/24 Principal diagnosis: Urinary retention The patient is currently receiving finasteride and tamsulosin. His Silver catheter was removed yesterday, but he was unable to void and thus the catheter was reinserted. The catheter is now draining clear yellow urine. Objective - Vital Signs Vital signs: Vital Signs Temp 97.5 F L 07/13/24 08:00 Pulse 80 07/13/24 11:04 Resp 17 07/13/24 11:04 BP 107/60 07/13/24 10:00 Pulse Ox 98 07/13/24 11:04 FiO2 40 07/09/24 20:06 Intake & Output 07/12/24 07/13/24 07/13/24 18:59 06:59 18:59 Intake Total 620 100 Output Total 0 530 90 Balance 620 -530 10 Weight 93.4 kg Intake: IV 510 Albumin Human 5% 250 ml 500 In Empty Bag 1 bag @ 250 mls/hr IVPB Q1HR PRN Rx#: [id number] Sodium Chloride 0.9% 1, 10 000 ml @ 30 mls/hr IV . Q24H [facility] Rx#:[id number] Oral 110 100 Output: Urine 0 530 90 Other: Voiding Method Urinal Indwelling Catheter Indwelling Catheter # Bowel Movements 1 ABP, PAP, CO, CI - Last Documented Arterial Blood Pressure 152/73 Pulmonary Artery Pressure 33/13 Cardiac Output 4.5 Cardiac Index 2.2 - Constitutional General appearance: Present: average body habitus, cooperative, no acute distress - Psychiatric Psychiatric: Present: A&O x's 3 - Labs CBC & Chem 7: 07/13/24 05:11 07/13/24 05:11 Labs: Abnormal Lab Results - Last 24 Hours (Table) 07/12/24 07/12/24 07/12/24 Range/Units 16:06 16:11 19:39 RBC (4.30-5.90) m/uL Hgb (13.0-17.5) gm/dL Hct (39.0-53.0) % Sodium 129 L (137-145) mmol/L Carbon Dioxide 20 L (22-30) mmol/L BUN 25 H (9-20) mg/dL Creatinine 1.46 H (0.66-1.25) mg/dL Glucose 130 H (74-99) mg/dL POC Glucose (mg/dL) 141 H 129 H (70-110) mg/dL Calcium 8.3 L (8.4-10.2) mg/dL Total Protein (6.3-8.2) g/dL 07/13/24 07/13/24 07/13/24 Range/Units 05:11 05:11 06:25 RBC 2.83 L (4.30-5.90) m/uL Hgb 8.5 L (13.0-17.5) gm/dL Hct 26.1 L (39.0-53.0) % Sodium 130 L (137-145) mmol/L Carbon Dioxide 21 L (22-30) mmol/L BUN 26 H (9-20) mg/dL Creatinine 1.59 H (0.66-1.25) mg/dL Glucose 119 H (74-99) mg/dL POC Glucose (mg/dL) 117 H (70-110) mg/dL Calcium (8.4-10.2) mg/dL Total Protein 6.0 L (6.3-8.2) g/dL Assessment and Plan (1) Retention of urine, unspecified Current Visit: Yes Status: Acute Code(s): R33.9 - RETENTION OF URINE, UNSPECIFIED SNOMED Code(s): 316473984 Plan: The patient will be discharged home with the catheter. Arrangements will be made for him to undergo urodynamic testing and cystoscopy as an outpatient for further evaluation.
[2024-07-13 11:50] LABS: Glucose,Whole Blood 115 mg/dL (70-110)
--- NOTE | 2024-07-13 12:19 | P.PN ---
Subjective Progress Note Date: 07/13/24 Principal diagnosis: POD #4 off-pump coronary bypass grafting x 3 with DECKER to LAD, sequential left radial artery graft to obtuse marginal and intermediate coronary arteries with endovascular harvest of the left radial artery and occlusion of the left atrial appendage with 35 mm AtriCure clip This is an 83-year-old white male, known history of coronary artery disease, previous PCI of the RCA in 1997, known history of hypertension, dyslipidemia, previous smoker, history of degenerative joint disease, patient presented with intermittent episodes of left sided chest pain with left arm pain this was couple of weeks ago. Patient took 3 sublingual nitroglycerin at home, and pain was noted to subside a bit. Patient seen at [facility] initially, troponin was noted to be elevated, then he was transferred to [facility], and underwent further workup including a cardiac catheterization, patient was found to have triple-vessel coronary artery disease, patient was seen by cardiothoracic surgery after his cardiac catheterization, and today he underwent surgery by Dr. Whitfield. Postoperatively, patient is on mechanical ventilation, patient is on assist-control rate of 16 tidal volume 400 FiO2 100% PEEP of 5 ABG showed a pO2 of 391 pCO2 43 pH of 7.33 bicarb 23 has his FiO2 was decreased down to 50%, patient was noted to have good cardiac output of 4.4, cardiac index is a bit low at 2.1. Chest x-ray postoperatively showed mostly postoperative changes, adequate placement of the tubes endotracheal tube and [place] catheter. Patient was seen today on 07/10/2024, he is now postoperative day #1. Patient is sitting in a recliner, remains in the ICU, he was successfully extubated at 20: 45. He is hemodynamically stable, in sinus rhythm, he is on amiodarone for atrial fibrillation prophylaxis. Also on nitroglycerin drip for vessel spasm prophylaxis. Continues to have right internal jugular [place]is, and he continues to have mediastinal/left pleural chest tubes. And left radial RONALD drain. Pulmonary south the patient is doing well, chest x-ray this morning showed minimal left basilar atelectasis, lines and tubes were all noted to be in proper positions including [place] catheter asymptomatic, labs were reviewed WBC is 8.7 hemoglobin 9.9, basic metabolic profile is normal, renal profile is normal Seen today on 07/11/2024, patient is now postoperative day #2. Patient is currently sitting up to bedside chair, awake alert oriented x 3, does not seem to be in any distress. On room air, IV fluids at KVO, patient is not requiring any pressors or any inotropes. Continues to have mediastinal and left pleural chest tubes in place, no airleak, mediastinal chest tube drained 50 mL over the last 8 hours. Left pleural chest tube drained 40 mL. At any rate his chest x- ray findings are reassuring, mostly postoperative findings as expected. WBC count is 7.5 hemoglobin 9.3 sodium is 128 potassium 4.3 BUN is 20 creatinine 1.29 patient was seen by urology for urinary retention today, patient is already on finasteride, urology is recommending adding tamsulosin. And planning to keep the catheter in place until July 14. Left basilar atelectasis noted on the chest x-ray, strongly doubt pneumonia. Seen today on 07/12/2024, patient is now postoperative day #3, doing well, no pulmonary symptoms however he feels generally weak, tired, not in pain, chest x- ray reviewed, patient has mostly low lung volumes and cardiomegaly with small left pleural effusion and small right-sided pleural effusion chest x-ray is consistent with mostly some congestive heart failure. WBC count is 9.2 hemoglobin 8.6 electrolytes showed low sodium of 128 and this is probably a hypervolemic hyponatremia. BUN is 22 creatinine 1.31. Seen today on 07/13/2024, patient is now postoperative day #4, feels generally weak, not in any distress, he is on room air, achieving anywhere between 1250 up to 1500 cc on his incentive spirometry, his rhythm fluctuated between sinus rhythm and at times atrial fibrillation with controlled rate, patient is hemodynamically stable, not requiring any inotropes or any pressors. His WBC is 9.3 hemoglobin 8.5 electrolytes are normal BUN is 26 creatinine 1.59 chest x-ray showed mostly bibasilar atelectasis left more so than right, no evidence of pneumonia no evidence of pulmonary edema. Objective - Vital Signs Vital signs: Vital Signs Temp 97.5 F L 07/13/24 08:00 Pulse 72 07/13/24 12:07 Resp 19 07/13/24 12:00 BP 100/63 07/13/24 12:00 Pulse Ox 89 L 07/13/24 12:00 FiO2 40 07/09/24 20:06 Intake & Output 07/12/24 07/13/24 07/13/24 18:59 06:59 18:59 Intake Total 620 200 Output Total 0 530 105 Balance 620 -530 95 Weight 93.4 kg Intake: IV 510 Albumin Human 5% 250 ml 500 In Empty Bag 1 bag @ 250 mls/hr IVPB Q1HR PRN Rx#: [id number] Sodium Chloride 0.9% 1, 10 000 ml @ 30 mls/hr IV . Q24H JAE Rx#:[id number] Oral 110 200 Output: Urine 0 530 105 Other: Voiding Method Urinal Indwelling Catheter Indwelling Catheter # Bowel Movements 1 ABP, PAP, CO, CI - Last Documented Arterial Blood Pressure 152/73 Pulmonary Artery Pressure 33/13 Cardiac Output 4.5 Cardiac Index 2.2 - Exam CONSTITUTIONAL: Revealed 83-year-old male in no distress, on room air, O2 sats is 96% EYES: Pupils equal, round, reactive to light, normal ocular movement ENT: Moist mucous membranes without oral lesions present NECK: No masses, no bruits, trachea midline RESPIRATORY: Good breath sound bilaterally diminished breath sounds at the bases no rhonchi no wheezes CARDIOVASCULAR: distant S1-S2, no S3 gallop, positive pericardial rub GASTROINTESTINAL: Abdomen soft, nontender, nondistended without masses or organomegaly noted. There is no rebound or guarding present. Active bowel sounds present 4 quadrants. Skin: No rashes NEUROLOGIC: Alert oriented x 3 no gross focal deficit MUSKULOSKELETAL: No limitation range of motion no deformities PSYCHIATRIC: Normal mood affect and no mental status examination - Labs CBC & Chem 7: 07/13/24 05:11 07/13/24 05:11 Labs: Abnormal Lab Results - Last 24 Hours (Table) 07/12/24 07/12/24 07/12/24 Range/Units 16:06 16:11 19:39 RBC (4.30-5.90) m/uL Hgb (13.0-17.5) gm/dL Hct (39.0-53.0) % Sodium 129 L (137-145) mmol/L Carbon Dioxide 20 L (22-30) mmol/L BUN 25 H (9-20) mg/dL Creatinine 1.46 H (0.66-1.25) mg/dL Glucose 130 H (74-99) mg/dL POC Glucose (mg/dL) 141 H 129 H (70-110) mg/dL Calcium 8.3 L (8.4-10.2) mg/dL Total Protein (6.3-8.2) g/dL 07/13/24 07/13/24 07/13/24 Range/Units 05:11 05:11 06:25 RBC 2.83 L (4.30-5.90) m/uL Hgb 8.5 L (13.0-17.5) gm/dL Hct 26.1 L (39.0-53.0) % Sodium 130 L (137-145) mmol/L Carbon Dioxide 21 L (22-30) mmol/L BUN 26 H (9-20) mg/dL Creatinine 1.59 H (0.66-1.25) mg/dL Glucose 119 H (74-99) mg/dL POC Glucose (mg/dL) 117 H (70-110) mg/dL Calcium (8.4-10.2) mg/dL Total Protein 6.0 L (6.3-8.2) g/dL 07/13/24 Range/Units 11:49 RBC (4.30-5.90) m/uL Hgb (13.0-17.5) gm/dL Hct (39.0-53.0) % Sodium (137-145) mmol/L Carbon Dioxide (22-30) mmol/L BUN (9-20) mg/dL Creatinine (0.66-1.25) mg/dL Glucose (74-99) mg/dL POC Glucose (mg/dL) 115 H (70-110) mg/dL Calcium (8.4-10.2) mg/dL Total Protein (6.3-8.2) g/dL Assessment and Plan Assessment: Impression: Off-pump coronary bypass grafting x 3 with DECKER to LAD, sequential left radial artery graft to obtuse marginal and intermediate coronary arteries with endovascular harvest of the left radial artery and occlusion of the left atrial appendage with 35 mm AtriCure clip. Postoperative day #4 Triple-vessel coronary artery disease Non-ST elevation myocardial infarction on this admission History of previous PCI and stent RCA 1997 Benign essential hypertension Dyslipidemia Degenerative joint disease Ex-smoker Postoperative atelectasis, expected Recommendation: Continue incentive spirometry Continue present supportive care measures Gentle diuresis Continue bronchodilators Continue medical therapy including statins, Plavix, aspirin, and beta-blockers Ambulate as tolerated GI and DVT prophylaxis Will continue to follow Time with Patient: Less than 30
[2024-07-13 16:59] LABS: Glucose,Whole Blood 133 mg/dL (70-110)
[2024-07-13 20:35] LABS: Glucose,Whole Blood 173 mg/dL (70-110)
--- NOTE | 2024-07-13 22:15 | PN ---
PROGRESS NOTE DATE OF SERVICE: 07/13/2024 SUBJECTIVE: This 83-year-old gentleman, who was admitted after CABG, is feeling much better today. No chest pain. No palpitation. PHYSICAL EXAMINATION: VITAL SIGNS: Pulse is 74, blood pressure 100/60, respirations 19. CHEST: Few scattered rhonchi. ABDOMEN: Soft. NEURO: No stroke. LABORATORY DATA: Hemoglobin 8.5, creatinine 1.69. ASSESSMENT: 1. Coronary artery disease, status post coronary artery bypass grafting. 2. Indwelling Silver catheter. 3. Hypertension. 4. Hyperlipidemia. 5. Multiple complex medical issues. RECOMMENDATION: Recommend to continue current management and continue symptomatic treatment. Monitor blood sugars closely. Incentive spirometry. Further recommendations to follow. MMODL / IJN: [id number] /
--- NOTE | 2024-07-14 06:12 | P.PN ---
Subjective Progress Note Date: 07/14/24 The patient is an 83-year-old gentleman who was admitted to the hospital with acute coronary syndrome ACS and he underwent a heart catheterization and was found to have severe triple-vessel CAD where he underwent CABG x 3. The ejection fraction was normal. July 14, 2024 The patient was seen and evaluated this morning. He is overall weak. He took a few steps earlier this morning with heart rate dropped to the 40s. He is on beta-rolando and amiodarone. I am going to decrease the dose of beta-rolando given the bradycardia as well as marginally low blood pressure with marginal urine output. Otherwise he reports no pain in the chest with the chest x-ray was reviewed. CBC and BMP reviewed as well. The physical examination is remarkable for regular rhythm with a systolic murmur at the right upper sternal border and diminished breathing sounds bilaterally and no edema was noted in the lower extremities Assessment Acute coronary syndrome Status post CABG x 3 for severe triple-vessel CAD Preserved LV systolic function Sinus bradycardia Marginally low blood pressure Chronic kidney disease Generalized weakness and fatigue Plan Continue the current medical regimen Decrease the dose of beta-rolando given the marginally low blood pressure and bradycardia with exertion Consider decreasing the dose of amiodarone as well Monitor the urine output Consider increasing the dose of Lipitor to high intensity Further recommendation to follow Objective - Vital Signs Vital signs: Vital Signs Temp 98.3 F 07/13/24 13:00 Pulse 71 07/14/24 05:00 Resp 27 H 07/14/24 05:00 BP 101/58 07/14/24 05:00 Pulse Ox 96 07/14/24 05:00 FiO2 40 07/09/24 20:06 Intake & Output 07/13/24 07/13/24 07/14/24 06:59 18:59 06:59 Intake Total 400 Output Total 530 220 295 Balance -530 180 -295 Weight 93.4 kg 93.3 kg Intake: Oral 400 Output: Urine 530 220 295 Other: Voiding Method Indwelling Catheter Indwelling Catheter Indwelling Catheter # Bowel Movements 1 ABP, PAP, CO, CI - Last Documented Arterial Blood Pressure 152/73 Pulmonary Artery Pressure 33/13 Cardiac Output 4.5 Cardiac Index 2.2 - Labs CBC & Chem 7: 07/13/24 05:11 07/13/24 05:11 Labs: Abnormal Lab Results - Last 24 Hours (Table) 03/07/13/24 07/13/24 Range/Units 05:11 06:25 11:49 Sodium 130 L (137-145) mmol/L Carbon Dioxide 21 L (22-30) mmol/L BUN 26 H (9-20) mg/dL Creatinine 1.59 H (0.66-1.25) mg/dL Glucose 119 H (74-99) mg/dL POC Glucose (mg/dL) 117 H 115 H (70-110) mg/dL Total Protein 6.0 L (6.3-8.2) g/dL 07/13/24 07/13/24 Range/Units 16:57 20:33 Sodium (137-145) mmol/L Carbon Dioxide (22-30) mmol/L BUN (9-20) mg/dL Creatinine (0.66-1.25) mg/dL Glucose (74-99) mg/dL POC Glucose (mg/dL) 133 H 173 H (70-110) mg/dL Total Protein (6.3-8.2) g/dL
--- NOTE | 2024-07-14 06:51 | XR ---
EXAMINATION TYPE: XR chest 2V DATE OF EXAM: 07/14/2024 CLINICAL INDICATION: Male, 83 years old with history of Postop cardiac surgery, TECHNIQUE: Frontal and lateral views of the chest are obtained. COMPARISON: Chest x-ray one day earlier and older studies FINDINGS: Overlying Sternal wires along with mediastinal clips and left atrial appendage clip are all redemonstrated. Persistent cardiomegaly with central vascular congestion and small bilateral pleural effusions. Persi stent left basilar opacity. No pneumothorax is evident bilaterally. Old posterior right rib fractures again seen. IMPRESSION: Persistent cardiomegaly with small bilateral pleural effusions and central vascular conge stion consistent with fluid overload state. Persistent left basilar opacity favoring atelectasis. No significant change from one day earlier. [facility], , 07/14/2024 6:48 AM
[2024-07-14 06:56] LABS: Glucose,Whole Blood 120 mg/dL (70-110)
[2024-07-14 07:59] LABS: HCT 23.8 % (39.0-53.0); HGB 7.9 gm/dL (13.0-17.5); MCH 30.5 pg (25.0-35.0); MCHC 33.1 g/dL (31.0-37.0); Mean Platelet Volume 9.9; Platelet Count 202 k/uL (150-450); RBC 2.59 m/uL (4.30-5.90); RDW 12.9 % (11.5-15.5); WBC 8.1 k/uL (3.8-10.6)
[2024-07-14 08:19] LABS: ALT 18 U/L (4-49); AST 34 U/L (17-59); African American GFR (CKD) 46 (>60 ml/min/1.73 sqM); Albumin 3.6 g/dL (3.5-5.0); Alkaline Phosphatase 59 U/L (38-126); Anion Gap 8 mmol/L; Blood Urea Nitrogen 28 mg/dL (9-20); Calcium 8.4 mg/dL (8.4-10.2); Carbon Dioxide 23 mmol/L (22-30); Chloride 99 mmol/L (98-107); Glucose 112 mg/dL (74-99); Non-African American GFR(CKD) 40 (>60 ml/min/1.73 sqM); Potassium 4.4 mmol/L (3.5-5.1); Sodium 130 mmol/L (137-145); Total Bilirubin 0.9 mg/dL (0.2-1.3); Total Protein 5.9 g/dL (6.3-8.2)
[2024-07-14] MEDS: METOPROLOL TARTRATE 25 MG TAB PO SCH (08:27)
--- NOTE | 2024-07-14 08:27 | P.PN ---
Subjective Progress Note Date: 07/14/24 Principal diagnosis: Triple-vessel coronary artery disease, non-STEMI this admission. History of coronary artery disease with previous PCI of the RCA in 1997, hypertension, hyperlipidemia, BPH, osteoarthritis, previous tobacco dependence POD #5 off-pump coronary bypass grafting x 3 with DECKER to LAD, sequential left radial artery graft to obtuse marginal and intermediate coronary arteries with endovascular harvest of the left radial artery and occlusion of the left atrial appendage with 35 mm AtriCure clip Postoperative acute blood loss anemia, thrombocytopenia, expected given hemodilution Paroxysmal atrial fibrillation, known common occurrence after cardiac surgery, currently sinus rhythm Acute urine retention requiring reinitiation of Silver catheter, not a complica tion and not surprising as patient has a history of BPH and had urine retention prior to surgery Acute kidney injury, secondary to hypotension The patient was seen and examined this morning sitting up in recliner in the intensive care unit in no acute distress. Remains in sinus rhythm, hemodynami gregory stable although has had periodic episodes of bradycardia when walking and hypotension. Remains on room air with oxygen saturation in the low to mid 90s. Patient does complain of some expected post surgical pain, denies shortness of breath. Patient has ambulated in the hallway with staff although he has had a couple of episodes of bradycardia into the 40s. Silver catheter remains present for acute urinary retention. Order placed yesterday for evaluation for rehab at discharge. No other new concerns. Objective - Vital Signs Vital signs: Vital Signs Temp 98.3 F 07/13/24 13:00 Pulse 73 07/14/24 07:00 Resp 15 07/14/24 07:00 BP 121/69 07/14/24 07:00 Pulse Ox 95 07/14/24 07:00 FiO2 40 07/09/24 20:06 Intake & Output 07/13/24 07/14/24 07/14/24 18:59 06:59 18:59 Intake Total 400 Output Total 220 325 20 Balance 180 -325 -20 Weight 93.3 kg Intake: Oral 400 Output: Urine 220 325 20 Other: Voiding Method Indwelling Catheter Indwelling Catheter ABP, PAP, CO, CI - Last Documented Arterial Blood Pressure 152/73 Pulmonary Artery Pressure 33/13 Cardiac Output 4.5 Cardiac Index 2.2 - Exam CONSTITUTIONAL: Appears comfortable, cooperative, no acute distress RESPIRATORY: Lungs sounds diminished bilaterally. Respirations even, nonlabored. Currently on room air with oxygen saturation 94%. Able to achieve 1250 mL on incentive spirometry. Strong productive cough. CARDIOVASCULAR: S1, S2 present. Regular rate and rhythm, sinus rhythm on telemetry. Sternum stable. Palpable peripheral pulses bilaterally. Trace generalized edema present. No calf pain or tenderness noted. Heart hugger in place with patient demonstrating appropriate use. Antiembolism stockings, SCDs present. GASTROINTESTINAL: Abdomen soft, nontender, nondistended. Active bowel sounds present 4 quadrants. Tolerating minimal diet. Positive bowel movement 07/13 GENITOURINARY: Silver present draining clear, yellow urine. Output overnight 20-30 mL per hour, 515 mL in the last 24 hours INTEGUMENTARY: Skin is warm and dry with evidence of good perfusion. Anterior chest incision well approximated. Left radial artery harvest site well approximated without redness or drainage NEUROLOGIC: Cranial nerves II through XII intact MUSKULOSKELETAL: Able to move all extremities, strength equal bilaterally but generalized weakness present PSYCHIATRIC: Alert and oriented to person place and time, appropriate affect, intact judgment and insight - Allied health notes Allied health notes reviewed: nursing - Labs CBC & Chem 7: 07/14/24 07:35 07/13/24 05:11 Labs: Abnormal Lab Results - Last 24 Hours (Table) 07/13/24 07/13/24 07/13/24 Range/Units 11:49 16:57 20:33 RBC (4.30-5.90) m/uL Hgb (13.0-17.5) gm/dL Hct (39.0-53.0) % POC Glucose (mg/dL) 115 H 133 H 173 H (70-110) mg/dL 07/14/24 07/14/24 Range/Units 06:55 07:35 RBC 2.59 L (4.30-5.90) m/uL Hgb 7.9 L (13.0-17.5) gm/dL Hct 23.8 L (39.0-53.0) % POC Glucose (mg/dL) 120 H (70-110) mg/dL - Imaging and Cardiology Chest x-ray: report reviewed, image reviewed Assessment and Plan Assessment: Triple-vessel coronary artery disease, non-STEMI this admission, status post three-vessel off-pump CABG Moderate mitral regurgitation on TTE Chest pain, shortness of breath secondary to above Acute urine retention requiring initiation of Silver catheter Postoperative acute blood loss anemia and thrombocytopenia, expected Paroxysmal atrial fibrillation, known common occurrence after cardiac surgery, currently sinus rhythm Acute kidney injury, secondary to hypotension Medical debility History of coronary artery disease with previous PCI of the RCA in 1997 Hypertension Hyperlipidemia, treated, cholesterol 136, LDL 75 BPH, remains on Proscar Osteoarthritis Previous tobacco dependence, preoperative FEV1 76% of predicted Plan: Continue to maximize medical therapy with aspirin, statin, Plavix, beta-rolando. Beta-rolando decreased today by cardiology due to episodes of bradycardia Continue amiodarone for A-fib prophylaxis. No anticoagulation necessary Encourage incentive spirometry use 10 times every hour while awake. Bronchodilators per pulmonology Will monitor daily labs and x-rays. Electrolyte replacement per protocol. Continue fluid restriction Increase activity, ambulate as tolerated. PT/OT/cardiac rehab consulted GI/DVT prophylaxis Daily weights Pain control per current medication regimen Insulin management per internal medicine. Patient is not diabetic, preoperative hemoglobin A1c 6% Continue BPH medications Continue Silver catheter for urine retention per urology, patient will be discharged with Silver catheter to have another trial void with urology in a couple of weeks Continue to monitor record strict accurate intake and output Advance diet as tolerated, encourage oral nutrition Shower daily PM&R doctors consulted for possible IPR at discharge More recommendations to follow as patient progresses
[2024-07-14] MEDS: ASCORBIC ACID 500 MG TAB PO SCH (08:29)
[2024-07-14] MEDS: FERROUS SULFATE 325 MG TAB PO SCH (08:29)
[2024-07-14 11:05] LABS: Glucose,Whole Blood 124 mg/dL (70-110)
--- NOTE | 2024-07-14 12:23 | P.CONS ---
History of Present Illness - Reason for Consult Consult date: 07/14/24 rehab recommendations - Chief Complaint cardiac debility - History of Present Illness Mr Michaela Murray is an 83 y/o male , right handed who lives with spouse in a 2 story home, can stay on 1st floor; 3+1 jamey. 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 Was driving. Has 5 supportive children. His daughter is willing to stay with him to assist on discharge. Patient with history of triple vessel CAD and nonstemi this admission after presenting on 07/03 from OSH with complaints of chest pain. He underwent 3 vessel CABG with left radial artery graft and left atrial appendage clip. He had postoperative anemia which is expected. He also had acute urinary retention s/p rapp. Per cardiology note have periodic episodes of bradycardia when walking, decreased his beta-rolando. PM&R consulted for rehab recommendations. Needs new therapy notes, as of 07/12/24, patient was able to ambulate 63 ft min A with rest breaks, Mod -Max assist with ADLs. 07/14/24: Just coming back from the shower, tired. Has walked in [place] with help. Is tired and SOB with activity, has chronic phlegm, can be numb in feet. Denies CP, abdominal pain or other pain complaints. Last BM a day or so ago. He states he'd like to go home if he can, but will talk it over with his family. Review of Systems reviewed, as above in HPI Past Medical History Past Medical History: Hyperlipidemia, Hypertension History of Any Multi-Drug Resistant Organisms: None Reported Past Surgical History: Heart Catheterization With Stent, Hernia Repair Additional Past Surgical History / Comment(s): heart stent x 1 Past Anesthesia/Blood Transfusion Reactions: No Reported Reaction Date of Last Stent Placement:: 1997 stent placed Past Psychological History: No Psychological Hx Reported Smoking Status: Former smoker Past Alcohol Use History: Occasional Past Drug Use History: None Reported - Past Family History Mother Family Medical History: Cancer Additional Family Medical History / Comment(s): breast CA Father Family Medical History: CVA/TIA Brother(s) Family Medical History: Cancer, Myocardial Infarction (CA) Medications and Allergies Home Medications Medication Instructions Recorded Confirmed Type Aspirin EC [Ecotrin Low Dose] 81 mg PO DAILY 07/03/24 07/03/24 History Atorvastatin [Lipitor] 40 mg PO DAILY 07/03/24 07/03/24 History Ezetimibe [Zetia] 10 mg PO DAILY 07/03/24 07/03/24 History Finasteride [Proscar] 5 mg PO DAILY 07/03/24 07/03/24 History Metoprolol Tartrate [Lopressor] 25 mg PO DAILY 07/03/24 07/03/24 History Naproxen Sodium [Aleve] 440 mg PO BID PRN 07/03/24 07/03/24 History lisinopriL [Zestril] 10 mg PO DAILY 07/03/24 07/03/24 History Finasteride [Proscar] 5 mg PO DAILY #30 tablet 07/11/24 Rx Tamsulosin [Flomax] 0.4 mg PO DAILY #30 cap 07/11/24 Rx Allergies Allergy/AdvReac Type Severity Reaction Status Date / Time No Known Allergies Allergy Verified 07/09/24 10:39 Physical Exam Vitals: Vital Signs Temp Pulse Resp BP Pulse Ox 07/14/24 10:00 77 20 127/54 95 07/14/24 09:00 72 12 121/55 94 L 07/14/24 08:42 98 07/14/24 08:00 98.2 F 65 12 105/55 94 L 07/14/24 07:00 73 15 121/69 95 07/14/24 06:00 75 22 101/89 93 L 07/14/24 05:00 71 27 H 101/58 96 07/14/24 04:00 73 16 107/57 92 L 07/14/24 03:00 71 23 110/62 91 L 07/14/24 02:00 74 26 H 118/60 95 07/14/24 01:00 84 26 H 121/59 92 L 07/14/24 00:00 78 26 H 110/61 94 L 07/13/24 23:21 77 17 110/61 94 L 07/13/24 23:00 77 21 108/63 94 L 07/13/24 22:00 78 26 H 105/80 92 L 07/13/24 21:00 79 28 H 127/79 91 L 07/13/24 20:00 81 28 H 112/82 91 L 07/13/24 19:00 87 31 H 115/70 91 L 07/13/24 18:00 105 H 24 122/61 92 L 07/13/24 17:00 99 21 114/70 98 07/13/24 16:47 70 07/13/24 16:32 74 07/13/24 16:00 85 32 H 102/54 98 07/13/24 15:00 84 20 115/70 91 L 07/13/24 14:00 82 18 103/58 07/13/24 13:00 98.3 F 85 17 110/59 95 Intake and Output 07/13/24 07/14/24 07/14/24 22:59 06:59 14:59 Intake Total 200 300 Output Total 200 210 60 Balance 0 -210 240 Intake: Oral 200 300 Output: Urine 200 210 60 Other: Voiding Method Indwelling Catheter Indwelling Catheter Indwelling Catheter Weight 93.3 kg CONSTITUTIONAL: Appears comfortable, cooperative, no acute distress RESPIRATORY: Respirations even, nonlabored. Currently on room air CARDIOVASCULAR: Sternum stable. Palpable peripheral pulses bilaterally. Trace generalized edema present. No calf pain or tenderness noted. Heart hugger GASTROINTESTINAL: Abdomen soft, nontender, nondistended. GENITOURINARY: Rapp present draining clear, yellow urine. INTEGUMENTARY: Skin is warm and dry with evidence of good perfusion. Anterior chest incision well approximated. Left radial artery site NEUROLOGIC: Cranial nerves II through XII intact. Sensation intact bilateral UE/LE. DTR symmetric 2+ except decreased achilles. MUSKULOSKELETAL: Able to move all extremities, strength ~ 5/5 bilateral UE/LE PSYCHIATRIC: Alert and oriented to person place and time Results CBC & Chem 7: 07/14/24 07:35 07/14/24 07:35 Labs: Abnormal Lab Results - Last 24 Hours (Table) 07/13/24 07/13/24 07/14/24 Range/Units 16:57 20:33 06:55 RBC (4.30-5.90) m/uL Hgb (13.0-17.5) gm/dL Hct (39.0-53.0) % Sodium (137-145) mmol/L BUN (9-20) mg/dL Creatinine (0.66-1.25) mg/dL Glucose (74-99) mg/dL POC Glucose (mg/dL) 133 H 173 H 120 H (70-110) mg/dL Total Protein (6.3-8.2) g/dL 07/14/24 07/14/24 07/14/24 Range/Units 07:35 07:35 11:03 RBC 2.59 L (4.30-5.90) m/uL Hgb 7.9 L (13.0-17.5) gm/dL Hct 23.8 L (39.0-53.0) % Sodium 130 L (137-145) mmol/L BUN 28 H (9-20) mg/dL Creatinine 1.60 H (0.66-1.25) mg/dL Glucose 112 H (74-99) mg/dL POC Glucose (mg/dL) 124 H (70-110) mg/dL Total Protein 5.9 L (6.3-8.2) g/dL Assessment and Plan Assessment: #Cardiac debility secondary to 3 vessel CABG with left radial artery graft -therapies #Postoperative acute blood loss anemia, expected #Acute coronary syndrome #Paroxysmal Afib #acure urinary retention s/p rapp #LUIS ANGEL #history of previous PCI of the RCA # Bowel/ Bladder: Nursing to monitor and report concerns if any. # Diet - heart healthy, 1500 ML FR # Skin/wound: Skin/Wound care to follow as needed # Pain Management - tylenol PRN # DVT Prophylaxis: Defer to IM management. -ASA 325 mg QD, SQ Heparin # Comorbidities: HTN, HLD, BPH, OA, previous tobacco dependence # Your medical dx and mgt Goals: Modified Independent mobility and ADLS both basic and advanced; increased functional mobility/strength; increased balance, safety, endurance. Improvement in medical issues through your care. Barriers: weakness, fall risk Discharge recommendation: Anticipate will need structured rehab, but he expresses desire to go home with family, if able. If unable to go home with [facility]/family support, he would be appropriate for IPR. Patient is pending medical clearance at this time. Patient seen and examined in coordination with Dr. Jones.
--- NOTE | 2024-07-14 12:27 | P.PN ---
Subjective Progress Note Date: 07/14/24 This is an 83-year-old white male, known history of coronary artery disease, previous PCI of the RCA in 1997, known history of hypertension, dyslipidemia, previous smoker, history of degenerative joint disease, patient presented with intermittent episodes of left sided chest pain with left arm pain this was couple of weeks ago. Patient took 3 sublingual nitroglycerin at home, and pain was noted to subside a bit. Patient seen at [facility] initially, troponin was noted to be elevated, then he was transferred to [facility], and underwent further workup including a cardiac catheterization, patient was found to have triple-vessel coronary artery disease, patient was see n by cardiothoracic surgery after his cardiac catheterization, and today he underwent surgery by Dr. Whitfield. Postoperatively, patient is on mechanical ventilation, patient is on assist-control rate of 16 tidal volume 400 FiO2 100% PEEP of 5 ABG showed a pO2 of 391 pCO2 43 pH of 7.33 bicarb 23 has his FiO2 was decreased down to 50%, patient was noted to have good cardiac output of 4.4, cardiac index is a bit low at 2.1. Chest x-ray postoperatively showed mostly postoperative changes, adequate placement of the tubes endotracheal tube and Luverne-Cong catheter. Patient was seen today on 07/10/2024, he is now postoperative day #1. Patient is sitting in a recliner, remains in the ICU, he was successfully extubated at 20: 45. He is hemodynamically stable, in sinus rhythm, he is on amiodarone for atrial fibrillation prophylaxis. Also on nitroglycerin drip for vessel spasm prophylaxis. Continues to have right internal jugular Luverne/Cordis, and he continues to have mediastinal/left pleural chest tubes. And left radial RONALD drain. Pulmonary south the patient is doing well, chest x-ray this morning showed minimal left basilar atelectasis, lines and tubes were all noted to be in proper positions including Luverne-Cong catheter asymptomatic, labs were reviewed WBC is 8.7 hemoglobin 9.9, basic metabolic profile is normal, renal profile is normal Seen today on 07/11/2024, patient is now postoperative day #2. Patient is currently sitting up to bedside chair, awake alert oriented x 3, does not seem to be in any distress. On room air, IV fluids at KVO, patient is not requiring any pressors or any inotropes. Continues to have mediastinal and left pleural chest tubes in place, no airleak, mediastinal chest tube drained 50 mL over the last 8 hours. Left pleural chest tube drained 40 mL. At any rate his chest x- ray findings are reassuring, mostly postoperative findings as expected. WBC count is 7.5 hemoglobin 9.3 sodium is 128 potassium 4.3 BUN is 20 creatinine 1.29 patient was seen by urology for urinary retention today, patient is already on finasteride, urology is recommending adding tamsulosin. And planning to keep the catheter in place until July 14. Left basilar atelectasis noted on the chest x-ray, strongly doubt pneumonia. Seen today on 07/12/2024, patient is now postoperative day #3, doing well, no pulmonary symptoms however he feels generally weak, tired, not in pain, chest x- ray reviewed, patient has mostly low lung volumes and cardiomegaly with small left pleural effusion and small right-sided pleural effusion chest x-ray is consistent with mostly some congestive heart failure. WBC count is 9.2 hemoglobin 8.6 electrolytes showed low sodium of 128 and this is probably a hypervolemic hyponatremia. BUN is 22 creatinine 1.31. Seen today on 07/13/2024, patient is now postoperative day #4, feels generally weak, not in any distress, he is on room air, achieving anywhere between 1250 up to 1500 cc on his incentive spirometry, his rhythm fluctuated between sinus rhythm and at times atrial fibrillation with controlled rate, patient is hemodynamically stable, not requiring any inotropes or any pressors. His WBC is 9.3 hemoglobin 8.5 electrolytes are normal BUN is 26 creatinine 1.59 chest x-ray showed mostly bibasilar atelectasis left more so than right, no evidence of pneumonia no evidence of pulmonary edema. The patient is seen today July 14, 2024 in follow-up in the intensive care unit. Postoperative day #5. He is currently sitting up in a chair at the bedside. Awake and alert in no acute distress. Maintaining O2 saturations in the 90s on room air. Currently in sinus rhythm with PACs. Chest x-ray shows persistent cardiomegaly with small bilateral pleural effusions and central vascular congestion consistent with fluid overload state. Persistent left basilar opacity favoring atelectasis. No significant change. White count 8.1. Hemoglobin 7.9. Platelets 202. Sodium 130. Potassium 4.4. Bicarb 23. BUN 28. Creatinine 1.60. Glucose 112. He remains on bronchodilators. Heparin for DVT prophylaxis. Protonix for GI prophylaxis. Objective - Vital Signs Vital signs: Vital Signs Temp 98.2 F 07/14/24 08:00 Pulse 77 07/14/24 10:00 Resp 20 07/14/24 10:00 BP 127/54 07/14/24 10:00 Pulse Ox 95 07/14/24 10:00 FiO2 40 07/09/24 20:06 Intake & Output 07/13/24 07/14/24 07/14/24 18:59 06:59 18:59 Intake Total 400 300 Output Total 220 325 60 Balance 180 -325 240 Weight 93.3 kg Intake: Oral 400 300 Output: Urine 220 325 60 Other: Voiding Method Indwelling Catheter Indwelling Catheter Indwelling Catheter ABP, PAP, CO, CI - Last Documented Arterial Blood Pressure 152/73 Pulmonary Artery Pressure 33/13 Cardiac Output 4.5 Cardiac Index 2.2 - Exam GENERAL EXAM: Alert, pleasant 83-year-old male, on room air, up in a chair, fair ly comfortable in no apparent distress. HEAD: Normocephalic. EYES: Normal reaction of pupils, equal size. NOSE: Clear with pink turbinates. THROAT: No erythema or exudates. NECK: No masses, no JVD. CHEST: Sternum stable. Heart hugger in place. LUNGS: Equal air entry with crackles in the bilateral bases. CVS: S1 and S2 normal with no audible murmur, regular rhythm. ABDOMEN: No hepatosplenomegaly, normal bowel sounds, no guarding or rigidity. SPINE: No scoliosis or deformity SKIN: No rashes CENTRAL NERVOUS SYSTEM: No focal deficits, tone is normal in all 4 extremities. EXTREMITIES: There is no peripheral edema. No clubbing, no cyanosis. Peripheral pulses are intact. - Labs CBC & Chem 7: 07/14/24 07:35 07/14/24 07:35 Labs: Abnormal Lab Results - Last 24 Hours (Table) 07/13/24 07/13/24 07/14/24 Range/Units 16:57 20:33 06:55 RBC (4.30-5.90) m/uL Hgb (13.0-17.5) gm/dL Hct (39.0-53.0) % Sodium (137-145) mmol/L BUN (9-20) mg/dL Creatinine (0.66-1.25) mg/dL Glucose (74-99) mg/dL POC Glucose (mg/dL) 133 H 173 H 120 H (70-110) mg/dL Total Protein (6.3-8.2) g/dL 07/14/24 07/14/24 07/14/24 Range/Units 07:35 07:35 11:03 RBC 2.59 L (4.30-5.90) m/uL Hgb 7.9 L (13.0-17.5) gm/dL Hct 23.8 L (39.0-53.0) % Sodium 130 L (137-145) mmol/L BUN 28 H (9-20) mg/dL Creatinine 1.60 H (0.66-1.25) mg/dL Glucose 112 H (74-99) mg/dL POC Glucose (mg/dL) 124 H (70-110) mg/dL Total Protein 5.9 L (6.3-8.2) g/dL Assessment and Plan Assessment: Off-pump coronary bypass grafting x 3 with DECKER to LAD, sequential left radial artery graft to obtuse marginal and intermediate coronary arteries with endovascular harvest of the left radial artery and occlusion of the left atrial appendage with 35 mm AtriCure clip. Postoperative day #5 Triple-vessel coronary artery disease Non-ST elevation myocardial infarction on this admission History of previous PCI and stent RCA 1997 Benign essential hypertension Dyslipidemia Degenerative joint disease Ex-smoker Postoperative atelectasis, expected Plan: The patient was seen and evaluated Chest x-ray, labs and medications reviewed Currently stable and on room air Encourage increased use of the incentive spirometer Remains on bronchodilators Remains on heparin for DVT prophylaxis Being evaluated for possible inpatient rehabilitation We will continue to follow I have personally seen and examined the patient, performed the documentation and the assessment and plan as written. Number of minutes spent on the visit: 10 Dictation was produced using damntheradio dictation software. Please excuse any gra mmatical, word or spelling errors.
[2024-07-14 16:36] LABS: Glucose,Whole Blood 176 mg/dL (70-110)
[2024-07-14 20:02] LABS: Glucose,Whole Blood 127 mg/dL (70-110)
[2024-07-14] MEDS: MELATONIN 3 MG TABLET PO PRN (20:38)
--- NOTE | 2024-07-15 04:49 | P.PN ---
Subjective Progress Note Date: 07/14/24 This is a pleasant 83-year-old male who was recently admitted after an NSTEMI noted to have significant coronary artery disease scheduled to undergo CABG today. Patient currently remains in the OR and will follow-up on official report and patient once returning to the floor. 07/10/2024 Patient is seen in follow-up this morning status post off-pump coronary bypass grafting x 3 with DECKER to the LAD with CT surgery and cardiology following closely. Pulmonary bead worker sewing following as well as patient is maintained in the ICU. Patient was successfully extubated yesterday evening and currently sitting up in the chair doing relatively well. Patient continues with bilateral chest tubes and is having swans catheter removed today. Patient does have incentive spirometer at the bedside and has been patient patient is afebrile with no reports of worsening shortness of breath. Patient is maintained on insulin drip per protocol and does not have history of diabetes. Will transition to sliding scale shortly. 07/11/2024 Patient is seen in follow-up today currently sitting up in the chair doing rela tively well. Family at the bedside and patient is tolerating diet with no reported nausea or vomiting. Patient is having some urinary retention and urology consulted. Patient required replacement of indwelling Silver catheter. Recommend Flomax and will await urology evaluation. Patient continues to use incentive spirometer and encouraged to use at least 10 times every hour while awake. Patient is showing good return demonstration of proper use of incentive spirometer. Patient is afebrile with no reports of chest pain or palpitations. There is some chest wall discomfort and heart hugger is noted. Patient reports to having excessive gas with no bowel movement as of yet. Will add simethicone. Patient has been transition to sliding scale insulin and blood sugars have been well-controlled. Patient is not a diabetic. 07/14/2024 Patient is seen in follow-up this morning doing relatively well working with physical therapy is significantly weak and a consult to inpatient rehab placed and pending. Blood sugars are well-controlled and will continue current regimen. Patient is not a diabetic. Patient reports is having bowel movements and continues with some mild chest wall discomfort. Patient is afebrile no reports of worsening shortness of breath. Encouraged continued incentive spirometer use at least 10 times every hour while awake. Recommend follow-up labs and monitoring kidney functions closely as creatinine is 1.6 today. Review of systems: Constitutional: No reports of fatigue, fever, or chills Cardiovascular: No reports of chest pain or palpitations Respiratory: reports of ongoing shortness of breath although no worse GI: No reports of nausea, vomiting, or diarrhea, reports having a bowel movement yesterday : No reports of dysuria patient reporting retention and did require indwelling Silver catheter Neurovascular: reports of generalized weakness All medications have been reviewed PHYSICAL EXAMINATION: GENERAL: The patient is alert and oriented x4, Well developed, well nourished. Elderly appearing HEENT: Pupils are round and equally reacting to light. EOMI. no scleral icterus. No conjunctival pallor. Normocephalic, atraumatic. No pharyngeal erythema. No thyromegaly. CARDIOVASCULAR: S1 and S2 muffled, chest tubes noted PULMONARY: diminished breath sounds bilaterally with no wheezing or rhonchi noted. ABDOMEN: soft. Nontender on exam. obese. non-distended, normoactive bowel sounds. No palpable organomegaly. MUSCULOSKELETAL: No joint swelling or deformity. EXTREMITIES: No cyanosis, clubbing, or pedal edema. Mild bilateral lower extremity edema noted NEUROLOGICAL: Gross neurological examination did not reveal any focal deficits. Diffusely weak SKIN: No rashes. Assessment: Acute NSTEMI with three-vessel disease status post three-vessel off-pump CABG on 07/09/2024 Acute urinary retention requiring indwelling Silver catheter, will continue Flomax, urology recommending trial voiding prior to discharge History of coronary artery disease Hypertension Dyslipidemia Gastroesophageal reflux disease History of BPH GI prophylaxis DVT prophylaxis Full code Plan: Recommend to continue with current medications and management per cardiology and cardiothoracic surgery. Patient is status post triple-vessel off-pump CABG and was successfully extubated, currently maintained on room air, strongly encourage incentive spirometer use 10 times every hour while awake, supportive 2 L at times Recommend follow-up labs in the a.m., kidney function 1.6 creatinine today Recommend PT/OT therapy daily. Patient is significantly weak and has had major surgery and prolonged hospitalization, recommend possible inpatient rehab which a consult has been placed and pending Patient to continue monitoring Accu-Cheks ACHS per protocol postsurgery and will continue with sliding scale as needed. Blood sugars have been well- controlled. Patient is not a diabetic Patient was having some continued ongoing retention postoperatively requiring indwelling Silver catheter to be replaced. Flomax added and urology following recommends to continue with indwelling Silver catheter and trial void in the next few days and continue with Flomax and finasteride Will continue to follow with cardiothoracic team during hospitalization. Thank you kindly for this consultation Overall prognosis is guarded at this time The impression and plan of care has been dictated by Elizabeth Holder, nurse practitioner as directed. Dr. Demian MD I have performed a history and examination and MDM of this patient, discussed the same with the dictator, and agree with the dictator's assessment and plan as written ,documented as a scribe. Based on total visit time, I have performed more than 50% of the visit. Any additional findings or plans will be noted. Objective - Vital Signs Vital signs: Vital Signs Temp 97.5 F L 07/15/24 04:00 Pulse 67 07/15/24 04:00 Resp 19 07/15/24 04:00 BP 109/64 07/15/24 04:00 Pulse Ox 97 07/15/24 04:00 FiO2 40 07/09/24 20:06 Intake & Output 07/14/24 07/14/24 07/15/24 06:59 18:59 06:59 Intake Total 700 Output Total 325 260 260 Balance -325 440 -260 Weight 93.3 kg Intake: Oral 700 Output: Urine 325 260 260 Other: Voiding Method Indwelling Catheter Indwelling Catheter Indwelling Catheter ABP, PAP, CO, CI - Last Documented Arterial Blood Pressure 152/73 Pulmonary Artery Pressure 33/13 Cardiac Output 4.5 Cardiac Index 2.2 - Labs CBC & Chem 7: 07/14/24 07:35 07/14/24 07:35 Labs: Abnormal Lab Results - Last 24 Hours (Table) 07/14/24 07/14/24 07/14/24 Range/Units 06:55 07:35 07:35 RBC 2.59 L (4.30-5.90) m/uL Hgb 7.9 L (13.0-17.5) gm/dL Hct 23.8 L (39.0-53.0) % Sodium 130 L (137-145) mmol/L BUN 28 H (9-20) mg/dL Creatinine 1.60 H (0.66-1.25) mg/dL Glucose 112 H (74-99) mg/dL POC Glucose (mg/dL) 120 H (70-110) mg/dL Total Protein 5.9 L (6.3-8.2) g/dL 07/14/24 07/14/24 07/14/24 Range/Units 11:03 16:35 20:01 RBC (4.30-5.90) m/uL Hgb (13.0-17.5) gm/dL Hct (39.0-53.0) % Sodium (137-145) mmol/L BUN (9-20) mg/dL Creatinine (0.66-1.25) mg/dL Glucose (74-99) mg/dL POC Glucose (mg/dL) 124 H 176 H 127 H (70-110) mg/dL Total Protein (6.3-8.2) g/dL
[2024-07-15 05:58] LABS: HCT 23.3 % (39.0-53.0); HGB 7.6 gm/dL (13.0-17.5); MCH 30.6 pg (25.0-35.0); MCHC 32.8 g/dL (31.0-37.0); MCV 93.4 fL (80.0-100.0); Platelet Count 196 k/uL (150-450); RDW 12.9 % (11.5-15.5)
[2024-07-15 06:12] LABS: Glucose,Whole Blood 108 mg/dL (70-110)
[2024-07-15 06:16] LABS: African American GFR (CKD) 54 (>60 ml/min/1.73 sqM); Anion Gap 8 mmol/L; Blood Urea Nitrogen 29 mg/dL (9-20); Calcium 8.4 mg/dL (8.4-10.2); Carbon Dioxide 21 mmol/L (22-30); Chloride 100 mmol/L (98-107); Glucose 95 mg/dL (74-99); Non-African American GFR(CKD) 46 (>60 ml/min/1.73 sqM); Potassium 4.2 mmol/L (3.5-5.1); Sodium 129 mmol/L (137-145)
--- NOTE | 2024-07-15 06:17 | P.PN ---
Subjective Progress Note Date: 07/15/24 The patient is an 83-year-old gentleman who was admitted to the hospital with acute coronary syndrome ACS and he underwent a heart catheterization and was found to have severe triple-vessel CAD where he underwent CABG x 3. The ejection fraction was normal. July 14, 2024 The patient was seen and evaluated this morning. He is overall weak. He took a few steps earlier this morning with heart rate dropped to the 40s. He is on beta-rolando and amiodarone. I am going to decrease the dose of beta-rolando given the bradycardia as well as marginally low blood pressure with marginal urine output. Otherwise he reports no pain in the chest with the chest x-ray was reviewed. CBC and BMP reviewed as well. The physical examination is remarkable for regular rhythm with a systolic murmur at the right upper sternal border and diminished breathing sounds bilaterally and no edema was noted in the lower extremities July 15, 2024 The patient was seen and evaluated this morning. He is definitely feeling better. He did have a good night sleep. The weakness is better. He is not bradycardic anymore. Currently he is on amiodarone which will be tapered down along with metoprolol at 25 mg p.o. twice daily. Beside that he is on antiplatelet. Hemoglobin remains stable and above 7. No kidney function back as of yet. The physical examination is remarkable for regular rhythm with a soft systolic murmur and diminished breathing sounds bilaterally and no edema was noted in the lower extremities. Urine output has been adequate. Assessment Acute coronary syndrome Status post CABG x 3 for severe triple-vessel CAD Preserved LV systolic function Sinus bradycardia Marginally low blood pressure Chronic kidney disease Generalized weakness and fatigue Plan Continue the current medical regimen Continue tapering down the dose of amiodarone Monitor the urine output Consider increasing the dose of Lipitor to high intensity Further recommendation to follow Objective - Vital Signs Vital signs: Vital Signs Temp 97.5 F L 07/15/24 04:00 Pulse 69 07/15/24 05:00 Resp 17 07/15/24 05:00 BP 109/64 07/15/24 05:00 Pulse Ox 97 07/15/24 05:00 FiO2 40 07/09/24 20:06 Intake & Output 07/14/24 07/14/24 07/15/24 06:59 18:59 06:59 Intake Total 700 Output Total 325 260 260 Balance -325 440 -260 Weight 93.3 kg Intake: Oral 700 Output: Urine 325 260 260 Other: Voiding Method Indwelling Catheter Indwelling Catheter Indwelling Catheter ABP, PAP, CO, CI - Last Documented Arterial Blood Pressure 152/73 Pulmonary Artery Pressure 33/13 Cardiac Output 4.5 Cardiac Index 2.2 - Labs CBC & Chem 7: 07/15/24 05:16 07/14/24 07:35 Labs: Abnormal Lab Results - Last 24 Hours (Table) 07/14/24 07/14/24 07/14/24 Range/Units 06:55 07:35 07:35 RBC 2.59 L (4.30-5.90) m/uL Hgb 7.9 L (13.0-17.5) gm/dL Hct 23.8 L (39.0-53.0) % Sodium 130 L (137-145) mmol/L BUN 28 H (9-20) mg/dL Creatinine 1.60 H (0.66-1.25) mg/dL Glucose 112 H (74-99) mg/dL POC Glucose (mg/dL) 120 H (70-110) mg/dL Total Protein 5.9 L (6.3-8.2) g/dL 07/14/24 07/14/24 07/14/24 Range/Units 11:03 16:35 20:01 RBC (4.30-5.90) m/uL Hgb (13.0-17.5) gm/dL Hct (39.0-53.0) % Sodium (137-145) mmol/L BUN (9-20) mg/dL Creatinine (0.66-1.25) mg/dL Glucose (74-99) mg/dL POC Glucose (mg/dL) 124 H 176 H 127 H (70-110) mg/dL Total Protein (6.3-8.2) g/dL 07/15/24 Range/Units 05:16 RBC 2.50 L (4.30-5.90) m/uL Hgb 7.6 L (13.0-17.5) gm/dL Hct 23.3 L (39.0-53.0) % Sodium (137-145) mmol/L BUN (9-20) mg/dL Creatinine (0.66-1.25) mg/dL Glucose (74-99) mg/dL POC Glucose (mg/dL) (70-110) mg/dL Total Protein (6.3-8.2) g/dL
--- NOTE | 2024-07-15 07:14 | XR ---
EXAMINATION TYPE: XR chest 2V DATE OF EXAM: 07/15/2024 CLINICAL INDICATION: Male, 83 years old with history of Postcardiac surgery, TECHNIQUE: Frontal and lateral views of the chest are obtained. COMPARISON: Chest x-ray from one day earlier and older studies FINDINGS: Overlying Sternal wires along with mediastinal clips and left atrial appendage clip are all redemonstrated. Persistent cardiomegaly with central vascular congestion and small bilateral pleural effusions. Persi stent left basilar opacity. No pneumothorax is evident bilaterally. Old posterior right rib fractures again seen. IMPRESSION: Findings consistent with persistent fluid overload state/CHF exacerbation are redemonstra saji. No significant change from one day earlier. [facility], , 07/15/2024 7:12 AM
--- NOTE | 2024-07-15 07:43 | P.PN ---
Subjective Progress Note Date: 07/15/24 Principal diagnosis: Triple-vessel coronary artery disease, non-STEMI this admission. History of coronary artery disease with previous PCI of the RCA in 1997, hypertension, hyperlipidemia, BPH, osteoarthritis, previous tobacco dependence POD #6 off-pump coronary bypass grafting x 3 with DECKER to LAD, sequential left radial artery graft to obtuse marginal and intermediate coronary arteries with endovascular harvest of the left radial artery and occlusion of the left atrial appendage with 35 mm AtriCure clip Postoperative acute blood loss anemia, thrombocytopenia, expected given hemodilution Paroxysmal atrial fibrillation, known common occurrence after cardiac surgery, currently sinus rhythm Acute urine retention requiring reinitiation of Silver catheter, not a complica tion and not surprising as patient has a history of BPH and had urine retention prior to surgery Acute kidney injury, secondary to hypotension The patient was seen and examined this morning sitting up in recliner in the intensive care unit in no acute distress. Remains in sinus rhythm, hemodynami gregory stable. Currently on 2 L nasal cannula with oxygen in the high 90s, lowest documented oxygen saturation in the last 24 hours was 93%. Was on room air all day yesterday. Patient does complain of expected post surgical pain which is controlled on current medication regimen, denies shortness of breath. Patient has ambulated in the hallway with staff, did better yesterday, showered yesterday. Silver catheter remains present for acute urinary retention. Transfer orders were placed yesterday for 3 S., no bed available. Patient was seen yesterday by rehab doctors, anticipate rehab at discharge. No other new concerns. Objective - Vital Signs Vital signs: Vital Signs Temp 97.5 F L 07/15/24 04:00 Pulse 69 07/15/24 05:00 Resp 17 07/15/24 05:00 BP 109/64 07/15/24 05:00 Pulse Ox 97 07/15/24 06:26 FiO2 40 07/09/24 20:06 Intake & Output 07/14/24 07/15/24 07/15/24 18:59 06:59 18:59 Intake Total 700 Output Total 260 260 Balance 440 -260 Weight 94.3 kg Intake: Oral 700 Output: Urine 260 260 Other: Voiding Method Indwelling Catheter Indwelling Catheter ABP, PAP, CO, CI - Last Documented Arterial Blood Pressure 152/73 Pulmonary Artery Pressure 33/13 Cardiac Output 4.5 Cardiac Index 2.2 - Exam CONSTITUTIONAL: Appears comfortable, cooperative, no acute distress RESPIRATORY: Lungs sounds diminished bilaterally. Respirations even, nonlabored. Currently on 2 L nasal cannula with oxygen saturation 97%. Able to achieve 1250 mL on incentive spirometry. Strong productive cough. CARDIOVASCULAR: S1, S2 present. Regular rate and rhythm, sinus rhythm with occasional PACs on telemetry. Sternum stable. Palpable peripheral pulses bilaterally. Trace generalized edema present. No calf pain or tenderness noted. Heart hugger in place with patient demonstrating appropriate use. Antiembolism stockings, SCDs present. GASTROINTESTINAL: Abdomen soft, nontender, nondistended. Active bowel sounds present 4 quadrants. Tolerating minimal diet. Positive bowel movement 07/13 GENITOURINARY: Silver present draining clear, yellow urine. Output overnight 520 mL in the last 24 hours INTEGUMENTARY: Skin is warm and dry with evidence of good perfusion. Anterior chest incision well approximated. Left radial artery harvest site well approximated without redness or drainage NEUROLOGIC: Cranial nerves II through XII intact MUSKULOSKELETAL: Able to move all extremities, strength equal bilaterally but generalized weakness present PSYCHIATRIC: Alert and oriented to person place and time, appropriate affect, intact judgment and insight - Allied health notes Allied health notes reviewed: nursing - Labs CBC & Chem 7: 07/15/24 05:16 07/15/24 05:16 Labs: Abnormal Lab Results - Last 24 Hours (Table) 07/14/24 07/14/24 07/14/24 Range/Units 07:35 07:35 11:03 RBC 2.59 L (4.30-5.90) m/uL Hgb 7.9 L (13.0-17.5) gm/dL Hct 23.8 L (39.0-53.0) % Sodium 130 L (137-145) mmol/L Carbon Dioxide (22-30) mmol/L BUN 28 H (9-20) mg/dL Creatinine 1.60 H (0.66-1.25) mg/dL Glucose 112 H (74-99) mg/dL POC Glucose (mg/dL) 124 H (70-110) mg/dL Total Protein 5.9 L (6.3-8.2) g/dL 07/14/24 07/14/24 07/15/24 Range/Units 16:35 20:01 05:16 RBC 2.50 L (4.30-5.90) m/uL Hgb 7.6 L (13.0-17.5) gm/dL Hct 23.3 L (39.0-53.0) % Sodium (137-145) mmol/L Carbon Dioxide (22-30) mmol/L BUN (9-20) mg/dL Creatinine (0.66-1.25) mg/dL Glucose (74-99) mg/dL POC Glucose (mg/dL) 176 H 127 H (70-110) mg/dL Total Protein (6.3-8.2) g/dL 07/15/24 Range/Units 05:16 RBC (4.30-5.90) m/uL Hgb (13.0-17.5) gm/dL Hct (39.0-53.0) % Sodium 129 L (137-145) mmol/L Carbon Dioxide 21 L (22-30) mmol/L BUN 29 H (9-20) mg/dL Creatinine 1.41 H (0.66-1.25) mg/dL Glucose (74-99) mg/dL POC Glucose (mg/dL) (70-110) mg/dL Total Protein (6.3-8.2) g/dL - Imaging and Cardiology Chest x-ray: report reviewed, image reviewed Assessment and Plan Assessment: Triple-vessel coronary artery disease, non-STEMI this admission, status post three-vessel off-pump CABG Moderate mitral regurgitation on TTE Chest pain, shortness of breath secondary to above Acute urine retention requiring initiation of Silver catheter Postoperative acute blood loss anemia and thrombocytopenia, expected Paroxysmal atrial fibrillation, known common occurrence after cardiac surgery, currently sinus rhythm Acute kidney injury, secondary to hypotension Medical debility History of coronary artery disease with previous PCI of the RCA in 1997 Hypertension Hyperlipidemia, treated, cholesterol 136, LDL 75 BPH, remains on Proscar Osteoarthritis Previous tobacco dependence, preoperative FEV1 76% of predicted Plan: Continue to maximize medical therapy with aspirin, statin, Plavix, beta-rolando Continue amiodarone for A-fib prophylaxis, will taper weekly per protocol. No anticoagulation necessary Encourage incentive spirometry use 10 times every hour while awake. Bronchodilators per pulmonology Will monitor daily labs and x-rays. Electrolyte replacement per protocol. Continue fluid restriction, continue Aldactone, no Lasix Increase activity, ambulate as tolerated. PT/OT/cardiac rehab following GI/DVT prophylaxis Daily weights Pain control per current medication regimen Insulin management per internal medicine. Patient is not diabetic, preoperative hemoglobin A1c 6% Continue BPH medications Continue Silver catheter for urine retention per urology, patient will be discharged with Silver catheter to have another trial void with urology in a couple of weeks Continue to monitor record strict accurate intake and output Advance diet as tolerated, encourage oral nutrition Shower daily Transfer orders placed yesterday for 3 S. cardiac stepdown unit, may transfer when bed available PM&R doctors consulted for IPR at discharge, patient may go to rehab whenever insurance authorization obtained More recommendations to follow as patient progresses
[2024-07-15 08:19] VITALS: RESP 24; TEMP 97.4
--- NOTE | 2024-07-15 10:55 | P.PN ---
Subjective Progress Note Date: 07/15/24 This is an 83-year-old white male, known history of coronary artery disease, previous PCI of the RCA in 1997, known history of hypertension, dyslipidemia, previous smoker, history of degenerative joint disease, patient presented with intermittent episodes of left sided chest pain with left arm pain this was couple of weeks ago. Patient took 3 sublingual nitroglycerin at home, and pain was noted to subside a bit. Patient seen at [facility] initially, troponin was noted to be elevated, then he was transferred to [facility], and underwent further workup including a cardiac catheterization, patient was found to have triple-vessel coronary artery disease, patient was see n by cardiothoracic surgery after his cardiac catheterization, and today he underwent surgery by Dr. Whitfield. Postoperatively, patient is on mechanical ventilation, patient is on assist-control rate of 16 tidal volume 400 FiO2 100% PEEP of 5 ABG showed a pO2 of 391 pCO2 43 pH of 7.33 bicarb 23 has his FiO2 was decreased down to 50%, patient was noted to have good cardiac output of 4.4, cardiac index is a bit low at 2.1. Chest x-ray postoperatively showed mostly postoperative changes, adequate placement of the tubes endotracheal tube and Hendricks-Cong catheter. Patient was seen today on 07/10/2024, he is now postoperative day #1. Patient is sitting in a recliner, remains in the ICU, he was successfully extubated at 20: 45. He is hemodynamically stable, in sinus rhythm, he is on amiodarone for atrial fibrillation prophylaxis. Also on nitroglycerin drip for vessel spasm prophylaxis. Continues to have right internal jugular Hendricks/Cordis, and he continues to have mediastinal/left pleural chest tubes. And left radial RONALD drain. Pulmonary south the patient is doing well, chest x-ray this morning showed minimal left basilar atelectasis, lines and tubes were all noted to be in proper positions including Hendricks-Cong catheter asymptomatic, labs were reviewed WBC is 8.7 hemoglobin 9.9, basic metabolic profile is normal, renal profile is normal Seen today on 07/11/2024, patient is now postoperative day #2. Patient is currently sitting up to bedside chair, awake alert oriented x 3, does not seem to be in any distress. On room air, IV fluids at KVO, patient is not requiring any pressors or any inotropes. Continues to have mediastinal and left pleural chest tubes in place, no airleak, mediastinal chest tube drained 50 mL over the last 8 hours. Left pleural chest tube drained 40 mL. At any rate his chest x- ray findings are reassuring, mostly postoperative findings as expected. WBC count is 7.5 hemoglobin 9.3 sodium is 128 potassium 4.3 BUN is 20 creatinine 1.29 patient was seen by urology for urinary retention today, patient is already on finasteride, urology is recommending adding tamsulosin. And planning to keep the catheter in place until July 14. Left basilar atelectasis noted on the chest x-ray, strongly doubt pneumonia. Seen today on 07/12/2024, patient is now postoperative day #3, doing well, no pulmonary symptoms however he feels generally weak, tired, not in pain, chest x- ray reviewed, patient has mostly low lung volumes and cardiomegaly with small left pleural effusion and small right-sided pleural effusion chest x-ray is consistent with mostly some congestive heart failure. WBC count is 9.2 hemoglobin 8.6 electrolytes showed low sodium of 128 and this is probably a hypervolemic hyponatremia. BUN is 22 creatinine 1.31. Seen today on 07/13/2024, patient is now postoperative day #4, feels generally weak, not in any distress, he is on room air, achieving anywhere between 1250 up to 1500 cc on his incentive spirometry, his rhythm fluctuated between sinus rhythm and at times atrial fibrillation with controlled rate, patient is hemodynamically stable, not requiring any inotropes or any pressors. His WBC is 9.3 hemoglobin 8.5 electrolytes are normal BUN is 26 creatinine 1.59 chest x-ray showed mostly bibasilar atelectasis left more so than right, no evidence of pneumonia no evidence of pulmonary edema. The patient is seen today July 14, 2024 in follow-up in the intensive care unit. Postoperative day #5. He is currently sitting up in a chair at the bedside. Awake and alert in no acute distress. Maintaining O2 saturations in the 90s on room air. Currently in sinus rhythm with PACs. Chest x-ray shows persistent cardiomegaly with small bilateral pleural effusions and central vascular congestion consistent with fluid overload state. Persistent left basilar opacity favoring atelectasis. No significant change. White count 8.1. Hemoglobin 7.9. Platelets 202. Sodium 130. Potassium 4.4. Bicarb 23. BUN 28. Creatinine 1.60. Glucose 112. He remains on bronchodilators. Heparin for DVT prophylaxis. Protonix for GI prophylaxis. The patient is seen today July 15, 2024 in follow-up in the intensive care unit. Postoperative day #6. He is awake and alert in no acute distress. Currently sitting up in a chair. Maintaining good O2 saturations in the 90s on room air. Chest x-ray shows mild fluid volume overload. No significant change. He is working well with the incentive spirometer. He is continued on DuoNeb and elations. Remains on heparin for DVT prophylaxis. White count 7.0. Hemoglobin 7.6. Platelets 196. Sodium 129. Potassium 4.2. Bicarb 21. BUN 29. Creatinine 1.41. Glucose 95. Objective - Vital Signs Vital signs: Vital Signs Temp 97.4 F L 07/15/24 08:17 Pulse 89 07/15/24 09:09 Resp 24 07/15/24 08:25 BP 111/61 07/15/24 09:02 Pulse Ox 89 L 07/15/24 08:58 FiO2 40 07/09/24 20:06 Intake & Output 07/14/24 07/15/24 07/15/24 18:59 06:59 18:59 Intake Total 700 Output Total 260 260 270 Balance 440 -260 -270 Weight 94.3 kg Intake: Oral 700 Output: Urine 260 260 270 Other: Voiding Method Indwelling Catheter Indwelling Catheter Indwelling Catheter ABP, PAP, CO, CI - Last Documented Arterial Blood Pressure 152/73 Pulmonary Artery Pressure 33/13 Cardiac Output 4.5 Cardiac Index 2.2 - Exam GENERAL EXAM: Alert, 83-year-old male, on room air, up in a chair, comfortable in no apparent distress. HEAD: Normocephalic. EYES: Normal reaction of pupils, equal size. NOSE: Clear with pink turbinates. THROAT: No erythema or exudates. NECK: No masses, no JVD. CHEST: Sternum stable. Heart hugger in place. LUNGS: Equal air entry with crackles in the bilateral bases. CVS: S1 and S2 normal with no audible murmur, regular rhythm. ABDOMEN: No hepatosplenomegaly, normal bowel sounds, no guarding or rigidity. SPINE: No scoliosis or deformity SKIN: No rashes CENTRAL NERVOUS SYSTEM: No focal deficits, tone is normal in all 4 extremities. EXTREMITIES: There is no peripheral edema. No clubbing, no cyanosis. Peripheral pulses are intact. - Labs CBC & Chem 7: 07/15/24 05:16 07/15/24 05:16 Labs: Abnormal Lab Results - Last 24 Hours (Table) 07/14/24 07/14/24 07/14/24 Range/Units 11:03 16:35 20:01 RBC (4.30-5.90) m/uL Hgb (13.0-17.5) gm/dL Hct (39.0-53.0) % Sodium (137-145) mmol/L Carbon Dioxide (22-30) mmol/L BUN (9-20) mg/dL Creatinine (0.66-1.25) mg/dL POC Glucose (mg/dL) 124 H 176 H 127 H (70-110) mg/dL 07/15/24 07/15/24 Range/Units 05:16 05:16 RBC 2.50 L (4.30-5.90) m/uL Hgb 7.6 L (13.0-17.5) gm/dL Hct 23.3 L (39.0-53.0) % Sodium 129 L (137-145) mmol/L Carbon Dioxide 21 L (22-30) mmol/L BUN 29 H (9-20) mg/dL Creatinine 1.41 H (0.66-1.25) mg/dL POC Glucose (mg/dL) (70-110) mg/dL Assessment and Plan Assessment: Off-pump coronary bypass grafting x 3 with DECKER to LAD, sequential left radial artery graft to obtuse marginal and intermediate coronary arteries with endovascular harvest of the left radial artery and occlusion of the left atrial appendage with 35 mm AtriCure clip. Postoperative day #6 Triple-vessel coronary artery disease Non-ST elevation myocardial infarction on this admission History of previous PCI and stent RCA 1997 Benign essential hypertension Dyslipidemia Degenerative joint disease Ex-smoker Postoperative atelectasis, expected Plan: The patient was seen and evaluated Chest x-ray, labs and medications reviewed Currently stable and on room air Working well with the incentive spirometer Remains on bronchodilators Remains on heparin for DVT prophylaxis Cleared for discharge Plan is for inpatient rehabilitation I have personally seen and examined the patient, performed the documentation and the assessment and plan as written. Number of minutes spent on the visit: 10 Dictation was produced using [employer] dictation software. Please excuse any grammatical, word or spelling errors.
[2024-07-15 11:21] LABS: Glucose,Whole Blood 147 mg/dL (70-110)
[2024-07-15 13:58] VITALS: BP 106/65
[2024-07-15 13:59] VITALS: PULSE 81
--- NOTE | 2024-07-15 14:22 | P.DS ---
Providers Date of admission: 07/03/24 01:44 Expected date of discharge: 07/15/24 Attending physician: Abram Whitfield Consults: 07/03/24 01:40 Consult Physician Urgent Consulting Provider: [facility] Consult Reason/Comments: acute chest pain, nstemi Do you want consulting provider notified?: Yes 07/03/24 14:48 Consult Physician Routine Consulting Provider: Abram Whitfield Consult Reason/Comments: eval for CABG 3v disease Do you want consulting provider notified?: Yes 07/08/24 13:55 Consult to Anesthesia Routine Consulting Provider: Anesthesia,Services Consult Reason/Comments: Cardiac Surgery Pre-Op 07/09/24 16:04 Consult Physician Routine Consulting Provider: Guero Montoya Consult Reason/Comments: Sta[facility] Unit Consult: post cardiac surgery Do you want consulting provider notified?: Yes Consult Physician Routine Consulting Provider: Robert Gustafson Consult Reason/Comments: insulin management Do you want consulting provider notified?: Already Contacted 07/11/24 09:58 Consult Physician Routine Consulting Provider: Husam Davis Consult Reason/Comments: Urine retention Do you want consulting provider notified?: Yes 07/14/24 08:26 Consult Physician Routine Consulting Provider: [place] Consult Reason/Comments: IPR at discharge Do you want consulting provider notified?: Yes Primary care physician: Patrice Garcia MD Hospital Course: FINAL DIAGNOSIS: Triple-vessel coronary artery disease, non-STEMI this admission Moderate mitral regurgitation on TTE Chest pain, shortness of breath secondary to above Acute urine retention requiring initiation of Silver catheter Postoperative acute blood loss anemia and thrombocytopenia, expected Paroxysmal atrial fibrillation, known common occurrence after cardiac surgery, currently sinus rhythm Acute kidney injury, secondary to hypotension Medical debility History of coronary artery disease with previous PCI of the RCA in 1997 Hypertension Hyperlipidemia, treated, cholesterol 136, LDL 75 BPH, remains on Proscar Osteoarthritis Previous tobacco dependence, preoperative FEV1 76% of predicted PRINCIPAL PROCEDURE: Off-pump coronary bypass grafting x 3 with DECKER to LAD, sequential left radial artery graft to obtuse marginal and intermediate coronary arteries Endovascular harvest of the left radial artery Oocclusion of the left atrial appendage with 35 mm AtriCure clip HISTORY OF PRESENT ILLNESS: This is an 83-year-old gentleman who follows outpatient with Dr. Garcia for internal medicine and Dr. Peña for cardiology. Apparently he had been experiencing intermittent episodes of chest pain radiating to his left arm for a couple of weeks. 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 He did take 3 sublingual nitro at home and family recommended he report to the emergency room for evaluation and treatment. Initially he started off at [facility], his troponins were found to be elevated and he was transferred to [facility] for evaluation. Lab work on admission revealed hemoglobin 12.4, creatinine 1.01, troponins were elevated at 0.192 increasing to 0.687. EKG demonstrated sinus rhythm with first-degree AV block and T wave inversions in leads III, aVF, V1 and V6. He was taken to the [facility] by Dr. Peña revealing triple-vessel coronary artery disease. Because of these findings consultation was placed to cardiothoracic surgery for surgical revascularization recommendations. He was seen by Dr. Miller as well as Dr. Whitfield. He was recommended to undergo surgical myocardial revascularization of his left sided coronaries with future stenting of the right sided coronary if necessary due to lack of appropriate conduit. The usual perioperative course was discussed in detail with the patient and his family, all risks and benefits were explained, all questions were answered, and consent was obtained to proceed with surgery. The patient was kept inpatient due to the nature of his disease process. HOSPITAL COURSE: The patient was brought to the preoperative area 07/09/24, prepared in the usual fashion, and subsequently taken to the operating room where Dr. Whitfield performed three-vessel off-pump CABG. Upon completion of surgery the patient was transferred to the cardiovascular intensive care unit where he was recovered and monitored hemodynamically. He was extubated, all lines, tubes, and drips were discontinued when appropriate, and transfer orders were placed for 3 S. cardiac stepdown unit, however there was no bed availability and the patient remained on ICU as a stepdown patient until discharge. His oxygen was titrated down, he continued to work with physical and occupational therapy, he was tolerating oral diet, his pain was controlled, and he was ready to be discharged to rehab on postoperative day #6. He received written and verbal instruction regarding his medications, activity restrictions, signs and symptoms requiring physician notification, and follow-up appointments. Patient Condition at Discharge: Stable Plan - Discharge Summary Discharge Rx Participant: No New Discharge Prescriptions: New Spironolactone [Aldactone] 25 mg PO DAILY tab Benzocaine/Menthol Lozeng [Cepacol lozenge] 1 each MUCOUS MEM Q2H PRN lozenge PRN Reason: Sore Throat Amiodarone [Cordarone] 200 mg PO BID tab bisacodyL [Dulcolax] 10 mg RECTAL DAILY PRN suppositor PRN Reason: Constipation Ipratropium-Albuterol Nebulize [Duoneb 0.5 mg-3 mg/3 ml Soln] 3 ml INHALATION RT-Q2H PRN each PRN Reason: Shortness Of Breath Or Wheezing Metoprolol Tartrate [Lopressor] 25 mg PO BID tab Melatonin 6 mg PO HS PRN tab PRN Reason: Insomnia Simethicone 40 mg/0.6 ml Drops [Mylicon Drops] 80 mg PO PCHS PRN ml PRN Reason: Bloating Pantoprazole [Protonix] 40 mg PO AC-BID tab Sennosides-Docusate Sodium [Senokot-S] 2 each PO HS tab Acetaminophen Tab [Tylenol] 1,000 mg PO Q6HR PRN tab PRN Reason: Fever And/ Or Pain Ascorbic Acid [Vitamin C] 500 mg PO BID-W/MEALS tab Tamsulosin [Flomax] 0.4 mg PO DAILY #30 cap Finasteride [Proscar] 5 mg PO DAILY #30 tablet Ipratropium-Albuterol Nebulize [Duoneb 0.5 mg-3 mg/3 ml Soln] 3 ml INHALATION RT-QID each Heparin Sodium,Porcine (1 ml) [Heparin Sodium] 5,000 unit SQ Q8HR each Ferrous Sulfate [Iron (65 MG Elemental)] 325 mg PO BID-W/MEALS tab Clopidogrel [Plavix] 75 mg PO DAILY tab Continue Atorvastatin [Lipitor] 40 mg PO DAILY Ezetimibe [Zetia] 10 mg PO DAILY Aspirin EC [Ecotrin Low Dose] 81 mg PO DAILY Discontinued lisinopriL [Zestril] 10 mg PO DAILY Naproxen Sodium [Aleve] 440 mg PO BID PRN PRN Reason: Pain Metoprolol Tartrate [Lopressor] 25 mg PO DAILY Finasteride [Proscar] 5 mg PO DAILY Discharge Medication List Aspirin EC [Ecotrin Low Dose] 81 mg PO DAILY 07/03/24 [History] Atorvastatin [Lipitor] 40 mg PO DAILY 07/03/24 [History] Ezetimibe [Zetia] 10 mg PO DAILY 07/03/24 [History] Finasteride [Proscar] 5 mg PO DAILY #30 tablet 07/11/24 [Rx] Tamsulosin [Flomax] 0.4 mg PO DAILY #30 cap 07/11/24 [Rx] Acetaminophen Tab [Tylenol] 1,000 mg PO Q6HR PRN tab 07/15/24 [Rx] Amiodarone [Cordarone] 200 mg PO BID tab 07/15/24 [Rx] Ascorbic Acid [Vitamin C] 500 mg PO BID-W/MEALS tab 07/15/24 [Rx] Benzocaine/Menthol Lozeng [Cepacol lozenge] 1 each MUCOUS MEM Q2H PRN lozenge 07/15/24 [Rx] Clopidogrel [Plavix] 75 mg PO DAILY tab 07/15/24 [Rx] Ferrous Sulfate [Iron (65 MG Elemental)] 325 mg PO BID-W/MEALS tab 07/15/24 [Rx] Heparin Sodium,Porcine (1 ml) [Heparin Sodium] 5,000 unit SQ Q8HR each 07/15/24 [Rx] Ipratropium-Albuterol Nebulize [Duoneb 0.5 mg-3 mg/3 ml Soln] 3 ml INHALATION RT-Q2H PRN each 07/15/24 [Rx] Ipratropium-Albuterol Nebulize [Duoneb 0.5 mg-3 mg/3 ml Soln] 3 ml INHALATION RT-QID each 07/15/24 [Rx] Melatonin 6 mg PO HS PRN tab 07/15/24 [Rx] Metoprolol Tartrate [Lopressor] 25 mg PO BID tab 07/15/24 [Rx] Pantoprazole [Protonix] 40 mg PO AC-BID tab 07/15/24 [Rx] Sennosides-Docusate Sodium [Senokot-S] 2 each PO HS tab 07/15/24 [Rx] Simethicone 40 mg/0.6 ml Drops [Mylicon Drops] 80 mg PO PCHS PRN ml 07/15/24 [Rx] Spironolactone [Aldactone] 25 mg PO DAILY tab 07/15/24 [Rx] bisacodyL [Dulcolax] 10 mg RECTAL DAILY PRN suppositor 07/15/24 [Rx] Follow up Appointment(s)/Referral(s): Guero Montoya MD [STAFF PHYSICIAN] - 1 Week (Please call for appointment upon discharge from rehab) [facility],Cardiac [NON-STAFF] - 4 Weeks (You will receive a phone call in approximately 4-6 weeks for evaluation for cardiac rehab) Husam Davis MD [STAFF PHYSICIAN] - 2 Weeks (Please call for appointment upon discharge from rehab) Patrice Garcia MD [Primary Care Provider] - 1 Week (Please call for appointment upon discharge from rehab) Abram Whitfield MD [STAFF PHYSICIAN] - 08/21/24 2:00 pm Yoandy Peña MD [STAFF PHYSICIAN] - 1 Week (Please call for appointment upon discharge from rehab) [facility] Visiting Nurse, [NON-STAFF] - (You should be seen by RN the day after discharge then 2-3 times per week until you start cardiac rehab. Physical and Occupational Therapy should visit at least once, may continue to visit if necessary ) Activity/Diet/Wound Care/Special Instructions: DISCHARGE INSTRUCTIONS: 1. No driving for 4 weeks, or until physician gives their ok. 2. The patient should sleep in their own bed, no medical bed needed. 3. Stairs are not an issue. If the bedroom is upstairs, it is advised that the patient go up at night and down in the morning for the first week. Go slowly, using handrail and take 1 step at a time. 4. JORGE hose are to be worn for 30 days post surgery or until physician discontinues. 5. Heart hugger is to be worn 100% of the time until physician discontinues.(except when showering) 6. No lifting, pushing, or pulling more than 10 pounds for 12 weeks. The physician will advise of any restriction changes. 7. The patient is expected to continue the prescribed walking program. 8. Continue pain control per as needed orders. 9. Continue with incentive spirometry and splinting/heart hugger until otherwise directed by the physician. 10. Must shower daily using liquid antibacterial soap 11. Routine sternal incision care. No powders, lotions, ointments on incisions. No dressings are necessary on incisions unless they are draining. Dermabond tape is to remain on sternal incision until surgeon follow-up. 12. Please call surgeon/PUG MILL OPERATOR for temp greater than 101 F or purulent drainage from incisions. 13. You should weigh yourself daily, record and bring log with you to follow up appointments. 14. All prescriptions given by surgeon for 30 days. Refills need to be filled through land use planner/primary care physician. 15. A Red armband has been placed on the patient. It should be worn for 30 days post discharge from surgery and will be removed by the cardiac surgeons. If an ER visit is necessary, please make sure the number on the Red armband is called before going to ER. 16. You have been referred to and are expected to begin Cardiac Rehab in approximately 4-6 weeks. 17. Quitting smoking is the most important step you can take to improve your health. For additional information and assistance to quit smoking, please call the [place] tobacco quit line (3-929-WHWZ-NOW/ ) or online: [email or web address] [email or web address] HOME HEALTH SERVICES TO PROVIDE: RN SKILLED HOME CARE SERVICES FOR POST-OP SURGICAL PATIENTS WITH THE FOLLOWING: Coronary Artery Bypass Surgery (CABG), Mitral Valve Replacement/Repair ( MVR), Aortic Valve Replacement/Repair (AVR) RN TO CONTINUE EDUCATION FROM ``ROAD TO A HEALTH HEART PATIENT EDUCATION MANUAL (GIVEN TO PATIENT IN THE HOSPITAL) MEDICATION RECONCILIATION WITH EDUCATION NEEDED ON FIRST HOME VISIT EMPHASIZE IMPORTANCE OF WEARING BREAST SUPPORT/HEART HUGGER ENCOURAGE USE OF INCENTIVE SPIROMETER 10 X EVERY HOUR WHILE AWAKE ENCOURAGE UTILIZATION OF LOWER EXTREMITY COMPRESSION STOCKINGS/JORGE HOSE and ELEVATE LEGS ABOVE LEVEL OF HEART WHILE AT REST. ENCOURAGE AMBULATION 3-5x/day INCREASING TOLERATES, WHILE AVOIDING EXTREMES IN TEMPERATURE FREQUENCY: RN TO OPEN THE PATIENT WITHIN 24 HOURS OF DISCHARGE FROM THE HOSPITAL WITH [place] [facility] [place]IT 2-3 X A WEEK FOR 4 WEEKS ESTABLISHED BY PATIENT NEEDS. LABORATORY: CBC, CMP TO BE DRAWN ON THE THIRD DAY HOME, (RAN STAT) FAX RESULTS TO [phone]. TELEHEALTH PARAMETERS: WEIGHT: NOTIFY MD OF WEIGHT GAIN OF 2 LBS IN 24 HOURS OR 5 LBS IN ONE WEEK HR: NOTIFY MD OF HR <55 BPM OR HR>100 BPM BP: NOTIFY MD IF BP <90/55 OR BP>140/100 O2 SAT: NOTIFY MD IF PO2<93% ON ROOM AIR SEND TELEHEALTH REPORT TO REFRIGERATION REPAIR SUPERVISOR AND CARDIOVASCULAR SURGEON THE FIRST WEEK OF CARE AND THEN BI-WEEKLY. PLEASE ADDITIONALLY COMMUNICATE ANY ABNORMALS AND NEW FINDINGS TO THE SURGEONS OFFICE. Discharge Disposition: DC/TRNS INTERMEDIATE CARE FAC
--- NOTE | 2024-07-17 15:02 | P.PN ---
Subjective Progress Note Date: 07/15/24 This is a pleasant 83-year-old male who was recently admitted after an NSTEMI noted to have significant coronary artery disease scheduled to undergo CABG today. Patient currently remains in the OR and will follow-up on official report and patient once returning to the floor. 07/10/2024 Patient is seen in follow-up this morning status post off-pump coronary bypass grafting x 3 with DECKER to the LAD with CT surgery and cardiology following closely. Pulmonary director consumer affairs following as well as patient is maintained in the ICU. Patient was successfully extubated yesterday evening and currently sitting up in the chair doing relatively well. Patient continues with bilateral chest tubes and is having swans catheter removed today. Patient does have incentive spirometer at the bedside and has been patient patient is afebrile with no reports of worsening shortness of breath. Patient is maintained on insulin drip per protocol and does not have history of diabetes. Will transition to sliding scale shortly. 07/11/2024 Patient is seen in follow-up today currently sitting up in the chair doing rela tively well. Family at the bedside and patient is tolerating diet with no reported nausea or vomiting. Patient is having some urinary retention and urology consulted. Patient required replacement of indwelling Silver catheter. Recommend Flomax and will await urology evaluation. Patient continues to use incentive spirometer and encouraged to use at least 10 times every hour while awake. Patient is showing good return demonstration of proper use of incentive spirometer. Patient is afebrile with no reports of chest pain or palpitations. There is some chest wall discomfort and heart hugger is noted. Patient reports to having excessive gas with no bowel movement as of yet. Will add simethicone. Patient has been transition to sliding scale insulin and blood sugars have been well-controlled. Patient is not a diabetic. 07/14/2024 Patient is seen in follow-up this morning doing relatively well working with physical therapy is significantly weak and a consult to inpatient rehab placed and pending. Blood sugars are well-controlled and will continue current regimen. Patient is not a diabetic. Patient reports is having bowel movements and continues with some mild chest wall discomfort. Patient is afebrile no reports of worsening shortness of breath. Encouraged continued incentive spirometer use at least 10 times every hour while awake. Recommend follow-up labs and monitoring kidney functions closely as creatinine is 1.6 today. 07/15/2024 Patient is seen in follow-up today remains in the ICU with multiple consultations following. Chest x-ray today shows findings consistent with persistent fluid overload CHF exacerbation with no significant change from 1 day previous. Patient is continued on room air at this time and was noted to have low pulse ox readings of 89%. Continue with supplemental oxygen and is continuing to use incentive spirometer. Sodium 129 today with a potassium of 4.2, BUN is 29 and creatinine is 1.41, hemoglobin is stable at 7.6 with no active bleeding noted. Blood sugars being monitored and will continue current regimen. Working on placement at inpatient rehab at [facility] Review of systems: Constitutional: No reports of fatigue, fever, or chills Cardiovascular: No reports of chest pain or palpitations Respiratory: reports of ongoing shortness of breath although no worse GI: No reports of nausea, vomiting, or diarrhea, reports having a bowel movement yesterday : No reports of dysuria patient reporting retention and did require indwelling Silver catheter Neurovascular: reports of generalized weakness All medications have been reviewed PHYSICAL EXAMINATION: GENERAL: The patient is alert and oriented x4, Well developed, well nourished. Elderly appearing HEENT: Pupils are round and equally reacting to light. EOMI. no scleral icterus. No conjunctival pallor. Normocephalic, atraumatic. No pharyngeal erythema. No thyromegaly. CARDIOVASCULAR: S1 and S2 muffled, chest tubes noted PULMONARY: diminished breath sounds bilaterally with no wheezing or rhonchi noted. ABDOMEN: soft. Nontender on exam. obese. non-distended, normoactive bowel sounds. No palpable organomegaly. MUSCULOSKELETAL: No joint swelling or deformity. EXTREMITIES: No cyanosis, clubbing, or pedal edema. Mild bilateral lower extremity edema noted NEUROLOGICAL: Gross neurological examination did not reveal any focal deficits. Diffusely weak SKIN: No rashes. Assessment: Acute NSTEMI with three-vessel disease status post three-vessel off-pump CABG on 07/09/2024 Acute urinary retention requiring indwelling Silver catheter, will continue Flomax, urology recommending trial voiding prior to discharge History of coronary artery disease Hypertension Dyslipidemia Gastroesophageal reflux disease History of BPH GI prophylaxis DVT prophylaxis Full code Plan: Recommend to continue with current medications and management per cardiology and cardiothoracic surgery. Patient is status post triple-vessel off-pump CABG and was successfully extubated, currently maintained on room air, strongly encourage incentive spirometer use 10 times every hour while awake, supportive 2 L at times Recommend PT/OT therapy daily. Patient is significantly weak and has had major surgery and prolonged hospitalization, recommend inpatient rehab which patient has been accepted and received insurance authorization Patient to continue monitoring Accu-Cheks ACHS per protocol postsurgery and will continue with sliding scale as needed. Blood sugars have been well- controlled. Patient is not a diabetic Patient was having some continued ongoing retention postoperatively requiring indwelling Silver catheter to be replaced. Flomax added and urology following recommends to continue with indwelling Silver catheter and trial void in the next few days and continue with Flomax and finasteride Will continue to follow with cardiothoracic team during hospitalization. Thank you kindly for this consultation Overall prognosis is guarded at this time The impression and plan of care has been dictated by nurse Jackie pra ctitioner as directed. Dr. Demian MD I have performed a history and examination and MDM of this patient, discussed the same with the dictator, and agree with the dictator's assessment and plan as written ,documented as a scribe. Based on total visit time, I have performed more than 50% of the visit. Any additional findings or plans will be noted. Objective - Vital Signs Vital signs: Vital Signs Temp 97.4 F L 07/15/24 08:17 Pulse 89 07/15/24 09:09 Resp 24 07/15/24 08:25 BP 111/61 07/15/24 09:02 Pulse Ox 89 L 07/15/24 08:58 FiO2 40 07/09/24 20:06 Intake & Output 07/14/24 07/15/24 07/15/24 18:59 06:59 18:59 Intake Total 700 Output Total 260 260 270 Balance 440 -260 -270 Weight 94.3 kg Intake: Oral 700 Output: Urine 260 260 270 Other: Voiding Method Indwelling Catheter Indwelling Catheter Indwelling Catheter ABP, PAP, CO, CI - Last Documented Arterial Blood Pressure 152/73 Pulmonary Artery Pressure 33/13 Cardiac Output 4.5 Cardiac Index 2.2 - Labs CBC & Chem 7: 07/15/24 05:16 07/15/24 05:16 Labs: Abnormal Lab Results - Last 24 Hours (Table) 07/14/24 07/14/2407/14/25 Range/Units 11:03 16:35 20:01 RBC (4.30-5.90) m/uL Hgb (13.0-17.5) gm/dL Hct (39.0-53.0) % Sodium (137-145) mmol/L Carbon Dioxide (22-30) mmol/L BUN (9-20) mg/dL Creatinine (0.66-1.25) mg/dL POC Glucose (mg/dL) 124 H 176 H 127 H (70-110) mg/dL 07/15/24 07/15/24 Range/Units 05:16 05:16 RBC 2.50 L (4.30-5.90) m/uL Hgb 7.6 L (13.0-17.5) gm/dL Hct 23.3 L (39.0-53.0) % Sodium 129 L (137-145) mmol/L Carbon Dioxide 21 L (22-30) mmol/L BUN 29 H (9-20) mg/dL Creatinine 1.41 H (0.66-1.25) mg/dL POC Glucose (mg/dL) (70-110) mg/dL
== END 2024-07-15 14:30 | DRG 234 ==
LOC: EC 21:48 → 3SCARD 07-03 01:44 → 2SICU 07-09 10:36
PROVIDERS: ADMIT Thoracic Surgery (Cardiothoracic Vascular Surgery); ATTEND Thoracic Surgery (Cardiothoracic Vascular Surgery)
PROC: 4A023N7 Measurement of Cardiac Sampling and Pressure, Left Heart, Percutaneous Approach (ICD-10-PCS; principal; 2024-07-03 15:15)
PROC: B2111ZZ Fluoroscopy of Multiple Coronary Arteries using Low Osmolar Contrast (ICD-10-PCS; principal; 2024-07-03 15:15)
PROC: 02110AW Bypass Coronary Artery, Two Arteries from Aorta with Autologous Arterial Tissue, Open Approach (ICD-10-PCS; 2024-07-09 12:15)
PROC: B24BZZ4 Ultrasonography of Heart with Aorta, Transesophageal (ICD-10-PCS; 2024-07-09 12:15)
PROC: 03BC0ZZ Excision of Left Radial Artery, Open Approach (ICD-10-PCS; 2024-07-09 12:15)
PROC: 02L70CK Occlusion of Left Atrial Appendage with Extraluminal Device, Open Approach (ICD-10-PCS; 2024-07-09 12:15)
PROC: 02100Z9 Bypass Coronary Artery, One Artery from Left Internal Mammary, Open Approach (ICD-10-PCS; 2024-07-09 12:15)
PROC: 3E033RZ Introduction of Antiarrhythmic into Peripheral Vein, Percutaneous Approach (ICD-10-PCS; 2024-07-09 12:15)
DX: I21.4 Non-ST elevation (NSTEMI) myocardial infarction (principal); E87.1 Hypo-osmolality and hyponatremia; J81.1 Chronic pulmonary edema; D69.6 Thrombocytopenia, unspecified; I12.9 Hypertensive chronic kidney disease with stage 1 through stage 4 chronic kidney disease, or unspecified chronic kidney disease; N18.9 Chronic kidney disease, unspecified; I34.0 Nonrheumatic mitral (valve) insufficiency; N17.9 Acute kidney failure, unspecified; D62 Acute posthemorrhagic anemia; I48.0 Paroxysmal atrial fibrillation; I95.9 Hypotension, unspecified; E78.5 Hyperlipidemia, unspecified; I25.10 Atherosclerotic heart disease of native coronary artery without angina pectoris; N40.1 Benign prostatic hyperplasia with lower urinary tract symptoms; R33.8 Other retention of urine; R39.14 Feeling of incomplete bladder emptying; M19.90 Unspecified osteoarthritis, unspecified site; K59.00 Constipation, unspecified; K21.9 Gastro-esophageal reflux disease without esophagitis; I44.0 Atrioventricular block, first degree; E87.70 Fluid overload, unspecified; R00.1 Bradycardia, unspecified; Z95.5 Presence of coronary angioplasty implant and graft; Z91.81 History of falling; Z79.899 Other long term (current) drug therapy; Z79.82 Long term (current) use of aspirin; Z82.49 Family history of ischemic heart disease and other diseases of the circulatory system; Z87.891 Personal history of nicotine dependence
CPT/HCPCS: 36415; 71045; 71046; 80048; 80053; 80061; 80074; 81003; 82330; 82805; 83036; 83735; 84443; 84484; 85025; 85027; 85610; 85730; 86850; 86900; 86901; 86920; 87070; 93306; 93454; 93880; 93970; 94002; 94150; 94640; 94760; 96365; 96366; 99291

== ENCOUNTER → 2024-10-08 | Day surgery (SDC) | payer MEDICARE ==
[~2024-10-08] MED LIST: ALPRAZolam 0.25 MG TAB PO PRN; ALPRAZolam 0.5 MG TAB PO PRN; ISOSORBIDE MONONITRATE ER 30 MG TAB.ER.24H PO SCH; NITROGLYCERIN SL TABS 0.4 MG TAB SUBLINGUAL PRN; RX INFO: IV CONTRAST WAS GIVEN 1 EACH MISC MISCELLANE PRN
[2024-10-08] MEDS: IV FLUID CONTINUATION 1,000 ML IV ONE (07:40)
[2024-10-08 07:49] LABS: Basophils # (A) 0.04 10*3/uL (0.00-0.10); Basophils % (A) 0.5 %; Eosinophils # (A) 1.08 10*3/uL (0.04-0.35); Eosinophils % (A) 12.3 %; HCT 36.6 % (39.6-50.0); HGB 12.3 g/dL (13.0-17.0); Lymphocytes # (A) 1.47 10*3/uL (0.90-5.00); Lymphocytes % (A) 16.7 %; MCH 29.9 pg (27.0-32.0); MCHC 33.6 g/dL (32.0-37.0); MCV 88.8 fL (80.0-97.0); Mean Platelet Volume 10.9 fL (9.5-12.2); Monocytes # (A) 1.04 10*3/uL (0.20-1.00); Monocytes % (A) 11.8 %; Neutrophils % (A) 57.9 %; Platelet Count 230 10*3/uL (140-440); RBC 4.12 10*6/uL (4.40-5.60); RDW 13.6 % (11.5-14.5)
[2024-10-08] MEDS: ASPIRIN 325 MG TAB PO STA (07:54)
[2024-10-08] MEDS: SODIUM CHLORIDE 0.9% 1,000 ML in EMPTY BAG 1 BAG IV SCH (07:54)
[2024-10-08 07:59] VITALS: RESP 16; TEMP 97.2
[2024-10-08 08:01] LABS: African American GFR (CKD) 38 (>60 ml/min/1.73 sqM); Anion Gap 12 mmol/L; Blood Urea Nitrogen 33 mg/dL (9-20); Calcium 9.2 mg/dL (8.4-10.2); Carbon Dioxide 20 mmol/L (22-30); Chloride 103 mmol/L (98-107); Glucose 103 mg/dL (74-99); Non-African American GFR(CKD) 33 (>60 ml/min/1.73 sqM); Sodium 135 mmol/L (137-145)
[2024-10-08] MEDS: HEPARIN SODIUM,PORCINE (1 ML) 2,500 UNIT in SODIUM CHLORIDE 0.9% 250 ML IRRIGATION PRN (08:49)
[2024-10-08] MEDS: HEPARIN SODIUM,PORCINE 10,000 UNIT in SODIUM CHLORIDE 0.9% 1,000 ML IRRIGATION PRN (08:49)
[2024-10-08] MEDS: MIDAZOLAM 2 MG/2 ML VIAL IVP ONE (09:18)
[2024-10-08] MEDS: LIDOCAINE 1% INJ 10MG/ML (30 ML VIAL-PF) SQ ONE (09:18)
[2024-10-08] MEDS: fentaNYL (PF) 50 MCG/ML 2 ML AMP IVP ONE (09:19)
[2024-10-08] MEDS: IOPAMIDOL-300 100ML BTL INJ ONE ×2 (09:44)
--- NOTE | 2024-10-08 11:26 | CC ---
CARDIAC CATHETERIZATION REPORT INDICATION: Unstable angina. This is an 83-year-old gentleman with history of coronary artery disease, status post CABG with DECKER to LAD and radial artery graft to OM and ramus intermedius, who had under vascularized stenosis in the right coronary artery, presented to me with progressively worsening shortness of breath with activity. This was thought to be anginal equivalent and the patient was advised to undergo cardiac catheterization. He was explained of risks, benefits, and alternatives including the risk of contrast- induced nephropathy. PROCEDURE NOTE: After obtaining informed consent, left heart catheterization and coronary angiogram were performed via the right femoral artery using standard Leana catheter. The patient tolerated the procedure well without any obvious immediate complications. Total sedation time was 21 minutes. FINDINGS: 1. Hemodynamics: Left ventricular end-diastolic pressure 7 mm. There is no significant gradient across the aortic valve. 2. Left ventriculogram: Not performed. 3. Angiographic data: a.[place] coronary arteries: Right coronary artery is a large dominant vessel that shows a focal 95% stenosis in the proximal portion. Left main coronary artery is a long vessel that shows a 70% stenosis as it bifurcates into circumflex coronary artery, ramus intermedius, and LAD. There is a 70% stenosis in the proximal portion of the LAD. I see a competitive flow in the LAD. 4. Selective injection of the bypass grafts: After multiple attempts, we could not locate the radial artery graft. DECKER to LAD was selectively engaged and it is patent and there is good flow proximally and distally. CONCLUSIONS: Three-vessel coronary artery disease as described above with patent DECKER to LAD, severe stenosis involving right coronary artery that was not previously . MMODL / IJN: [id number] /
[2024-10-08 18:25] VITALS: BP 103/58; PULSE 63
== END ==
LOC: CATHCVL 07:09
PROVIDERS: ATTEND Internal Medicine Cardiovascular Disease
DX: I25.110 Atherosclerotic heart disease of native coronary artery with unstable angina pectoris (principal); I10 Essential (primary) hypertension; E78.5 Hyperlipidemia, unspecified; Z72.0 Tobacco use; Z95.1 Presence of aortocoronary bypass graft; Z79.02 Long term (current) use of antithrombotics/antiplatelets; Z79.82 Long term (current) use of aspirin; Z79.899 Other long term (current) drug therapy
CPT/HCPCS: 93459; 80048; 85025; 99152; C1760; C1769 ×2; C1894; J2250; J1644 ×2; J2003; J3010; Q9967

== ENCOUNTER 2024-10-09 20:26 | Inpatient (IN) | payer MEDICARE ==
--- NOTE | 2024-10-09 21:05 | ED ---
Chest Pain HPI - General Source: patient, family, RN notes reviewed Mode of arrival: wheelchair Limitations: no limitations <Cris Mckeon - Last Filed: 10/09/24 21:00> <Jagruti Haley - Last Filed: 10/14/24 10:03> - General Chief Complaint: Chest Pain Stated Complaint: chest pain Time Seen by Provider: 10/09/24 20:50 - History of Present Illness Initial Comments: Quick Note: This is an 83-year-old male who presents to the emergency department for chest pain. Patient had a cardiac catheterization with Dr. Peña yesterday due to worsening shortness of breath. He was told that there were areas of stenosis and they had planned on doing another cardiac catheterization with stents tomorrow, however this had to be canceled as they did not get clearance from his insurance. Starting last night he was developing sharp bouts of chest pain that has been occurring intermittently since. (Cris Mckeon) Patient is a pleasant 83-year-old gentleman past medical history of CAD presenting today for chest pain. Patient had a cardiac stent placed yesterday at this hospital. He states he was supposed to have a second stent placed tomorrow however this was canceled due to difficulty obtaining prior Auth from insurance. He was told to come to the ER should he have return of chest pain. Patient was started having intermittent left-sided sharp chest pain last night. Became more persistent today. Endorses associated shortness of breath. Did not take any medications for the pain. He is currently on Plavix. No aspirin prior to arrival. Endorses cough nonproductive sputum. No hemoptysis. No lower extremity swelling. No fevers, diaphoresis, lightheadedness or nausea. He did state that intermittently the chest pain did feel like "heartburn". This has since resolved. (Jagruti Haley) - Related Data Home Medications Medication Instructions Recorded Confirmed Aspirin EC [Ecotrin Low Dose] 81 mg PO DAILY 07/03/24 10/10/24 Atorvastatin [Lipitor] 40 mg PO HS 07/03/24 10/10/24 Ezetimibe [Zetia] 10 mg PO HS 07/03/24 10/10/24 Docusate [Colace] 100 mg PO BID PRN 10/06/24 10/10/24 Furosemide [Lasix] 10 mg PO DAILY 10/06/24 10/10/24 polyethylene glycoL 3350 [Miralax] 17 gm PO DAILY PRN 10/06/24 10/10/24 Acetaminophen [Tylenol Arthritis] 650 mg PO Q4H PRN 10/10/24 10/10/24 Amiodarone HCl [Pacerone] 100 mg PO DAILY 10/10/24 10/10/24 Ferrous Sulfate [Iron (65 MG 325 mg PO DAILY 10/10/24 10/10/24 Elemental)] Loperamide [Imodium] 2 - 4 mg PO QID PRN 10/10/24 10/10/24 Previous Rx's Medication Instructions Recorded Finasteride [Proscar] 5 mg PO DAILY #30 tablet 07/11/24 Tamsulosin [Flomax] 0.4 mg PO DAILY #30 cap 07/11/24 Clopidogrel [Plavix] 75 mg PO DAILY tab 07/15/24 Metoprolol Tartrate [Lopressor] 25 mg PO BID tab 07/15/24 Spironolactone [Aldactone] 25 mg PO DAILY tab 07/15/24 Isosorbide Mononitrate ER [Imdur] 30 mg PO DAILY #30 tab 10/08/24 Nitroglycerin Sl Tabs [Nitrostat] 0.4 mg SUBLINGUAL Q5M PRN #30 tab 10/11/24 Allergies Allergy/AdvReac Type Severity Reaction Status Date / Time No Known Allergies Allergy Verified 10/10/24 09:56 Review of Systems ROS Other: All systems not noted in ROS Statement are negative. <Cris Mckeon - Last Filed: 10/09/24 21:00> ROS Other: All systems not noted in ROS Statement are negative. <Jagruti Haley - Last Filed: 10/14/24 10:03> ROS Statement: Those systems with pertinent positive or pertinent negative responses have been documented in the HPI. EKG Findings - EKG Comments: EKG Findings:: Sinus rhythm, rate 77 bpm, intervals within acceptable limits, some artifact present limiting interpretation however no significant ST elevations or reciprocal depressions, no arrhythmia <Jagruti Haley - Last Filed: 10/14/24 10:03> Past Medical History Past Medical History: Hyperlipidemia, Hypertension, Myocardial Infarction ([place]), Prostate Disorder Additional Past Medical History / Comment(s): shortness of breath,possible mi prior to cabg Last Myocardial Infarction Date:: unk History of Any Multi-Drug Resistant Organisms: None Reported Past Surgical History: Coronary Bypass/CABG, Heart Catheterization With Stent, Hernia Repair Additional Past Surgical History / Comment(s): heart stent x 1, open heart 07/09/24, recent heart cath 10/08/24 Past Anesthesia/Blood Transfusion Reactions: No Reported Reaction Date of Last Stent Placement:: 1997 stent placed Past Psychological History: No Psychological Hx Reported Smoking Status: Former smoker Past Alcohol Use History: Rare Past Drug Use History: None Reported - Past Family History Mother Family Medical History: Cancer Additional Family Medical History / Comment(s): breast CA Father Family Medical History: CVA/TIA Brother(s) Family Medical History: Cancer, Myocardial Infarction ([place]) <Cris Mckeon - Last Filed: 10/09/24 21:00> General Exam Limitations: no limitations <Cris Mckeon - Last Filed: 10/09/24 21:00> <Jagruti Haley - Last Filed: 10/14/24 10:03> - General Exam Comments Initial Comments: Visual Physical Exam Vital signs reviewed General: Well-appearing, nontoxic, no acute distress. Head: Normocephalic, atraumatic Eyes: PERRLA, EOMI ENT: Airway patent Chest: Nonlabored breathing Skin: No visual rash, normal skin tone Neuro: Alert and oriented 3 Musculoskeletal: No gross abnormalities (Cris Mckeon) PE: CONSTITUTIONAL: No apparent distress, well appearing SKIN: Warm, dry, no jaundice, hives or petechiae EYES: Pupils are equally round, extraocular movements intact without nystagmus, clear conjunctiva, non-icteric sclera HENT: Normocephalic, atraumatic, moist mucus membranes, oropharynx clear without exudates NECK: , Full range of motion, normal appearance PULMONARY: Clear to auscultation without wheezes, rhonchi, or rales, normal e xcursion, no accessory muscle use and no stridor CARDIOVASCULAR: Regular rate, rhythm, normal S1 and S2. No appreciated murmurs, rubs or gallops. Strong radial pulses with intact distal perfusion. No lower extremity edema GASTROINTESTINAL: Soft, active bowel sounds throughout, non-tender, non- distended, no palpable masses, no rebound or guarding. No hepatosplenomegaly GENITOURINARY: MUSCULOSKELETAL: Extremities have no gross deformity, no edema, redness, or swelling. No calf swelling NEUROLOGIC:_a/o x 3, GCS 15, normal mentation and speech. Moves all extremities x 4 without motor or sensory deficit PSYCHIATRIC:_normal mood and affect, thought process is clear and linear (Jagruti Haley) Course Vital Signs 10/09/24 10/09/24 10/10/24 20:27 23:00 00:00 Temperature 97.5 F L 98.1 F 98.1 F Pulse Rate 83 68 65 Respiratory 18 18 16 Rate Blood Pressure 110/59 106/64 110/64 O2 Sat by Pulse 97 98 97 Oximetry 10/10/24 10/10/24 10/10/24 02:00 06:00 09:00 Temperature 98.1 F Pulse Rate 71 73 76 Respiratory 18 18 17 Rate Blood Pressure 98/60 124/72 154/82 O2 Sat by Pulse 97 98 97 Oximetry 10/10/24 10/10/24 10/10/24 10:46 11:41 11:51 Temperature Pulse Rate 63 61 Respiratory 20 18 18 Rate Blood Pressure 107/65 116/64 O2 Sat by Pulse 97 99 Oximetry Chest Pain MDM <Cris Mckeon - Last Filed: 10/09/24 21:00> <Jagruti Haley - Last Filed: 10/14/24 10:03> - MDM I performed the QuickNote portion of this chart. Signed Cris Mckeon PA-C. (Cris Mckeon) Was pt. sent in by a medical professional or institution (ISELA Burris, DIRECTOR OF REAL ESTATE, urgent care, hospital, or jail...) When possible be specific @ -No Did you speak to anyone other than the patient for history (EMS, parent, family, police, friend...)? What history was obtained from this source @ -No Did you review nursing and triage notes (agree or disagree)? Why? @ -I reviewed and agree with nursing and triage notes Were old charts reviewed (outside hosp., previous admission, EMS record, old EKG, old radiological studies, urgent care reports/EKG's, jail records)? Report findings @ -Medical records reviewed-Reviewed cardiac catheterization report from 10/08/2024, significant for 95% stenosis in the proximal portion of the right coronary artery, left main coronary artery showed 70% stenosis as it bifurcated into the circumflex coronary artery, 70% stenosis in the proximal portion of the LAD Differential Diagnosis (chest pain, altered mental status, abdominal pain women, abdominal pain men, vaginal bleeding, weakness, fever, dyspnea, syncope, headache, dizziness, GI bleed, back pain, seizure, CVA, palpatations, mental health, musculoskeletal)? @Differential Chest Pain: Stable Angina, Unstable Angina, STEMI, NSTEMI Aortic Dissection, pericarditis, pleurisy, chostochondirits, Pneumothorax, Musculoskeletal, Esophageal Spasm GERD, Cholecystitis, Pancreatitis, Zoster, this is not meant to be an all- inclusive list. EKG interpreted by me (3pts min.). @ -As above X-rays interpreted by me (1pt min.). @Personally reviewed chest x-ray see no evidence of cardiomegaly or consolidations or pneumothorax I agree with radiologist interpretation CT interpreted by me (1pt min.). @ -None done U/S interpreted by me (1pt. min.). @ -None done What testing was considered but not performed or refused? (CT, X-rays, U/S, labs)? Why? @ -None What meds were considered but not given or refused? Why? @ -None Did you discuss the management of the patient with other professionals (professionals i.e. , PA, DIRECTOR OF REAL ESTATE, lab, RT, psych nurse, executive secretary social welfare, photo offset printer, teacher, house officer, family independence case manager)? Give summary @ -No Was smoking cessation discussed for >3mins.? @ -No Was critical care preformed (if so, how long)? @Yes 35 minutes Were there social determinants of health that impacted care today? How? (Homelessness, low income, unemployed, alcoholism, drug addiction, transportation, low edu. Level, literacy, decrease access to med. care, longterm, rehab)? @ -No Was there de-escalation of care discussed even if they declined (Discuss DNR or withdrawal of care, Hospice)? @ -No What co-morbidities impacted this encounter? (DM, HTN, Smoking, COPD, CAD, Cancer, CVA, ARF, Chemo, Hep., AIDS, mental health diagnosis, sleep apnea, morbid obesity)? @PAD, CAD Was patient admitted / discharged? Hospital course, mention meds given and route, prescriptions, significant lab abnormalities, going to OR and other pertinent info. @Admission- Patient is an 83-year-old gentleman past medical history of coronary artery disease, recent cardiac cath and stent placement presenting today for s harp left-sided chest pain. Patient was initially seen in the waiting room by triage provider. Seen by myself once roomed. EKG does not show signs of ST elevation or depressions. Troponin 0.023, GFR at baseline of 35, creatinine 1.79, sodium 132 BNP 209, mild anemia with hemoglobin 11.3. Patient is currently chest pain free. Will be given 324 mg aspirin, he placed on heparin infusion for unstable angina, cardiology consultation. Pt agreeable with POC. Case was discussed with Dr. Ruff who kindly accepted patient for admission. Undiagnosed new problem with uncertain prognosis? @ -No Drug Therapy requiring intensive monitoring for toxicity (Heparin, Nitro, Insulin, Cardizem)? heparin Were any procedures done? @ -No Diagnosis/symptom? @ Unstable angina Acute, or Chronic, or Acute on Chronic? @ acute Uncomplicated (without systemic symptoms) or Complicated (systemic symptoms)? @complicated Side effects of treatment? @ -No Exacerbation, Progression, or Severe Exacerbation? @ -No Poses a threat to life or bodily function? How? (Chest pain, [place], PR, pneumonia, PE, COPD, DKA, ARF, appy, cholecystitis, CVA, Diverticulitis, Homicidal, Suicidal, threat to staff... and all critical care pts) @Yes (Jagruti Haley) Disposition <Cris Mckeon - Last Filed: 10/09/24 21:00> <Jagruti Haley - Last Filed: 10/14/24 10:03> Clinical Impression: Unstable angina Disposition: ADMITTED IP TO THIS HOSP Condition: Stable
--- NOTE | 2024-10-09 21:11 | XR ---
EXAMINATION TYPE: XR chest 2V DATE OF EXAM: 10/09/2024 9:04 PM COMPARISON: Multiple radiographs, with the most recent on 09/03/2024 TECHNIQUE: XR chest 2V Frontal and lateral views of the chest. CLINICAL INDICATION:Male, 83 years old with history of Chest Pain; FINDINGS: Lungs/Pleura: There is no evidence of pleural effusion, focal consolidation, or pneumothorax. Pulmonary vascularity: Unremarkable. Heart/mediastinum: Cardiomediastinal silhouette is prominent in size. Postoperative changes are pres ent in the mediastinum. Left atrial appendage occlusion devices present. Musculoskeletal: No acute osseous pathology. Midline sternotomy wires are noted and stable. Remote ri ght-sided rib fractures. IMPRESSION: Chronic changes without acute pulmonary process. [facility], , 10/09/2024 9:08 PM
[2024-10-09 23:43] LABS: Basophils # (A) 0.05 10*3/uL (0.00-0.10); Basophils % (A) 0.5 %; Eosinophils % (A) 9.6 %; HCT 33.1 % (39.6-50.0); HGB 11.3 g/dL (13.0-17.0); Lymphocytes # (A) 1.51 10*3/uL (0.90-5.00); Lymphocytes % (A) 16.2 %; MCH 29.9 pg (27.0-32.0); MCHC 34.1 g/dL (32.0-37.0); MCV 87.6 fL (80.0-97.0); Mean Platelet Volume 11.1 fL (9.5-12.2); Monocytes # (A) 0.97 10*3/uL (0.20-1.00); Monocytes % (A) 10.4 %; Neutrophils # (A) 5.84 10*3/uL (1.80-7.70); Neutrophils % (A) 62.6 %; Platelet Count 181 10*3/uL (140-440); RBC 3.78 10*6/uL (4.40-5.60); RDW 13.9 % (11.5-14.5); WBC 9.34 10*3/uL (4.50-10.00)
[2024-10-09 23:57] LABS: ALT 12 U/L (4-49); AST 24 U/L (17-59); African American GFR (CKD) 40 (>60 ml/min/1.73 sqM); Albumin 3.8 g/dL (3.5-5.0); Alkaline Phosphatase 90 U/L (38-126); Anion Gap 12 mmol/L; Blood Urea Nitrogen 27 mg/dL (9-20); Calcium 9.4 mg/dL (8.4-10.2); Carbon Dioxide 21 mmol/L (22-30); Chloride 99 mmol/L (98-107); Glucose 89 mg/dL (74-99); Lipase 156 U/L (23-300); Magnesium 1.9 mg/dL (1.6-2.3); Non-African American GFR(CKD) 35 (>60 ml/min/1.73 sqM); Potassium 3.9 mmol/L (3.5-5.1); Sodium 132 mmol/L (137-145); Total Bilirubin 0.7 mg/dL (0.2-1.3); Total Protein 6.7 g/dL (6.3-8.2)
[2024-10-10 00:05] LABS: NT-Pro-B-Type Natriuretic Pept 209 pg/mL
[2024-10-10 00:15] LABS: INR 1.1 (<1.2)
[2024-10-10 00:21] LABS: Partial Thromboplastin Time 21.8 sec (22.0-30.0)
[2024-10-10] MEDS ORDERED: HEPARIN SODIUM 1,000 UN/ML (10ML VL) IV PRN (01:33)
[2024-10-10] MEDS ORDERED: ACETAMINOPHEN TAB 325 MG TAB PO PRN (01:55)
[2024-10-10] MEDS ORDERED: MORPHINE SULFATE 2 MG/ML SYRINGE IVP PRN (01:55)
[2024-10-10] MEDS ORDERED: NITROGLYCERIN SL TABS 0.4 MG TAB SUBLINGUAL PRN ×2 (01:55→07:56)
[2024-10-10] MEDS: ASPIRIN 81 MG PO STA (02:06)
[2024-10-10] MEDS: HEPARIN SOD,PORK IN 0.45% NACL 25,000 UNIT in 0.45% NACL 1 250ML.BAG IV SCH (02:06)
[2024-10-10] MEDS: HEPARIN SODIUM 1,000 UN/ML (10ML VL) IV ONE (02:06)
--- NOTE | 2024-10-10 02:37 | P.HPIM ---
History of Present Illness H&P Date: 10/10/24 Chief Complaint: Chest pain Patient is a 83 year old male with hyperlipidemia, hypertension, [place] s/p stent and CABG presented to the ED with chest pain. Patient experienced progressively worsening shortness of breath with activity and underwent cardiac catheterization yesterday with Dr. Peña that showed three-vessel coronary artery disease with patent DECKER to LAD, severe stenosis in right coronary artery. They had planned on doing another cardiac catheterization with stents tomorrow, but this had to be canceled and the patient did not get prior Auth from insurance. Patient reports intermittent sharp left-sided chest pain that started last night. Today his chest pain became more persistent. Associated with that he experiences shortness of breath and a nonproductive cough. He is currently on Plavix. Denies fever, palpitations, abdominal pain, nausea, vomiting, hematuria, dysuria, hematochezia, melena, headache, slurred speech, numbness, tingling, dizziness, lightheadedness, blurred vision, double vision. ED documentation reviewed. In the ED patient was treated with aspirin and heparin drip. Received aspirin 324 mg p.o. once in the ED Vitals on admission T 97.5 F, AR 83 bpm, RR 18, BP 110/59, SpO2 97% on room air EKG independently interpreted as sinus rhythm, S1Q3T3, rate 77 bpm, QTc 395 ms Chest x-ray shows chronic changes without acute pulmonary process Labs on admission show WBC 9.34, hemoglobin 11.3, platelet 181, INR 1.1, APTT 21.8, sodium 132, bicarb 21, BUN 27, creatinine 1.79, magnesium 1.9, NT proBNP 209, troponin I 0.023 Review of systems: Pertinent positives and negatives as discussed in HPI, a complete review of systems was performed and all other systems are negative. Physical examination: Vital signs reviewed General: nontoxic, no distress, appears at stated age Derm: warm, dry, intact Head: atraumatic, normocephalic, symmetric Eyes: EOMI, anicteric sclera Mouth: no lip lesion, mucus membranes moist Cardiovascular: S1 S2 reg, no murmur Lungs: CTA bilateral, no rhonchi, no rales, no accessory muscle use Abdominal: soft, non-tender to palpation Extremities: No cyanosis, clubbing, or pedal edema. Neuro: Alert, Oriented, Gross neurological examination did not reveal any focal deficits. Psych: well appearing, appropriate affect Assessment/Plan: Patient is a 83 year old male with hyperlipidemia, hypertension, [place] s/p stent and CABG presented to the ED with chest pain. Patient admitted to internal medicine service. Active: #. Unstable angina #. CAD S/p CABG, DECKER to LAD, left radial artery graft to obtuse marginal and intermediate coronary arteries, occlusion of the left atrial appendage troponin I 0.023 EKG independently interpreted as sinus rhythm, S1Q3T3, rate 77 bpm, QTc 395 ms Cardiac catheterization 10/08/24 showed three-vessel coronary artery disease with patent DECKER to LAD, severe stenosis in right coronary artery Echocardiogram 07/15 showed EF 55 to 60%, moderate concentric left ventricular hypertrophy, normal left ventricular size and systolic function, moderate mitral with mild aortic and tricuspid regurgitation Received aspirin 324 mg p.o. once in the ED Started on heparin drip Aspirin 81 mg PO daily and Atorvastatin 80 mg PO daily Nitroglycerin sublingual tablets, Tylenol, morphine for pain management Obtain lipid panel, A1c, TSH Continue to trend troponin Continue telemetry monitoring Cardiology consulted #. LUIS ANGEL on CKD, likely contrast induced kidney function worsening since June 2024 Concern for urinary retention on prior admission Obtain urinalysis, renal bladder ultrasound and bladder scan Monitor BMP #. Mild hyponatremia Monitor BMP Chronic: #. Hyperlipidemia #. Hypertension #. BPH Resume home meds once verified by pharmacy F: None E: Replete as required N: N.p.o. A: Bedrest DVT prophylaxis: Heparin drip The patient is admitted with an anticipated more than 2 midnight stay for evaluation of chest pain CODE STATUS: FULL CODE Discussed with: Patient Anticipated discharge place: Pending clinical course Dictation was produced using [employer] dictation software. please excuse any grammatical, word or spelling errors. Ethan Felix MD PGY-1 IM Attestation : Patient seen and examined with medical research scientist . Agree with above A&P . Patient is here for unstable Angina . Had stent on 10/08/2024 and was supposed to have another stent but got cancelled due to insurance issues . Start ACS protocol and Cardiology consult . Time spent : 55 min Past Medical History Past Medical History: Hyperlipidemia, Hypertension, Myocardial Infarction ([place]), Prostate Disorder Additional Past Medical History / Comment(s): shortness of breath,possible mi prior to cabg Last Myocardial Infarction Date:: unk History of Any Multi-Drug Resistant Organisms: None Reported Past Surgical History: Coronary Bypass/CABG, Heart Catheterization With Stent, Hernia Repair Additional Past Surgical History / Comment(s): heart stent x 1, open heart 07/09/24, recent heart cath 10/08/24 Past Anesthesia/Blood Transfusion Reactions: No Reported Reaction Date of Last Stent Placement:: 1997 stent placed Past Psychological History: No Psychological Hx Reported Smoking Status: Former smoker Past Alcohol Use History: Rare Past Drug Use History: None Reported - Past Family History Mother Family Medical History: Cancer Additional Family Medical History / Comment(s): breast CA Father Family Medical History: CVA/TIA Brother(s) Family Medical History: Cancer, Myocardial Infarction ([place]) Medications and Allergies Home Medications Medication Instructions Recorded Confirmed Type Aspirin EC [Ecotrin Low Dose] 81 mg PO DAILY 07/03/24 10/10/24 History Atorvastatin [Lipitor] 40 mg PO HS 07/03/24 10/10/24 History Ezetimibe [Zetia] 10 mg PO HS 07/03/24 10/10/24 History Finasteride [Proscar] 5 mg PO DAILY #30 tablet 07/11/24 10/10/24 Rx Tamsulosin [Flomax] 0.4 mg PO DAILY #30 cap 07/11/24 10/10/24 Rx Clopidogrel [Plavix] 75 mg PO DAILY tab 07/15/24 10/10/24 Rx Metoprolol Tartrate [Lopressor] 25 mg PO BID tab 07/15/24 10/10/24 Rx Spironolactone [Aldactone] 25 mg PO DAILY tab 07/15/24 10/10/24 Rx Docusate [Colace] 100 mg PO BID PRN 10/06/24 10/10/24 History Furosemide [Lasix] 10 mg PO DAILY 10/06/24 10/10/24 History polyethylene glycoL 3350 [Miralax] 17 gm PO DAILY PRN 10/06/24 10/10/24 History Isosorbide Mononitrate ER [Imdur] 30 mg PO DAILY #30 tab 10/08/24 10/10/24 Rx Acetaminophen [Tylenol Arthritis] 650 mg PO Q4H PRN 10/10/24 10/10/24 History Amiodarone HCl [Pacerone] 100 mg PO DAILY 10/10/24 10/10/24 History Ferrous Sulfate [Iron (65 MG 325 mg PO DAILY 10/10/24 10/10/24 History Elemental)] Loperamide [Imodium] 2 - 4 mg PO QID PRN 10/10/24 10/10/24 History Allergies Allergy/AdvReac Type Severity Reaction Status Date / Time No Known Allergies Allergy Verified 10/10/24 09:56 Physical Exam Vitals: Vital Signs Temp Pulse Resp BP Pulse Ox 10/10/24 00:00 98.1 F 65 16 110/64 97 10/09/24 23:00 98.1 F 68 18 106/64 98 10/09/24 20:27 97.5 F L 83 18 110/59 97 Intake and Output 10/09/24 10/09/24 10/10/24 14:59 22:59 06:59 Other: Weight 81.647 kg Results CBC & Chem 7: 10/10/24 06:39 10/10/24 06:39 Labs: Abnormal Lab Results - Last 24 Hours (Table) 10/09/24 10/09/24 10/09/24 Range/Units 23:32 23:32 23:32 RBC 3.78 L (4.40-5.60) 10*6/uL Hgb 11.3 L (13.0-17.0) g/dL Hct 33.1 L (39.6-50.0) % Immature Gran # 0.07 H (0.00-0.04) 10*3/uL Eosinophils # 0.90 H (0.04-0.35) 10*3/uL APTT 21.8 L (22.0-30.0) sec Sodium 132 L (137-145) mmol/L Carbon Dioxide 21 L (22-30) mmol/L BUN 27 H (9-20) mg/dL Creatinine 1.79 H (0.66-1.25) mg/dL
[2024-10-10 07:14] LABS: HCT 33.1 % (39.6-50.0); HGB 10.8 g/dL (13.0-17.0); MCH 28.8 pg (27.0-32.0); MCHC 32.6 g/dL (32.0-37.0); MCV 88.3 fL (80.0-97.0); Mean Platelet Volume 10.8 fL (9.5-12.2); Platelet Count 175 10*3/uL (140-440); Platelet Count 178 10*3/uL (140-440); RBC 3.75 10*6/uL (4.40-5.60); RDW 13.8 % (11.5-14.5); WBC 6.25 10*3/uL (4.50-10.00)
[2024-10-10 07:23] LABS: African American GFR (CKD) 41 (>60 ml/min/1.73 sqM); Anion Gap 10 mmol/L; Blood Urea Nitrogen 26 mg/dL (9-20); Calcium 8.9 mg/dL (8.4-10.2); Carbon Dioxide 21 mmol/L (22-30); Chloride 104 mmol/L (98-107); Glucose 92 mg/dL (74-99); Non-African American GFR(CKD) 36 (>60 ml/min/1.73 sqM); Potassium 3.8 mmol/L (3.5-5.1); Sodium 135 mmol/L (137-145)
[2024-10-10] MEDS ORDERED: ALPRAZolam 0.5 MG TAB PO PRN (07:56)
[2024-10-10] MEDS ORDERED: ALPRAZolam 0.25 MG TAB PO PRN (07:56)
[2024-10-10] MEDS ORDERED: ASPIRIN 325 MG TAB PO STA (07:56)
[2024-10-10] MEDS ORDERED: ATORVASTATIN 80 MG TAB PO SCH (09:00)
--- NOTE | 2024-10-10 09:21 | US ---
EXAMINATION TYPE: US kidneys/renal and bladder DATE OF EXAM: 10/10/2024 COMPARISON: NONE CLINICAL INDICATION: Male, 83 years old with history of [place]; [place] TECHNIQUE: Grayscale imaging of the bilateral kidneys and urinary bladder: FINDINGS: EXAM MEASUREMENTS: Right Kidney: 11.4 x 6.1 x 5.2 cm Left Kidney: 11.8 x 5.6 x 5.7 cm Exam is limited due to gas Right Kidney: Cortex appears thin. No hydronephrosis or masses seen Left Kidney: Cortex appears thin. No hydronephrosis or masses seen Bladder: Hypoechoic material seen within: 3.9 x 6.4 x 1.9 cm. *Possible, indistinct hyperechoic area seen that appears attached to the left bladder wall: 0.7 x 0.5 x 0.5 cm. Bilateral Jets seen: Yes IMPRESSION: 1. No evidence for obstructive uropathy. 2. Layering debris within the urinary bladder correlate with urinalysis. [facility], , 10/10/2024 9:18 AM
[2024-10-10] MEDS: CLOPIDOGREL 75 MG TAB PO SCH (09:24)
[2024-10-10] MEDS: ASPIRIN 81 MG PO SCH (09:24)
[2024-10-10] MEDS: METOPROLOL TARTRATE 25 MG TAB PO SCH (09:24)
[2024-10-10] MEDS: ISOSORBIDE MONONITRATE ER 30 MG TAB.ER.24H PO SCH (09:24)
[2024-10-10] MEDS: AMIODARONE 100 MG TAB PO SCH (09:24)
[2024-10-10] MEDS: ATORVASTATIN 40 MG TAB PO SCH (09:24)
[2024-10-10] MEDS: FUROSEMIDE 20 MG TAB PO SCH (09:24)
[2024-10-10] MEDS: EZETIMIBE 10 MG TAB PO SCH (09:24)
[2024-10-10] MEDS: ATORVASTATIN 80 MG TAB PO STA (09:24)
[2024-10-10] MEDS: SODIUM CHLORIDE 0.9% 1,000 ML IV SCH (09:26)
[2024-10-10 10:24] LABS: T4, Free (Free Thyroxine) 1.88 ng/dL (0.78-2.19)
[2024-10-10 10:26] LABS: Chol/HDL Ratio 2.79 Ratio
[2024-10-10] MEDS ORDERED: DOCUSATE 100 MG CAP PO PRN (12:04)
[2024-10-10] MEDS ORDERED: polyethylene glycoL 3350 17 GM POWD.PACK PO PRN (12:04)
--- NOTE | 2024-10-10 12:07 | P.CRDCN ---
History of Present Illness Consult date: 10/10/24 Reason for Consult (text): Unstable angina History of present illness: This is an 83-year-old male patient of Dr. Daniel Peña with past medical history of coronary artery disease status post CABG DECKER to LAD, radial artery graft to OM and ramus intermedius, also has significant lesion in the right coronary artery that could not undergo revascularization. He also has significant medical history of hypertension, dyslipidemia. We have been asked to evaluate the patient for unstable angina. On 10/08, patient was brought into the hospital underwent cardiac catheterization finding three-vessel coronary artery disease, started on Imdur and discharged home. Patient was doing well until he developed chest pain last evening and decided to come back into the hospital for further evaluation. Patient complains of intermittent sharp left-sided chest pain that became more persistent over time along with shortness of breath. No palpitations. Patient is seen today in the emergency center waiting for bed on the cardiac stepdown unit. Patient has been started on heparin drip. Patient is agreeable to move forward with PCI today with Dr. Newman. -EKG: Sinus rhythm with nonspecific T wave changes. -Chest x-ray: Chronic changes without acute process. -Laboratory studies: WBC 6.2, hemoglobin 10.9, BUN 26 and creatinine 1.74. Triglycerides 68, cholesterol 93, LDL 46. TSH 14.5 and free T41.88. -Home cardiac medications: Imdur 30 mg daily, aspirin 81 mg daily, atorvastatin 40 mg daily, amiodarone 100 mg daily, Plavix 75 mg daily, Lasix 20 mg daily, metoprolol tartrate 25 mg twice daily, Zetia 10 mg daily. -Echocardiogram performed on 07/03/2024 revealed normal LV size and systolic function. Moderate mitral and mild aortic and tricuspid regurgitation. Review Of Systems: At the time of my exam: CONSTITUTIONAL: Denies fever or chills. HEENT: Denies blurred vision, vision changes, or eye pain. Denies hemoptysis CARDIOVASCULAR: Denies chest pain. Denies orthopnea. Denies PND. Denies palpitations RESPIRATORY: Denies shortness of breath. GASTROINTESTINAL: Denies abdominal pain. Denies nausea or vomiting. HEMATOLOGIC: Denies bleeding disorders. GENITOURINARY: Denies any blood in urine. SKIN: Denies puritis. Denies rash. Physical examination: Gen: This is 83-year-old male in no acute distress VS: reviewed HEENT: Head is atraumatic, normocephalic. Pupils equal, round. Sclerae is anicteric. NECK: Supple. No JVD. LUNGS: Clear to auscultation. No wheezes or rhonchi. No intercostal retractions. HEART: Regular rate and rhythm. No murmur. ABDOMEN: Soft No tenderness. EXTREMITIES: No pedal edema. No calf tenderness. NEUROLOGICAL: Patient is awake, alert and oriented x3. Assessment: Unstable angina Known coronary artery disease with previous CABG Hypertension Dyslipidemia Plan: Resume patient's home cardiac medications Continue heparin drip Schedule patient for PCI today with Dr. Newman Further recommendations to follow based upon clinical course Thank you kindly for this consultation. Nurse practitioner note has been reviewed, I agree with documented findings and plan of care. Patient was seen and examined. Past Medical History Past Medical History: Hyperlipidemia, Hypertension, Myocardial Infarction (CA), Prostate Disorder Additional Past Medical History / Comment(s): shortness of breath,possible mi prior to cabg Last Myocardial Infarction Date:: unk History of Any Multi-Drug Resistant Organisms: None Reported Past Surgical History: Coronary Bypass/CABG, Heart Catheterization With Stent, Hernia Repair Additional Past Surgical History / Comment(s): heart stent x 1, open heart 07/09/24, recent heart cath 10/08/24 Past Anesthesia/Blood Transfusion Reactions: No Reported Reaction Date of Last Stent Placement:: 1997 stent placed Past Psychological History: No Psychological Hx Reported Smoking Status: Former smoker Past Alcohol Use History: Rare Past Drug Use History: None Reported - Past Family History Mother Family Medical History: Cancer Additional Family Medical History / Comment(s): breast CA Father Family Medical History: CVA/TIA Brother(s) Family Medical History: Cancer, Myocardial Infarction (CA) Medications and Allergies Home Medications Medication Instructions Recorded Confirmed Type Aspirin EC [Ecotrin Low Dose] 81 mg PO DAILY 07/03/24 10/10/24 History Atorvastatin [Lipitor] 40 mg PO HS 07/03/24 10/10/24 History Ezetimibe [Zetia] 10 mg PO HS 07/03/24 10/10/24 History Finasteride [Proscar] 5 mg PO DAILY #30 tablet 07/11/24 10/10/24 Rx Tamsulosin [Flomax] 0.4 mg PO DAILY #30 cap 07/11/24 10/10/24 Rx Clopidogrel [Plavix] 75 mg PO DAILY tab 07/15/24 10/10/24 Rx Metoprolol Tartrate [Lopressor] 25 mg PO BID tab 07/15/24 10/10/24 Rx Spironolactone [Aldactone] 25 mg PO DAILY tab 07/15/24 10/10/24 Rx Docusate [Colace] 100 mg PO BID PRN 10/06/24 10/10/24 History Furosemide [Lasix] 10 mg PO DAILY 10/06/24 10/10/24 History polyethylene glycoL 3350 [Miralax] 17 gm PO DAILY PRN 10/06/24 10/10/24 History Isosorbide Mononitrate ER [Imdur] 30 mg PO DAILY #30 tab 10/08/24 10/10/24 Rx Acetaminophen [Tylenol Arthritis] 650 mg PO Q4H PRN 10/10/24 10/10/24 History Amiodarone HCl [Pacerone] 100 mg PO DAILY 10/10/24 10/10/24 History Ferrous Sulfate [Iron (65 MG 325 mg PO DAILY 10/10/24 10/10/24 History Elemental)] Loperamide [Imodium] 2 - 4 mg PO QID PRN 10/10/24 10/10/24 History Allergies Allergy/AdvReac Type Severity Reaction Status Date / Time No Known Allergies Allergy Verified 10/10/24 09:56 Physical Exam Vitals: Vital Signs Temp Pulse Resp BP Pulse Ox 10/10/24 06:00 73 18 124/72 98 10/10/24 02:00 98.1 F 71 18 98/60 97 10/10/24 00:00 98.1 F 65 16 110/64 97 10/09/24 23:00 98.1 F 68 18 106/64 98 10/09/24 20:27 97.5 F L 83 18 110/59 97 Intake and Output 10/09/24 10/10/24 10/10/24 22:59 06:59 14:59 Other: Weight 81.647 kg Results 10/10/24 06:39 10/10/24 06:39 Cardiac Enzymes 10/09/24 10/09/24 10/10/24 Range/Units 23:32 23:32 02:48 AST 24 (17-59) U/L Troponin I 0.023 0.023 (0.000-0.034) ng/mL 10/10/24 Range/Units 06:39 AST (17-59) U/L Troponin I 0.025 (0.000-0.034) ng/mL Coagulation 10/09/24 10/10/24 Range/Units 23:32 06:39 PT 12.0 (10.0-12.5) sec APTT 21.8 L 45.1 H (22.0-30.0) sec CBC 10/09/24 10/10/24 10/10/24 Range/Units 23:32 06:39 06:39 WBC 9.34 6.25 (4.50-10.00) 10*3/uL RBC 3.78 L 3.75 L (4.40-5.60) 10*6/uL Hgb 11.3 L 10.8 L (13.0-17.0) g/dL Hct 33.1 L 33.1 L (39.6-50.0) % Plt Count 181 175 178 (140-440) 10*3/uL Comprehensive Metabolic Panel 10/09/24 10/10/24 Range/Units 23:32 06:39 Sodium 132 L 135 L (137-145) mmol/L Potassium 3.9 3.8 (3.5-5.1) mmol/L Chloride 99 104 (98-107) mmol/L Carbon Dioxide 21 L 21 L (22-30) mmol/L BUN 27 H 26 H (9-20) mg/dL Creatinine 1.79 H 1.74 H (0.66-1.25) mg/dL Glucose 89 92 (74-99) mg/dL Calcium 9.4 8.9 (8.4-10.2) mg/dL AST 24 (17-59) U/L ALT 12 (4-49) U/L Alkaline Phosphatase 90 (38-126) U/L Total Protein 6.7 (6.3-8.2) g/dL Albumin 3.8 (3.5-5.0) g/dL Current Medications Generic Name Dose Route Start Last Admin Trade Name Freq PRN Reason Stop Dose Admin Acetaminophen 650 mg 10/10/24 01:55 Acetaminophen Tab 325 Mg Tab PO Q4HR PRN Pain Aspirin 81 mg 10/10/24 09:00 Aspirin 81 Mg PO DAILY [facility] Heparin Sodium (Porcine) 0 unit 10/10/24 01:33 Heparin Sodium 1,000 Un/Ml (10ml Vl) IV PER PROTOCOL PRN Low PTT Protocol Heparin Sodium/Sodium Chloride 250 mls @ 9.798 mls/hr 10/10/24 01:45 10/10/24 02:06 25,000 unit/ Sodium Chloride IV 12 units/kg/hr .Q24H JAE 9.798 mls/hr Administration Protocol 12 UNITS/KG/HR Morphine Sulfate 2 mg 10/10/24 01:55 Morphine Sulfate 2 Mg/Ml Syringe IVP 10/10/24 12:00 Q5M PRN Chest Pain Nitroglycerin 0.4 mg 10/10/24 01:55 Nitroglycerin Sl Tabs 0.4 Mg Tab SUBLINGUAL Q5M PRN Chest Pain Intake and Output 10/09/24 10/10/24 10/10/24 22:59 06:59 14:59 Other: Weight 81.647 kg 10/10/24 06:39 10/10/24 06:39
--- NOTE | 2024-10-10 12:08 | P.PN ---
Subjective Progress Note Date: 10/10/24 Hospital Course: Patient is a 83 year old male with hyperlipidemia, hypertension, OH s/p stent and CABG presented to the ED with chest pain. Patient experienced progressively worsening shortness of breath with activity and underwent cardiac catheterization yesterday with Dr. Peña that showed three-vessel coronary artery disease with patent DECKER to LAD, severe stenosis in right coronary arter y. They had planned on doing another cardiac catheterization with stents tomorrow, but this had to be canceled and the patient did not get prior Auth from insurance. Patient reports intermittent sharp left-sided chest pain that started last night. Today his chest pain became more persistent. Associated with that he experiences shortness of breath and a nonproductive cough. He is currently on Plavix. Denies fever, palpitations, abdominal pain, nausea, vomiting, hematuria, dysuria, hematochezia, melena, headache, slurred speech, numbness, tingling, dizziness, lightheadedness, blurred vision, double vision. ED documentation reviewed. In the ED patient was treated with aspirin and heparin drip. Received aspirin 324 mg p.o. once in the ED Vitals on admission T 97.5 F, OR 83 bpm, RR 18, BP 110/59, SpO2 97% on room airEKG independently interpreted as sinus rhythm, S1Q3T3, rate 77 bpm, QTc 395 ms.Chest x-ray shows chronic changes without acute pulmonary process.Labs on admission show WBC 9.34, hemoglobin 11.3, platelet 181, INR 1.1, APTT 21.8, sodium 132, bicarb 21, BUN 27, creatinine 1.79, magnesium 1.9, NT proBNP 209, troponin I 0.023 10/10: Seen examined at bedside in the ER. Denies any chest pain at that moment, no shortness of breath. Vitals are stable with blood pressure in 111/64, heart rate in 60s, satting well on room air. Hemoglobin stable 10.8, no leukocytosis, sodium improved to 135, creatinine stable 1.74, potassium 3.8, LDL 46, TSH 14.5 however T4 is 1.8. Plan for Cardiac Heart Cath later today Pertinent positives and negatives as discussed above, a complete review of systems was performed and all other systems are negative. Vitals Signs Reviewed. General: [nontoxic], [no distress], [appears at stated age] Derm: [warm], [dry] Head: [atraumatic], [normocephalic], [symmetric] Eyes: [EOMI], [no lid lag], [anicteric sclera] Mouth: [no lip lesion], [mucus membranes moist] Cardiovascular: [S1S2 reg], [no murmur] Lungs: [CTA bilateral], [no rhonchi, no rales] , [no accessory muscle use] Abdominal: [soft], [ nontender to palpation], [no guarding], [no appreciable organomegaly] Ext: [no gross muscle atrophy], [no edema], [no contractures] Neuro: [ CN II-XI grossly intact], [no focal neuro deficits] Psych: [Alert], [oriented], [appropriate affect] Assessment and Plan: Unstable angina CAD S/p CABG, DECKER to LAD, left radial artery graft to obtuse marginal and intermediate coronary arteries, occlusion of the left atrial appendage Hypertension Hyperlipidemia -chocardiogram 07/15 showed EF 55 to 60%, moderate concentric left ventricular hypertrophy, normal left ventricular size and systolic function, moderate mitral with mild aortic and tricuspid regurgitation Received aspirin 324 mg p.o. once in the ED Started on heparin drip Aspirin 81 mg PO daily and Atorvastatin 80 mg PO daily -Continue home Imdur 30 daily, Lopressor 25 twice daily, Lasix 20 oral daily, ezetimibe 10 mg daily, Plavix 75 mg daily amiodarone 100 mg p.o. daily Nitroglycerin sublingual tablets, Tylenol, morphine for pain management LDL 46, TSH 14.5, free T41.8, A1c pending Continue telemetry monitoring Cardiology consulted for cardiac LUIS ANGEL on CKD 3A, likely contrast induced Hyponatremia BPH Concern for urinary retention on prior admission Obtain urinalysis, ultrasounds negative for obstructive uropathy Monitor BMP daily - Continue NS at 75 cc/h - Hold home spironolactone - Continue tamsulosin 0.4 daily, finasteride 5 mg p.o. daily Chronic iron deficiency anemia: Continue ferrous sulfate 325 p.o. daily DVT ppx: Heparin drip Code status: Full code Anticipated discharge place: TBD Anticipated discharge time: TBD Objective - Vital Signs Vital signs: Vital Signs Temp 98.1 F 10/10/24 02:00 Pulse 61 10/10/24 11:41 Resp 18 10/10/24 11:51 BP 116/64 10/10/24 11:41 Pulse Ox 99 10/10/24 11:41 FiO2 Intake & Output 10/09/24 10/10/24 10/10/24 18:59 06:59 18:59 Weight 81.647 kg - Labs CBC & Chem 7: 10/10/24 06:39 10/10/24 06:39 Labs: Abnormal Lab Results - Last 24 Hours (Table) 10/09/24 10/09/24 10/09/24 Range/Units 23:32 23:32 23:32 RBC 3.78 L (4.40-5.60) 10*6/uL Hgb 11.3 L (13.0-17.0) g/dL Hct 33.1 L (39.6-50.0) % Immature Gran # 0.07 H (0.00-0.04) 10*3/uL Eosinophils # 0.90 H (0.04-0.35) 10*3/uL APTT 21.8 L (22.0-30.0) sec Sodium 132 L (137-145) mmol/L Carbon Dioxide 21 L (22-30) mmol/L BUN 27 H (9-20) mg/dL Creatinine 1.79 H (0.66-1.25) mg/dL HDL Cholesterol (40.00-60.00) mg/dL TSH (0.465-4.680) mIU/L 10/10/24 10/10/24 10/10/24 Range/Units 06:39 06:39 06:39 RBC 3.75 L (4.40-5.60) 10*6/uL Hgb 10.8 L (13.0-17.0) g/dL Hct 33.1 L (39.6-50.0) % Immature Gran # (0.00-0.04) 10*3/uL Eosinophils # (0.04-0.35) 10*3/uL APTT 45.1 H (22.0-30.0) sec Sodium 135 L (137-145) mmol/L Carbon Dioxide 21 L (22-30) mmol/L BUN 26 H (9-20) mg/dL Creatinine 1.74 H (0.66-1.25) mg/dL HDL Cholesterol 33.30 L (40.00-60.00) mg/dL TSH (0.465-4.680) mIU/L 10/10/24 Range/Units 06:39 RBC (4.40-5.60) 10*6/uL Hgb (13.0-17.0) g/dL Hct (39.6-50.0) % Immature Gran # (0.00-0.04) 10*3/uL Eosinophils # (0.04-0.35) 10*3/uL APTT (22.0-30.0) sec Sodium (137-145) mmol/L Carbon Dioxide (22-30) mmol/L BUN (9-20) mg/dL Creatinine (0.66-1.25) mg/dL HDL Cholesterol (40.00-60.00) mg/dL TSH 14.500 H (0.465-4.680) mIU/L
[2024-10-10] MEDS: SODIUM CHLORIDE 0.9% 1,000 ML IV ONE (12:31)
[2024-10-10] MEDS: HEPARIN SODIUM,PORCINE 10,000 UNIT in SODIUM CHLORIDE 0.9% 1,000 ML IRRIGATION PRN (12:32)
[2024-10-10] MEDS: HEPARIN SODIUM,PORCINE (1 ML) 2,500 UNIT in SODIUM CHLORIDE 0.9% 250 ML IRRIGATION PRN (12:32)
[2024-10-10] MEDS: LIDOCAINE 2% (PF) 20 MG/ML 5 ML VIAL SQ ONE (12:42)
[2024-10-10] MEDS: fentaNYL (PF) 50 MCG/1 ML VIAL IVP ONE (12:42)
[2024-10-10] MEDS: MIDAZOLAM 2 MG/2 ML VIAL IVP ONE ×2 (12:42→12:50)
[2024-10-10] MEDS: VERAPAMIL 2.5 MG/ML 4 ML VIAL INTRAARTER ONE (12:43)
[2024-10-10] MEDS: HEPARIN SODIUM 1,000 UN/ML (10ML VL) IVP ONE ×3 (12:52→14:19)
[2024-10-10] MEDS: PHENYLEPHRINE-0.9% NACL SYG 1,000 MCG/10 ML SYRINGE IVP ONE ×6 (12:57→13:30)
[2024-10-10] MEDS: IOPAMIDOL-370 100ML BTL INTRATHECA ONE (14:13)
[2024-10-10] MEDS ORDERED: RX INFO: IV CONTRAST WAS GIVEN 1 EACH MISC MISCELLANE PRN (14:15)
[2024-10-10] MEDS ORDERED: ATROPINE SULFATE 0.1 MG/ML 10ML SYRINGE IV PRN (14:15)
[2024-10-10] MEDS ORDERED: ZOLPIDEM 5 MG TAB PO PRN (14:15)
[2024-10-10] MEDS ORDERED: MAG HYDROX/AL HYDROX/SIMETH 30 ML CUP PO PRN (14:15)
[2024-10-10] MEDS: CLOPIDOGREL 75 MG TAB PO ONE (14:19)
[2024-10-10 20:11] LABS: Appearance,Urine Cloudy (Clear); Bilirubin,Urine Negative (Negative); Blood,Urine Trace (Negative); Color,Urine Colorless; Glucose,Urine (UA) Negative (Negative); Ketones,Urine Negative (Negative); Leukocyte Esterase,Urine Large (Negative); Nitrite,Urine Negative (Negative); PH, Urine 5.5 (5.0-8.0); Protein,Urine Negative (Negative); RBC,Urine 2 /hpf (0-5); Specific Gravity,Urine 1.019 (1.001-1.035); Urobilinogen,Urine <2.0 mg/dL (<2.0); WBC,Urine >182 /hpf (0-5)
[2024-10-11 06:19] LABS: Basophils # (A) 0.05 10*3/uL (0.00-0.10); Basophils % (A) 0.7 %; Eosinophils # (A) 0.83 10*3/uL (0.04-0.35); Eosinophils % (A) 11.6 %; HCT 31.6 % (39.6-50.0); HGB 10.3 g/dL (13.0-17.0); Lymphocytes # (A) 0.86 10*3/uL (0.90-5.00); MCH 29.3 pg (27.0-32.0); MCHC 32.6 g/dL (32.0-37.0); Mean Platelet Volume 11.5 fL (9.5-12.2); Monocytes # (A) 0.91 10*3/uL (0.20-1.00); Monocytes % (A) 12.7 %; Neutrophils # (A) 4.48 10*3/uL (1.80-7.70); Neutrophils % (A) 62.4 %; Platelet Count 176 10*3/uL (140-440); RBC 3.51 10*6/uL (4.40-5.60); RDW 13.8 % (11.5-14.5); WBC 7.17 10*3/uL (4.50-10.00)
[2024-10-11 06:27] LABS: INR 1.2 (<1.2); Prothrombin Time 12.8 sec (10.0-12.5)
[2024-10-11 06:55] LABS: African American GFR (CKD) 42 (>60 ml/min/1.73 sqM); Non-African American GFR(CKD) 36 (>60 ml/min/1.73 sqM)
--- NOTE | 2024-10-11 07:28 | P.PCN ---
Date of Procedure: 10/11/24 Operative Findings: Percutaneous coronary intervention Performing physician Allen Newman MD Procedure performed 1. Successful stenting of a very complex and very calcified proximal and mid RCA using 3.0 x 38 mm Xience SONIA which was postdilated using 4 mm NC balloon with an excellent angiographic results and reduction of stenosis from 99% to 0% 2. Adjunctive use of IVUS and lithotripsy balloon 3. Right coronary artery angiogram 4. Ultrasound-guided access of the right radial artery Indication Symptomatic 83-year-old gentleman who underwent a heart catheterization few days ago and was found to have critical disease involving the RCA Approach Right radial artery Complications None Level of sedation Moderate to sedation next of 80 minutes Procedure description Please refer to diagnostic heart catheterization was performed by Dr. Peña few days ago. The right radial artery was cannulated using micropuncture technique under ultrasound guidance the micropuncture wire passed easily then I placed a 6 Nepali 11 cm sheath at the right radial artery and gave the patient 2 mg of verapamil intra-arterial and initially 5000 units of heparin intravenous with continuous ACT monitoring. I was able to engage the RCA using JR4 guiding catheter. I attempted wiring the RCA using a wrist wire but that was unsuccessful successfully using a whisper wire. The wire was advanced to the PDA branch of the right coronary artery. Subsequently I advanced a guide liner to the tip of the guide because I needed a need for more support. I started the predilatation using 2.0 mm NC balloon and subsequently 2.5 mm NC balloon subsequently 3.0 mm NC balloon before I advanced 4.0 lithotripsy balloon and did PTCA reloading of the mid and proximal RCA but the balloon was not advanced all the way to the very distal part of the midportion. After that I was able to advance a 3.0 x 38 mm stent for the stent was positioned under fluoroscopy guidance and deployed under fluoroscopy guidance. Postdilatation of the stent was performed using 4 mm NC balloon. Please note that I have to change the GuideLiner into a double wire/sj wire because I had difficulties advancing the postdilatation balloon. By the end angiogram was performed and showed an excellent angiographic results and the procedure was completed with no complication Postprocedure management Dual antiplatelet therapy using aspirin and Plavix for 12 months Aggressive cholesterol control Risk factors modification Follow-up with the patient
[2024-10-11] MEDS: TAMSULOSIN 0.4 MG CAP.ER.24H PO SCH (09:57)
[2024-10-11] MEDS: FERROUS SULFATE 325 MG TAB PO SCH (09:58)
[2024-10-11] MEDS: FINASTERIDE 5 MG TAB PO SCH (09:58)
[2024-10-11 12:39] VITALS: BMI 25.8
--- NOTE | 2024-10-11 14:09 | P.DS ---
Providers Date of admission: 10/10/24 01:55 Attending physician: Santy Ruff MD Consults: 10/10/24 01:55 Consult Physician Urgent Consulting Provider: Cardiology Dustin Consult Reason/Comments: UA Do you want consulting provider notified?: Yes, Notify in am 10/10/24 14:16 Consult Physician Routine Consulting Provider: Andreea Chan Consult Reason/Comments: Post Interventional Patient Do you want consulting provider notified?: Already Contacted Primary care physician: Patrice Garcia MD Hospital Course: Hospital Course: Patient is a 83 year old male with hyperlipidemia, hypertension, OH s/p stent and CABG presented to the ED with chest pain. Patient experienced progressively worsening shortness of breath with activity and underwent cardiac catheterization yesterday with Dr. Peña that showed three-vessel coronary artery disease with patent DECKER to LAD, severe stenosis in right coronary artery. They had planned on doing another cardiac catheterization with stents tomorrow, but this had to be canceled and the patient did not get prior Auth from insurance. Patient reports intermittent sharp left-sided chest pain that started last night. Today his chest pain became more persistent. Associated with that he experiences shortness of breath and a nonproductive cough. He is currently on Plavix. Denies fever, palpitations, abdominal pain, nausea, vomiting, hematuria, dysuria, hematochezia, melena, headache, slurred speech, numbness, tingling, dizziness, lightheadedness, blurred vision, double vision. ED documentation reviewed. In the ED patient was treated with aspirin and heparin drip. Received aspirin 324 mg p.o. once in the ED Vitals on admission T 97.5 F, MA 83 bpm, RR 18, BP 110/59, SpO2 97% on room airEKG independently interpreted as sinus rhythm, S1Q3T3, rate 77 bpm, QTc 395 ms.Chest x-ray shows chronic changes without acute pulmonary process.Labs on admission show WBC 9.34, hemoglobin 11.3, platelet 181, INR 1.1, APTT 21.8, sodium 132, bicarb 21, BUN 27, creatinine 1.79, magnesium 1.9, NT proBNP 209, troponin I 0.023 Patient was taken to heart Cath on 10/10, underwent successful stenting of a very complex and very calcified proximal and mid RCA. He was seen and examined on 10/11, and daughter present during exam. He feels better, denies chest pain or shortness of breath, vital signs are stable, he is normotensive and afebrile, on room air. Hemoglobin is stable at 10.3, no leukocytosis, kidney function stable creatinine 1.73. Pertinent positives and negatives as discussed above, a complete review of systems was performed and all other systems are negative. Vitals Signs Reviewed. General: [nontoxic], [no distress], [appears at stated age] Derm: [warm], [dry] Head: [atraumatic], [normocephalic], [symmetric] Eyes: [EOMI], [no lid lag], [anicteric sclera] Mouth: [no lip lesion], [mucus membranes moist] Cardiovascular: [S1S2 reg], [no murmur] Lungs: [CTA bilateral], [no rhonchi, no rales] , [no accessory muscle use] Abdominal: [soft], [ nontender to palpation], [no guarding], [no appreciable organomegaly] Ext: [no gross muscle atrophy], [no edema], [no contractures] Neuro: [ CN II-XI grossly intact], [no focal neuro deficits] Psych: [Alert], [oriented], [appropriate affect] Assessment and Plan: Unstable angina CAD S/p CABG, DECKER to LAD, left radial artery graft to obtuse marginal and intermediate coronary arteries, occlusion of the left atrial appendage, S/p proximal and mid RCA stenting 10/10/2024 Hypertension Hyperlipidemia -chocardiogram 07/15 showed EF 55 to 60%, moderate concentric left ventricular hypertrophy, normal left ventricular size and systolic function, moderate mitral with mild aortic and tricuspid regurgitation Received aspirin 324 mg p.o. once in the ED Aspirin 81 mg PO daily and Atorvastatin 80 mg PO daily -He is continued on heparin drip -Continue home Imdur 30 daily, Lopressor 25 twice daily, Lasix 20 oral daily, ezetimibe 10 mg daily, Plavix 75 mg daily amiodarone 100 mg p.o. daily Nitroglycerin sublingual tablets, Tylenol, morphine for pain management LDL 46, TSH 14.5, free T41.8, A1c pending Continue telemetry monitoring Cardiology following - Discussed with RN, patient's daughter and . LUIS ANGEL on CKD 3A, likely contrast induced Hyponatremia BPH Concern for urinary retention on prior admission Obtain urinalysis, ultrasounds negative for obstructive uropathy Monitor BMP daily - Continue LR at 75 cc/h - Hold home spironolactone - Continue tamsulosin 0.4 daily, finasteride 5 mg p.o. daily Chronic iron deficiency anemia: Continue ferrous sulfate 325 p.o. daily DVT ppx: Heparin drip Code status: Full code Anticipated discharge place: TBD Anticipated discharge time: TBD Patient Condition at Discharge: Stable Plan - Discharge Summary Discharge Rx Participant: No New Discharge Prescriptions: No Action Atorvastatin [Lipitor] 40 mg PO HS Spironolactone [Aldactone] 25 mg PO DAILY tab Metoprolol Tartrate [Lopressor] 25 mg PO BID tab Docusate [Colace] 100 mg PO BID PRN PRN Reason: Constipation Furosemide [Lasix] 10 mg PO DAILY polyethylene glycoL 3350 [Miralax] 17 gm PO DAILY PRN PRN Reason: Constipation Isosorbide Mononitrate ER [Imdur] 30 mg PO DAILY #30 tab Loperamide [Imodium] 2 - 4 mg PO QID PRN PRN Reason: Loose Stool Ezetimibe [Zetia] 10 mg PO HS Aspirin EC [Ecotrin Low Dose] 81 mg PO DAILY Tamsulosin [Flomax] 0.4 mg PO DAILY #30 cap Finasteride [Proscar] 5 mg PO DAILY #30 tablet Clopidogrel [Plavix] 75 mg PO DAILY tab Ferrous Sulfate [Iron (65 MG Elemental)] 325 mg PO DAILY Amiodarone HCl [Pacerone] 100 mg PO DAILY Acetaminophen [Tylenol Arthritis] 650 mg PO Q4H PRN PRN Reason: Pain Discharge Medication List Aspirin EC [Ecotrin Low Dose] 81 mg PO DAILY 07/03/24 [History] Atorvastatin [Lipitor] 40 mg PO HS 07/03/24 [History] Ezetimibe [Zetia] 10 mg PO HS 07/03/24 [History] Finasteride [Proscar] 5 mg PO DAILY #30 tablet 07/11/24 [Rx] Tamsulosin [Flomax] 0.4 mg PO DAILY #30 cap 07/11/24 [Rx] Clopidogrel [Plavix] 75 mg PO DAILY tab 07/15/24 [Rx] Metoprolol Tartrate [Lopressor] 25 mg PO BID tab 07/15/24 [Rx] Spironolactone [Aldactone] 25 mg PO DAILY tab 07/15/24 [Rx] Docusate [Colace] 100 mg PO BID PRN 10/06/24 [History] Furosemide [Lasix] 10 mg PO DAILY 10/06/24 [History] polyethylene glycoL 3350 [Miralax] 17 gm PO DAILY PRN 10/06/24 [History] Isosorbide Mononitrate ER [Imdur] 30 mg PO DAILY #30 tab 10/08/24 [Rx] Acetaminophen [Tylenol Arthritis] 650 mg PO Q4H PRN 10/10/24 [History] Amiodarone HCl [Pacerone] 100 mg PO DAILY 10/10/24 [History] Ferrous Sulfate [Iron (65 MG Elemental)] 325 mg PO DAILY 10/10/24 [History] Loperamide [Imodium] 2 - 4 mg PO QID PRN 10/10/24 [History] Follow up Appointment(s)/Referral(s): Patrice Garcia MD [Primary Care Provider] - 1-2 days
[2024-10-11 16:22] VITALS: BP 131/61; PULSE 73; RESP 18; TEMP 97.5
[2024-10-11] MEDS: LACTATED RINGERS 1,000 ML IV SCH (17:47)
--- NOTE | 2024-10-11 18:06 | P.DS ---
Providers Date of admission: 10/10/24 01:55 Attending physician: Santy Ruff MD Consults: 10/10/24 01:55 Consult Physician Urgent Consulting Provider: Cardiology Dustin Consult Reason/Comments: UA Do you want consulting provider notified?: Yes, Notify in am 10/10/24 14:16 Consult Physician Routine Consulting Provider: Andreea Chan Consult Reason/Comments: Post Interventional Patient Do you want consulting provider notified?: Already Contacted Primary care physician: Patrice Garcia MD Hospital Course: Discharge Diagnosis: CAD S/p CABG, DECKER to LAD, left radial artery graft to obtuse marginal and intermediate coronary arteries, occlusion of the left atrial appendage, S/p proximal and mid RCA stenting 10/10/2024 Hypertension Hyperlipidemia LUIS ANGEL on CKD, improved Hyponatremia BPH Chronic iron deficiency anemia Hospital Course: Patient is a 83 year old male with hyperlipidemia, hypertension, GA s/p stent and CABG presented to the ED with chest pain. Patient experienced progressively worsening shortness of breath with activity and underwent cardiac catheterization yesterday with Dr. Peña that showed three-vessel coronary artery disease with patent DECKER to LAD, severe stenosis in right coronary artery. They had planned on doing another cardiac catheterization with stents tomorrow, but this had to be canceled and the patient did not get prior Auth from insurance. Patient reports intermittent sharp left-sided chest pain that started last night. Today his chest pain became more persistent. Associated with that he experiences shortness of breath and a nonproductive cough. He is currently on Plavix. Denies fever, palpitations, abdominal pain, nausea, vomiting, hematuria, dysuria, hematochezia, melena, headache, slurred speech, numbness, tingling, dizziness, lightheadedness, blurred vision, double vision. ED documentation reviewed. In the ED patient was treated with aspirin and heparin drip. Received aspirin 324 mg p.o. once in the ED Vitals on admission T 97.5 F, IA 83 bpm, RR 18, BP 110/59, SpO2 97% on room airEKG independently interpreted as sinus rhythm, S1Q3T3, rate 77 bpm, QTc 395 ms.Chest x-ray shows chronic changes without acute pulmonary process.Labs on admission show WBC 9.34, hemoglobin 11.3, platelet 181, INR 1.1, APTT 21.8, sodium 132, bicarb 21, BUN 27, creatinine 1.79, magnesium 1.9, NT proBNP 209, troponin I 0.023 Patient was taken to heart Cath on 10/10, underwent successful stenting of a very complex and very calcified proximal and mid RCA. He was seen and examined on 10/11, and daughter present during exam. He feels better, denies chest pain or shortness of breath, vital signs are stable, he is normotensive and afebrile, on room air. Hemoglobin is stable at 10.3, no leukocytosis, kidney function stable creatinine 1.73. Cleared by cardiology for discharge, no medication changes. Follow-up with PCP and cardiology. Vital signs reviewed and stable. General: [nontoxic], [no distress], [appears at stated age] Derm: [warm], [dry] Head: [atraumatic], [normocephalic], [symmetric] Eyes: [EOMI], [no lid lag], [anicteric sclera] Mouth: [no lip lesion], [mucus membranes moist] Cardiovascular: [S1S2 reg], [no murmur] Lungs: [CTA bilateral], [no rhonchi, no rales] , [no accessory muscle use] Abdominal: [soft], [ nontender to palpation], [no guarding], [no appreciable organomegaly] Ext: [no gross muscle atrophy], [no edema], [no contractures] Neuro: [ CN II-XI grossly intact], [no focal neuro deficits] Psych: [Alert], [oriented], [appropriate affect] A total of 40 minutes of time were spent preparing this complex discharge summary. Patient was discharged on 10/11/2024. Patient Condition at Discharge: Stable Plan - Discharge Summary Discharge Rx Participant: No New Discharge Prescriptions: New Nitroglycerin Sl Tabs [Nitrostat] 0.4 mg SUBLINGUAL Q5M PRN #30 tab PRN Reason: Chest Pain Continue Atorvastatin [Lipitor] 40 mg PO HS Spironolactone [Aldactone] 25 mg PO DAILY tab Metoprolol Tartrate [Lopressor] 25 mg PO BID tab Docusate [Colace] 100 mg PO BID PRN PRN Reason: Constipation Furosemide [Lasix] 10 mg PO DAILY polyethylene glycoL 3350 [Miralax] 17 gm PO DAILY PRN PRN Reason: Constipation Isosorbide Mononitrate ER [Imdur] 30 mg PO DAILY #30 tab Loperamide [Imodium] 2 - 4 mg PO QID PRN PRN Reason: Loose Stool Ezetimibe [Zetia] 10 mg PO HS Aspirin EC [Ecotrin Low Dose] 81 mg PO DAILY Tamsulosin [Flomax] 0.4 mg PO DAILY #30 cap Finasteride [Proscar] 5 mg PO DAILY #30 tablet Clopidogrel [Plavix] 75 mg PO DAILY tab Ferrous Sulfate [Iron (65 MG Elemental)] 325 mg PO DAILY Amiodarone HCl [Pacerone] 100 mg PO DAILY Acetaminophen [Tylenol Arthritis] 650 mg PO Q4H PRN PRN Reason: Pain Discharge Medication List Aspirin EC [Ecotrin Low Dose] 81 mg PO DAILY 07/03/24 [History] Atorvastatin [Lipitor] 40 mg PO HS 07/03/24 [History] Ezetimibe [Zetia] 10 mg PO HS 07/03/24 [History] Finasteride [Proscar] 5 mg PO DAILY #30 tablet 07/11/24 [Rx] Tamsulosin [Flomax] 0.4 mg PO DAILY #30 cap 07/11/24 [Rx] Clopidogrel [Plavix] 75 mg PO DAILY tab 07/15/24 [Rx] Metoprolol Tartrate [Lopressor] 25 mg PO BID tab 07/15/24 [Rx] Spironolactone [Aldactone] 25 mg PO DAILY tab 07/15/24 [Rx] Docusate [Colace] 100 mg PO BID PRN 10/06/24 [History] Furosemide [Lasix] 10 mg PO DAILY 10/06/24 [History] polyethylene glycoL 3350 [Miralax] 17 gm PO DAILY PRN 10/06/24 [History] Isosorbide Mononitrate ER [Imdur] 30 mg PO DAILY #30 tab 10/08/24 [Rx] Acetaminophen [Tylenol Arthritis] 650 mg PO Q4H PRN 10/10/24 [History] Amiodarone HCl [Pacerone] 100 mg PO DAILY 10/10/24 [History] Ferrous Sulfate [Iron (65 MG Elemental)] 325 mg PO DAILY 10/10/24 [History] Loperamide [Imodium] 2 - 4 mg PO QID PRN 10/10/24 [History] Nitroglycerin Sl Tabs [Nitrostat] 0.4 mg SUBLINGUAL Q5M PRN #30 tab 10/11/24 [Rx] Follow up Appointment(s)/Referral(s): Allen Newman MD [STAFF PHYSICIAN] - 1 Week (Call to make follow up appointment ) Patrice Garcia MD [Primary Care Provider] - 1-2 days (call to set up follow up appointment ) Yoandy Peña MD [STAFF PHYSICIAN] - 1 Week Patient Instructions/Handouts: Heart Healthy Diet (DC), Low-Sodium Diet (DC), Heart Catheterization (DC), After Radial Heart Catheterization (GEN) Activity/Diet/Wound Care/Special Instructions: Please, follow-up with your primary care physician, twill cutter. Discharge Disposition: HOME SELF-CARE
--- NOTE | 2024-10-11 18:17 | P.PN ---
Subjective Progress Note Date: 10/11/24 History of present illness: This is an 83-year-old male patient of Dr. Daniel Peña with past medical history of coronary artery disease status post CABG DECKER to LAD, radial artery graft to OM and ramus intermedius, also has significant lesion in the right coronary artery that could not undergo revascularization. He also has significant medical history of hypertension, dyslipidemia. We have been asked to evaluate the patient for unstable angina. On 10/08, patient was brought into the hospital underwent cardiac catheterization finding three-vessel coronary artery disease, started on Imdur and discharged home. Patient was doing well until he developed chest pain last evening and decided to come back into the hospital for further evaluation. Patient complains of intermittent sharp left-sided chest pain that became more persistent over time along with shortness of breath. No palpitations. Patient is seen today in the emergency center waiting for bed on the cardiac stepdown unit. Patient has been started on heparin drip. Patient is agreeable to move forward with PCI today with Dr. Newman. -EKG: Sinus rhythm with nonspecific T wave changes. -Chest x-ray: Chronic changes without acute process. -Laboratory studies: WBC 6.2, hemoglobin 10.9, BUN 26 and creatinine 1.74. Triglycerides 68, cholesterol 93, LDL 46. TSH 14.5 and free T41.88. -Home cardiac medications: Imdur 30 mg daily, aspirin 81 mg daily, atorvastatin 40 mg daily, amiodarone 100 mg daily, Plavix 75 mg daily, Lasix 20 mg daily, metoprolol tartrate 25 mg twice daily, Zetia 10 mg daily. -Echocardiogram performed on 07/03/2024 revealed normal LV size and systolic function. Moderate mitral and mild aortic and tricuspid regurgitation. Progress note 10/11/2024 Seen and examined at bedside this a.m. Doing well denies any chest pain chest pressure Able to ambulate in the unit without limitation Blood pressure is optimally controlled. Right groin and right radial access site appears intact with no signs of hematoma or bleeding and good pulses distally. Physical examination: Gen: This is 83-year-old male in no acute distress VS: reviewed HEENT: Head is atraumatic, normocephalic. Pupils equal, round. Sclerae is anicte kathryn. NECK: Supple. No JVD. LUNGS: Clear to auscultation. No wheezes or rhonchi. No intercostal re tractions. HEART: Regular rate and rhythm. No murmur. ABDOMEN: Soft No tenderness. EXTREMITIES: No pedal edema. No calf tenderness. NEUROLOGICAL: Patient is awake, alert and oriented x3. Assessment: Unstable angina status post PCI to RCA Known coronary artery disease with previous CABG Hypertension Dyslipidemia Plan: Continue home medications aspirin Plavix Lipitor, metoprolol, Imdur, Aldactone Lasix. Continue at home dose Follow-up outpatient with primary mechanical technologist Dr. Ramirez Outpatient cardiac rehab Objective - Vital Signs Vital signs: Vital Signs Temp 97.5 F L 10/11/24 15:15 Pulse 73 10/11/24 15:15 Resp 18 10/11/24 15:15 BP 131/61 10/11/24 15:15 Pulse Ox 93 L 10/11/24 15:15 FiO2 Intake & Output 10/10/24 10/11/24 10/11/24 18:59 06:59 18:59 Intake Total 818 540 720 Output Total 800 300 Balance 818 -260 420 Weight 81.647 kg 81.6 kg 81.6 kg Intake: IV 700 Oral 118 540 720 Output: Urine 800 300 Other: Voiding Method Toilet Toilet Toilet Urinal Urinal Urinal # Voids 1 1 # Bowel Movements 1 - Labs CBC & Chem 7: 10/11/24 05:36 10/11/24 05:36 Labs: Abnormal Lab Results - Last 24 Hours (Table) 10/10/24 10/11/24 10/11/24 Range/Units 19:40 05:36 05:36 RBC 3.51 L (4.40-5.60) 10*6/uL Hgb 10.3 L (13.0-17.0) g/dL Hct 31.6 L (39.6-50.0) % Lymphocytes # 0.86 L (0.90-5.00) 10*3/uL Eosinophils # 0.83 H (0.04-0.35) 10*3/uL PT 12.8 H (10.0-12.5) sec INR 1.2 H (<1.2) Creatinine (0.66-1.25) mg/dL Urine Blood Trace H (Negative) Ur Leukocyte Esterase Large H (Negative) Urine WBC >182 H (0-5) /hpf Urine WBC Clumps Moderate H (None) /hpf 10/11/24 Range/Units 05:36 RBC (4.40-5.60) 10*6/uL Hgb (13.0-17.0) g/dL Hct (39.6-50.0) % Lymphocytes # (0.90-5.00) 10*3/uL Eosinophils # (0.04-0.35) 10*3/uL PT (10.0-12.5) sec INR (<1.2) Creatinine 1.73 H (0.66-1.25) mg/dL Urine Blood (Negative) Ur Leukocyte Esterase (Negative) Urine WBC (0-5) /hpf Urine WBC Clumps (None) /hpf
== END 2024-10-11 18:38 | disposition home or self-care (01) | DRG 324 ==
LOC: EC 20:26 → 3SCARD 10-10 01:55
PROVIDERS: ADMIT Student in an Organized Health Care Education/Training Program; ATTEND Student in an Organized Health Care Education/Training Program
PROC: 027034Z Dilation of Coronary Artery, One Artery with Drug-eluting Intraluminal Device, Percutaneous Approach (ICD-10-PCS; principal; 2024-10-11)
PROC: 02F03ZZ Fragmentation in Coronary Artery, One Artery, Percutaneous Approach (ICD-10-PCS; 2024-10-11)
PROC: B240ZZ3 Ultrasonography of Single Coronary Artery, Intravascular (ICD-10-PCS; 2024-10-11)
PROC: B2101ZZ Fluoroscopy of Single Coronary Artery using Low Osmolar Contrast (ICD-10-PCS; 2024-10-11)
DX: I25.110 Atherosclerotic heart disease of native coronary artery with unstable angina pectoris (principal); E87.1 Hypo-osmolality and hyponatremia; E11.22 Type 2 diabetes mellitus with diabetic chronic kidney disease; N18.31 Chronic kidney disease, stage 3a; I12.9 Hypertensive chronic kidney disease with stage 1 through stage 4 chronic kidney disease, or unspecified chronic kidney disease; D50.9 Iron deficiency anemia, unspecified; I08.1 Rheumatic disorders of both mitral and tricuspid valves; N17.9 Acute kidney failure, unspecified; E78.5 Hyperlipidemia, unspecified; N14.11 Contrast-induced nephropathy; X58.XXXA Exposure to other specified factors, initial encounter; I25.2 Old myocardial infarction; N40.0 Benign prostatic hyperplasia without lower urinary tract symptoms; Z79.02 Long term (current) use of antithrombotics/antiplatelets; Z79.82 Long term (current) use of aspirin; Z79.899 Other long term (current) drug therapy; Z82.49 Family history of ischemic heart disease and other diseases of the circulatory system; Z87.891 Personal history of nicotine dependence; Z95.1 Presence of aortocoronary bypass graft
CPT/HCPCS: 36415; 71046; 76770; 80048; 80053; 80061; 81001; 82565; 83036; 83690; 83735; 83880; 84439; 84443; 84484; 85025; 85027; 85049; 85610; 85730; 87077; 87086; 87186; 92972; 92978; 93005; 96365; 96366; 99285

== ENCOUNTER → 2024-11-20 | Outpatient (CLI) | payer MEDICARE ==
--- NOTE | 2024-11-21 16:31 | PE ---
EXAMINATION TYPE: PET CT fusion skull to thigh DATE OF EXAM: 11/20/2024 CLINICAL INDICATION:Male, 84 years old with history of C61 PROSTATE CANCER; TECHNIQUE: Following the intravenous administration of 6.41 mCi of Ga-68 Illuccix (PSMA), whole bod y images are performed from the skull vertex to the midthigh. Images are reviewed on the computer in the coronal, axial, and sagittal planes. Reconstructed rotating images are created on independent [employer] orkstation and reviewed on the computer. A non-contrast CT is performed in conjunction with the PET scan. CT DLP: 1144.7 mGycm, Automated exposure control for dose reduction was used. COMPARISON: CT None, PET/CT None, MRI: None FINDINGS: Mediastinal SUV mean is 2.0. Hepatic parenchyma SUV mean is 5.6. SKULL BASE AND NECK: No suspicious radiotracer activity. CHEST, MEDIASTINUM, AND HILAR REGION: No suspicious radiotracer activity. ABDOMEN AND PELVIS: Focal region of increased radiotracer activity predominantly within the right prostate gland. Demonst rates a maximum SUV of 11.9. MUSCULOSKELETAL STRUCTURES: No suspicious radiotracer activity. OTHER CT: Bilateral aphakia. Bilateral carotid bifurcation calcification with right greater than left . Sternotomy changes. Post-CABG changes. Mild cardiomegaly. Left atrial appendage occlusion device. C oronary artery calcifications. Mild atherosclerotic calcification of the aorta and its branches. Elev ation of the right hemidiaphragm. Mild bilateral gynecomastia. Possible subtle layering gallstones wi thin the gallbladder. Cortical thinning of both kidneys suggesting medical renal disease. Extensive d istal colonic diverticulosis without evidence for acute diverticulitis. Epigastric ventral wall small fat containing hernia. Small periampullary duodenal diverticulum. Remote right sided rib fractures. Scattered regions of suspected atelectasis. IMPRESSION: Focal intense radiotracer activity within the prostate gland corresponding to known prostate malignan cy. No other suspicious radiotracer activity to suggest metastasis. [facility], , 11/21/2024 4:29 PM
== END | disposition home or self-care (01) ==
LOC: RADPETMAIN 13:08
PROVIDERS: ATTEND Urology
DX: C61 Malignant neoplasm of prostate (principal)
CPT/HCPCS: 78815; A9596